=== PATIENT | female | born 1955 | race Caucasian/White ===

== ENCOUNTER 2019-07-15 06:40 | Emergency (ER) | payer MEDICARE, MEDICAID, SELFPAY ==
--- NOTE | ~2019-07-15 | CT_ITS ---
EXAMINATION: CT brain wo con DATE: 07/15/2019 07:05 INDICATION: Left sided weakness. TECHNIQUE: Computed tomography (CT) of the head was performed without intravenous contrast. The mA wa s adjusted according to patient size. Iterative reconstruction technique was employed. Exam dose: 60 5.33 mGy-cm total exam DLP. COMPARISON: None FINDINGS: No intracranial mass lesion or hemorrhage or evidence of cerebrovascular accident is eviden t. There is no midline shifts or mass effect. Normal ventricular size. No subdural or epidural hemato ma. No fracture or bone destruction of the cranial vault. Included paranasal sinuses and mastoid air cell s are unremarkable. IMPRESSION: No acute intracranial finding Dr. Centeno telephoned the report to emergency room physician on 07/15/2019 at 0710 hours Reviewed, dictated and finalized at [facility]. Reviewed, dictated and finalized at location A. NICAL REP IMPRESSION: No acute intracranial finding Dr. Centeno telephoned the report to emergency room physician on 2018 at 0710 hours
--- NOTE | ~2019-07-15 | XR_ITS ---
XR chest 1V DATE: 07/15/2019 07:09 INDICATION: Shortness of breath. Left-sided weakness. History of COPD. TECHNIQUE: Upright AP chest on 07/15/2019 at 0707 hours COMPARISON: 11/16/2018 portable AP chest 12/26/2018 CT chest FINDINGS: Bilateral hyperinflation, consistent with history of COPD. No pulmonary infiltrate or conso lidation, pleural effusion or pulmonary vascular congestion or pneumothorax is evident. Heart size ap pears normal. There is aortic arch calcification. IMPRESSION: Bilateral hyperinflation consistent with COPD Reviewed, dictated and finalized at location A. RACT AGENT
[2019-07-15 06:40] VITALS: BP 148/88; PULSE 80; RESP 20; TEMP 36.6; O2SAT 100
--- NOTE | 2019-07-15 06:40 | ECG_ITS ---
Measurements Intervals [place] Rate: 99 P: 87 MN: 161 QRS: 58 QRSD: 94 T: 57 QT: 351 QTc: 450 Interpretive Statements SINUS RHYTHM CANNOT RULE OUT SEPTAL INFARCT, AGE INDETERMINATE BASELINE ARTIFACT- I, II, AVR, AVL, V5 ABNORMAL ECG Electronically Signed On 07-15-2019 6:47:58 [employer] by Rohan Zavala D.O.
--- NOTE | 2019-07-15 06:40 | ED.NEUROSD ---
HPI - Neuro Symptoms/Deficit General Chief Complaint: Suspected CVA Stated Complaint: L SIDED WEAKNESS Source: patient and EMS Mode of arrival: EMS Limitations: no limitations History of Present Illness HPI Narrative: Patient is a 64-year-old female with a history of COPD who presents for evaluation of left-sided weakness. Patient reportedly has had approximately 90 minutes of weakness after symptoms began around 5:45AM this morning after she had woken up; pt states she awakened around 5:30 am this morning. Patient also states that she had some left-sided shoulder pain and difficulty moving her LUE. She denied any chest pain or shortness of breath. No ripping or tearing sensation to the pain. Pain is dull and aching in nature. 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 She also felt that it was difficult to move her left upper extremity. Pt was able to ambulate this morning. No numbness in her face or lower leg. Patient has no history of stroke. Patient states that she did apply some ice to her left arm and felt much better. EMS transported this patient, glucose was 110. Vital signs are stable. Of note, patient's son recently from a cardiac arrest due to drug overdose within the week. Patient is very tearful. Related Data Allergies Allergy/AdvReac Type Severity Reaction Status Date / Time No Known Allergies Allergy Verified 11/07/18 16:57 Review of Systems Review of Systems: Narrative: CONSTITUTIONAL: Denies fever, chills, or sweats. EYES: Denies visual changes, redness, or discharge. CARDIOVASCULAR: Denies chest pain, palpitations, or edema. RESPIRATORY: Reports chronic cough, chronic shortness of breath, on 3 L of oxygen at home GASTROINTESTINAL: Denies abdominal pain, nausea, vomiting, or diarrhea. GENITOURINARY: Denies dysuria or hematuria. SKIN: Denies rash or itching. MUSCULOSKELETAL: Denies back pain, joint pain, or myalgia. NEUROLOGIC: Denies headache, reports left-sided arm weakness PSYCHIATRIC: Reports some depression, denies homicidal or suicidal ideation, reports feeling very sad regarding the of her son [facility] Past Medical History Medical History (Updated 07/15/19 @ 08:53 by Almaz Forte MD) COPD (chronic obstructive pulmonary disease) On supplemental oxygen by nasal cannula Surgical History Surgical History (Updated 07/15/19 @ 06:55 by Almaz Forte MD) H/O: hysterectomy Family History Family History (Updated 03/29/18 @ 09:28 by DOCTOR UNKNOWN) Mother Diabetes mellitus Hypertension Sibling Hypertension Asthma Family history of sleep apnea Social History Social History Smoking status: Former smoker Smoking end date: 07/31/16 Exam Narrative: Exam Narrative: GENERAL: Well-appearing, well-nourished, and in no acute distress. HEAD: Normocephalic, atraumatic. EYES: PERRLA and EOMI. ENT: Nares clear, no rhinorrhea or epistaxis. Mucous membranes moist. NECK: Supple. CHEST: NC in place. Faint expiratory wheezing bilaterally No respiratory distress. HEART: Regular rate and rhythm. No murmur heard. Normal peripheral pulses. ABDOMEN: Soft, nontender, nondistended, normal active bowel sounds. EXTREMITIES: Normal range of motion. No edema. SKIN: Warm, dry, no rash. NEURO:Alert and oriented x3. Patient cannot complete [id number] on the left, she can complete this easily on the right. There is ataxia on the left and some rigidity. EOMs intact without nystagmus. No facial droop/asymmetry noted bilaterally. Grimace intact. Intact sensation in face. Hearing intact bilaterally. Shoulder shrug decreased on left. Strength 4/5 LUE, and 5/5 RUE. Mild decrease in strength LLE. Patient cannot complete [id number] on the left ambulatory exam deferred. Course Course Emergency Course: Patient presented for evaluation of left upper extremity weakness. Time of onset of symptoms is approximatel
[2019-07-15 07:16] LABS: Glucose Point of Care 83 (65-105)
--- NOTE | 2019-07-15 07:57 | PC.NURSE ---
Called [facility] to transfer pt to a higher level of care. [facility] declined the trip and said they are not taking any other transfers till further notice.
--- NOTE | 2019-07-15 07:58 | PC.NURSE ---
Called [facility] to transfer pt to a higher level of care. ETA 15-20min. Trip# [id number].
[2019-07-15 08:34] LABS: Basophils Percent Auto 0.5 % (0.2-1.2); Eosinophils Absolute Auto 0.1 K/mm3 (0-0.3); Eosinophils Percent Auto 1.1 % (0-4.4); Hematocrit 40.6 % (37.0-47.0); Hemoglobin 12.5 g/dL (12.0-15.0); Immature Granulocyte Absolute 0.01 K/mm3 (0.00-0.031); Immature Granulocyte Percent A 0.2 % (0-0.5); Lymphocytes Absolute Auto 1.69 K/mm3 (0.9-3.2); Lymphocytes Percent Auto 26.2 % (18.3-44.2); Mean Corpuscular HGB Conc 30.8 g/dl (32-36); Mean Corpuscular Hemoglobin 29.3 pg (26-34); Mean Corpuscular Volume 95.3 fl (80-100); Mean Platelet Volume 9.7 fl (7.4-10.4); Monocytes Absolute Auto 0.5 K/mm3 (0.1-0.6); Monocytes Percent Auto 7.6 % (2.6-8.5); Neutrophils Absolute Auto 4.2 K/mm3 (1.3-6.7); Neutrophils Percent Auto 64.4 % (45.5-73.1); Platelet Count Result 178 k/mm3 (150-375); Red Blood Count 4.26 M/mm3 (4.2-5.4); Red Cell Distribution Width 12.9 % (11.5-14.5); White Blood Count 6.5 K/mm3 (4.5-10.0)
[2019-07-15 08:43] LABS: Blood Urea Nitrogen 15 mg/dL (7-17); Calcium 9.2 mg/dL (8.4-10.2); Carbon Dioxide 34 mmol/L (22-30); Chloride 102 mmol/L (98-107); Estimated CRCL calculation 109 ml/min; Estimated Glomerular Filt Rate > 60; Glucose 86 mg/dL (65-105); Potassium 4.2 mmol/L (3.4-5.0); Sodium 142 mmol/L (137-145)
[2019-07-15 08:44] LABS: INR 1.1; Prothrombin Time 13.7 Seconds (11.1-14.7)
[2019-07-15 08:45] VITALS: BP 136/68; PULSE 75; RESP 16; O2SAT 96
[2019-07-15 08:45] LABS: Partial Thromboplastin Time 54.4 SECONDS (22.3-36.8)
[2019-07-15 08:58] LABS: Troponin I < 0.012 ng/mL (0.000-0.034)
== END 2019-07-15 08:46 | disposition short-term general hospital (02) ==
PROVIDERS: Emergency Provider Emergency Medicine
DX: I63.9 Cerebral infarction, unspecified (principal); G83.24 Monoplegia of upper limb affecting left nondominant side; G83.12 Monoplegia of lower limb affecting left dominant side; J44.9 Chronic obstructive pulmonary disease, unspecified; Z87.891 Personal history of nicotine dependence; R29.703 NIHSS score 3
CPT/HCPCS: 36415; 37195; 70450; 71045; 80048; 82947; 82948; 82962; 84484; 85025; 85610; 85730; 93005; 99285; J2997

== ENCOUNTER 2020-01-25 11:24 | Outpatient (CLI) | payer MEDICARE, MEDICAID, SELFPAY ==
--- NOTE | ~2020-01-25 | CT_ITS ---
EXAMINATION: CT chest wo con DATE: 01/25/2020 12:12 INDICATION: Solitary pulmonary nodule TECHNIQUE: Computed tomography (CT) of the chest was performed without intravenous contrast. The dose -length product (DLP) was 91.85 mGy-cm. Automated exposure control and iterative reconstruction techn ique were employed. COMPARISON: 12/26/2018 FINDINGS: The previously described widespread pulmonary nodules have nearly completely resolved. A fe w persistent residua of prior infection remain. No suspicious pulmonary nodule is identified. There i s moderate emphysema. There is mild bronchiectasis of the lower lobes, consistent with prior infectio n. No pleural effusion or pneumothorax is identified. No pathologically enlarged thoracic lymph nodes are identified. The heart size is normal. Calcified coronary artery atherosclerosis is noted. There is mild thoracic spondylosis. IMPRESSION: 1. Residua of prior infection in the lungs without evidence of acute abnormality. 2. Moderate emphysema. Reviewed, dictated and finalized at location A. IMPRESSION: 1. Residua of prior infection in the lungs without evidence of acute abnormalit y. 2. Moderate emphysema.
== END 2020-01-25 11:25 | disposition home or self-care (01) ==
PROVIDERS: Visit Provider Internal Medicine Critical Care Medicine
DX: R91.1 Solitary pulmonary nodule (principal); J43.9 Emphysema, unspecified
CPT/HCPCS: 71250

== ENCOUNTER 2020-02-12 21:32 | Emergency (ER) | payer MEDICARE, MEDICAID, SELFPAY ==
--- NOTE | ~2020-02-12 | CT_ITS ---
EXAMINATION: CT brain wo con DATE: 02/12/2020 22:48 INDICATION: Left hemiparesis. TECHNIQUE: Computed tomography (CT) of the head was performed without intravenous contrast. The mA wa s adjusted according to patient size. Iterative reconstruction technique was employed. The dose-lengt h product was 605.33 mGy-cm. COMPARISON: Head CT 07/15/2019 FINDINGS: There is no intracranial hemorrhage, acute infarction, or abnormal intracranial mass lesion . The ventricles are normal in size. The paranasal sinuses are clear. The mastoid air cells are jefferson l. IMPRESSION: 1. Normal brain. Reviewed, dictated and finalized at location A. IMPRESSION: 1. Normal brain.
--- NOTE | ~2020-02-12 | XR_ITS ---
EXAMINATION: XR chest 1V portable DATE: 02/12/2020 22:05 INDICATION: Stroke. TECHNIQUE: A single frontal view of the chest was obtained. COMPARISON: Chest single view 07/15/2019, chest CT 01/25/2020 FINDINGS: Lung volumes are increased with lucencies, consistent with emphysema. There is mild scarrin g at the lung apices. There is mild atelectasis in left lower lung zone. There are widespread mild pe ripheral reticular opacities. No pleural effusion or pneumothorax. The heart size is normal. IMPRESSION: 1. Diffuse lung disease, likely a combination of emphysema and mild chronic interstitial lung disease . Reviewed, dictated and finalized at location A. IMPRESSION: 1. Diffuse lung disease, likely a combination of emphysema and mild chronic int erstitial lung disease.
[2020-02-12 21:34] VITALS: BP 157/76; PULSE 80; RESP 19; TEMP 37; O2SAT 97
[2020-02-12 22:06] LABS: Basophils Absolute Auto 0.1 K/mm3 (0.0-0.1); Basophils Percent Auto 0.6 % (0.2-1.2); Eosinophils Absolute Auto 0.1 K/mm3 (0-0.3); Eosinophils Percent Auto 1.3 % (0-4.4); Hematocrit 39.9 % (37.0-47.0); Hemoglobin 12.4 g/dL (12.0-15.0); Immature Granulocyte Absolute 0.01 K/mm3 (0.00-0.031); Immature Granulocyte Percent A 0.1 % (0-0.5); Lymphocytes Percent Auto 34.2 % (18.3-44.2); Mean Corpuscular HGB Conc 31.1 g/dl (32-36); Mean Corpuscular Hemoglobin 29.9 pg (26-34); Mean Corpuscular Volume 96.1 fl (80-100); Mean Platelet Volume 9.2 fl (7.4-10.4); Monocytes Absolute Auto 0.6 K/mm3 (0.1-0.6); Monocytes Percent Auto 6.7 % (2.6-8.5); Neutrophils Absolute Auto 4.8 K/mm3 (1.3-6.7); Neutrophils Percent Auto 57.1 % (45.5-73.1); Platelet Count Result 220 k/mm3 (150-375); Red Blood Count 4.15 M/mm3 (4.2-5.4); White Blood Count 8.5 K/mm3 (4.5-10.0)
[2020-02-12 22:16] LABS: INR 1.1; Prothrombin Time 14.3 Seconds (11.1-14.7)
[2020-02-12 22:17] LABS: Partial Thromboplastin Time 54.5 SECONDS (22.3-36.8)
[2020-02-12 22:18] LABS: Alanine Aminotransferase 21 U/L (4-35); Albumin Level 4.1 g/dL (3.5-5.1); Alkaline Phosphatase 90 U/L (38-126); Aspartate Amino Transferase 29 U/L (14-36); Bilirubin,Total < 0.1 mg/dL (0.2-1.3); Blood Urea Nitrogen 22 mg/dL (7-17); Calcium 9.2 mg/dL (8.4-10.2); Carbon Dioxide 32 mmol/L (22-30); Chloride 101 mmol/L (98-107); Estimated Glomerular Filt Rate > 60; Glucose 102 mg/dL (65-105); Potassium 4.3 mmol/L (3.4-5.0); Sodium 139 mmol/L (137-145)
[2020-02-12 22:29] LABS: Troponin I < 0.012 ng/mL (0.000-0.034)
[2020-02-12 22:41] VITALS: BP 150/72; PULSE 72; RESP 20; O2SAT 97
--- NOTE | 2020-02-12 23:06 | PC.NURSE ---
PT CARE ASSUMED FROM [facility] AT THIS TIME.
[2020-02-12 23:47] VITALS: BP 134/70; PULSE 68; RESP 16; O2SAT 98
[2020-02-13 00:08] LABS: Add Urine Microscopic? YES; Appearance Urine Cloudy (Clear); Bacteria Urine Trace /hpf; Bilirubin Urine Negative (Negative); Blood Urine Negative (Negative); Color Urine Yellow (Yellow); Glucose Urine UA Negative (Negative); Ketones Urine Negative (Negative); Leukocyte Esterase Ur Negative LEU/UL (Negative); Mucus Urine Rare /lpf; Nitrate Urine Negative (Negative); Protein Urine Negative (Negative); RBC Urine 0-2 /hpf (0-2); Specific Grav Ur 1.016 (1.001-1.035); Squamous Epithelial Cell Urine Rare /hpf (Few); Urobilinogen Urine Negative mg/dL (<2.0); WBC Urine 0-3 /hpf
[2020-02-13 00:25] VITALS: BP 114/66; PULSE 67; RESP 15; O2SAT 98
--- NOTE | 2020-02-13 01:44 | ED.GENADULT ---
HPI - General Adult General Chief complaint: Neuro Symptoms/Deficit Stated complaint: rigid Time Seen by Provider: 02/12/20 21:35 History of Present Illness HPI narrative: Patient is a 64-year-old female who presents ER with left-sided tightness. Reports it started about an hour and a half prior to arrival. No numbness or tingling. No weakness. Leg and arm are tremulous and tight. Reports she had a similar episode to this months ago that was diagnosed as a TIA at [facility]. She reports she has been under a lot of stress recently as her son about 6 months ago prior to the onset of the symptoms. Related Data Home Medications Medication Instructions Recorded Confirmed albuterol sulfate 90 mcg/actuation 1 puff INHALATION Q4H PRN 08/29/19 01/08/20 aerosol inhaler arformoterol 15 mcg/2 mL solution 2 ml INHALATION BID 08/29/19 01/08/20 for nebulization aspirin 81 mg tablet,delayed 81 mg PO DAILY 09/02/19 01/08/20 release Allergies Allergy/AdvReac Type Severity Reaction Status Date / Time No Known Allergies Allergy Verified 02/12/20 21:54 Review of Systems Review of Systems: All systems reviewed & are unremarkable except as noted in HPI and below Constitutional: Constitutional: Denies chills, Denies fever(s) and Denies weakness ENT: Denies nasal congestion and Denies sore throat Respiratory: Respiratory: Denies cough, Denies dyspnea and Denies wheezing Gastrointestinal: Gastrointestinal: Denies abdominal pain, Denies nausea and Denies vomiting Musculoskeletal: Musculoskeletal: Denies back pain and Reports muscle cramps PMFSH Past Medical History Medical History (Updated 02/13/20 @ 01:55 by Jacob Conde MD) COPD (chronic obstructive pulmonary disease) H/O TIA (transient ischemic attack) and stroke June 2019 On supplemental oxygen by nasal cannula Surgical History Surgical History (Updated 07/15/19 @ 06:55 by Almaz Forte MD) H/O: hysterectomy Family History Family History (Updated 03/29/18 @ 09:28 by DOCTOR UNKNOWN) Mother Diabetes mellitus Hypertension Sibling Hypertension Asthma Family history of sleep apnea Social History Social History (Updated 09/02/19 @ 11:17 by Zunilda Black [facility]) Smoking status: Former smoker Smoking end date: 07/31/16 Exam Narrative: Exam Narrative: GENERAL: Anxious-appearing, well-nourished, and in milddistress. HEAD: Normocephalic, atraumatic. EYES: PERRL and EOMI. ENT: Mucous membranes moist. CHEST: Clear to auscultation. No respiratory distress. HEART: Regular rate and rhythm. Normal peripheral pulses. ABDOMEN: Soft, nontender, nondistended. EXTREMITIES: Normal range of motion. Left lower extremity is spastic and tight when doing range of motion. She can lift off the bed. No tenderness to the extremities. SKIN: Warm, dry, no rash. NEURO: Cranial nerves II through XII intact. No upper extremity drift, patient has mild drift in the left lower extremity but it may be more that she has having trouble holding it up due to tightening/spasm of the muscles. No sensory deficit. Patient is able to stand and can stand on her right leg all by itself as well as her left leg on its own. Alert and oriented x3. Course Course Emergency Course: Patient received some Ativan reports she feels much better. She has no drift in the lower extremities. Vital Signs Vital signs: Vital Signs Temperature 98.6 F 02/12/20 21:34 Pulse Rate 80 02/12/20 21:34 Respiratory Rate 19 02/12/20 21:34 Blood Pressure 157/76 H 02/12/20 21:34 Pulse Oximetry 97 02/12/20 21:34 Temperature 98.6 F 02/12/20 21:34 Pulse Rate 67 02/13/20 00:25 Respiratory Rate 15 02/13/20 00:25 Blood Pressure 114/66 02/13/20 00:25 Pulse Oximetry 98 02/13/20 00:25 Medical Decision Making Vital Signs Vital Signs: Vital Signs Temperature 98.6 F 02/12/20 21:34 Pulse Rate 80 02/12/20 21:34 Respiratory Rate
[2020-02-13 02:00] VITALS: BP 124/69; PULSE 65; RESP 18; O2SAT 100
== END 2020-02-13 02:00 | disposition home or self-care (01) ==
PROVIDERS: Emergency Provider Emergency Medicine
DX: R25.2 Cramp and spasm (principal); F41.9 Anxiety disorder, unspecified; Z86.73 Personal history of transient ischemic attack (TIA), and cerebral infarction without residual deficits; J44.9 Chronic obstructive pulmonary disease, unspecified; Z99.81 Dependence on supplemental oxygen; Z79.82 Long term (current) use of aspirin
CPT/HCPCS: 36415; 70450; 71045; 80053; 81001; 84484; 85025; 85610; 85730; 96374; 99284; J2060

== ENCOUNTER 2020-02-17 11:00 | Outpatient (RCR) | payer MEDICARE, MEDICAID, SELFPAY ==
[2020-01-20 10:30] VITALS: BP_SYST 130
--- NOTE | 2020-01-20 11:47 | PTOPEVAL ---
Thank you for referring James Barrett to [facility]. Please review, sign, date and return this plan of care IMANI. Pt referred to physical therapy to address left UE impairments related to her shoulder adhesive capsulitis. She demonstrates impairments with shoulder range, strength and UE function. Recommend additional PT 2x/wk x 8-10 wk to address UE limitations. I agree with and certify that the following plan of care is medically necessary. Referring Physician Date Attending Provider: Stephen Dalton MD *PT Outpatient Evaluation Start: 01/20/20 10:32 Freq: Status: Active Protocol: Document 01/20/20 10:30 CAP (Rec: 01/20/20 11:00 CAP [email or web address]) Therapy Assessment Status Assessment Status Assessment Status Evaluation Outpatient Past Medical History Neurological History Hx Cerebrovascular Accident (CVA) Yes: 07/18 Hx Transient Ischemic Attacks (TIA) Yes Cardiovascular History Hx Cardiac Disorders No Significant History Respiratory History Hx Chronic Obstructive Pulmonary Disease Yes: 3L O2 (COPD) Musculoskeletal History Hx Other Musculoskeletal Disorders Yes: left shoulder adhesive capsulitis Endocrine History Hx Diabetes Yes Evaluation Information Problem Diagnosis left shoulder adhesive capsulitis Onset 1 year Additional Evaluation Detail 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 Subjective Information She has been having pain in Query Text:As Reported By Patient/ the upper arm for ~ 1 year. Family She was limiting the use of the left arm when the pain started. She suffered a CVA . Since June the limitations of the left shoulder/arm progressed She received an injection on with improve pain and ability to use the arm for daily activities. She reports limitations with all reaching activities of left UE carrying objects with arm, cleaning activities. She uses her right UE for most daily task. Prior Level of Function Activity Level (Last 3 Months) Hand Dominance Right Activity of Daily Living Ability Independent Indoor/Home Mobility Independent Community Mobility Independ
--- NOTE | 2020-02-13 11:22 | PCPTNOTE ---
Patient called & cancelled scheduled appointment this date due to illness.
--- NOTE | 2020-02-17 11:53 | PTOPEVAL ---
Thank you for referring James Barrett to [facility]. Please review, sign, date and return this plan of care IMANI. Pt has received 8 therapy visits to address left shoulder impairments. She has reached her therapy goals at this time with improved UE strength, range and improved pain. DC skilled therapy at this time. I agree with and certify that the following plan of care is medically necessary. 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 She has been having pain in the upper arm for ~ 1 year. She was limiting the use of the left arm when the pain started. She suffered a CVA . Since June the limitations of the left shoulder/arm progressed. Subjective Information She reports no shoulder pain Query Text:As Reported By Patient/ today. She carrying her O2 Family tank with her left UE. She is able to perform all her daily activities of cleaning, ADL's, and carrying task. Reports improved ability to perform reaching in all directions. Pain Assessment Timing of Pain Assessment Timing of Pain Assessment Re-assessment Pain Scale Pain Scale Used Numeric (1 - 10) Self Report Pain Assessment Left Shoulder(s) Reported Pain Level 0 Lowest Pain Intensity 0 Greatest Pain Intensity 0 Pain Score Pain Score 0: Self Report Upper Extremity Range of Motion Scapular/ Shoulder Range of Motion Left Scapular: Retraction Hypomobile Scapular: Protraction Hypomobile Scapular Downward Rotation Hypomobile Scapular Upward Rotation Hypomobile Shoulder Flexion - Active 158 Shoulder Extension - Active 40 Shoulder Abduction - Active 150 Shoulder Medial Rotation - Active 65 Shoulder Medial Rotation - Acti
== END 2020-02-18 13:09 | disposition home or self-care (01) ==
LOC: ANHPT 11:00
PROVIDERS: Visit Provider Orthopaedic Surgery
DX: M75.02 Adhesive capsulitis of left shoulder (principal)
CPT/HCPCS: 97110; 97140; 97162

== ENCOUNTER 2020-04-24 11:46 | Outpatient (CLI) | payer MEDICARE, MEDICAID, SELFPAY ==
[2020-04-24 14:09] LABS: Erythrocyte Sedimentation Rate 17 mm/hr (0-20)
== END 2020-04-24 11:47 | disposition home or self-care (01) ==
LOC: ANHLAB 11:54
DX: R51 Headache (principal)
CPT/HCPCS: 36415; 85652; 86038

== ENCOUNTER 2020-05-04 18:10 | Inpatient (IN) | payer MEDICARE, MEDICAID, SELFPAY ==
[2020-05-04] VITALS (7 sets, daily range): BP systolic 108–157; BP diastolic 61–74; PULSE 71–80; RESP 16–20; TEMP 36.8; O2SAT 97–100
--- NOTE | ~2020-05-04 | MR_ITS ---
EXAMINATION: MR brain/brain stem wo/w con EXAM DATE: 05/05/2020 11:28 INDICATION: Headache. Left-sided hemiparesis. TECHNIQUE: Magnetic resonance imaging (MRI) of the brain/brain stem obtained without contrast. Sagit chris T1, axial diffusion, gradient echo (T2*), T1, T2, FLAIR sequences obtained. Patient was then inj ected with 18 cc intravenous Multihance contrast. Axial and coronal postcontrast T1 weighted sequence s obtained. Correlation is made to CTA brain from yesterday. FINDINGS: There are no areas of restricted diffusion to suggest acute infarction. There is no acute hemorrhage seen on the T2*, a hemosiderin sensitive sequence. No intraparenchymal brain mass. The ve ntricles are normal in size. There are no extra-axial collections. Flow voids are seen in the cereb ral arteries on the T2-weighted sequences consistent with their expected patency. The orbits are unr emarkable. Soft tissue is unremarkable. There are no areas of abnormal enhancement on the postcont rast images. IMPRESSION: 1. Unremarkable brain MRI examination. Reviewed, dictated and finalized at location B.
--- NOTE | ~2020-05-04 | CT_ITS ---
EXAMINATION: CTA brain carotid DATE: 05/04/2020 20:59 INDICATION: Left-sided weakness TECHNIQUE: Computed tomographic angiography (CTA) of the head was performed without and with 100 mL O mnipaque-350 intravenous contrast. CTA of the neck was performed with intravenous contrast. The dose- length product was 2914.77 mGy-cm. Maximum intensity projection and volume rendered 3D-reconstruction s were created by the technologist on a separate workstation. Automated exposure control and iterativ e reconstruction technique were employed. COMPARISON: 02/12/2020 FINDINGS: HEAD CTA: There is no acute intraparenchymal hemorrhage. No evidence of mass lesion. No evidence of a cute infarction. There is mild periventricular and subcortical hypodensity probably related to small vessel ischemic disease. There is mild prominence of the sulci and ventricles related to cerebral atr ophy. Intracranial calcified cerebral atherosclerosis is noted. There are no extra-axial collections. There is no mass effect or midline shift. The orbits and soft tissues are unremarkable. The visualiz ed sinuses and mastoid air cells are well aerated. There is no significant stenosis of the basilar artery or posterior cerebral arteries. There is no si gnificant stenosis of the intracranial internal carotid arteries or the anterior or middle cerebral a rteries. The anterior communicating artery and posterior communicating arteries are normal. There is no aneurysm. NECK CTA: The thyroid gland is unremarkable. The submandibular and parotid glands are symmetric. Ther e is no lymphadenopathy. There are no masses identified. The airway is unremarkable. There is mild ce rvical spondylosis. The superior mediastinum is unremarkable. There is mild emphysema. There is 0% stenosis of the proximal right internal carotid artery relative to normal distal artery l umen diameter (NASCET criteria). There is 0% stenosis of the proximal left internal carotid artery re lative to normal distal artery lumen diameter. IMPRESSION: 1. No acute intracranial abnormality. Normal head CTA. 2. 0% stenosis of the proximal right internal carotid artery relative to normal distal artery lumen d iameter (NASCET criteria). 3. 0% stenosis of the proximal left internal carotid artery relative to normal distal artery lumen di ameter. Reviewed, dictated and finalized at location A. IMPRESSION: 1. No acute intracranial abnormality. Normal head CTA. 2. 0% stenosis of the proximal right internal carotid artery relative to normal distal artery lumen diameter (NASCET criteria). 3. 0% stenosis of the proximal left internal carotid artery relative to normal distal artery lumen diameter.
--- NOTE | ~2020-05-04 | MR_ITS ---
EXAMINATION: MR cervical spine wo con EXAM DATE: 05/07/2020 08:31 INDICATION: Cervical radiculopathy. Headache. TECHNIQUE: Multi-sequential, multiplanar MR images of the cervical spine were obtained without contra st. Axial T2, axial T2 MERGE sequence. Sagittal T1, T2, T2 fat saturation images also obtained. Th ere is no prior study for comparison. FINDINGS: Mild to moderate cervical disc disease C4-6, mild disc disease at the other levels. Verteb ral body heights are maintained. The vertebral bodies are aligned in the AP dimension. The spinal cor d signal intensity and intrinsic morphology is normal. Cervicomedullary junction is normal in appeara nce. There are no suspicious marrow signal abnormalities. Paraspinal soft tissue is unremarkable. Level by level evaluation: C2-C3: Disc does not extend beyond the endplate margin. Uncovertebral joint arthropathy: Mild bilateral. Facet joint arthropathy: Severe left, moderate right. Neural foraminal stenosis: Mild to moderate left. Central canal stenosis: No stenosis. C3-C4: Disc does not extend beyond the endplate margin. Uncovertebral joint arthropathy: Mild bilateral. Facet joint arthropathy: Severe right, moderate to severe left. Neural foraminal stenosis: Mild to moderate bilateral. Central canal stenosis: No stenosis. C4-C5: Disc does not extend beyond the endplate margin. Uncovertebral joint arthropathy: Mild to moderate bilateral. Facet joint arthropathy: Moderate left, mild to moderate right. Neural foraminal stenosis: No stenosis. Central canal stenosis: No stenosis. C5-C6: Disc does not extend beyond the endplate margin. Uncovertebral joint arthropathy: Mild to moderate bilateral. Facet joint arthropathy: Moderate bilateral. Neural foraminal stenosis: No stenosis. Central canal stenosis: No stenosis. C6-C7: There is a mild diffuse disc bulge. Uncovertebral joint arthropathy: Mild to moderate bilateral. Facet joint arthropathy: Moderate left, mild to moderate right. Neural foraminal stenosis: Mild bilateral. Central canal stenosis: No stenosis. C7-T1: Disc does not extend beyond the endplate margin. Uncovertebral joint arthropathy: Mild. Facet joint arthropathy: Mild. Neural foraminal stenosis: No stenosis. Central canal stenosis: No stenosis. IMPRESSION: 1. Advanced cervical arthropathy, upper levels more affected. Reviewed, dictated and finalized at location B.
--- NOTE | 2020-05-04 18:40 | ECG_ITS ---
Measurements Intervals [place] Rate: 75 P: 80 [place]: 145 QRS: 47 QRSD: 96 T: 60 QT: 367 QTc: 411 Interpretive Statements SINUS RHYTHM CANNOT RULE OUT SEPTAL INFARCT, AGE INDETERMINATE BASELINE ARTIFACT- I, II, AVR, AVL ABNORMAL ECG Electronically Signed On 05-04-2020 19:03:33 CDT by Rohan Zavala D.O.
--- NOTE | 2020-05-04 20:09 | ED.GENADULT ---
HPI - General Adult General Chief complaint: Unspecified Stated complaint: pain left arm Time Seen by Provider: 05/04/20 19:57 Source: patient History of Present Illness HPI narrative: Patient is a 65 y/o female complaining of left arm pain and left sided weakness. She states that she was watching TV and felt like she cannot move her left side. She noticed her symptoms around 5:30 PM. She states that she called her and she was brought here by EMS. She states that her left sided weakness has improved, but not back to her baseline. She had some difficulty with talking, but her speech has returned to normal. She admits that she is stressed out today when she thought about her son's last year. Related Data Home Medications Medication Instructions Recorded Confirmed albuterol sulfate 90 mcg/actuation 1 puff INHALATION Q4H PRN 08/29/19 05/05/20 aerosol inhaler arformoterol 15 mcg/2 mL solution 2 ml INHALATION BID 08/29/19 05/05/20 for nebulization aspirin 81 mg tablet,delayed 81 mg PO DAILY 09/02/19 05/05/20 release meloxicam 15 mg tablet 15 mg PO HS 03/02/20 05/05/20 albuterol sulfate 2.5 mg INHALATION DAILY 05/05/20 05/05/20 Allergies Allergy/AdvReac Type Severity Reaction Status Date / Time No Known Allergies Allergy Verified 05/04/20 23:11 Review of Systems Constitutional: Constitutional: Denies chills, Denies fever(s), Denies headache(s) and Denies weakness Eyes: Eyes: Denies blurry vision ENT: Denies headache(s) and Denies neck pain Cardiovascular: Cardiovascular: Denies chest pain and Denies dyspnea Respiratory: Respiratory: Denies cough and Denies dyspnea Gastrointestinal: Gastrointestinal: Denies abdominal pain, Denies diarrhea, Denies nausea and Denies vomiting Genitourinary: Genitourinary: Denies hematuria and Denies dysuria Musculoskeletal: Musculoskeletal: Reports as per HPI, Denies back pain, Denies neck pain and Reports other (left arm pain) Neurologic: Reports as per HPI, Denies headache(s), Reports focal weakness and Reports weakness PMFSH Past Medical History Medical History Chronic respiratory failure with hypercapnia COPD (chronic obstructive pulmonary disease) H/O TIA (transient ischemic attack) and stroke June 2019 On supplemental oxygen by nasal cannula Surgical History Surgical History H/O: hysterectomy Family History Family History Mother Diabetes mellitus Hypertension Sibling Hypertension Asthma Family history of sleep apnea Social History Social History Smoking packs per day: 1 Smoking cigarettes per day: 20.0 Years smoked: 20 Smoking pack-years: 20.00 Smoking status: Former smoker Smoking end date: 07/31/16 Alcohol intake: never Gender identity (if verbalized by the patient): Female Spiritual care concerns: No Exam Const: General: no acute distress and well developed Orientation/consciousness: oriented to person, oriented to place, oriented to time and patient oriented x3 HENMT: Head: normocephalic Ears: external ears normal General nose exam: Normal external nose present Eyes: General: appearance normal, both eyes and all related structures Conjunctivae: conjunctivae normal Neck: Neck: normal visual inspection and full ROM Chest: Chest palpation & inspection: normal inspection of the chest and no tenderness Resp: Effort & Inspection: normal respiratory effort Auscultation: clear to auscultation bilaterally Cardio: Rate: regular rate Rhythm: regular rhythm GI: GI Palp: No abdominal tenderness and Yes Soft to palpation Skin: General skin exam: normal color and turgor normal Neuro: General: oriented to person, oriented to place, oriented to time and patient oriented x3 Cognition (Neuro): normal
[2020-05-04 20:29] LABS: Basophils Absolute Auto 0.1 K/mm3 (0.0-0.1); Basophils Percent Auto 0.5 % (0.2-1.2); Eosinophils Absolute Auto 0.2 K/mm3 (0-0.3); Eosinophils Percent Auto 1.6 % (0-4.4); Immature Granulocyte Absolute 0.03 K/mm3 (0.00-0.031); Immature Granulocyte Percent A 0.3 % (0-0.5); Lymphocytes Absolute Auto 2.38 K/mm3 (0.9-3.2); Lymphocytes Percent Auto 24.5 % (18.3-44.2); Monocytes Absolute Auto 0.5 K/mm3 (0.1-0.6); Monocytes Percent Auto 5.5 % (2.6-8.5); Neutrophils Absolute Auto 6.6 K/mm3 (1.3-6.7); Neutrophils Percent Auto 67.6 % (45.5-73.1); Platelet Count Result 228 k/mm3 (150-375); Red Blood Count 4.33 M/mm3 (4.2-5.4); Red Cell Distribution Width 12.9 % (11.5-14.5); White Blood Count 9.7 K/mm3 (4.5-10.0)
[2020-05-04 20:39] LABS: INR 1.1; Prothrombin Time 13.9 Seconds (11.1-14.7)
[2020-05-04 20:39] LABS: Estimated CRCL calculation 91 ml/min; Estimated Glomerular Filt Rate > 60
[2020-05-04 20:40] LABS: Partial Thromboplastin Time 53.8 SECONDS (22.3-36.8)
[2020-05-04 20:44] LABS: Anion Gap 1.99999 mmol/L (8-16); Blood Urea Nitrogen 21 mg/dL (7-17); Calcium 9.7 mg/dL (8.4-10.2); Carbon Dioxide > 40 mmol/L (22-30); Chloride 99 mmol/L (98-107); Estimated CRCL calculation 91 ml/min; Estimated Glomerular Filt Rate > 60; Glucose 96 mg/dL (65-105); Potassium 4.8 mmol/L (3.4-5.0); Sodium 141 mmol/L (137-145)
--- NOTE | 2020-05-04 20:57 | PC.NURSE ---
pt presents to ER with c/o left leg weakness. pt states around 17:00 tonight she noticed sx with associated numbness/tingling. pt also states, I was talking weird and my left arm went numb and stiff. Pt reports hx of TIA and states she was given TPA in June and transferred to [facility]. Pt states she was thinking about her son when sx first started. pt states her son last year and she was feeling a lot of stress and anxious. pt states sx have subsided besides L leg weakness. pt aaox4, no other neuro deficit noted. pt answering questions appropriately and no facial droop noted.
--- NOTE | 2020-05-04 21:20 | PC.NURSE ---
pt walking around room at this time, moving L extremity. pt states she would like to talk to her at this time about the TPA administration. All risks and benefits discussed with pt. pt states that she would like to hold off right now and does not want to be transferred to [facility] because her family will not be able to visit. MD Cummings at bedside-aware of poc. pt states she wishes to be admitted her.
--- NOTE | 2020-05-04 21:51 | PC.NURSE ---
pt ambulatory to restroom at this time in NAD
--- NOTE | 2020-05-04 23:31 | PC.NURSE ---
pt's called and updated on poc at this time per pt's request
[2020-05-04] MEDS: IPRATROPIUM BR 0.02% INH SOLN 0.5 MG/2.5 ML VIAL 2 MG INHALATION (23:58)
[2020-05-05] VITALS (20 sets, daily range): BP systolic 124–147; BP diastolic 55–77; PULSE 66–113; RESP 18–22; TEMP 35.9–36.6; O2SAT 95–99; BMI 32.7
--- NOTE | 2020-05-05 00:05 | ADMGEN ---
This patient, James Barrett, was admitted to Medical Room 346-01. Patient/family oriented to hospital policies and general routines including ID bracelet, bed and alarms, visiting hours, pain management, procedures, bathroom and other care routines, personal items, smoking policy, room service/diet, and visiting hours. Valuables list has been completed. Information on how to activate the Rapid Response Team has been discussed. Patient/Family are encouraged to report perceived risks to care and to ask questions if they do not understand what they are told or what they should do.
--- NOTE | 2020-05-05 02:40 | PC.NURSE ---
Phone call to hospitalist at this time to request medication for the patient. Patient has c/o headache and she feels like my head is going to pop off. No orders for pain medication in the MAR at this time. Will continue to reach hospitalist and ask about orders to receive pain medication for patient.
--- NOTE | 2020-05-05 03:01 | PC.NURSE ---
Spoke with Dr. Pineda about patient experiencing a headache like I've never had before. Orders given to give tylenol 650 Q4. Did assessment on patient and she was able to smile, hold arms up together, speak clearly, and do a math problem for me. I will continue to monitor the patient and assess as needed.
[2020-05-05] MEDS: ACETAMINOPHEN 325 MG TABLET 650 MG PO ×4 (03:17→17:00)
--- NOTE | 2020-05-05 06:00 | ECHO_ITS ---
Patient Info Name: James Barrett Age: 65 years : 1955 Gender: Female Ht: 67 in Wt: 189 lbs BSA: 2.04 m2 HR: 65 bpm BP: 144 / 70 mmHg Heart Rhythm: Sinus Rhythm Technical Quality: Good Exam Date: 05/05/2020 11:55 AM Exam Location: [facility] Pul[facility] Patient Status: Inpatient Admit Date: 05/04/2020 Staff Ordering Physician: Liz Cummings MD [employer] Operator: Fam Bernstein RDCS Attending Provider: Minal Pineda DO Referring Physician: Emiliano ZEPEDA; Exam Type: CA echo doppler color flow Study Info Indications 435.9 - TIA Complete two-dimensional, color flow and Doppler transthoracic echocardiogram is performed. History/Risk Factors TIA, COPD, chronic respiratory failure. Summary 1. Complete two-dimensional, color flow and Doppler transthoracic echocardiogram is performed. 2. Left ventricular chamber size, wall thickness, systolic and diastolic function are normal with no regional wall motion abnormalities with an estimated ejection fraction of 55-60%. 3. Right ventricular chamber dimension is mildly enlarged, with normal systolic function. 4. Borderline right atrial enlargement. 5. Mild pulmonary hypertension, estimated pulmonary arterial systolic pressure is 39 mmHg. 6. No significant valve disease. 7. Normal sinus rhythm. Left Ventricle Left ventricular chamber dimension is normal. Left ventricular systolic function is normal, estimated at 55-60%. There is no increased left ventricular wall thickness. Left ventricular septal wall motion is normal. The left ventricular diastolic function is normal. Left ventricular chamber size, wall thickness, systolic and diastolic function are normal with no regional wall motion abnormalities with an estimated ejection fraction of 55-60%. Right Ventricle Right ventricular chamber dimension is mildly enlarged, with normal systolic function. Right ventricular systolic function is normal. Left Atria Left atrial chamber dimension is normal. Right Atria Right atrial chamber dimension is mildly enlarged. Aortic Valve The aortic valve is trileaflet. There is no aortic valve sclerosis. There is no aortic valve stenosis. There is no aortic valve regurgitation. Pulmonic Valve The pulmonic valve is normal. There is no pulmonic valve stenosis. There is no pulmonic regurgitation. Mitral Valve The mitral valve has normal leaflets. There is mild mitral valve stenosis. There is no mitral valve regurgitation. Tricuspid Valve The tricuspid valve leaflets are normal. There is no significant tricuspid valve stenosis. There is trace tricuspid valve regurgitation. Mild pulmonary hypertension, estimated pulmonary arterial systolic pressure is 39 mmHg. Pericardium/Pleural The pericardium appears normal. There is no pericardial effusion. Inferior Vena Cava Normal inferior vena cava with >50% collapse upon inspiration consistent with Empty right atrial pressure, 5 mmHg. Aorta The aortic root size at the sinus of Valsalva is normal. The prox ascending aorta size is normal. Left Ventricular Outflow Tract Name Value Normal LVOT 2D LVOT Diameter 2.0 cm LVOT Doppler
[2020-05-05] MEDS: ASPIRIN 81 MG CHEWABLE TABLET PO (07:38)
[2020-05-05] MEDS: ALBUTEROL SULFATE NEB 2.5 MG/3 ML INH INHALATION (08:59)
[2020-05-05] MEDS: IPRATROPIUM BR 0.02% INH SOLN 0.5 MG/2.5 ML VIAL INHALATION ×3 (09:00→21:21)
[2020-05-05] MEDS: ALBUTEROL SULFATE NEB 2.5 MG/0.5 ML INH INHALATION ×2 (15:05→21:21)
[2020-05-05] MEDS: ROFLUMILAST 500 MCG TABLET PO (15:10)
--- NOTE | 2020-05-05 15:27 | WPDNEURCNPN ---
Assessment and Plan Assessment and plan (1) Left-sided weakness: Code(s): R53.1 - Weakness Status: Acute (2) Adhesive capsulitis of left shoulder: Code(s): M75.02 - Adhesive capsulitis of left shoulder Status: Acute (3) Bronchiectasis: Code(s): J47.9 - Bronchiectasis, uncomplicated Status: Acute (4) Immunodeficiency: Code(s): D84.9 - Immunodeficiency, unspecified Status: Acute (5) COPD (chronic obstructive pulmonary disease): Code(s): J44.9 - Chronic obstructive pulmonary disease, unspecified Status: Acute (6) Chronic respiratory failure with hypoxia and hypercapnia: Code(s): J96.11 - Chronic respiratory failure with hypoxia; J96.12 - Chronic respiratory failure with hypercapnia Status: Acute (7) Esophageal thickening: Code(s): K22.8 - Other specified diseases of esophagus Status: Acute (8) Lung nodule: Code(s): R91.1 - Solitary pulmonary nodule Status: Acute (9) Shortness of breath: Code(s): R06.02 - Shortness of breath Status: Acute (10) Tobacco abuse: Code(s): Z72.0 - Tobacco use Status: Acute (11) Neck pain: Code(s): M54.2 - Cervicalgia Status: Acute Additional Plan continue the present medical management I will order the MRI of the cervical spine to make sure we are not missing anything in her spinal cord and or the nerve roots Consult date: 05/05/20 Time Seen: 14:30 HPI: James Barrett is a 65 year old female who is right-handed was admitted because of the pain and discomfort and some weakness of the left side she just came out of the shower and did quite well complaining of headache she said she has had headache for some time MRI and the CTA are negative patient denies any paresthesias anymore but feels stiff in the pain in the left arm and the left leg she is on aspirin has underlying COPD Overall she feels much better though comparing to when she was in the emergency Review of Systems Review of Systems: All systems reviewed & are unremarkable except as noted in HPI and below PMFSH Past Medical History Medical History Chronic respiratory failure with hypercapnia COPD (chronic obstructive pulmonary disease) H/O TIA (transient ischemic attack) and stroke June 2019 On supplemental oxygen by nasal cannula Surgical History Surgical History H/O: hysterectomy Family History Family History Mother Diabetes mellitus Hypertension Sibling Hypertension Asthma Family history of sleep apnea Social History Social History Smoking packs per day: 1 Smoking cigarettes per day: 20.0 Years smoked: 20 Smoking pack-years: 20.00 Smoking status: Former smoker Smoking end date: 07/31/16 Alcohol intake: never Gender identity (if verbalized by the patient): Female Spiritual care concerns: No Meds Home Medications and Allergies Home Medications Medication Instructions Recorded Confirmed Type albuterol sulfate 90 mcg/actuation 1 puff INHALATION Q4H PRN 08/29/19 05/05/20 History aerosol inhaler arformoterol 15 mcg/2 mL solution 2 ml INHALATION BID 08/29/19 05/05/20 History for nebulization aspirin 81 mg tablet,delayed 81 mg PO DAILY 09/02/19 05/05/20 History release roflumilast 500 mcg tablet 500 mcg PO DAILY #30 tablet 11/06/19 05/05/20 Rx meloxicam 15 mg tablet 15 mg PO HS 03/02/20 05/05/20 History ipratropium bromide 0.02 % See Rx Instructions .ROUTE 04/03/20 05/05/20 Rx solution for inhalation .COMPLEX #360 ml albuterol sulfate 2.5 mg INHALATION DAILY 05/05/20 05/05/20 History Allergies Allergy/AdvReac Type Severity Reaction Status Date / Time No Known Allergies Allergy Verified 05/04/20 23:11 Vital Signs Vital Signs -
--- NOTE | 2020-05-05 15:45 | PM.IMHP ---
H&P: HPI History of Present Illness Date/Time: 05/05/20 15:45 Chief complaint: left sided weakness Narrative: James Barrett is a 65 year old female admitted with left sided weakness and numbness and headache. Pt had recently lost her son. And has been grieving and has been under stress. History of smoking, copd and tia in the past. Usually well. Today her left arm and leg looks weak. Pt has a normal cta head and neck and mri brain. Pt to see neurology ? migrainous headache stress induced. No other complaints. Eating less due to bereavement, sleeping alot. Review of Systems Review of Systems: All systems reviewed & are unremarkable except as noted in HPI and below Constitutional: Constitutional: Reports poor appetite Eyes: Eyes: Reports no additional eye complaints Cardiovascular: Cardiovascular: Reports no additional cardiovascular complaints Respiratory: Respiratory: Reports chest congestion Gastrointestinal: Gastrointestinal: Reports no additional gastrointestinal complaints Musculoskeletal: Musculoskeletal: Reports muscle weakness and Reports numbness Comments: arm and leg Neurologic: Reports numbness, Reports paresthesias and Denies tremor(s) Comments: weakness in arm and leg Psychiatric: Psychiatric: Reports depression PMFSH Past Medical History Medical History Chronic respiratory failure with hypercapnia COPD (chronic obstructive pulmonary disease) H/O TIA (transient ischemic attack) and stroke June 2019 On supplemental oxygen by nasal cannula Surgical History Surgical History H/O: hysterectomy Family History Family History Mother Diabetes mellitus Hypertension Sibling Hypertension Asthma Family history of sleep apnea Social History Social History Smoking packs per day: 1 Smoking cigarettes per day: 20.0 Years smoked: 20 Smoking pack-years: 20.00 Smoking status: Former smoker Smoking end date: 07/31/16 Alcohol intake: never Gender identity (if verbalized by the patient): Female Spiritual care concerns: No Meds Home Medications and Allergies Home Medications Medication Instructions Recorded Confirmed Type albuterol sulfate 90 mcg/actuation 1 puff INHALATION Q4H PRN 08/29/19 05/05/20 History aerosol inhaler arformoterol 15 mcg/2 mL solution 2 ml INHALATION BID 08/29/19 05/05/20 History for nebulization aspirin 81 mg tablet,delayed 81 mg PO DAILY 09/02/19 05/05/20 History release roflumilast 500 mcg tablet 500 mcg PO DAILY #30 tablet 11/06/19 05/05/20 Rx meloxicam 15 mg tablet 15 mg PO HS 03/02/20 05/05/20 History ipratropium bromide 0.02 % See Rx Instructions .ROUTE 04/03/20 05/05/20 Rx solution for inhalation .COMPLEX #360 ml albuterol sulfate 2.5 mg INHALATION DAILY 05/05/20 05/05/20 History Allergies Allergy/AdvReac Type Severity Reaction Status Date / Time No Known Allergies Allergy Verified 05/04/20 23:11 Vital Signs Vital Signs - 24 hr 05/04/20 18:35 05/04/20 20:26 05/04/20 21:21 Temperature 36.8 C Pulse Rate 72 71 Respiratory Rate 16 18 18 Blood Pressure 122/61 157/74 H Pulse Oximetry 100 97 05/04/20 23:14 05/04/20 23:41 05/04/20 23:42 Temperature Pulse Rate 72 78 Respiratory Rate 18 18 Blood Pressure 108/64 Pulse Oximetry 99 97 05/04/20 23:44 05/05/20 00:00 05/05/20 00:02 Temperature Pulse Rate 80 113 H Respiratory Rate 20 19 Blood Pressure Pulse Oximetry 98 05/05/20 00:18 05/05/20 04:00 05/05/20 05:33 Temperature 36.6 C 36.2 C L Pulse Rate 85 71 71 Respiratory Rate 22 H 18 Blood Pressure 143/62 H 144/70 H Pulse Oximetry 99 97 05/05/20 08:00 05/05/20 08:27 05/05/20 09:00 Temperature Pulse Rate 78 76 Respiratory Rate 18 20 Blood P
[2020-05-05] MEDS: MELOXICAM 7.5 MG TABLET 15 MG PO (20:28)
[2020-05-06] VITALS (14 sets, daily range): BP systolic 108–128; BP diastolic 59–68; PULSE 66–82; RESP 14–20; TEMP 36.3–36.4; O2SAT 92–97
[2020-05-06] MEDS: ACETAMINOPHEN 325 MG TABLET 650 MG PO ×3 (00:16→08:24)
[2020-05-06] MEDS: ROFLUMILAST 500 MCG TABLET PO (08:22)
[2020-05-06] MEDS: ASPIRIN 81 MG CHEWABLE TABLET PO (08:23)
[2020-05-06] MEDS: ENOXAPARIN 40 MG/0.4 ML SYRINGE SUB-Q (08:25)
[2020-05-06] MEDS: IPRATROPIUM BR 0.02% INH SOLN 0.5 MG/2.5 ML VIAL INHALATION ×3 (09:21→19:03)
[2020-05-06] MEDS: ALBUTEROL SULFATE NEB 2.5 MG/0.5 ML INH INHALATION ×3 (09:21→19:02)
[2020-05-06] MEDS: ALPRAZolam (*CRX) 0.5 MG TABLET PO ×2 (11:10→21:34)
[2020-05-06] MEDS: KETOROLAC (*BKC) 60 MG/2 ML VIAL IM (11:10)
--- NOTE | 2020-05-06 11:25 | PM.IMPN ---
Progress Note: A&P Assessment and Plan (1) Adhesive capsulitis of left shoulder: Code(s): M75.02 - Adhesive capsulitis of left shoulder Status: Acute Assessment and Plan: Pain control. PT (2) Left-sided weakness: Code(s): R53.1 - Weakness Status: Acute Assessment and Plan: Likley secondary to migranous headache and stress or TIA or old stroke TPA offered on admission pt refused because of risks MRI BRAIN is negative. CTA negative. No infarcts seen but weakness still present ASA started Seen by neurology Continue PT/OT Pain control, toradol IM given to patient. (3) COPD (chronic obstructive pulmonary disease): Code(s): J44.9 - Chronic obstructive pulmonary disease, unspecified Status: Acute Assessment and Plan: Pt to have scheduled BT. Pt is on dailaresp (4) Tobacco abuse: Code(s): Z72.0 - Tobacco use Status: Acute Assessment and Plan: Adviced to quit smoking smoking cessation adviced in hospital. Subjective Date/time seen: 05/06/20 11:25 Interval history: James Barrett is a 65 year old female admitted with left sided weakness and numbness and headache. Pt had recently lost her son. And has been grieving and has been under stress. History of smoking, copd and tia in the past. Usually well. Today her left arm and leg looks weak. Pt has a normal cta head and neck and mri brain. Complains of severe headache today, arm has more movement , leg is still weak. Review of Systems Review of Systems: All systems reviewed & are unremarkable except as noted in HPI and below Constitutional: Constitutional: Reports poor appetite Eyes: Eyes: Reports no additional eye complaints Cardiovascular: Cardiovascular: Reports no additional cardiovascular complaints Respiratory: Respiratory: Reports chest congestion Gastrointestinal: Gastrointestinal: Reports no additional gastrointestinal complaints Musculoskeletal: Musculoskeletal: Reports muscle weakness and Reports numbness Psychiatric: Psychiatric: Reports depression Exam Const: General: other (in distress with headache ) HENMT: Head: normocephalic Eyes: General: appearance normal, both eyes and all related structures Pupils: Equal, round and reactive pupils present Neck: Neck: supple Chest: Chest palpation & inspection: normal inspection of the chest Resp: Effort & Inspection: normal respiratory effort Auscultation: clear to auscultation bilaterally Cardio: Jugular venous distension: no JVD Rhythm: regular rhythm Heart sounds: S1 normal heart sound present and S2 normal heart sound present GI: Inspection: normal to inspection Auscultation: normal bowel sounds : General: Yes no CVA tenderness Back/Spine/Pelvis: Back: no CVA tenderness Skin: General skin exam: normal color and dry skin Neuro: Cranial nerves: Yes CN's II-XII intact bilaterally and Yes Equal, round and reactive pupils present Cognition (Neuro): normal cognition Speech: normal speech Motor exam (neuro): Other motor observations present (4/5 left arm and left leg shoulder pain in left arm ) Extrem: General: normal to inspection Psych: Appearance: grossly normal Mental Status: mental status grossly normal Objective Data Vital Signs Vital Signs: Vital Signs - 24 hr 05/05/20 12:23 05/05/20 14:00 05/05/20 15:05 Temperature 35.9 C L Pulse Rate 76 92 89 Respiratory Rate 18 20 Blood Pressure 147/77 H Pulse Oximetry 95 05/05/20 15:15 05/05/20 16:00 05/05/20 16:23 Temperature Pulse Rate 85 88 74 Respiratory Rate 20 Blood Pressure Pulse Oximetry 05/05/20 20:00 05/05/20 20:38 05/05/20 21:22 Temperature 36.5 C Pulse Rate 77 66 68 Respiratory Rate 18 20 Blood Pressure 124/55 L Pulse Oximetry 97 05/05/20 21:53 05/05/20 22:05 05/06/20 00:00 Temperature Pulse Rate 72 69 66 Respiratory Rate 20 20 Blood Pressure Pulse Oximetry 96 05/06/20 04:00
--- NOTE | 2020-05-06 14:39 | WPDNEUROPN ---
Progress Note: A&P Assessment and Plan (1) Neck pain: Code(s): M54.2 - Cervicalgia Status: Acute (2) Left-sided weakness: Code(s): R53.1 - Weakness Status: Acute (3) Adhesive capsulitis of left shoulder: Code(s): M75.02 - Adhesive capsulitis of left shoulder Status: Acute (4) Bronchiectasis: Code(s): J47.9 - Bronchiectasis, uncomplicated Status: Acute (5) Immunodeficiency: Code(s): D84.9 - Immunodeficiency, unspecified Status: Acute (6) COPD (chronic obstructive pulmonary disease): Code(s): J44.9 - Chronic obstructive pulmonary disease, unspecified Status: Acute (7) Chronic respiratory failure with hypoxia and hypercapnia: Code(s): J96.11 - Chronic respiratory failure with hypoxia; J96.12 - Chronic respiratory failure with hypercapnia Status: Acute (8) Esophageal thickening: Code(s): K22.8 - Other specified diseases of esophagus Status: Acute (9) Lung nodule: Code(s): R91.1 - Solitary pulmonary nodule Status: Acute (10) Shortness of breath: Code(s): R06.02 - Shortness of breath Status: Acute (11) Tobacco abuse: Code(s): Z72.0 - Tobacco use Status: Acute Additional Plan MRI cervical spine to complete the workup continue rest of the management as such Review of Systems Review of Systems: All systems reviewed & are unremarkable except as noted in HPI and below Exam Const: General: comfortable and no acute distress HENMT: General nose exam: Normal nares present Mouth: Yes moist mucous membranes Eyes: General: appearance normal, both eyes and all related structures Neck: Neck: supple and no JVD Resp: Effort & Inspection: normal respiratory effort Auscultation: clear to auscultation bilaterally Cardio: Rate: regular rate Rhythm: regular rhythm GI: Auscultation: normal bowel sounds Skin: General skin exam: normal color and no rashes or lesions noted Neuro: Other: patient is awake alert well oriented time place and person with supple neck I do not find any hard neurological deficit except fluctuating left arm drift otherwise a nonfocal exam Extrem: General: normal to inspection Psych: Affect: Sad affect present ( probably grieving the family member's recently) and Anxious affect present Objective Data Vital Signs Vital Signs: Vital Signs - 24 hr 05/05/20 15:05 05/05/20 15:15 05/05/20 16:00 Temperature Pulse Rate 89 85 88 Respiratory Rate 20 20 Blood Pressure Pulse Oximetry 05/05/20 16:23 05/05/20 20:00 05/05/20 20:38 Temperature 36.5 C Pulse Rate 74 77 66 Respiratory Rate 18 Blood Pressure 124/55 L Pulse Oximetry 97 05/05/20 21:22 05/05/20 21:53 05/05/20 22:05 Temperature Pulse Rate 68 72 69 Respiratory Rate 20 20 20 Blood Pressure Pulse Oximetry 96 05/06/20 00:00 05/06/20 04:00 05/06/20 04:42 Temperature 36.4 C L Pulse Rate 66 67 67 Respiratory Rate 18 Blood Pressure 124/60 Pulse Oximetry 96 05/06/20 08:00 05/06/20 08:37 05/06/20 09:15 Temperature Pulse Rate 82 82 73 Respiratory Rate 18 20 Blood Pressure Pulse Oximetry 96 96 05/06/20 09:25 05/06/20 12:00 05/06/20 14:00 Temperature 36.4 C Pulse Rate 75 75 68 Respiratory Rate 20 18 Blood Pressure 128/68 Pulse Oximetry 97 Intake/Output Intake/Output: Intake & Output 05/03/20 05/04/20 05/05/20 05/06/20 23:59 23:59 23:59 23:59 Intake Total 2100 920 Output Total 2750 300 Balance -650 620 Meds/Results Medications: Active Medications Generic Name Dose Route Start Last Admin Trade Name Abdelrahmanq PRN Reason Stop Dose Admin Acetaminophen 650 mg 05/05/20 03:03 05/06/20 08:24 Tylenol Tablet PO 650 mg Q4H PRN Administration Headache Albuterol 1 puff 05/05/20 08:08 Proventil Hfa INHALATION Q4HRT PRN Shortness Of Breath Albuterol 2.5 mg 05/05/20 15:00 05/06/20 1
[2020-05-07] VITALS (11 sets, daily range): BP systolic 105–144; BP diastolic 46–83; PULSE 64–79; RESP 16–18; TEMP 36.1–36.6; O2SAT 96–100
[2020-05-07] MEDS: ACETAMINOPHEN 325 MG TABLET 650 MG PO ×3 (00:17→08:45)
[2020-05-07 07:47] LABS: Glucose Point of Care 100 (65-105)
[2020-05-07] MEDS: ENOXAPARIN 40 MG/0.4 ML SYRINGE SUB-Q (08:42)
[2020-05-07] MEDS: ROFLUMILAST 500 MCG TABLET PO (08:42)
[2020-05-07] MEDS: ASPIRIN 81 MG CHEWABLE TABLET PO (08:42)
[2020-05-07] MEDS: ALBUTEROL SULFATE NEB 2.5 MG/0.5 ML INH INHALATION ×3 (08:46→21:40)
[2020-05-07] MEDS: IPRATROPIUM BR 0.02% INH SOLN 0.5 MG/2.5 ML VIAL INHALATION ×3 (08:46→21:40)
[2020-05-07] MEDS: KETOROLAC 30 MG/ML VIAL (*BKC) 60 MG IM ×2 (11:03→23:17)
--- NOTE | 2020-05-07 11:11 | WPDNEUROPN ---
Progress Note: A&P Assessment and Plan (1) Neck pain: Code(s): M54.2 - Cervicalgia Status: Acute (2) Left-sided weakness: Code(s): R53.1 - Weakness Status: Acute (3) Adhesive capsulitis of left shoulder: Code(s): M75.02 - Adhesive capsulitis of left shoulder Status: Acute Additional Plan will need a symptomatic treatment for the headache in addition to the passive range of motion of the left shoulder for the adhesive capsulitis of the left shoulder cervical spine have been documented as nonsurgical Review of Systems Review of Systems: All systems reviewed & are unremarkable except as noted in HPI and below Exam Narrative: Exam Narrative: examination reveals her to be awake alert complaining of the headache for which she is receiving the p.r.n. medication ear nose throat examination normal neck supple with no restriction of range of motion no cervical bruits heart regular with no murmur lungs clear to auscultation abdomen is soft and no organomegaly normal bowel sounds nontender neurological examination revealed her to be awake alert complaining of headache cranial examination is normal motor examination revealed her to have left-sided weakness Objective Data Vital Signs Vital Signs: Vital Signs - 24 hr 05/06/20 12:00 05/06/20 14:00 05/06/20 14:20 Temperature 36.4 C Pulse Rate 75 68 73 Respiratory Rate 18 20 Blood Pressure 128/68 Pulse Oximetry 97 05/06/20 14:30 05/06/20 19:03 05/06/20 19:11 Temperature Pulse Rate 75 70 71 Respiratory Rate 20 14 14 Blood Pressure Pulse Oximetry 92 05/06/20 21:30 05/07/20 05:52 05/07/20 08:47 Temperature 36.3 C L 36.1 C L Pulse Rate 67 74 79 Respiratory Rate 16 16 16 Blood Pressure 108/59 L 144/83 H Pulse Oximetry 97 100 96 05/07/20 08:57 Temperature Pulse Rate 68 Respiratory Rate 16 Blood Pressure Pulse Oximetry Intake/Output Intake/Output: Intake & Output 05/04/20 05/05/20 05/06/20 05/07/20 23:59 23:59 23:59 23:59 Intake Total 2100 2350 780 Output Total 2750 1450 600 Balance -650 900 180 Meds/Results Medications: Active Medications Generic Name Dose Route Start Last Admin Trade Name Freq PRN Reason Stop Dose Admin Acetaminophen 650 mg 05/05/20 03:03 05/07/20 08:45 Acetaminophen 325 Mg Tablet PO 650 mg Q4H PRN Administration Headache Albuterol 1 puff 05/05/20 08:08 Proventil Hfa INHALATION Q4HRT PRN Shortness Of Breath Albuterol 2.5 mg 05/05/20 15:00 05/07/20 08:46 Albuterol Sulf Neb 2.5mg/0.5ml INHALATION 2.5 mg TIDRT FLOR Administration Alprazolam 0.5 mg 05/06/20 08:37 05/06/20 21:34 Xanax PO 0.5 mg TID PRN Administration Anxiety Aspirin 81 mg 05/05/20 08:00 05/07/20 08:42 Aspirin Chewable PO 81 mg DAILY@0800 [facility] Administration Enoxaparin Sodium 40 mg 05/06/20 09:00 05/07/20 08:42 Lovenox SUB-Q 40 mg DAILY FLOR Administration Ipratropium [place] 0.5 mg 05/05/20 15:00 05/07/20 08:46 Atrovent Neb INHALATION 0.5 mg TIDRT FLOR Administration Ketorolac Tromethamine 60 mg 05/07/20 10:06 05/07/20 11:03 Ketorolac 30 Mg/Ml Vial (*Bkc) IM 60 mg Q12H PRN Administration Pain Rated 6 or Greater Roflumilast 500 mcg 05/05/20 09:00 05/07/20 08:42 Daliresp PO 500 mcg QAM FLOR Administration Radiology Results: ITS Impressions Head/Neck CTA 05/04/20 21:12 IMPRESSION: 1. No acute intracranial abnormality. Normal head CTA. 2. 0% stenosis of the proximal right internal carotid artery relative to normal distal artery lumen diameter (NASCET criteria). 3. 0% stenosis of the proximal left internal carotid artery relative to normal distal artery lumen diameter. Brain MRI 05/05/20 11:46 IMPRESSION: 1. Unremarkable brain MRI examination. Cervical Spine MRI 05/07/20 08:36 IMPRESSION: 1. Advanced cervical arthropathy, upper levels more affected.
--- NOTE | 2020-05-07 13:27 | PM.IMPN ---
Progress Note: A&P Assessment and Plan (1) Adhesive capsulitis of left shoulder: Code(s): M75.02 - Adhesive capsulitis of left shoulder Status: Acute Assessment and Plan: Pain control. PT await shoulder xray. (2) Left-sided weakness: Code(s): R53.1 - Weakness Status: Acute Assessment and Plan: Likley secondary to migranous headache and stress or TIA or old stroke TPA offered on admission pt refused because of risks MRI BRAIN is negative. CTA negative. No infarcts seen but weakness still present ASA started Seen by neurology Continue PT/OT Pain control for Short, toradol IM given to patient. start amitriptyline. (3) COPD (chronic obstructive pulmonary disease): Code(s): J44.9 - Chronic obstructive pulmonary disease, unspecified Status: Acute Assessment and Plan: Pt to have scheduled BT. Pt is on dailaresp (4) Tobacco abuse: Code(s): Z72.0 - Tobacco use Status: Acute Assessment and Plan: Adviced to quit smoking smoking cessation adviced in hospital. Subjective Date/time seen: 05/07/20 13:27 Interval history: James Barrett is a 65 year old female admitted with left sided weakness and numbness and headache. Pt had recently lost her son. And has been grieving and has been under stress. History of smoking, copd and tia in the past. Usually well. Today her left arm and leg looks weak. Pt has a normal cta head and neck and mri brain. Complains of ongoing headache today, arm has more movement, leg is still weak. Pt had shoulder xray and cervical spine MRI. Pt seen by neurology. Review of Systems Review of Systems: All systems reviewed & are unremarkable except as noted in HPI and below Cardiovascular: Cardiovascular: Denies chest pain Respiratory: Respiratory: Reports dyspnea Gastrointestinal: Gastrointestinal: Denies no additional gastrointestinal complaints Musculoskeletal: Comments: leg weakness worse than arm Neurologic: Reports headache(s) Psychiatric: Psychiatric: Reports anxiety Exam Const: General: other (in distress with headache ) HENMT: Head: normocephalic Eyes: General: appearance normal, both eyes and all related structures Pupils: Equal, round and reactive pupils present Neck: Neck: supple Chest: Chest palpation & inspection: normal inspection of the chest Resp: Effort & Inspection: normal respiratory effort Auscultation: clear to auscultation bilaterally Cardio: Jugular venous distension: no JVD Rhythm: regular rhythm Heart sounds: S1 normal heart sound present and S2 normal heart sound present GI: Inspection: normal to inspection Auscultation: normal bowel sounds Back/Spine/Pelvis: Back: no CVA tenderness Skin: General skin exam: normal color and dry skin Neuro: Cranial nerves: Yes CN's II-XII intact bilaterally and Yes Equal, round and reactive pupils present Cognition (Neuro): normal cognition Speech: normal speech Motor exam (neuro): Other motor observations present (4/5 left arm and left leg shoulder pain in left arm ) Extrem: General: normal to inspection Psych: Appearance: grossly normal Mental Status: mental status grossly normal Objective Data Vital Signs Vital Signs: Vital Signs - 24 hr 05/06/20 14:00 05/06/20 14:20 05/06/20 14:30 Temperature 36.4 C Pulse Rate 68 73 75 Respiratory Rate 18 20 20 Blood Pressure 128/68 Pulse Oximetry 97 05/06/20 19:03 05/06/20 19:11 05/06/20 21:30 Temperature 36.3 C L Pulse Rate 70 71 67 Respiratory Rate 14 14 16 Blood Pressure 108/59 L Pulse Oximetry 92 97 05/07/20 05:52 05/07/20 08:45 05/07/20 08:47 Temperature 36.1 C L Pulse Rate 74 79 Respiratory Rate 16 16 16 Blood Pressure 144/83 H Pulse Oximetry 100 96 96 05/07/20 08:57 Temperature Pulse Rate 68 Respiratory Rate 16 Blood Pressure Pulse Oximetry Intake/Output Intake/Output: Intake & Output 05/04/20 05/05/20 05/06/20 05/07/20 23:59 23:59
[2020-05-07] MEDS: AMITRIPTYLINE HCL 25 MG TABLET PO (22:15)
[2020-05-07] MEDS: ALPRAZolam (*CRX) 0.5 MG TABLET PO (22:15)
[2020-05-08 05:36] VITALS: BP 133/65; PULSE 71; RESP 16; TEMP 36.2; O2SAT 97
[2020-05-08] MEDS: ACETAMINOPHEN 325 MG TABLET 650 MG PO (07:55)
[2020-05-08] MEDS: ALPRAZolam (*CRX) 0.5 MG TABLET PO (07:55)
[2020-05-08] MEDS: ASPIRIN 81 MG CHEWABLE TABLET PO (07:55)
[2020-05-08] MEDS: ROFLUMILAST 500 MCG TABLET PO (08:00)
[2020-05-08] MEDS: ENOXAPARIN 40 MG/0.4 ML SYRINGE SUB-Q (08:00)
[2020-05-08] MEDS: IPRATROPIUM BR 0.02% INH SOLN 0.5 MG/2.5 ML VIAL INHALATION ×2 (08:46→13:48)
[2020-05-08] MEDS: ALBUTEROL SULFATE NEB 2.5 MG/0.5 ML INH INHALATION ×2 (08:46→13:48)
[2020-05-08 08:47] VITALS: PULSE 75; RESP 16
[2020-05-08 08:48] VITALS: O2SAT 93
[2020-05-08 08:53] VITALS: PULSE 75; RESP 16
--- NOTE | 2020-05-08 11:26 | PM.DS ---
DS: Admitting Diagnosis Admitting Diagnosis Admitting Diagnosis: left sided weakness DS: Discharge Diagnosis Discharge Diagnosis (1) Adhesive capsulitis of left shoulder: Code(s): M75.02 - Adhesive capsulitis of left shoulder Status: Acute Assessment and Plan: Pain control. Pt had im toradol while in hospital. Pt will continue with her own exercises at home. I offered to set up physical theraphy for her as OPD, she did not want it. Pt enouraged to keep moving her shoulder. ITS Impressions Head/Neck CTA 05/04/20 21:12 IMPRESSION: 1. No acute intracranial abnormality. Normal head CTA. 2. 0% stenosis of the proximal right internal carotid artery relative to normal distal artery lumen diameter (NASCET criteria). 3. 0% stenosis of the proximal left internal carotid artery relative to normal distal artery lumen diameter. Brain MRI 05/05/20 11:46 IMPRESSION: 1. Unremarkable brain MRI examination. Cervical Spine MRI 05/07/20 08:36 IMPRESSION: 1. Advanced cervical arthropathy, upper levels more affected. (2) Left-sided weakness: Code(s): R53.1 - Weakness Status: Acute Assessment and Plan: Weakness likley secondary to migranous headache and stress or cervicalgia than actual stroke TPA offered on admission pt refused because of risks MRI BRAIN is negative. CTA negative. No infarcts seen but weakness still present ASA started Seen by neurology Continue PT/OT Pain control for BUSH, toradol IM given to patient. start amitriptyline. Headaches improved, pt discharged home. (3) COPD (chronic obstructive pulmonary disease): Code(s): J44.9 - Chronic obstructive pulmonary disease, unspecified Status: Acute Assessment and Plan: Pt to have scheduled BT. Pt is on dailaresp (4) Tobacco abuse: Code(s): Z72.0 - Tobacco use Status: Acute Assessment and Plan: Adviced to quit smoking smoking cessation adviced in hospital. DS: Summary Time Spent with Patient Time attestation: Total time spent providing and/or coordinating discharge services:40 minutes on day of discharge Exam Const: General: other (no headache today) HENMT: Head: normocephalic Eyes: General: appearance normal, both eyes and all related structures Pupils: Equal, round and reactive pupils present Neck: Neck: supple Chest: Chest palpation & inspection: normal inspection of the chest Resp: Effort & Inspection: normal respiratory effort Auscultation: clear to auscultation bilaterally Cardio: Jugular venous distension: no JVD Rhythm: regular rhythm Heart sounds: S1 normal heart sound present and S2 normal heart sound present GI: Inspection: normal to inspection Auscultation: normal bowel sounds : General: Yes no CVA tenderness Back/Spine/Pelvis: Back: no CVA tenderness Skin: General skin exam: normal color and dry skin Neuro: Cranial nerves: Yes CN's II-XII intact bilaterally and Yes Equal, round and reactive pupils present Cognition (Neuro): normal cognition Speech: normal speech Motor exam (neuro): Other motor observations present (4/5 left arm and left leg shoulder pain in left arm ) Extrem: General: normal to inspection Psych: Appearance: grossly normal Mental Status: mental status grossly normal Discharge Plan Discharge Attending physician on discharge: Kristy Parra Consulting providers: ; Jian Mckay Discharging Clinician: Kristy Parra Anticipated Discharge Date/Time: 05/08/20 11:23 Patient Disposition: Home, Self-Care Activity: as tolerated Diet: regular Patient Instructions: Antibiotic Form, How to Stop Smoking (DC), Pain Management (DC), Bronchiectasis (DC), Neck Pain (DC) Stand Alone Forms: General Discharge Information Follow-up/Referrals: Jian Mckay MD [Physician] - UNKNOWN,DOCTOR [Primary Care Provider] - Discharge Medications: New alprazolam 0.5 mg Tablet 0.5 mg PO
[2020-05-08] MEDS: KETOROLAC 30 MG/ML VIAL (*BKC) 60 MG IM (13:06)
[2020-05-08 13:50] VITALS: PULSE 75; RESP 16
[2020-05-08 13:54] VITALS: PULSE 75; RESP 16
== END 2020-05-08 15:04 | disposition home or self-care (01) | DRG 558 ==
LOC: ANHED 20:11 → ANH3MED 23:26
PROVIDERS: Admitting Provider Internal Medicine; Emergency Provider Emergency Medicine; Visit Provider Family Medicine
DX: M75.02 Adhesive capsulitis of left shoulder (principal); J96.12 Chronic respiratory failure with hypercapnia; D84.9 Immunodeficiency, unspecified; J96.11 Chronic respiratory failure with hypoxia; Z23 Encounter for immunization; G43.909 Migraine, unspecified, not intractable, without status migrainosus; F43.9 Reaction to severe stress, unspecified; R20.0 Anesthesia of skin; M54.2 Cervicalgia; J44.9 Chronic obstructive pulmonary disease, unspecified; F17.210 Nicotine dependence, cigarettes, uncomplicated; R29.704 NIHSS score 4; R29.701 NIHSS score 1; K22.8 Other specified diseases of esophagus; R91.1 Solitary pulmonary nodule; Z86.73 Personal history of transient ischemic attack (TIA), and cerebral infarction without residual deficits; Z90.710 Acquired absence of both cervix and uterus
CPT/HCPCS: 36415; 70496; 70498; 70553; 72141; 80048; 85025; 85610; 85730; 90471; 90653; 93005; 93306; 94640; 96372; 96374; 97110; 97116; 97161; 97165; 97535; 99285; A9270; A9577; G0008; G0378; J1650; J1885; Q9967

== ENCOUNTER 2020-07-18 11:05 | Inpatient (IN) | payer MEDICARE, MEDICAID, SELFPAY ==
[2020-07-18] VITALS (13 sets, daily range): BP systolic 130–147; BP diastolic 61–78; PULSE 79–105; RESP 15–24; TEMP 36.6–37.2; O2SAT 76–100
--- NOTE | ~2020-07-18 | XR_ITS ---
EXAMINATION: XR chest 1V portable DATE: 07/18/2020 11:40 INDICATION: Shortness of breath. TECHNIQUE: A single frontal view of the chest was obtained. COMPARISON: Chest single view 02/12/2020, chest CT 01/25/2020 FINDINGS: The lungs are hyperexpanded with lucencies and interstitial opacities, consistent with emph ysema. There is mild scarring in lingula. No pleural effusion or pneumothorax. The heart size is norm al. IMPRESSION: 1. Emphysema. Reviewed, dictated and finalized at location A. OARD MOTOR TESTER IMPRESSION: 1. Emphysema.
--- NOTE | ~2020-07-18 | XR_ITS ---
EXAMINATION: XR chest 2V EXAM DATE: 07/26/2020 08:33 INDICATION: COPD, cough. TECHNIQUE: Frontal and lateral projections of the chest obtained and reviewed. Comparison is made to prior examination from 07/18/2020. FINDINGS: Linear left midlung zone atelectasis. Biapical scarring. The lungs are otherwise clear. T here are no pleural effusions. The cardiomediastinal silhouette is within normal limits. There is n o pneumothorax suspected. The bones and soft tissues are unremarkable. Moderate hyperinflation. The re is no significant interval change. IMPRESSION: Chronic thoracic findings as above. Reviewed, dictated and finalized at location A. R ERECTOR HELPER
--- NOTE | 2020-07-18 11:17 | ECG_ITS ---
Measurements Intervals [place] Rate: 90 P: 74 [place]: 141 QRS: 50 QRSD: 94 T: 55 QT: 342 QTc: 420 Interpretive Statements SINUS RHYTHM CANNOT RULE OUT SEPTAL INFARCT, AGE INDETERMINATE BASELINE ARTIFACT- I, III, AVL ABNORMAL ECG Electronically Signed On 07-18-2020 16:57:07 FACILITIES ENGINEERING MANAGER by Rohan Zavala D.O.
[2020-07-18 11:48] LABS: Alveolar/Arterial O2 Gradient 57.3 mmHg; Base Excess ABG 4.9 mEq/l (+/-2.0); Carboxyhemoglobin 2.5 % THb (0-2.0); Fractional Inspired Oxygen 36 %; HCO3 ABG 31.8 mEq/l (22.0-26.0); Methemoglobin ABG 0.3 %THb (0-1.5); Oxygen Content ABG 17.5 %vol (16.0-22.0); Oxygen Saturation ABG 98.5 % (95.0-100.0); Oxyhemoglobin 95.4 % THb (90.0-100.0); PCO2 ABG 57.8 mmHg (35.0-45.0); PO2 ABG 132.3 mmHg (80.0-100.0); PO2 FiO2 Ratio Arterial Blood 3.68 %; Reduced Hemoglobin 1.8 %THb (0-5.0); Total Hemoglobin 12.9 g/dL (12.0-18.0); pH ABG 7.359 (7.350-7.450)
[2020-07-18 11:49] LABS: Device NASAL CANNULA; Site Drawn RIGHT BRACHIAL
[2020-07-18] MEDS: ALBUTEROL SULFATE NEB 2.5 MG/0.5 ML INH 10 MG INHALATION (11:50)
[2020-07-18] MEDS: IPRATROPIUM BR 0.02% INH SOLN 0.5 MG/2.5 ML VIAL 1 MG INHALATION (11:50)
[2020-07-18 11:55] LABS: Basophils Percent Auto 0.4 % (0.2-1.2); Eosinophils Absolute Auto 0.1 K/mm3 (0-0.3); Eosinophils Percent Auto 1.1 % (0-4.4); Hematocrit 40.4 % (37.0-47.0); Hemoglobin 12.4 g/dL (12.0-15.0); Immature Granulocyte Absolute 0.02 K/mm3 (0.00-0.031); Immature Granulocyte Percent A 0.3 % (0-0.5); Lymphocytes Absolute Auto 2.32 K/mm3 (0.9-3.2); Lymphocytes Percent Auto 32.7 % (18.3-44.2); Mean Corpuscular HGB Conc 30.7 g/dl (32-36); Mean Corpuscular Hemoglobin 29.7 pg (26-34); Mean Corpuscular Volume 96.9 fl (80-100); Mean Platelet Volume 9.1 fl (7.4-10.4); Monocytes Absolute Auto 0.6 K/mm3 (0.1-0.6); Neutrophils Absolute Auto 4.1 K/mm3 (1.3-6.7); Neutrophils Percent Auto 57.5 % (45.5-73.1); Platelet Count Result 199 k/mm3 (150-375); Red Blood Count 4.17 M/mm3 (4.2-5.4); Red Cell Distribution Width 12.7 % (11.5-14.5); White Blood Count 7.1 K/mm3 (4.5-10.0)
[2020-07-18 12:04] LABS: Prothrombin Time 13.8 Seconds (11.1-14.7)
[2020-07-18 12:06] LABS: Partial Thromboplastin Time 62.7 SECONDS (22.3-36.8)
[2020-07-18 12:07] LABS: D Dimer 0.36 ug/mL (<0.48)
[2020-07-18 12:16] LABS: Alanine Aminotransferase 20 U/L (4-35); Alkaline Phosphatase 94 U/L (38-126); Anion Gap 3 mmol/L (8-16); Aspartate Amino Transferase 32 U/L (14-36); Bilirubin,Total 0.4 mg/dL (0.2-1.3); Blood Urea Nitrogen 11 mg/dL (7-17); CRP 1.3 mg/dL (<1.0); Calcium 9.9 mg/dL (8.4-10.2); Carbon Dioxide 39 mmol/L (22-30); Chloride 97 mmol/L (98-107); Estimated CRCL calculation 111 ml/min; Estimated Glomerular Filt Rate > 60; Glucose 97 mg/dL (65-105); Potassium 4.1 mmol/L (3.4-5.0); Sodium 139 mmol/L (137-145)
--- NOTE | 2020-07-18 12:35 | ED.GENADULT ---
HPI - General Adult General Chief complaint: Shortness of Breath/Dyspnea <Tacos Nesbitt PA-C - Last Filed: 07/18/20 13:43> Stated complaint: SOB <Tacos Nesbitt PA-C - Last Filed: 07/18/20 13:43> Time Seen by Provider: 07/18/20 11:12 <SUNNY Khan Last Filed: 07/18/20 13:43> Source: patient <SUNNY Khan Last Filed: 07/18/20 13:43> Mode of arrival: ambulatory <Tacos Nesbitt PA-C - Last Filed: 07/18/20 13:43> Limitations: no limitations <SUNNY Khan Last Filed: 07/18/20 13:43> History of Present Illness HPI narrative: Patient is a 65-year-old female who presents in respiratory distress from home presents per private vehicle patient is a progressively worsening shortness of breath over the last 5 days patient denies sick contacts patient notes history of tobacco abuse is followed by pulmonology Dr. Houston. Patient notes worsening symptoms with light activity has been using her home respiratory medications with minimal improvement. Patient notes cough productive of green phlegm at this time. Patient denies fever vomiting diarrhea. Patient notes pain of her chest with coughing. <Tacos Nesbitt PA-C - Last Filed: 07/18/20 13:43> Related Data Home medications: Home Medications Medication Instructions Recorded Confirmed albuterol sulfate 90 mcg/actuation 1 puff INHALATION Q4H PRN 08/29/19 07/18/20 aerosol inhaler arformoterol 15 mcg/2 mL solution 2 ml INHALATION BID 08/29/19 07/18/20 for nebulization aspirin 81 mg tablet,delayed 81 mg PO DAILY 09/02/19 07/18/20 release meloxicam 15 mg tablet 15 mg PO HS 03/02/20 07/18/20 albuterol sulfate 2.5 mg INHALATION DAILY 05/05/20 07/18/20 atorvastatin 10 mg PO DAILY 07/18/20 07/18/20 roflumilast [Daliresp] 500 mcg PO DAILY 07/18/20 07/18/20 <SUNNY Khan Last Filed: 07/18/20 13:43> Allergies/adverse reactions: Allergies Allergy/AdvReac Type Severity Reaction Status Date / Time No Known Allergies Allergy Verified 07/18/20 11:23 <Tacos Nesbitt PA-C - Last Filed: 07/18/20 13:43> Review of Systems Review of Systems: All systems reviewed & are unremarkable except as noted in HPI and below <Tacos Nesbitt PA-C - Last Filed: 07/18/20 13:43> [facility] Past Medical History Medical History: Medical History (Updated 07/18/20 @ 12:41 by Tacos Nesbitt PA-C) Chronic respiratory failure with hypercapnia COPD (chronic obstructive pulmonary disease) H/O TIA (transient ischemic attack) and stroke June 2019 On supplemental oxygen by nasal cannula <Tacos Nesbitt PA-C - Last Filed: 07/18/20 13:43> Surgical History Surgical History: Surgical History H/O: hysterectomy <Tacos Nesbitt PA-C - Last Filed: 07/18/20 13:43> Family History Family History: Family History Mother Diabetes mellitus Hypertension Sibling Hypertension Asthma Family history of sleep apnea <Tacos Nesbitt PA-C - Last Filed: 07/18/20 13:43> Social History Social History: Social History Smoking packs per day: 1 Smoking cigarettes per day: 20.0 Years smoked: 20 Smoking pack-years: 20.00 Smoking status: Former smoker Smoking end date: 07/31/16 Alcohol intake: never Substance use: never Substance use type: does not use Gender identity (if verbalized by the patient): Female Spiritual care concerns: No <Tacos Nesbitt PA-C - Last Filed: 07/18/20 13:43> Exam Narrative: Exam Narrative: GENERAL: Ill-appearing, obese, uncomfortable HEAD: Normocephalic, atraumatic. EYES: PERRLA and EOMI. ENT: Nares clear, no rhinorrhea or epistaxis. Mucous membranes moist. CHEST: Diminished on auscultation. Respiratory distress. Coarse breath sounds throughout
--- NOTE | 2020-07-18 13:10 | PC.NURSE ---
Patient removed her nebulizer treatment stating that she was done with it. She is back on oxygen by nasal cannula at 4 liters.
[2020-07-18] MEDS: methylPREDNISolone SOD SUCC 125 MG VIAL IV PUSH (13:15)
--- NOTE | 2020-07-18 15:03 | PC.NURSE ---
Food tray ordered.
--- NOTE | 2020-07-18 16:31 | ADMGEN ---
This patient, James Barrett, was admitted to [facility] Surg Room 328-01. Patient/family oriented to hospital policies and general routines including ID bracelet, bed and alarms, visiting hours, pain management, procedures, bathroom and other care routines, personal items, smoking policy, room service/diet, and visiting hours. Information on how to activate the Rapid Response Team has been discussed. Patient/Family are encouraged to report perceived risks to care and to ask questions if they do not understand what they are told or what they should do.
[2020-07-18] MEDS: ALBUTEROL SULFATE (*SP) AEROSOL 1 PUFF 4 PUFF INHALATION ×2 (17:53→20:10)
[2020-07-18] MEDS: LACTATED RINGERS 1,000 ML 125 ML IV CONT (17:54)
[2020-07-18] MEDS: FAMOTIDINE 20 MG/2 ML VIAL IV PUSH (20:38)
--- NOTE | 2020-07-18 21:45 | PM.IMHP ---
H&P: HPI History of Present Illness Date/Time: 07/18/20 21:45 Chief Complaint: Shortness of breath Narrative: James Barrett is a 65 year old female who has a history of COPD with chronic hypoxia and hypercapnia. The patient is chronically on oxygen at 3 L per nasal cannula at home. She does see Dr. Houston is her ordained minister. The patient tells me that she has not been exposed to any covid 19. She has no fever no chills. She does have loose cough. The patient states that she still is smoking about 9 cigarettes a month. She had quit smoking prior to her son dying last year. Over the last 5 days she has been more short of breath. The patient uses her nebulizers at home and has been using her inhalers without relief. April this year which looks she has a EF of 55-60% systolic and diastolic function are normal. On her ABGs however her CO2 was 57.8 which could be her baseline. Since she is compensated. The patient was swabbed for COVID-19. Nebulizer treatment in the emergency room and started on Solu-Medrol. The patient is being admitted to observation on the date of service 07/18/2020 Review of Systems Review of Systems: All systems reviewed & are unremarkable except as noted in HPI and below Constitutional: Constitutional: Reports as per HPI and Reports no additional constitutional complaints Eyes: Eyes: Reports as per HPI and Reports no additional eye complaints ENT: Reports system reviewed and no additional complaints, except as documented and Reports Normal hearing present Cardiovascular: Cardiovascular: Reports no additional cardiovascular complaints Respiratory: Respiratory: Reports no additional respiratory complaints and Reports no additional respiratory complaints Gastrointestinal: Gastrointestinal: Reports as per HPI and Reports no additional gastrointestinal complaints Musculoskeletal: Musculoskeletal: Reports no additional musculoskeletal complaints Integumentary/Breasts: Skin/Breast: Reports system reviewed and no additional complaints, except as docu and Reports as per HPI Neurologic: Reports system reviewed and no additional complaints, except as documented, Reports as per HPI and Reports Normal hearing present Psychiatric: Psychiatric: Reports no additional psychiatric complaints and Reports as per HPI Endocrine: Endocrine: Reports no additional endocrine complaints Hematologic/Lymphatic: Hematologic/Lymphatic: Reports no additional hematologic/lymphatic complaints Allergic/Immunologic: Allergic/Immunologic: Reports no additional allergic/immunologic complaints [facility] Past Medical History Medical History (Updated 07/18/20 @ 21:58 by Mayi Shell NP) Anxiety Chronic respiratory failure with hypercapnia COPD (chronic obstructive pulmonary disease) H/O TIA (transient ischemic attack) and stroke June 2019 On supplemental oxygen by nasal cannula Surgical History Surgical History (Updated 07/18/20 @ 21:52 by Mayi Shell NP) H/O: hysterectomy History of section, classical Family History Family History (Updated 07/18/20 @ 21:54 by Mayi Shell NP) Mother Diabetes mellitus Hypertension Sibling Hypertension Asthma Family history of sleep apnea Son Drug overdose Father Alcoholism Motor vehicle accident Ran over and then Social History Social History (Updated 07/18/20 @ 21:54 by Mayi Shell NP) Social History: The patient has an ex- which she is fairly close to. They had 3 sons together and her 1 son passed with due to a heroin overdose 1 year ago. Patient is disabled. She stated that she quit smoking about a year ago with an when her son she started smoking again she smokes about 9 cigarettes a month. She desires to be a full code she does not have a durable power state's attorney though. No alcohol marijuana or illicit drug Smoking packs per day: 1 Smoking cigarettes per day: 20.0 Years smoked: 20 Smoking pack
[2020-07-18] MEDS: AMITRIPTYLINE HCL 25 MG TABLET PO (23:56)
[2020-07-18] MEDS: MELOXICAM 7.5 MG TABLET 15 MG PO (23:56)
[2020-07-18] MEDS: methylPREDNISolone SOD SUCC 125 MG VIAL 60 MG IV PUSH (23:58)
[2020-07-19] VITALS (12 sets, daily range): BP systolic 105–153; BP diastolic 55–66; PULSE 71–95; RESP 18–22; TEMP 36.6–36.9; O2SAT 93–100
[2020-07-19 01:23] LABS: SARS-CoV-2 RNA PCR Negative
[2020-07-19] MEDS: LACTATED RINGERS 1,000 ML 125 ML IV CONT (05:23)
[2020-07-19] MEDS: guaiFENesin/DEXTROMETHORPHAN 10 ML UDC PO ×2 (06:57→21:06)
[2020-07-19] MEDS: methylPREDNISolone SOD SUCC 125 MG VIAL 60 MG IV PUSH ×3 (06:57→21:02)
[2020-07-19 07:29] LABS: Basophils Percent Auto 0.1 % (0.2-1.2); Hematocrit 38.6 % (37.0-47.0); Hemoglobin 11.8 g/dL (12.0-15.0); Immature Granulocyte Absolute 0.04 K/mm3 (0.00-0.031); Immature Granulocyte Percent A 0.6 % (0-0.5); Lymphocytes Absolute Auto 0.88 K/mm3 (0.9-3.2); Lymphocytes Percent Auto 12.4 % (18.3-44.2); Mean Corpuscular HGB Conc 30.6 g/dl (32-36); Mean Corpuscular Hemoglobin 29.2 pg (26-34); Mean Corpuscular Volume 95.5 fl (80-100); Mean Platelet Volume 9.2 fl (7.4-10.4); Monocytes Absolute Auto 0.1 K/mm3 (0.1-0.6); Monocytes Percent Auto 1.3 % (2.6-8.5); Neutrophils Absolute Auto 6.1 K/mm3 (1.3-6.7); Neutrophils Percent Auto 85.6 % (45.5-73.1); Platelet Count Result 213 k/mm3 (150-375); Red Blood Count 4.04 M/mm3 (4.2-5.4); Red Cell Distribution Width 12.4 % (11.5-14.5); White Blood Count 7.1 K/mm3 (4.5-10.0)
[2020-07-19 07:50] LABS: Anion Gap 1 mmol/L (8-16); Blood Urea Nitrogen 13 mg/dL (7-17); Calcium 9.3 mg/dL (8.4-10.2); Carbon Dioxide 36 mmol/L (22-30); Chloride 101 mmol/L (98-107); Estimated CRCL calculation 111 ml/min; Estimated Glomerular Filt Rate > 60; Glucose 144 mg/dL (65-105); Potassium 4.7 mmol/L (3.4-5.0); Sodium 138 mmol/L (137-145)
--- NOTE | 2020-07-19 07:57 | PC.NURSE ---
0700 Pt made aware that Covid swab was negative. Isolation discontinued. Pt is having family pack a bag with her Brav[place] and trilogy brought up.
[2020-07-19] MEDS: ATORVASTATIN 10 MG TABLET PO (08:56)
[2020-07-19] MEDS: ASPIRIN 81 MG ENTERIC TABLET PO (08:56)
[2020-07-19] MEDS: ENOXAPARIN 40 MG/0.4 ML SYRINGE SUB-Q (08:56)
[2020-07-19] MEDS: ROFLUMILAST 500 MCG TABLET PO (08:57)
[2020-07-19] MEDS: AZITHROMYCIN 250 MG TABLET 500 MG PO (08:57)
[2020-07-19] MEDS: FAMOTIDINE 20 MG/2 ML VIAL IV PUSH ×2 (08:57→21:02)
--- NOTE | 2020-07-19 09:51 | PM.IMPN ---
Progress Note: A&P Assessment and Plan (1) COPD (chronic obstructive pulmonary disease): Code(s): J44.9 - Chronic obstructive pulmonary disease, unspecified Status: Acute Assessment and Plan: Exacerbation of COPD. Patient has chronic respiratory failure with hypercapnia; typically on 3 L O2 NC at home. She is on 4 L currently although satting 99%; gave instructions to keep patient at 90-93% saturations given chronic hypercapnia. She feels slightly better today, although lung exam still quite remarkable with wheezing/rhonchi diffusely. Dr. Houston consulted from the ED, although given her improvement overnight, will d/c the consultation unless her condition worsens. Will do scheduled nebs Continue home meds/inhalers robitussin PRN PEP CPT therapy Wean O2 to maintain sats between 90-93% Patient given one dose of azithromycin today, although she tells me today has had recent antibiotic use so will broaden this to Levaquin starting tomorrow. Will continue through 07/24 for 5 days total of Levaquin Will start weaning IV solumedrol 60 mg to q8hr today; consider weaning frequency tomorrow if continued improvement Monitor closely (2) Tobacco abuse: Code(s): Z72.0 - Tobacco use Status: Acute Assessment and Plan: Patient smokes about 9 cigarettes a month and has been encouraged to continue with smoking cessation. (3) Anxiety: Code(s): F41.9 - Anxiety disorder, unspecified Status: Chronic Assessment and Plan: Continue with amitriptyline. (4) Suspected 2019-nCoV infection: Code(s): Z20.828 - Contact with and (suspected) exposure to other viral communicable diseases Status: Acute Assessment and Plan: Testing negative. CXR unremarkable. COVID infection unlikely given history. Patient taken off isolation. Subjective Date/time seen: 07/19/20 09:51 Interval history: Patient is a 65 yo F with history of COPD, chronic respiratory failure with hypercapnia (on chronic 3L O2 NC at home), and anxiety who is seen in follow up for COPD exacerabtion and COVID PUI (negative, off isolation). Patient states she feels somewhat better today. Less SOB curently, but still dyspnea with exertion. She has a cough with yellow, nonbloody sputum production. No other complaints. She does comment that she recently took amoxicillin prescribed by her PCP the past 3-4 days to see if this would help her symptoms; it provided little relief. Denies f/c/s, headaches, dizziness, lightheadedness, cp/palpitations, n/v/d/c, abd pain, changes in BMs, dysuria, hematuria, calf pain/swelling. Review of Systems Review of Systems: All systems reviewed & are unremarkable except as noted in HPI and below Exam Narrative: Exam Narrative: General: Patient resting supine in bed in no acute distress. On 4 L O2 via NC HEENT: Normocephalic, EOMI, oral mucosa moist. Cardiovascular: Rate and rhythm are regular. No notable murmur, rub, or gallop. Respiratory: Audible wheezing and coughing appreciated during casual conversation. Diffuse exp wheeze and rhonchi appreciated. Slight tachypnea. Speaks in short sentences. Abdomen: Soft, non-tender, non-distended, bowel sounds present. Extremities: Peripheral pulses intact. No edema. NTTP b/l calves Neuro: No focal neurological deficits. Speech is clear. Objective Data Vital Signs Vital Signs: Last Vital Signs Temp 98.3 F 07/19/20 07:38 Pulse 83 07/19/20 07:38 Resp 20 07/19/20 07:38 BP 119/66 07/19/20 07:38 Pulse Ox 99 07/19/20 07:38 Intake/Output Intake/Output: Intake & Output 07/16/20 07/17/20 07/18/20 07/19/20 23:59 23:59 23:59 23:59 Intake Total 1100 1500 Output Total 1000 Balance 1100 500 Meds/Results Medications: Active Medications Generic Name Dose Route Start Last Ad
--- NOTE | 2020-07-19 11:09 | PCRCNOTE ---
Window of time for administration has passed. See next scheduled administration.
[2020-07-19] MEDS: ALBUTEROL SULFATE NEB 2.5 MG/0.5 ML INH INHALATION ×2 (15:04→20:34)
[2020-07-19] MEDS: IPRATROPIUM BR 0.02% INH SOLN 0.5 MG/2.5 ML VIAL INHALATION ×2 (15:04→20:34)
[2020-07-19] MEDS: MELOXICAM 7.5 MG TABLET 15 MG PO (21:01)
[2020-07-19] MEDS: AMITRIPTYLINE HCL 25 MG TABLET PO (21:02)
[2020-07-19] MEDS: ACETAMINOPHEN 325 MG TABLET 650 MG PO (21:02)
[2020-07-19] MEDS: WATER FOR IRRIGATION, STERILE 1,000 ML BOTTLE 1000 ML (23:00)
[2020-07-20] VITALS (14 sets, daily range): BP systolic 111–133; BP diastolic 59–72; PULSE 65–96; RESP 18–22; TEMP 35.6–36.8; O2SAT 94–100
--- NOTE | 2020-07-20 01:00 | PC.NURSE ---
2300 RT set up pt's home trilogy unit with O2 bleed in.
[2020-07-20] MEDS: IPRATROPIUM BR 0.02% INH SOLN 0.5 MG/2.5 ML VIAL INHALATION ×4 (02:50→21:41)
[2020-07-20] MEDS: ALBUTEROL SULFATE NEB 2.5 MG/0.5 ML INH INHALATION ×4 (02:51→21:41)
--- NOTE | 2020-07-20 03:18 | PC.NURSE ---
Pt's supply of BROVANA placed in the [employer] room fridge. Pt label applied to the box.
[2020-07-20 06:55] LABS: Hematocrit 39.1 % (37.0-47.0); Hemoglobin 11.7 g/dL (12.0-15.0); Mean Corpuscular HGB Conc 29.9 g/dl (32-36); Mean Corpuscular Hemoglobin 29.9 pg (26-34); Mean Platelet Volume 9.1 fl (7.4-10.4); Platelet Count Result 191 k/mm3 (150-375); Red Blood Count 3.91 M/mm3 (4.2-5.4); Red Cell Distribution Width 12.7 % (11.5-14.5); White Blood Count 10.5 K/mm3 (4.5-10.0)
[2020-07-20 07:13] LABS: Anion Gap 4 mmol/L (8-16); Blood Urea Nitrogen 16 mg/dL (7-17); Calcium 8.8 mg/dL (8.4-10.2); Carbon Dioxide 35 mmol/L (22-30); Chloride 100 mmol/L (98-107); Estimated CRCL calculation 135 ml/min; Estimated Glomerular Filt Rate > 60; Glucose 134 mg/dL (65-105); Magnesium 2.2 mg/dL (1.6-2.3); Sodium 139 mmol/L (137-145)
[2020-07-20] MEDS: ROFLUMILAST 500 MCG TABLET PO (07:59)
[2020-07-20] MEDS: ASPIRIN 81 MG ENTERIC TABLET PO (07:59)
[2020-07-20] MEDS: guaiFENesin/DEXTROMETHORPHAN 10 ML UDC PO ×2 (07:59→17:43)
[2020-07-20] MEDS: FAMOTIDINE 20 MG/2 ML VIAL IV PUSH ×2 (08:00→21:00)
[2020-07-20] MEDS: ENOXAPARIN 40 MG/0.4 ML SYRINGE SUB-Q (08:00)
[2020-07-20] MEDS: ATORVASTATIN 10 MG TABLET PO (08:01)
[2020-07-20] MEDS: methylPREDNISolone SOD SUCC 125 MG VIAL 60 MG IV PUSH ×2 (08:02→17:38)
--- NOTE | 2020-07-20 12:05 | PM.IMPN ---
Progress Note: A&P Assessment and Plan (1) COPD (chronic obstructive pulmonary disease): Code(s): J44.9 - Chronic obstructive pulmonary disease, unspecified Status: Acute Assessment and Plan: Exacerbation of COPD. Patient has chronic respiratory failure with hypercapnia; typically on 3 L O2 NC at home. She is on 3 L currently although satting 96%; gave instructions to keep patient at 90-93% saturations given chronic hypercapnia. She feels slightly better today, although lung exam still remarkable with wheezing/rhonchi diffusely. Will do scheduled nebs Continue home meds/inhalers Robitussin PRN PEP CPT therapy Wean O2 to maintain sats between 90-93% Patient given one dose of azithromycin 07/19, although she tells me today has had recent antibiotic use so will broaden this to Levaquin; start 07/20, will continue through 07/24 for 5 days total of Levaquin Will start weaning IV solumedrol 60 mg to q12hr today; consider weaning frequency tomorrow if continued improvement Monitor closely (2) Tobacco abuse: Code(s): Z72.0 - Tobacco use Status: Acute Assessment and Plan: Patient smokes about 9 cigarettes a month and has been encouraged to continue with smoking cessation. (3) Anxiety: Code(s): F41.9 - Anxiety disorder, unspecified Status: Chronic Assessment and Plan: Continue with amitriptyline. (4) Suspected 2019-nCoV infection: Code(s): Z20.828 - Contact with and (suspected) exposure to other viral communicable diseases Status: Resolved Assessment and Plan: Testing negative. CXR unremarkable. COVID infection unlikely given history. Patient taken off isolation. Subjective Date/time seen: 07/20/20 12:05 Interval history: Patient is a 65 yo F with history of COPD, chronic respiratory failure with hypercapnia (on chronic 3L O2 NC at home), and anxiety who is seen in follow up for COPD exacerabtion and COVID PUI (negative, off isolation). Patient states she feels better again today. Less SOB currently, but still dyspnea with exertion, but states it has been better today. She has a cough with yellow, blood streaking sputum production. No other complaints. Denies f/c/s, headaches, dizziness, lightheadedness, cp/palpitations, n/v/d/c, abd pain, changes in BMs, dysuria, hematuria, calf pain/swelling. Review of Systems Review of Systems: All systems reviewed & are unremarkable except as noted in HPI and below Exam Narrative: Exam Narrative: General: Patient resting supine in bed in no acute distress. On 3 L O2 via NC HEENT: Normocephalic, EOMI, oral mucosa moist. Cardiovascular: Tachycardic, rhythm regular. No notable murmur, rub, or gallop. Respiratory: Audible wheezing and coughing appreciated during casual conversation again today. Diffuse exp wheeze and rhonchi appreciated with slight improvement. Speaks in longer sentences today Abdomen: Soft, non-tender, non-distended, bowel sounds present. Extremities: Peripheral pulses intact. No edema. NTTP b/l calves Neuro: No focal neurological deficits. Speech is clear. Objective Data Vital Signs Vital Signs: Last Vital Signs Temp 96.0 F L 07/20/20 08:00 Pulse 96 07/20/20 09:47 Resp 20 07/20/20 09:47 BP 132/72 07/20/20 08:00 Pulse Ox 96 07/20/20 09:47 Intake/Output Intake/Output: Intake & Output 07/17/20 07/18/20 07/19/20 07/20/20 23:59 23:59 23:59 23:59 Intake Total 1100 3220 1250 Output Total 1000 1100 Balance 1100 2220 150 Meds/Results Medications: Active Medications Generic Name Dose Route Start Last Admin Trade Name Freq PRN Reason Stop Dose Admin Acetaminophen 650 mg 07/19/20 09:42 07/19/20 21:02 Acetaminophen 325 Mg Tablet PO 650 mg Q6H PRN Administration Mild Pain (1-3) or Fever Albuterol
[2020-07-20] MEDS: AMITRIPTYLINE HCL 25 MG TABLET PO (21:00)
[2020-07-20] MEDS: MELOXICAM 7.5 MG TABLET 15 MG PO (21:01)
[2020-07-20] MEDS: ACETAMINOPHEN 325 MG TABLET 650 MG PO (21:15)
[2020-07-21] VITALS (15 sets, daily range): BP systolic 109–136; BP diastolic 52–74; PULSE 70–91; RESP 16–22; TEMP 36.3–37.1; O2SAT 94–100
[2020-07-21] MEDS: IPRATROPIUM BR 0.02% INH SOLN 0.5 MG/2.5 ML VIAL INHALATION ×4 (02:59→20:12)
[2020-07-21] MEDS: ALBUTEROL SULFATE NEB 2.5 MG/0.5 ML INH INHALATION ×4 (02:59→20:13)
[2020-07-21 06:51] LABS: Hemoglobin 12.4 g/dL (12.0-15.0); Mean Corpuscular HGB Conc 30.2 g/dl (32-36); Mean Corpuscular Hemoglobin 29.2 pg (26-34); Mean Corpuscular Volume 96.5 fl (80-100); Mean Platelet Volume 9.1 fl (7.4-10.4); Platelet Count Result 255 k/mm3 (150-375); Red Blood Count 4.25 M/mm3 (4.2-5.4); Red Cell Distribution Width 12.9 % (11.5-14.5); White Blood Count 13.5 K/mm3 (4.5-10.0)
[2020-07-21 07:04] LABS: Anion Gap 5 mmol/L (8-16); Blood Urea Nitrogen 18 mg/dL (7-17); Calcium 9.3 mg/dL (8.4-10.2); Carbon Dioxide 36 mmol/L (22-30); Chloride 99 mmol/L (98-107); Estimated CRCL calculation 94 ml/min; Estimated Glomerular Filt Rate > 60; Glucose 96 mg/dL (65-105); Magnesium 2.4 mg/dL (1.6-2.3); Sodium 140 mmol/L (137-145)
[2020-07-21] MEDS: ROFLUMILAST 500 MCG TABLET PO (08:38)
[2020-07-21] MEDS: ASPIRIN 81 MG ENTERIC TABLET PO (08:38)
[2020-07-21] MEDS: ATORVASTATIN 10 MG TABLET PO (08:38)
[2020-07-21] MEDS: ENOXAPARIN 40 MG/0.4 ML SYRINGE SUB-Q (08:39)
[2020-07-21] MEDS: methylPREDNISolone SOD SUCC 125 MG VIAL 60 MG IV PUSH ×2 (08:39→22:02)
[2020-07-21] MEDS: FAMOTIDINE 20 MG/2 ML VIAL IV PUSH ×2 (08:39→22:01)
--- NOTE | 2020-07-21 14:16 | PM.IMPN ---
Progress Note: A&P Assessment and Plan (1) COPD (chronic obstructive pulmonary disease): Code(s): J44.9 - Chronic obstructive pulmonary disease, unspecified Status: Acute Assessment and Plan: Exacerbation of COPD. Patient has chronic respiratory failure with hypercapnia; typically on 3 L O2 NC at home. She is on 3 L currently although satting 96%. Will do scheduled nebs Continue home meds/inhalers Robitussin PRN PEP CPT therapy Wean O2 to maintain sats between 90-93% on levquin continue through 07/24 for 5 days total of Levaquin IV solumedrol 60 mg to q12hr today continue high does steroids (2) Tobacco abuse: Code(s): Z72.0 - Tobacco use Status: Acute Assessment and Plan: Patient smokes about 9 cigarettes a month adviced to quit or cut back (3) Anxiety: Code(s): F41.9 - Anxiety disorder, unspecified Status: Chronic Assessment and Plan: Continue with amitriptyline. (4) Suspected 2019-nCoV infection: Code(s): Z20.828 - Contact with and (suspected) exposure to other viral communicable diseases Status: Resolved Assessment and Plan: COVID ruled out Subjective Date/time seen: 07/21/20 14:16 Interval history: Patient is a 65 yo F with history of COPD, chronic respiratory failure with hypercapnia (on chronic 3L O2 NC at home), and anxiety who is seen in follow up for COPD exacerbation and COVID PUI (negative, off isolation). Pt still feels wheezy today. Hopeful Dc in 1-2 days time. Review of Systems Review of Systems: All systems reviewed & are unremarkable except as noted in HPI and below Exam Narrative: Exam Narrative: General: Patient resting supine audible wheeze HEENT: Normocephalic Cardiovascular: Tachycardic, rhythm regular. Respiratory: Diffuse exp wheeze and rhonchi. Audible wheeze Abdomen: Soft, non-tender, non-distended, bowel sounds present. Extremities: Peripheral pulses intact. No edema. Neuro: No focal neurological deficits. Speech is clear. Objective Data Vital Signs Vital Signs: Vital Signs - 24 hr 07/20/20 15:33 07/20/20 15:44 07/20/20 16:00 Temperature 35.7 C L Pulse Rate 76 76 77 Respiratory Rate 20 20 18 Blood Pressure 126/59 L Pulse Oximetry 98 07/20/20 20:00 07/20/20 21:46 07/20/20 21:59 Temperature 36.8 C Pulse Rate 84 69 70 Respiratory Rate 20 20 20 Blood Pressure 133/67 Pulse Oximetry 95 07/20/20 22:00 07/20/20 22:01 07/21/20 00:00 Temperature 36.4 C Pulse Rate 69 69 72 Respiratory Rate 20 Blood Pressure 113/65 Pulse Oximetry 96 96 94 07/21/20 02:59 07/21/20 03:01 07/21/20 03:12 Temperature Pulse Rate 84 84 84 Respiratory Rate 20 20 Blood Pressure Pulse Oximetry 95 07/21/20 04:00 07/21/20 08:00 07/21/20 08:14 Temperature 36.3 C L 37.1 C Pulse Rate 70 72 80 Respiratory Rate 20 16 20 Blood Pressure 134/74 136/70 Pulse Oximetry 98 100 07/21/20 08:29 07/21/20 12:00 Temperature 37.1 C Pulse Rate 91 84 Respiratory Rate 18 16 Blood Pressure 115/61 Pulse Oximetry 97 Intake/Output Intake/Output: Intake & Output 07/18/20 07/19/20 07/20/20 07/21/20 23:59 23:59 23:59 23:59 Intake Total 1100 3220 3210 1330 Output Total 1000 2400 Balance 1100 2220 810 1330 Meds/Results Medications: Active Medications Generic Name Dose Route Start Last Admin Trade Name Freq PRN Reason Stop Dose Admin Acetaminophen 650 mg 07/19/20 09:42 07/20/20 21:15 Acetaminophen 325 Mg Tablet PO 650 mg Q6H PRN Administration Mild Pain (1-3) or Fever Albuterol 4 puff 07/19/20 07:51 Albuterol Sulfate (*Sp) Aerosol 1 Puff INHALATION QIDRT PRN shortness of breath Albuterol 2.5 mg 07/19/20 08:00 07/21/20 08:11 Albuterol Sulfate Neb 2.5 Mg/0.5 Ml Inh INHALATION
[2020-07-21] MEDS: MELOXICAM 7.5 MG TABLET 15 MG PO (22:01)
[2020-07-21] MEDS: AMITRIPTYLINE HCL 25 MG TABLET PO (22:02)
[2020-07-21] MEDS: guaiFENesin/DEXTROMETHORPHAN 10 ML UDC PO (22:04)
[2020-07-22] VITALS (9 sets, daily range): BP systolic 113–143; BP diastolic 55–89; PULSE 58–93; RESP 18–20; TEMP 36.6–36.9; O2SAT 95–99
[2020-07-22] MEDS: ALBUTEROL SULFATE NEB 2.5 MG/0.5 ML INH INHALATION ×3 (02:00→21:14)
[2020-07-22] MEDS: IPRATROPIUM BR 0.02% INH SOLN 0.5 MG/2.5 ML VIAL INHALATION ×3 (02:00→21:14)
[2020-07-22 06:40] LABS: Hematocrit 38.7 % (37.0-47.0); Hemoglobin 11.9 g/dL (12.0-15.0); Mean Corpuscular HGB Conc 30.7 g/dl (32-36); Mean Corpuscular Hemoglobin 29.4 pg (26-34); Mean Corpuscular Volume 95.6 fl (80-100); Mean Platelet Volume 8.7 fl (7.4-10.4); Platelet Count Result 232 k/mm3 (150-375); Red Blood Count 4.05 M/mm3 (4.2-5.4); White Blood Count 10.3 K/mm3 (4.5-10.0)
[2020-07-22] MEDS: ROFLUMILAST 500 MCG TABLET PO (09:06)
[2020-07-22] MEDS: ATORVASTATIN 10 MG TABLET PO (09:06)
[2020-07-22] MEDS: FAMOTIDINE 20 MG/2 ML VIAL IV PUSH ×2 (09:06→20:59)
[2020-07-22] MEDS: methylPREDNISolone SOD SUCC 125 MG VIAL 60 MG IV PUSH ×2 (09:06→21:00)
[2020-07-22] MEDS: ENOXAPARIN 40 MG/0.4 ML SYRINGE SUB-Q (09:06)
[2020-07-22] MEDS: ASPIRIN 81 MG ENTERIC TABLET PO (09:06)
--- NOTE | 2020-07-22 13:36 | PM.IMPN ---
Progress Note: A&P Assessment and Plan (1) COPD (chronic obstructive pulmonary disease): Code(s): J44.9 - Chronic obstructive pulmonary disease, unspecified Status: Acute Assessment and Plan: Exacerbation of COPD. Patient has chronic respiratory failure with hypercapnia; typically on 3 L O2 NC at home. She is on 3 L currently although satting 96%. Continue scheduled nebs Continue home meds/inhalers Robitussin PRN Pt is still wheezy continue present care. Continue levaquin through 07/24 for 5 days total of Levaquin IV solumedrol 60 mg to q12hr today continue high does steroids (2) Tobacco abuse: Code(s): Z72.0 - Tobacco use Status: Acute Assessment and Plan: Patient smokes about 9 cigarettes a month adviced to quit or cut back (3) Anxiety: Code(s): F41.9 - Anxiety disorder, unspecified Status: Chronic Assessment and Plan: Continue with amitriptyline. (4) Suspected 2019-nCoV infection: Code(s): Z20.828 - Contact with and (suspected) exposure to other viral communicable diseases Status: Resolved Assessment and Plan: COVID ruled out Subjective Date/time seen: 07/22/20 13:36 Interval history: Patient is a 65 yo F with history of COPD, chronic respiratory failure with hypercapnia (on chronic 3L O2 NC at home), and anxiety who is seen in follow up for COPD exacerbation and COVID PUI (negative, off isolation). Pt still feels wheezy today. Hopeful Dc in 1-2 days time. Continue present treatment. Pt is a smoker. Review of Systems Review of Systems: All systems reviewed & are unremarkable except as noted in HPI and below Exam Narrative: Exam Narrative: General: Patient resting audible wheeze and cough HEENT: Normocephalic Cardiovascular: Tachycardic, rhythm regular. Respiratory: Diffuse exp wheeze and rhonchi. Audible wheeze Abdomen: Soft, non-tender, non-distended, bowel sounds present. Extremities: Peripheral pulses intact. No edema. Neuro: No focal neurological deficits. Speech is clear. Objective Data Vital Signs Vital Signs: Vital Signs - 24 hr 07/21/20 14:48 07/21/20 14:55 07/21/20 16:00 Temperature 36.4 C Pulse Rate 84 85 80 Respiratory Rate 20 18 16 Blood Pressure 113/52 L Pulse Oximetry 97 07/21/20 19:30 07/21/20 20:00 07/21/20 20:16 Temperature 36.6 C Pulse Rate 70 78 Respiratory Rate 22 H 20 Blood Pressure 109/64 Pulse Oximetry 95 100 96 07/22/20 00:00 07/22/20 02:02 07/22/20 02:03 Temperature 36.7 C Pulse Rate 58 L 68 68 Respiratory Rate 20 18 Blood Pressure 143/89 H Pulse Oximetry 97 95 07/22/20 04:00 07/22/20 12:46 Temperature 36.6 C Pulse Rate 64 74 Respiratory Rate 20 Blood Pressure 134/70 Pulse Oximetry 95 Intake/Output Intake/Output: Intake & Output 07/19/20 07/20/20 07/21/20 07/22/20 23:59 23:59 23:59 23:59 Intake Total 3220 3210 3280 880 Output Total 1000 2400 1200 500 Balance 2220 810 2080 380 Meds/Results Medications: Active Medications Generic Name Dose Route Start Last Admin Trade Name Freq PRN Reason Stop Dose Admin Acetaminophen 650 mg 07/19/20 09:42 07/20/20 21:15 Acetaminophen 325 Mg Tablet PO 650 mg Q6H PRN Administration Mild Pain (1-3) or Fever Albuterol 4 puff 07/19/20 07:51 Albuterol Sulfate (*Sp) Aerosol 1 Puff INHALATION QIDRT PRN shortness of breath Albuterol 2.5 mg 07/19/20 08:00 07/22/20 12:43 Albuterol Sulfate Neb 2.5 Mg/0.5 Ml Inh INHALATION 2.5 mg Q6HRT FLOR Administration Amitriptyline HCl 25 mg 07/18/20 21:50 07/21/20 22:02 Amitriptyline Hcl 25 Mg Tablet PO 25 mg HS FLOR Administration Aspirin 81 mg 07/19/20 09:00 07/22/20 09:06 Aspirin 81 Mg Enteric Tablet PO 81 mg DAILY FLOR Administration Atorvasta
[2020-07-22] MEDS: MELOXICAM 7.5 MG TABLET 15 MG PO (21:00)
[2020-07-22] MEDS: AMITRIPTYLINE HCL 25 MG TABLET PO (21:07)
[2020-07-23] VITALS (11 sets, daily range): BP systolic 113–115; BP diastolic 50–60; PULSE 60–95; RESP 17–22; TEMP 36.7–37.1; O2SAT 95–98
[2020-07-23] MEDS: ALBUTEROL SULFATE NEB 2.5 MG/0.5 ML INH INHALATION ×4 (03:02→20:14)
[2020-07-23] MEDS: IPRATROPIUM BR 0.02% INH SOLN 0.5 MG/2.5 ML VIAL INHALATION ×4 (03:02→20:15)
[2020-07-23] MEDS: ATORVASTATIN 10 MG TABLET PO (09:00)
[2020-07-23] MEDS: ROFLUMILAST 500 MCG TABLET PO (09:00)
[2020-07-23] MEDS: ENOXAPARIN 40 MG/0.4 ML SYRINGE SUB-Q (09:00)
[2020-07-23] MEDS: FAMOTIDINE 20 MG/2 ML VIAL IV PUSH ×2 (09:00→20:32)
[2020-07-23] MEDS: ASPIRIN 81 MG ENTERIC TABLET PO (09:00)
[2020-07-23] MEDS: methylPREDNISolone SOD SUCC 125 MG VIAL 60 MG IV PUSH ×2 (09:00→20:32)
--- NOTE | 2020-07-23 12:56 | PM.IMPN ---
Progress Note: A&P Assessment and Plan (1) COPD (chronic obstructive pulmonary disease): Code(s): J44.9 - Chronic obstructive pulmonary disease, unspecified Status: Acute Assessment and Plan: Acute on chronic COPD -Continue scheduled nebs of albuterol and ipratropium -She is on PDE4 Daliresp and Brovana which is a LABA but I don't see inhaled steroid -Back in February she was noted to be on budesonide by pulmonology [employer], will restart that -Pt is still wheezy, continue IV solumedrol 60mg F46--nnt wean tomorrow -She finished her 5 day course of levaquin through tomorrow (2) Tobacco abuse: Code(s): Z72.0 - Tobacco use Status: Acute Assessment and Plan: -Patient smokes about 9 cigarettes a month -She needs to quit and understands this (3) Anxiety: Code(s): F41.9 - Anxiety disorder, unspecified Status: Chronic Assessment and Plan: -Continue with amitriptyline. (4) Suspected 2019-nCoV infection: Code(s): Z20.828 - Contact with and (suspected) exposure to other viral communicable diseases Status: Resolved Assessment and Plan: COVID ruled out Time Spent With Patient Time with patient: 25 - 35 minutes Subjective Date/time seen: 07/23/20 12:56 Interval history: Pt is a 65 y/o female here for COPD exacerbation. pt was seen today and states she is doing much better than she was piror to admission but is still not back to baseline. She has SEGAL when walking to the bathroom and getting cleaned up which is unusual for her. With that being said, she has made a lot of improvement since being here. She is still coughing and now coughing up yellow sputum. She denies CP, fevers, chills, abd pain, diarrhea, constipation, or leg swelling. She is currently on her home o2 settings. Review of Systems Review of Systems: All systems reviewed & are unremarkable except as noted in HPI and below Exam Narrative: Exam Narrative: General: Well developed well nourished patient in NAD HEENT: normocephalic Neck: supple Neuro: Alert and oriented x4 CV:RRR Resp:Pt has significant wheezing and rhonchi, bilaterally. She is on 3L of o2 which is her home setting. No conversational dyspnea or retractions Abd: Soft, non distended. No pain to palpation. Positive bowel sounds Extremities: No swelling, erythema, or pain to palpation. Objective Data Vital Signs Vital Signs: Vital Signs - 24 hr 07/22/20 14:00 07/22/20 20:00 07/22/20 21:14 Temperature 98.1 F Pulse Rate 93 69 Respiratory Rate 20 18 Blood Pressure 113/55 L Pulse Oximetry 97 99 96 07/22/20 21:52 07/23/20 03:03 07/23/20 06:00 Temperature 98.5 F 98.1 F Pulse Rate 70 66 60 Respiratory Rate 20 17 22 H Blood Pressure 118/62 113/60 Pulse Oximetry 99 97 97 07/23/20 08:00 07/23/20 09:12 07/23/20 09:20 Temperature Pulse Rate 95 95 95 Respiratory Rate 17 17 17 Blood Pressure Pulse Oximetry 96 96 Intake/Output Intake/Output: Intake & Output 07/20/20 07/21/20 07/22/20 07/23/20 23:59 23:59 23:59 23:59 Intake Total 3210 3280 2770 1160 Output Total 2400 1200 2000 600 Balance 810 2080 770 560 Meds/Results Medications: Active Medications Generic Name Dose Route Start Last Admin Trade Name Abdelrahmanq PRN Reason Stop Dose Admin Acetaminophen 650 mg 07/19/20 09:42 07/20/20 21:15 Acetaminophen 325 Mg Tablet PO 650 mg Q6H PRN Administration Mild Pain (1-3) or Fever Albuterol 4 puff 07/19/20 07:51 Albuterol Sulfate (*Sp) Aerosol 1 Puff INHALATION QIDRT PRN shortness of breath Albuterol 2.5 mg 07/19/20 08:00 07/23/20 09:09 Albuterol Sulfate Neb 2.5 Mg/0.5 Ml Inh INHALATION 2.5 mg Q6HRT FLOR Administration Amitriptyline HCl 25 mg 07/18/20 21:50 07/22/20 21:07 Amitriptyline Hcl 25 Mg Tablet PO 25 mg HS FLOR Administration Aspirin 81 mg 07/19/20 09:00 07/22/20 09:06 Aspirin 81 Mg Enteric Tablet PO 81 mg
[2020-07-23] MEDS: AMITRIPTYLINE HCL 25 MG TABLET PO (20:33)
[2020-07-23] MEDS: MELOXICAM 7.5 MG TABLET 15 MG PO (20:34)
[2020-07-24] VITALS (11 sets, daily range): BP systolic 115–127; BP diastolic 55–66; PULSE 58–85; RESP 16–20; TEMP 36.5–36.7; O2SAT 97–100
[2020-07-24] MEDS: IPRATROPIUM BR 0.02% INH SOLN 0.5 MG/2.5 ML VIAL INHALATION ×3 (02:32→19:23)
[2020-07-24] MEDS: ALBUTEROL SULFATE NEB 2.5 MG/0.5 ML INH INHALATION ×3 (02:32→19:22)
[2020-07-24] MEDS: methylPREDNISolone SOD SUCC 125 MG VIAL 60 MG IV PUSH ×2 (08:42→20:46)
[2020-07-24] MEDS: ENOXAPARIN 40 MG/0.4 ML SYRINGE SUB-Q (08:42)
[2020-07-24] MEDS: ASPIRIN 81 MG ENTERIC TABLET PO (08:43)
[2020-07-24] MEDS: ROFLUMILAST 500 MCG TABLET PO (08:43)
[2020-07-24] MEDS: ATORVASTATIN 10 MG TABLET PO (08:43)
[2020-07-24] MEDS: FAMOTIDINE 20 MG/2 ML VIAL IV PUSH ×2 (08:43→20:47)
--- NOTE | 2020-07-24 10:27 | PM.IMPN ---
Progress Note: A&P Assessment and Plan (1) COPD (chronic obstructive pulmonary disease): Code(s): J44.9 - Chronic obstructive pulmonary disease, unspecified Status: Acute Assessment and Plan: Acute on chronic COPD -Continue scheduled nebs of albuterol and ipratropium -She is on PDE4 Daliresp and Brovana which is a LABA and ICS started 07/23/20 -Back in February she was noted to be on budesonide by pulmonology [employer], that was restarted 07/23/20 -Pt is still wheezy, continue IV solumedrol 60mg Q12 -She has a hx of having prolonged COPD exacerbations. Hopfully we can start weaning steroids soon but she is very wheezy and we will continue with IV steroids for now -She finished her 5 days of levofloxacin today (2) Tobacco abuse: Code(s): Z72.0 - Tobacco use Status: Acute Assessment and Plan: -Patient smokes about 9 cigarettes a month -She needs to quit and understands this (3) Anxiety: Code(s): F41.9 - Anxiety disorder, unspecified Status: Chronic Assessment and Plan: -Continue with amitriptyline. (4) Suspected 2019-nCoV infection: Code(s): Z20.828 - Contact with and (suspected) exposure to other viral communicable diseases Status: Resolved Assessment and Plan: COVID ruled out Subjective Date/time seen: 07/24/20 10:27 Interval history: Pt is a 65 y/o female here for COPD exacerbation. pt was seen today and states she is doing much better than she was piror to admission but is still not back to baseline and doesn't feel any improvement since yesterday. She has SEGAL when walking to the bathroom and getting cleaned up which is unusual for her. With that being said, she has made a lot of improvement since being here. She is still coughing and now coughing up yellow sputum. She is currently doing a breathing treatment which makes her cough. She denies CP, fevers, chills, abd pain, diarrhea, constipation, or leg swelling. She had some significant right knee pain earlir this morning which was severe and felt like her bone was cracking in the middle of the knee . She has not had any reoccurrence of this and it is completely resolved. No calf pain. She is currently on her home o2 settings. Exam Narrative: Exam Narrative: General: Well developed well nourished patient in NAD HEENT: normocephalic Neck: supple Neuro: Alert and oriented x4 CV:RRR Resp:Pt has significant wheezing and rhonchi, bilaterally. She is on 3L of o2 which is her home setting. No conversational dyspnea or retractions. Currently on a breathing tx during exam Abd: Soft, non distended. No pain to palpation. Positive bowel sounds Extremities: No swelling, erythema, or pain to palpation. Objective Data Vital Signs Vital Signs: Vital Signs - 24 hr 07/23/20 14:00 07/23/20 14:05 07/23/20 14:10 Temperature 98.4 F Pulse Rate 79 95 95 Respiratory Rate 20 17 17 Blood Pressure 113/50 L Pulse Oximetry 98 07/23/20 20:11 07/23/20 20:12 07/23/20 22:00 Temperature 98.8 F Pulse Rate 88 88 74 Respiratory Rate 20 20 20 Blood Pressure 115/51 L Pulse Oximetry 95 97 07/24/20 02:32 07/24/20 06:00 07/24/20 08:51 Temperature 97.8 F Pulse Rate 80 62 Respiratory Rate 20 20 Blood Pressure 119/60 Pulse Oximetry 97 100 Intake/Output Intake/Output: Intake & Output 07/21/20 07/22/20 07/23/20 07/24/20 23:59 23:59 23:59 23:59 Intake Total 3280 2770 2660 250 Output Total 1200 2000 1650 600 Balance 2080 770 1010 -350 Meds/Results Medications: Active Medications Generic Name Dose Route Start Last Admin Trade Name Freq PRN Reason Stop Dose Admin Acetaminophen 650 mg 07/19/20 09:42 07/20/20 21:15 Acetaminophen 325 Mg Tablet PO 650 mg Q6H PRN Administration Mild Pain (1-3) or Fever Albuterol 4 puff 07/19/20 07:51 Albuterol Sulfate (*Sp) Aerosol 1 Puff INHALATION QIDRT PRN shortness of breath Albuterol 2.5 mg 1
[2020-07-24] MEDS: MELOXICAM 7.5 MG TABLET 15 MG PO (20:46)
[2020-07-24] MEDS: AMITRIPTYLINE HCL 25 MG TABLET PO (20:46)
[2020-07-25] VITALS (11 sets, daily range): BP systolic 113–136; BP diastolic 60–64; PULSE 52–77; RESP 16–20; TEMP 36.3–36.9; O2SAT 96–98
[2020-07-25] MEDS: ALBUTEROL SULFATE NEB 2.5 MG/0.5 ML INH INHALATION ×3 (02:29→20:13)
[2020-07-25] MEDS: IPRATROPIUM BR 0.02% INH SOLN 0.5 MG/2.5 ML VIAL INHALATION ×3 (02:29→20:13)
[2020-07-25 06:17] LABS: Hematocrit 38.8 % (37.0-47.0); Hemoglobin 12.1 g/dL (12.0-15.0); Mean Corpuscular HGB Conc 31.2 g/dl (32-36); Mean Corpuscular Hemoglobin 30.2 pg (26-34); Mean Corpuscular Volume 96.8 fl (80-100); Mean Platelet Volume 8.9 fl (7.4-10.4); Platelet Count Result 218 k/mm3 (150-375); Red Blood Count 4.01 M/mm3 (4.2-5.4); Red Cell Distribution Width 13.1 % (11.5-14.5); White Blood Count 13.8 K/mm3 (4.5-10.0)
[2020-07-25 06:56] LABS: Alanine Aminotransferase 32 U/L (4-35); Albumin Level 3.4 g/dL (3.5-5.1); Alkaline Phosphatase 64 U/L (38-126); Anion Gap 3 mmol/L (8-16); Aspartate Amino Transferase 30 U/L (14-36); Bilirubin,Total 0.3 mg/dL (0.2-1.3); Blood Urea Nitrogen 22 mg/dL (7-17); Calcium 8.8 mg/dL (8.4-10.2); Carbon Dioxide 35 mmol/L (22-30); Chloride 98 mmol/L (98-107); Estimated CRCL calculation 94 ml/min; Estimated Glomerular Filt Rate > 60; Glucose 126 mg/dL (65-105); Potassium 4.6 mmol/L (3.4-5.0); Sodium 136 mmol/L (137-145)
[2020-07-25] MEDS: ENOXAPARIN 40 MG/0.4 ML SYRINGE SUB-Q (08:15)
[2020-07-25] MEDS: ASPIRIN 81 MG ENTERIC TABLET PO (08:16)
[2020-07-25] MEDS: methylPREDNISolone SOD SUCC 125 MG VIAL 60 MG IV PUSH ×2 (08:16→20:38)
[2020-07-25] MEDS: ROFLUMILAST 500 MCG TABLET PO (08:16)
[2020-07-25] MEDS: ATORVASTATIN 10 MG TABLET PO (08:17)
[2020-07-25] MEDS: FAMOTIDINE 20 MG/2 ML VIAL IV PUSH ×2 (08:17→20:38)
[2020-07-25] MEDS: guaiFENesin/DEXTROMETHORPHAN 10 ML UDC PO (08:19)
--- NOTE | 2020-07-25 09:44 | PM.IMPN ---
Progress Note: A&P Assessment and Plan (1) COPD (chronic obstructive pulmonary disease): Code(s): J44.9 - Chronic obstructive pulmonary disease, unspecified Status: Acute Assessment and Plan: Acute on chronic COPD -full consult pulmonology due to her prolonged COPD exacerbation for any additional recommendations -Continue scheduled nebs of albuterol and ipratropium -She is on PDE4 Daliresp and Brovana which is a LABA and ICS started 07/23/20 -Back in February she was noted to be on budesonide by pulmonology [employer] but patient states she cannot afford it -Pt is still wheezy, continue IV solumedrol 60mg Q12 -She has a hx of having prolonged COPD exacerbations. Hopefully we can start weaning steroids soon but she is very wheezy and we will continue with IV steroids for now -She finished her 5 days of levofloxacin 07/24/20 -will repeat chest x-ray although suspect this will be unchanged. -leukocytosis likely due to steroids (2) Tobacco abuse: Code(s): Z72.0 - Tobacco use Status: Acute Assessment and Plan: -Patient smokes about 9 cigarettes a month -She needs to quit and understands this (3) Anxiety: Code(s): F41.9 - Anxiety disorder, unspecified Status: Chronic Assessment and Plan: -Continue with amitriptyline. (4) Suspected 2019-nCoV infection: Code(s): Z20.828 - Contact with and (suspected) exposure to other viral communicable diseases Status: Resolved Assessment and Plan: COVID ruled out Subjective Date/time seen: 07/25/20 09:44 Interval history: Pt is a 65 y/o female here for COPD exacerbation. Patient was seen today and states she is feeling about the same as yesterday. She still has shortness of breath when doing any activity but doing okay at rest. She certainly feels better than she did prior to coming in the hospital but feels like she has plateaued. I asked her why she was not on her ICS and she said 1 of them is very expensive and she guesses that is the 1 she is not on. She is still coughing up yellow sputum. She denies chest pain, nausea, vomiting, fevers, chills, abdominal pain, or leg swelling. Exam Narrative: Exam Narrative: General: Well developed well nourished patient in [facility] HEENT: normocephalic Neck: supple Neuro: Alert and oriented x4 CV:RRR Resp:Pt has significant wheezing and rhonchi, bilaterally. She is on 3L of o2 which is her home setting. No conversational dyspnea or retractions. Abd: Soft, non distended. No pain to palpation. Positive bowel sounds Extremities: No swelling, erythema, or pain to palpation. Objective Data Vital Signs Vital Signs: Vital Signs - 24 hr 07/24/20 09:45 07/24/20 14:00 07/24/20 19:25 Temperature 97.7 F Pulse Rate 85 58 L 74 Respiratory Rate 20 16 18 Blood Pressure 127/66 Pulse Oximetry 97 07/24/20 19:37 07/24/20 20:50 07/24/20 22:00 Temperature 98.0 F Pulse Rate 77 75 Respiratory Rate 18 20 Blood Pressure 115/55 L Pulse Oximetry 99 99 07/24/20 22:45 07/25/20 02:25 07/25/20 02:29 Temperature Pulse Rate 75 72 72 Respiratory Rate 18 Blood Pressure Pulse Oximetry 98 97 07/25/20 05:35 07/25/20 08:00 Temperature 97.4 F L Pulse Rate 52 L 52 L Respiratory Rate 20 20 Blood Pressure 113/64 Pulse Oximetry 97 97 Intake/Output Intake/Output: Intake & Output 07/22/20 07/23/20 07/24/20 07/25/20 23:59 23:59 23:59 23:59 Intake Total 2770 2660 2190 650 Output Total 1999 1650 1100 450 Balance 770 1010 1090 200 Meds/Results Medications: Active Medications Generic Name Dose Route Start Last Admin Trade Name Freq PRN Reason Stop Dose Admin Acetaminophen 650 mg 07/19/20 09:42 07/20/20 21:15 Acetaminophen 325 Mg Tablet PO 650 mg Q6H PRN Administration Mild Pain (1-3) or Fever Albuterol 4 puff 07/19/20 07:51 Albuterol Sulfate (*Sp) Aerosol 1 Puff INHALATION QIDRT PRN shortness of vaughn
--- NOTE | 2020-07-25 12:57 | PM.CNPUL ---
Assessment and Plan Additional Plan COPD with prominent asthmatic component and current exacerbation. Chronic hypercarbia. Chronic and recent smoker. I agree with her management to date and agree with steroids, nebs, Trilogy use, and updated CXR. History of Present Illness History of Present Illness Consult date: 07/25/20 Chief complaint: copd exacerbation,hypoxemia,pui Narrative: 65-year-old lady. Smoker 1-06/01 PPD for most of her adult life. Quit smoking but restarted when son a year ago. Quit again 1 month ago. Has had 5 days of Levaquin and has had Solu-Medrol, now 60 mg IV q.12h. Last ABG 132.3/57.8/7.359 (suggests chronic hypercarbia). She tells me when she worsens she typically gets antibiotics with prednisone burst and last was October, such that she has done okay since then. She has been on Trilogy 1+ year & is on it here in the hospital [facility] Past Medical History Medical History Anxiety Chronic respiratory failure with hypercapnia COPD (chronic obstructive pulmonary disease) H/O TIA (transient ischemic attack) and stroke June 2019 On supplemental oxygen by nasal cannula Surgical History Surgical History (Updated 07/18/20 @ 21:52 by Mayi Shell NP) H/O: hysterectomy History of section, classical Family History Family History (Updated 07/18/20 @ 21:54 by Mayi Shell NP) Mother Diabetes mellitus Hypertension Sibling Hypertension Asthma Family history of sleep apnea Son Drug overdose Father Alcoholism Motor vehicle accident Ran over and then Social History Social History (Updated 07/18/20 @ 21:54 by Mayi Shell NP) Social History: The patient has an ex- which she is fairly close to. They had 3 sons together and her 1 son passed with due to a heroin overdose 1 year ago. Patient is disabled. She stated that she quit smoking about a year ago with an when her son she started smoking again she smokes about 9 cigarettes a month. She desires to be a full code she does not have a durable power assistant city attorney though. No alcohol marijuana or illicit drug Smoking packs per day: 1 Smoking cigarettes per day: 20.0 Years smoked: 20 Smoking pack-years: 20.00 Smoking status: Current some day smoker Tobacco type: cigarettes Second hand tobacco smoke exposure: Yes Smoking end date: 07/31/16 Additional smoking assessment comments: has drastically cut down. smokes maybe 7 cigarettes per month Alcohol intake: never Substance use: never Substance use type: does not use Gender identity (if verbalized by the patient): Female Spiritual care concerns: No Meds Home Medications and Allergies Home Medications Medication Instructions Recorded Confirmed Type albuterol sulfate 90 mcg/actuation 1 puff INHALATION Q4H PRN 08/29/19 07/18/20 History aerosol inhaler arformoterol 15 mcg/2 mL solution 2 ml INHALATION BID 08/29/19 07/18/20 History for nebulization aspirin 81 mg tablet,delayed 81 mg PO DAILY 09/02/19 07/18/20 History release meloxicam 15 mg tablet 15 mg PO HS 03/02/20 07/18/20 History albuterol sulfate 2.5 mg INHALATION DAILY 05/05/20 07/18/20 History amitriptyline 25 mg PO HS #30 tablet 05/08/20 07/18/20 Rx ipratropium bromide 0.02 % See Rx Instructions .ROUTE 06/05/20 07/18/20 Rx solution for inhalation .COMPLEX #360 ml atorvastatin 10 mg PO DAILY 07/18/20 07/18/20 History roflumilast [Daliresp] 500 mcg PO DAILY 07/18/20 07/18/20 History Allergies Allergy/AdvReac Type Severity Reaction Status Date / Time No Known Allergies Allergy Verified 07/18/20 11:23 Vital Signs Vital Signs - 24 hr 07/24/20 14:00 07/24/20 19:25 07/24/20 19:37 Temperature 36.5 C Pulse Rate 58 L 74 77 Respiratory Rate 16 18 18 Blood Pressure 127/66 Pulse Oximetry 97 07/24/20 20:50 07/24/20 22:00 07/24/20 22:45 Temperature 36.7 C Pulse R
--- NOTE | 2020-07-25 13:11 | PM.CNPUL ---
History of Present Illness History of Present Illness Consult date: 07/25/20 Chief complaint: copd exacerbation,hypoxemia,pui PMFSH Past Medical History Medical History Anxiety Chronic respiratory failure with hypercapnia COPD (chronic obstructive pulmonary disease) H/O TIA (transient ischemic attack) and stroke June 2019 On supplemental oxygen by nasal cannula Surgical History Surgical History (Updated 07/18/20 @ 21:52 by Mayi Shell NP) H/O: hysterectomy History of section, classical Family History Family History (Updated 07/18/20 @ 21:54 by Mayi Shell NP) Mother Diabetes mellitus Hypertension Sibling Hypertension Asthma Family history of sleep apnea Son Drug overdose Father Alcoholism Motor vehicle accident Ran over and then Social History Social History (Updated 07/18/20 @ 21:54 by Mayi Shell NP) Social History: The patient has an ex- which she is fairly close to. They had 3 sons together and her 1 son passed with due to a heroin overdose 1 year ago. Patient is disabled. She stated that she quit smoking about a year ago with an when her son she started smoking again she smokes about 9 cigarettes a month. She desires to be a full code she does not have a durable power title attorney though. No alcohol marijuana or illicit drug Smoking packs per day: 1 Smoking cigarettes per day: 20.0 Years smoked: 20 Smoking pack-years: 20.00 Smoking status: Current some day smoker Tobacco type: cigarettes Second hand tobacco smoke exposure: Yes Smoking end date: 07/31/16 Additional smoking assessment comments: has drastically cut down. smokes maybe 7 cigarettes per month Alcohol intake: never Substance use: never Substance use type: does not use Gender identity (if verbalized by the patient): Female Spiritual care concerns: No Meds Home Medications and Allergies Home Medications Medication Instructions Recorded Confirmed Type albuterol sulfate 90 mcg/actuation 1 puff INHALATION Q4H PRN 08/29/19 07/18/20 History aerosol inhaler arformoterol 15 mcg/2 mL solution 2 ml INHALATION BID 08/29/19 07/18/20 History for nebulization aspirin 81 mg tablet,delayed 81 mg PO DAILY 09/02/19 07/18/20 History release meloxicam 15 mg tablet 15 mg PO HS 03/02/20 07/18/20 History albuterol sulfate 2.5 mg INHALATION DAILY 05/05/20 07/18/20 History amitriptyline 25 mg PO HS #30 tablet 05/08/20 07/18/20 Rx ipratropium bromide 0.02 % See Rx Instructions .ROUTE 06/05/20 07/18/20 Rx solution for inhalation .COMPLEX #360 ml atorvastatin 10 mg PO DAILY 07/18/20 07/18/20 History roflumilast [Daliresp] 500 mcg PO DAILY 07/18/20 07/18/20 History Allergies Allergy/AdvReac Type Severity Reaction Status Date / Time No Known Allergies Allergy Verified 07/18/20 11:23 Vital Signs Vital Signs - 24 hr 07/24/20 14:00 07/24/20 19:25 07/24/20 19:37 Temperature 36.5 C Pulse Rate 58 L 74 77 Respiratory Rate 16 18 18 Blood Pressure 127/66 Pulse Oximetry 97 07/24/20 20:50 07/24/20 22:00 07/24/20 22:45 Temperature 36.7 C Pulse Rate 75 75 Respiratory Rate 20 Blood Pressure 115/55 L Pulse Oximetry 99 99 98 07/25/20 02:25 07/25/20 02:29 07/25/20 05:35 Temperature 36.3 C L Pulse Rate 72 72 52 L Respiratory Rate 18 20 Blood Pressure 113/64 Pulse Oximetry 97 97 07/25/20 08:00 07/25/20 10:37 Temperature Pulse Rate 52 L 77 Respiratory Rate 20 20 Blood Pressure Pulse Oximetry 97 96 Results Laboratory Findings CBC and BMP: 07/25/20 06:07 07/25/20 06:07 ABG, PT/INR, D-dimer: ABG ABG pH 7.359 (7.350-7.450) 07/18/20 11:46 ABG pCO2 57.8 mmHg (35.0-45.0) H 07/18/20 11:46 ABG pO2 132.3 mmHg (80.0-100.0) H 07/18/20 11:46 ABG O2 Saturation 98.5 % (95.0-100.0) 07/18/20 11:46
--- NOTE | 2020-07-25 16:52 | PCRCNOTE ---
Window of time for administration has passed. See next scheduled administration.
--- NOTE | 2020-07-25 16:56 | PCRCNOTE ---
Window of time for administration has passed. See next scheduled administration.
[2020-07-25] MEDS: DORNASE ALFA INH SOLN 1 MG/ML 2.5 ML AMP 2.5 MG INHALATION (20:12)
[2020-07-25] MEDS: BUDESONIDE RESPULE NEB 0.5 MG/2 ML AMP INHALATION (20:13)
[2020-07-25] MEDS: AMITRIPTYLINE HCL 25 MG TABLET PO (20:37)
[2020-07-25] MEDS: MELOXICAM 7.5 MG TABLET 15 MG PO (20:38)
[2020-07-26] VITALS (13 sets, daily range): BP systolic 118–128; BP diastolic 57–64; PULSE 60–74; RESP 18–20; TEMP 36.2–36.9; O2SAT 95–99
[2020-07-26] MEDS: ALBUTEROL SULFATE NEB 2.5 MG/0.5 ML INH INHALATION ×4 (02:01→20:46)
[2020-07-26] MEDS: IPRATROPIUM BR 0.02% INH SOLN 0.5 MG/2.5 ML VIAL INHALATION ×4 (02:01→20:46)
[2020-07-26 07:26] LABS: Hematocrit 37.9 % (37.0-47.0); Hemoglobin 11.8 g/dL (12.0-15.0); Mean Corpuscular HGB Conc 31.1 g/dl (32-36); Mean Corpuscular Hemoglobin 29.2 pg (26-34); Mean Corpuscular Volume 93.8 fl (80-100); Platelet Count Result 230 k/mm3 (150-375); Red Blood Count 4.04 M/mm3 (4.2-5.4); Red Cell Distribution Width 13.2 % (11.5-14.5); White Blood Count 15.4 K/mm3 (4.5-10.0)
[2020-07-26 07:33] LABS: Anion Gap 3 mmol/L (8-16); Blood Urea Nitrogen 27 mg/dL (7-17); CRP < 0.5 mg/dL (<1.0); Calcium 8.6 mg/dL (8.4-10.2); Carbon Dioxide 36 mmol/L (22-30); Chloride 97 mmol/L (98-107); Estimated CRCL calculation 111 ml/min; Estimated Glomerular Filt Rate > 60; Glucose 100 mg/dL (65-105); Potassium 4.7 mmol/L (3.4-5.0); Sodium 136 mmol/L (137-145)
[2020-07-26] MEDS: BUDESONIDE RESPULE NEB 0.5 MG/2 ML AMP INHALATION ×2 (08:39→20:46)
[2020-07-26] MEDS: DORNASE ALFA INH SOLN 1 MG/ML 2.5 ML AMP 2.5 MG INHALATION ×2 (08:39→20:46)
[2020-07-26] MEDS: FAMOTIDINE 20 MG/2 ML VIAL IV PUSH ×2 (09:17→20:58)
[2020-07-26] MEDS: ROFLUMILAST 500 MCG TABLET PO (09:17)
[2020-07-26] MEDS: ENOXAPARIN 40 MG/0.4 ML SYRINGE SUB-Q (09:17)
[2020-07-26] MEDS: ASPIRIN 81 MG ENTERIC TABLET PO (09:17)
[2020-07-26] MEDS: ATORVASTATIN 10 MG TABLET PO (09:17)
[2020-07-26] MEDS: methylPREDNISolone SOD SUCC 125 MG VIAL 60 MG IV PUSH (09:18)
--- NOTE | 2020-07-26 11:32 | PM.PNPUL ---
Progress Note: A&P Additional Plan I think she is improved. I am tapering Solu-Medrol to 40 mg IV q.12h in the hopes of dismissal soon. Subjective Date/time seen: 07/26/20 11:32 Wore BiPAP all night. Reviewed her multiple different nebs with nursing staff. Exam Narrative: Exam Narrative: Chest exam finds quiet bilateral wheezes. Heart sounds regular. No neck adenopathy and no carotid bruits. Objective Data Vital Signs Vital Signs: Vital Signs - 24 hr 07/25/20 14:00 07/25/20 20:00 07/25/20 20:15 Temperature 36.9 C Pulse Rate 77 60 Respiratory Rate 16 20 Blood Pressure 136/60 Pulse Oximetry 98 96 96 07/25/20 20:40 07/25/20 22:00 07/26/20 02:05 Temperature 36.6 C Pulse Rate 69 71 64 Respiratory Rate 20 20 18 Blood Pressure 128/60 Pulse Oximetry 97 07/26/20 06:00 07/26/20 08:00 07/26/20 08:41 Temperature 36.2 C L Pulse Rate 60 63 69 Respiratory Rate 20 18 20 Blood Pressure 118/64 Pulse Oximetry 99 97 97 07/26/20 09:04 Temperature Pulse Rate 63 Respiratory Rate 18 Blood Pressure Pulse Oximetry Intake/Output Intake/Output: Intake & Output 07/23/20 07/24/20 07/25/20 07/26/20 23:59 23:59 23:59 23:59 Intake Total 2660 2190 2590 1000 Output Total 1650 1100 1550 1000 Balance 1010 1090 1040 0 Meds/Results Medications: Active Medications Generic Name Dose Route Start Last Admin Trade Name Freq PRN Reason Stop Dose Admin Acetaminophen 650 mg 07/19/20 09:42 07/20/20 21:15 Acetaminophen 325 Mg Tablet PO 650 mg Q6H PRN Administration Mild Pain (1-3) or Fever Albuterol 4 puff 07/19/20 07:51 Albuterol Sulfate (*Sp) Aerosol 1 Puff INHALATION QIDRT PRN shortness of breath Albuterol 2.5 mg 07/19/20 08:00 07/26/20 08:40 Albuterol Sulfate Neb 2.5 Mg/0.5 Ml Inh INHALATION 2.5 mg Q6HRT FLOR Administration Amitriptyline HCl 25 mg 07/18/20 21:50 07/25/20 20:37 Amitriptyline Hcl 25 Mg Tablet PO 25 mg HS FLOR Administration Aspirin 81 mg 07/19/20 09:00 07/26/20 09:17 Aspirin 81 Mg Enteric Tablet PO 81 mg DAILY FLOR Administration Atorvastatin Calcium 10 mg 07/19/20 09:00 07/26/20 09:17 Atorvastatin 10 Mg Tablet PO 10 mg DAILY FLOR Administration Budesonide 0.5 mg 07/25/20 20:00 07/26/20 08:39 Budesonide Respule Neb 0.5 Mg/2 Ml Amp INHALATION 0.5 mg Q12HRT FLOR Administration Dornase Yonathan 2.5 mg 07/25/20 20:00 07/26/20 08:39 Dornase Yonathan Inh Soln 1 Mg/Ml 2.5 Ml Amp INHALATION 2.5 mg Q12HRT FLOR Administration Enoxaparin Sodium 40 mg 07/19/20 09:00 07/26/20 09:17 Enoxaparin 40 Mg/0.4 Ml Syringe SUB-Q 40 mg DAILY FLOR Administration Famotidine 20 mg 07/18/20 21:00 07/26/20 09:17 Famotidine 20 Mg/2 Ml Vial IV PUSH 20 mg Q12HR FLOR Administration Guaifenesin/Dextromethorphan 10 ml 07/19/20 06:33 07/25/20 08:19 Guaifenesin/Dextromethorphan 10 Ml Udc PO 10 ml Q4H PRN Administration Cough Ipratropium [place] 0.5 mg 07/19/20 08:00 07/26/20 02:01 Ipratropium Br 0.02% Inh Soln 0.5 Mg/2.5 Ml Vial INHALATION 0.5 mg Q6HRT FLOR Administration Meloxicam 15 mg 07/18/20 21:50 07/25/20 20:38 Meloxicam 7.5 Mg Tablet PO 15 mg HS FLOR Administration Methylprednisolone Sodium Succinate 40 mg 07/26/20 21:00 Methylprednisolone Sod Succ 40 Mg Vial IV PUSH Q12H [facility] Roflumilast 500 mcg 07/19/20 09:00 07/26/20 09:17 Roflumilast 500 Mcg Tablet PO 500 mcg DAILY FLOR Administration Radiology Results: ITS Impressions Chest X-Ray 07/26/20 09:12 IMPRESSION: Chronic thoracic findings as above. Labs Labs: Laboratory Results - last 24 hr 07/26/20 07/26/20 07:06 07:06 WBC 15.4 H RBC 4.04 L Hgb 11.8 L Hct 37.9 MCV 93.8 MCH 29.2 MCHC 31.1 L RDW 13.2 Plt Count 230 MPV 9.0 Sodium 136 L Potassium 4.7 Chloride 97 L Carbon Dioxide 36 H Anion Gap 3 L BUN 27 H Creatinine
--- NOTE | 2020-07-26 14:35 | PM.IMPN ---
Progress Note: A&P Assessment and Plan (1) COPD (chronic obstructive pulmonary disease): Code(s): J44.9 - Chronic obstructive pulmonary disease, unspecified Status: Acute Assessment and Plan: Acute on chronic COPD -Pt continues to improve, will wean steroids today -Continue scheduled nebs of albuterol and ipratropium -She is on PDE4 Daliresp and Brovana which is a LABA and ICS started 07/23/20 -Back in February she was noted to be on budesonide by pulmonology [employer] but patient states she cannot afford it -Now on IV solumedrol 40mg Q12 -She has a hx of having prolonged COPD exacerbations. -She finished her 5 days of levofloxacin 07/24/20 -repeat chest x-ray unchanged. -leukocytosis likely due to steroids (2) Tobacco abuse: Code(s): Z72.0 - Tobacco use Status: Acute Assessment and Plan: -Patient smokes about 9 cigarettes a month -She needs to quit and understands this (3) Anxiety: Code(s): F41.9 - Anxiety disorder, unspecified Status: Chronic Assessment and Plan: -Continue with amitriptyline. (4) Suspected 2019-nCoV infection: Code(s): Z20.828 - Contact with and (suspected) exposure to other viral communicable diseases Status: Resolved Assessment and Plan: COVID ruled out Subjective Date/time seen: 07/26/20 14:35 Interval history: Pt is a 65 y/o female here for COPD exacerbation. Patient was seen today and is doing better. She is able to walk to the bathroom and do things around her room. She certainly feels better than she did prior to coming in the hospital. She is coughing less. She denies chest pain, nausea, vomiting, fevers, chills, abdominal pain, or leg swelling. Exam Narrative: Exam Narrative: General: Well developed well nourished patient in [facility] HEENT: normocephalic Neck: supple Neuro: Alert and oriented x4 CV:RRR Resp:Pt has wheezing and rhonchi in both lungs. She is on 3L of o2 which is her home setting. No conversational dyspnea or retractions. Abd: Soft, non distended. No pain to palpation. Positive bowel sounds Extremities: No swelling, erythema, or pain to palpation. Objective Data Vital Signs Vital Signs: Vital Signs - 24 hr 07/25/20 20:00 07/25/20 20:15 07/25/20 20:40 Temperature Pulse Rate 60 69 Respiratory Rate 20 20 Blood Pressure Pulse Oximetry 96 96 07/25/20 22:00 07/26/20 02:05 07/26/20 06:00 Temperature 97.9 F 97.2 F L Pulse Rate 71 64 60 Respiratory Rate 20 18 20 Blood Pressure 128/60 118/64 Pulse Oximetry 97 99 07/26/20 08:00 07/26/20 08:41 07/26/20 09:04 Temperature Pulse Rate 63 69 63 Respiratory Rate 18 20 18 Blood Pressure Pulse Oximetry 97 97 Intake/Output Intake/Output: Intake & Output 07/23/20 07/24/20 07/25/20 07/26/20 23:59 23:59 23:59 23:59 Intake Total 2660 2190 2590 1000 Output Total 1650 1100 1550 1000 Balance 1010 1090 1040 0 Meds/Results Medications: Active Medications Generic Name Dose Route Start Last Admin Trade Name Freq PRN Reason Stop Dose Admin Acetaminophen 650 mg 07/19/20 09:42 07/20/20 21:15 Acetaminophen 325 Mg Tablet PO 650 mg Q6H PRN Administration Mild Pain (1-3) or Fever Albuterol 4 puff 07/19/20 07:51 Albuterol Sulfate (*Sp) Aerosol 1 Puff INHALATION QIDRT PRN shortness of breath Albuterol 2.5 mg 07/19/20 08:00 07/26/20 08:40 Albuterol Sulfate Neb 2.5 Mg/0.5 Ml Inh INHALATION 2.5 mg Q6HRT FLOR Administration Amitriptyline HCl 25 mg 07/18/20 21:50 07/25/20 20:37 Amitriptyline Hcl 25 Mg Tablet PO 25 mg HS FLOR Administration Aspirin 81 mg 07/19/20 09:00 07/26/20 09:17 Aspirin 81 Mg Enteric Tablet PO 81 mg DAILY FLOR Administration Atorvastatin Calcium 10 mg 07/19/20 09:00 07/26/20 09:17 Atorvastatin 10 Mg Tablet PO 10 mg DAILY FLOR Administration Budesonide 0.5 mg 07/25/20 20:00 07/26/20 08:39 Budesonide Resp
[2020-07-26] MEDS: AMITRIPTYLINE HCL 25 MG TABLET PO (20:58)
[2020-07-26] MEDS: methylPREDNISolone SOD SUCC 40 MG VIAL IV PUSH (20:58)
[2020-07-26] MEDS: MELOXICAM 7.5 MG TABLET 15 MG PO (20:58)
[2020-07-26] MEDS: guaiFENesin/DEXTROMETHORPHAN 10 ML UDC PO (20:59)
[2020-07-27] VITALS (14 sets, daily range): BP systolic 114–134; BP diastolic 54–61; PULSE 54–77; RESP 16–20; TEMP 36.5–36.7; O2SAT 95–100
[2020-07-27] MEDS: ALBUTEROL SULFATE NEB 2.5 MG/0.5 ML INH INHALATION ×4 (04:19→20:46)
[2020-07-27] MEDS: IPRATROPIUM BR 0.02% INH SOLN 0.5 MG/2.5 ML VIAL INHALATION ×3 (04:19→14:01)
[2020-07-27 07:06] LABS: Hematocrit 39.9 % (37.0-47.0); Hemoglobin 12.4 g/dL (12.0-15.0); Mean Corpuscular HGB Conc 31.1 g/dl (32-36); Mean Corpuscular Hemoglobin 29.4 pg (26-34); Mean Corpuscular Volume 94.5 fl (80-100); Mean Platelet Volume 9.1 fl (7.4-10.4); Platelet Count Result 227 k/mm3 (150-375); Red Blood Count 4.22 M/mm3 (4.2-5.4); Red Cell Distribution Width 13.2 % (11.5-14.5); White Blood Count 14.6 K/mm3 (4.5-10.0)
[2020-07-27] MEDS: BUDESONIDE RESPULE NEB 0.5 MG/2 ML AMP INHALATION ×2 (08:10→20:46)
[2020-07-27] MEDS: DORNASE ALFA INH SOLN 1 MG/ML 2.5 ML AMP 2.5 MG INHALATION ×2 (08:11→20:46)
[2020-07-27] MEDS: ROFLUMILAST 500 MCG TABLET PO (08:40)
[2020-07-27] MEDS: ACETAMINOPHEN 325 MG TABLET 650 MG PO (08:40)
[2020-07-27] MEDS: ENOXAPARIN 40 MG/0.4 ML SYRINGE SUB-Q (08:40)
[2020-07-27] MEDS: methylPREDNISolone SOD SUCC 40 MG VIAL IV PUSH ×2 (08:41→21:43)
[2020-07-27] MEDS: ASPIRIN 81 MG ENTERIC TABLET PO (08:41)
[2020-07-27] MEDS: ATORVASTATIN 10 MG TABLET PO (08:41)
[2020-07-27] MEDS: FAMOTIDINE 20 MG/2 ML VIAL IV PUSH ×2 (09:53→21:43)
--- NOTE | 2020-07-27 09:57 | PM.PNPUL ---
Progress Note: A&P Additional Plan She would like to convert parental steroids to oral in anticipation of going home soon. She has enough audible bronchospasm though that I would favor continuing IV steroids at least today. Hopefully home soon. Time Spent With Patient Time with patient: 25 - 35 minutes Subjective Date/time seen: 07/27/20 09:57 Complains of headache this a.m. which is not unusual for her. Continues Trilogy use Q night. She feels much better overall. Exam Narrative: Exam Narrative: Breathing comfortably but has audible quiet wheezes diffusely and bilaterally. Heart sounds were regular. Objective Data Vital Signs Vital Signs: Vital Signs - 24 hr 07/26/20 14:00 07/26/20 15:49 07/26/20 15:57 Temperature 36.9 C Pulse Rate 74 68 68 Respiratory Rate 18 18 18 Blood Pressure 128/59 L Pulse Oximetry 97 07/26/20 20:00 07/26/20 20:48 07/26/20 20:49 Temperature Pulse Rate 61 Respiratory Rate 18 Blood Pressure Pulse Oximetry 97 95 07/26/20 22:00 07/26/20 23:05 07/27/20 04:19 Temperature 36.8 C Pulse Rate 62 67 57 L Respiratory Rate 20 18 Blood Pressure 126/57 L Pulse Oximetry 97 97 07/27/20 04:29 07/27/20 06:00 07/27/20 08:14 Temperature 36.5 C Pulse Rate 58 L 54 L 60 Respiratory Rate 18 20 18 Blood Pressure 114/54 L Pulse Oximetry 96 100 07/27/20 08:15 07/27/20 08:33 Temperature Pulse Rate 60 Respiratory Rate 18 Blood Pressure Pulse Oximetry 99 Intake/Output Intake/Output: Intake & Output 07/24/20 07/25/20 07/26/20 07/27/20 23:59 23:59 23:59 23:59 Intake Total 2190 2590 3630 250 Output Total 1100 1550 3150 1100 Balance 1090 1040 480 -850 Meds/Results Medications: Active Medications Generic Name Dose Route Start Last Admin Trade Name Freq PRN Reason Stop Dose Admin Acetaminophen 650 mg 07/19/20 09:42 07/27/20 08:40 Acetaminophen 325 Mg Tablet PO 650 mg Q6H PRN Administration Mild Pain (1-3) or Fever Albuterol 4 puff 07/19/20 07:51 Albuterol Sulfate (*Sp) Aerosol 1 Puff INHALATION QIDRT PRN shortness of breath Albuterol 2.5 mg 07/19/20 08:00 07/27/20 08:10 Albuterol Sulfate Neb 2.5 Mg/0.5 Ml Inh INHALATION 2.5 mg Q6HRT FLOR Administration Amitriptyline HCl 25 mg 07/18/20 21:50 07/26/20 20:58 Amitriptyline Hcl 25 Mg Tablet PO 25 mg HS FLOR Administration Aspirin 81 mg 07/19/20 09:00 07/27/20 08:41 Aspirin 81 Mg Enteric Tablet PO 81 mg DAILY FLOR Administration Atorvastatin Calcium 10 mg 07/19/20 09:00 07/27/20 08:41 Atorvastatin 10 Mg Tablet PO 10 mg DAILY FLOR Administration Budesonide 0.5 mg 07/25/20 20:00 07/27/20 08:10 Budesonide Respule Neb 0.5 Mg/2 Ml Amp INHALATION 0.5 mg Q12HRT FLOR Administration Dornase Yonathan 2.5 mg 07/25/20 20:00 07/27/20 08:11 Dornase Yonathan Inh Soln 1 Mg/Ml 2.5 Ml Amp INHALATION 2.5 mg Q12HRT FLOR Administration Enoxaparin Sodium 40 mg 07/19/20 09:00 07/27/20 08:40 Enoxaparin 40 Mg/0.4 Ml Syringe SUB-Q 40 mg DAILY FLOR Administration Famotidine 20 mg 07/18/20 21:00 07/27/20 09:53 Famotidine 20 Mg/2 Ml Vial IV PUSH 20 mg Q12HR FLOR Administration Guaifenesin/Dextromethorphan 10 ml 07/19/20 06:33 07/26/20 20:59 Guaifenesin/Dextromethorphan 10 Ml Udc PO 10 ml Q4H PRN Administration Cough Ipratropium [place] 0.5 mg 07/19/20 08:00 07/27/20 08:10 Ipratropium Br 0.02% Inh Soln 0.5 Mg/2.5 Ml Vial INHALATION 0.5 mg Q6HRT FLOR Administration Meloxicam 15 mg 07/18/20 21:50 07/26/20 20:58 Meloxicam 7.5 Mg Tablet PO 15 mg HS FLOR Administration Methylprednisolone Sodium Succinate 40 mg 07/26/20 21:00 07/27/20 08:41 Methylprednisolone Sod Succ 40 Mg Vial IV PUSH 40 mg Q12H FLOR Administration Polyethylene Glycol 17 gm 07/26/20 14:41 Polyethylene Glycol 3350 17 Gm Powd.Pack PO QAM PRN Constipation Roflumilast 500 mcg 07/19/20
--- NOTE | 2020-07-27 12:12 | PM.IMPN ---
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 -She finished her 5 days of levofloxacin 07/24/20 -repeat chest x-ray unchanged. -leukocytosis likely due to steroids (2) Tobacco abuse: Code(s): Z72.0 - Tobacco use Status: Acute Assessment and Plan: -Patient smokes about 9 cigarettes a month -She needs to quit and understands this (3) Anxiety: Code(s): F41.9 - Anxiety disorder, unspecified Status: Chronic Assessment and Plan: -Continue with amitriptyline. (4) Suspected 2019-nCoV infection: Code(s): Z20.828 - Contact with and (suspected) exposure to other viral communicable diseases Status: Resolved Assessment and Plan: COVID ruled out Subjective Date/time seen: 07/27/20 12:12 Interval history: Pt is a 65 y/o female here for COPD exacerbation. Patient was seen today and is doing better. Although she feels improved, she is worried about going home. She states that she has been taken off IV steroids and placed on oral steroids and failed this and had to go back on IV steroids so she is worried about the transition. She certainly feels better than she did prior to coming in the hospital. She is coughing less. She denies chest pain, nausea, vomiting, fevers, chills, abdominal pain, or leg swelling. She had a mild headache today which improved with tylenol. Exam Narrative: Exam Narrative: General: Well developed well nourished patient in NAD HEENT: normocephalic Neck: supple Neuro: Alert and oriented x4 CV:RRR Resp:Pt has significant wheezing and rhonchi in both lungs. She is on 3L of o2 which is her home setting. No conversational dyspnea or retractions. Abd: Soft, non distended. No pain to palpation. Positive bowel sounds Extremities: No swelling, erythema, or pain to palpation. Objective Data Vital Signs Vital Signs: Vital Signs - 24 hr 07/26/20 14:00 07/26/20 15:49 07/26/20 15:57 Temperature 98.4 F Pulse Rate 74 68 68 Respiratory Rate 18 18 18 Blood Pressure 128/59 L Pulse Oximetry 97 07/26/20 20:00 07/26/20 20:48 07/26/20 20:49 Temperature Pulse Rate 61 Respiratory Rate 18 Blood Pressure Pulse Oximetry 97 95 07/26/20 22:00 07/26/20 23:05 07/27/20 04:19 Temperature 98.3 F Pulse Rate 62 67 57 L Respiratory Rate 20 18 Blood Pressure 126/57 L Pulse Oximetry 97 97 07/27/20 04:29 07/27/20 06:00 07/27/20 08:14 Temperature 97.7 F Pulse Rate 58 L 54 L 60 Respiratory Rate 18 20 18 Blood Pressure 114/54 L Pulse Oximetry 96 100 07/27/20 08:15 07/27/20 08:33 Temperature Pulse Rate 60 Respiratory Rate 18 Blood Pressure Pulse Oximetry 99 Intake/Output Intake/Output: Intake & Output 07/24/20 07/25/20 07/26/20 07/27/20 23:59 23:59 23:59 23:59 Intake Total 2190 2590 3630 610 Output Total 1100 1550 3150 1100 Balance 1090 1040 480 -490 Meds/Results Medications: Active Medications Generic Name Dose Route Start Last Admin Trade Name Freq PRN Reason Stop Dose Admin Acetaminophen 650 mg 07/19/20 09:42 07/27/20 08:40 Acetaminophen 325 Mg Tablet PO 650 mg Q6H PRN Administration Mild Pain
[2020-07-27] MEDS: MELOXICAM 7.5 MG TABLET 15 MG PO (21:43)
[2020-07-27] MEDS: AMITRIPTYLINE HCL 25 MG TABLET PO (21:43)
[2020-07-28] VITALS (7 sets, daily range): BP systolic 144; BP diastolic 62; PULSE 62–77; RESP 18–20; TEMP 36.6; O2SAT 96–97
[2020-07-28] MEDS: IPRATROPIUM BR 0.02% INH SOLN 0.5 MG/2.5 ML VIAL INHALATION ×3 (02:27→08:33)
[2020-07-28] MEDS: ALBUTEROL SULFATE NEB 2.5 MG/0.5 ML INH INHALATION ×2 (02:27→08:33)
[2020-07-28 06:19] LABS: Basophils Percent Auto 0.1 % (0.2-1.2); Hematocrit 37.9 % (37.0-47.0); Hemoglobin 11.8 g/dL (12.0-15.0); Immature Granulocyte Absolute 0.15 K/mm3 (0.00-0.031); Lymphocytes Absolute Auto 1.55 K/mm3 (0.9-3.2); Lymphocytes Percent Auto 10.6 % (18.3-44.2); Mean Corpuscular HGB Conc 31.1 g/dl (32-36); Mean Corpuscular Hemoglobin 29.1 pg (26-34); Mean Corpuscular Volume 93.6 fl (80-100); Mean Platelet Volume 9.1 fl (7.4-10.4); Monocytes Absolute Auto 0.5 K/mm3 (0.1-0.6); Monocytes Percent Auto 3.1 % (2.6-8.5); Neutrophils Absolute Auto 12.5 K/mm3 (1.3-6.7); Neutrophils Percent Auto 85.2 % (45.5-73.1); Platelet Count Result 221 k/mm3 (150-375); Red Blood Count 4.05 M/mm3 (4.2-5.4); Red Cell Distribution Width 13.2 % (11.5-14.5); White Blood Count 14.7 K/mm3 (4.5-10.0)
[2020-07-28 06:34] LABS: Anion Gap 4 mmol/L (8-16); Blood Urea Nitrogen 24 mg/dL (7-17); Calcium 8.7 mg/dL (8.4-10.2); Carbon Dioxide 34 mmol/L (22-30); Chloride 97 mmol/L (98-107); Estimated CRCL calculation 94 ml/min; Estimated Glomerular Filt Rate > 60; Glucose 126 mg/dL (65-105); Potassium 4.6 mmol/L (3.4-5.0); Sodium 135 mmol/L (137-145)
[2020-07-28] MEDS: ROFLUMILAST 500 MCG TABLET PO (08:11)
[2020-07-28] MEDS: ENOXAPARIN 40 MG/0.4 ML SYRINGE SUB-Q (08:11)
[2020-07-28] MEDS: ATORVASTATIN 10 MG TABLET PO (08:11)
[2020-07-28] MEDS: methylPREDNISolone SOD SUCC 40 MG VIAL IV PUSH (08:11)
[2020-07-28] MEDS: ASPIRIN 81 MG ENTERIC TABLET PO (08:12)
[2020-07-28] MEDS: FAMOTIDINE 20 MG/2 ML VIAL IV PUSH (08:12)
[2020-07-28] MEDS: BUDESONIDE RESPULE NEB 0.5 MG/2 ML AMP INHALATION (08:33)
[2020-07-28] MEDS: DORNASE ALFA INH SOLN 1 MG/ML 2.5 ML AMP 2.5 MG INHALATION (08:33)
--- NOTE | 2020-07-28 09:45 | PM.PNPUL ---
Progress Note: A&P Additional Plan Steroids to p.o. in hopes of dismissal later today or tomorrow. Time Spent With Patient Time with patient: 25 - 35 minutes Subjective Date/time seen: Continues Trilogy use tonight. Feels ?awful lot better?. Wants home. Exam Narrative: Exam Narrative: Few quiet scattered bilateral expiratory wheezes. Heart regular. Objective Data Vital Signs Vital Signs: Vital Signs - 24 hr 07/27/20 14:00 07/27/20 14:02 07/27/20 14:08 Temperature 36.7 C Pulse Rate 77 60 60 Respiratory Rate 16 18 18 Blood Pressure 134/61 Pulse Oximetry 98 07/27/20 20:00 07/27/20 20:48 07/27/20 21:10 Temperature Pulse Rate 60 62 Respiratory Rate 18 18 Blood Pressure Pulse Oximetry 97 07/27/20 21:11 07/27/20 23:22 07/28/20 02:28 Temperature Pulse Rate 66 66 Respiratory Rate 18 Blood Pressure Pulse Oximetry 95 97 07/28/20 02:30 07/28/20 02:36 07/28/20 05:31 Temperature 36.6 C Pulse Rate 73 62 77 Respiratory Rate 18 20 Blood Pressure 144/62 H Pulse Oximetry 96 96 07/28/20 08:23 07/28/20 08:34 Temperature Pulse Rate 68 Respiratory Rate 18 Blood Pressure Pulse Oximetry 97 96 Intake/Output Intake/Output: Intake & Output 07/25/20 07/26/20 07/27/20 07/28/20 23:59 23:59 23:59 23:59 Intake Total 2590 3630 2070 830 Output Total 1550 3150 1100 Balance 1040 480 970 830 Meds/Results Medications: Active Medications Generic Name Dose Route Start Last Admin Trade Name Freq PRN Reason Stop Dose Admin Acetaminophen 650 mg 07/19/20 09:42 07/27/20 08:40 Acetaminophen 325 Mg Tablet PO 650 mg Q6H PRN Administration Mild Pain (1-3) or Fever Albuterol 4 puff 07/19/20 07:51 Albuterol Sulfate (*Sp) Aerosol 1 Puff INHALATION QIDRT PRN shortness of breath Albuterol 2.5 mg 07/19/20 08:00 07/28/20 08:33 Albuterol Sulfate Neb 2.5 Mg/0.5 Ml Inh INHALATION 2.5 mg Q6HRT FLOR Administration Amitriptyline HCl 25 mg 07/18/20 21:50 07/27/20 21:43 Amitriptyline Hcl 25 Mg Tablet PO 25 mg HS FLOR Administration Aspirin 81 mg 07/19/20 09:00 07/28/20 08:12 Aspirin 81 Mg Enteric Tablet PO 81 mg DAILY FLOR Administration Atorvastatin Calcium 10 mg 07/19/20 09:00 07/28/20 08:11 Atorvastatin 10 Mg Tablet PO 10 mg DAILY FLOR Administration Budesonide 0.5 mg 07/25/20 20:00 07/28/20 08:33 Budesonide Respule Neb 0.5 Mg/2 Ml Amp INHALATION 0.5 mg Q12HRT FLOR Administration Dornase Yonathan 2.5 mg 07/25/20 20:00 07/28/20 08:33 Dornase Yonathan Inh Soln 1 Mg/Ml 2.5 Ml Amp INHALATION 2.5 mg Q12HRT FLOR Administration Enoxaparin Sodium 40 mg 07/19/20 09:00 07/28/20 08:11 Enoxaparin 40 Mg/0.4 Ml Syringe SUB-Q 40 mg DAILY FLOR Administration Famotidine 20 mg 07/18/20 21:00 07/28/20 08:12 Famotidine 20 Mg/2 Ml Vial IV PUSH 20 mg Q12HR FLOR Administration Guaifenesin/Dextromethorphan 10 ml 07/19/20 06:33 07/26/20 20:59 Guaifenesin/Dextromethorphan 10 Ml Udc PO 10 ml Q4H PRN Administration Cough Ipratropium Cofield 0.5 mg 07/19/20 08:00 07/28/20 08:33 Ipratropium Br 0.02% Inh Soln 0.5 Mg/2.5 Ml Vial INHALATION 0.5 mg Q6HRT FLOR Administration Meloxicam 15 mg 07/18/20 21:50 07/27/20 21:43 Meloxicam 7.5 Mg Tablet PO 15 mg HS FLOR Administration Methylprednisolone Sodium Succinate 40 mg 07/26/20 21:00 07/28/20 08:11 Methylprednisolone Sod Succ 40 Mg Vial IV PUSH 40 mg Q12H FLOR Administration Polyethylene Glycol 17 gm 07/26/20 14:41 Polyethylene Glycol 3350 17 Gm Powd.Pack PO QAM PRN Constipation Roflumilast 500 mcg 07/19/20 09:00 07/28/20 08:11 Roflumilast 500 Mcg Tablet PO 500 mcg DAILY FLOR Administration Radiology Results: ITS Impressions Chest X-Ray 07/26/20 09:12 IMPRESSION: Chronic thoracic findings as above. Labs Labs: Laboratory Results - last 24 hr 07/28/20 07/28/20
--- NOTE | 2020-07-28 10:21 | PM.DS ---
DS: Admitting Diagnosis Admitting Diagnosis Admitting Diagnosis: COPD exacerbation. COVID PUI DS: Discharge Diagnosis Discharge Diagnosis (1) COPD (chronic obstructive pulmonary disease): Code(s): J44.9 - Chronic obstructive pulmonary disease, unspecified Status: Acute Assessment and Plan: Acute on chronic COPD. Patient feeling better today, espicially since first arrival although hospital stay prolonged given slow clinical improvement. Wants to go home. Dr. Molina (Pulmonology) consulted and appreciate input. Patient switched to PO prednisone today per Pulmonology. Okay for discharge from Pulmonology standpoint. 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 Will have patient discuss with Coffee Roaster if she should have medications adjusted again She has a hx of having prolonged COPD exacerbations. She finished her 5 days of levofloxacin 07/24/20 repeat chest x-ray unchanged. leukocytosis likely due to steroids (2) Tobacco abuse: Code(s): Z72.0 - Tobacco use Status: Acute Assessment and Plan: -Patient smokes about 9 cigarettes a month -She needs to quit and understands this (3) Anxiety: Code(s): F41.9 - Anxiety disorder, unspecified Status: Chronic Assessment and Plan: -Continue with amitriptyline. (4) Suspected 2019-nCoV infection: Code(s): Z20.828 - Contact with and (suspected) exposure to other viral communicable diseases Status: Resolved Assessment and Plan: COVID ruled out DS: Summary Hospital Course Reason for hospitalization: COPD exacerbation; COVID PUI Hospital Course: Date of arrival: 07/18/20 Date of discharge: 07/28/20 Patient is a 65 yo F with history of COPD, chronic respiratory failure with hypercapnia (on chronic 3L O2 NC at home), and anxiety who presented to the ER on 07/18 with complaints of progressively worsening shortness of breath for the previous 5 days. She was swabbed for COVID in the ED. Lung exam showed tachypnea and wheezing and improved with a continuous neb treatment. Patient admitted under setting of COPD exacerbation and COVID rule out. Please see H&P for further details. Patient was admitted to the hospitalist service for further management/treatment. Patient's covid test was negative once admitted to the floor. She was placed on Levaquin for 5 days antibiotics. She was started on IV SoluMedrol which was slowly tapered throughout her stay. She was started on scheduled neb treatments during stay as well. Patient did show some slow improvement and ultimately, Dr. Molina (Pulmonology) was consulted for further input. She was placed on dornase joseline and budesonide nebs as well given her slow improvement. Patient has had a history of slow improvement in the past and plan was to slowly taper IV steroids given her significant, but improving serial lung exams. Patient was okay for discharge from Pulmonology standpoint on 07/28. She was transitioned to PO prednisone on day of discharge. Plan was for her to follow up with her Coffee Roaster and PCP after discharge. She was briefly placed on 4 L NC early on in hospital course, but was quickly weaned to her home O2 requirements where she remained throughout the rest of her stay. Otherwise VS were stable and patient afebrile throughout her hospital course. Patient agreeable and comfortable with plan for discharge. Patient hemodynamically stable and in improved condition for discharge on 07/28 Status at Discharge Overall status at discharge: patient is
[2020-07-28] MEDS: predniSONE 20 MG TABLET 40 MG PO (10:49)
== END 2020-07-28 11:35 | disposition home or self-care (01) | DRG 191 ==
LOC: ANHED 12:41 → ANH3MEDSUR 15:59
PROVIDERS: Emergency Medicine Emergency Medical Services; Family Medicine; Physician Assistant; Admitting Provider Internal Medicine; Emergency Provider General Practice; Visit Provider Physician Assistant
DX: J44.1 Chronic obstructive pulmonary disease with (acute) exacerbation (principal); J96.12 Chronic respiratory failure with hypercapnia; J96.11 Chronic respiratory failure with hypoxia; Z20.828 Contact with and (suspected) exposure to other viral communicable diseases; F41.9 Anxiety disorder, unspecified; E66.9 Obesity, unspecified; D72.828 Other elevated white blood cell count; T38.0X5A Adverse effect of glucocorticoids and synthetic analogues, initial encounter; F17.210 Nicotine dependence, cigarettes, uncomplicated; Z99.81 Dependence on supplemental oxygen; Z86.73 Personal history of transient ischemic attack (TIA), and cerebral infarction without residual deficits; Z90.710 Acquired absence of both cervix and uterus; Z68.32 Body mass index [BMI] 32.0-32.9, adult
CPT/HCPCS: 36415; 36600; 71045; 71046; 80048; 80053; 80076; 82375; 82805; 83050; 83605; 83735; 85025; 85027; 85380; 85610; 85730; 86140; 87040; 87635; 93005; 94640; 94667; 94668; 96361; 96365; 96372; 96375; 96376; 97161; 97165; 99285; A9270; C9803; G0378; J0131; J1650; J2920; J2930; J7120; J7512; U0003

== ENCOUNTER 2021-03-23 13:21 | Outpatient (CLI) | payer MEDICARE, MEDICAID, SELFPAY ==
--- NOTE | ~2021-03-23 | CT_ITS ---
EXAMINATION:CT lung screening DATE: 03/23/2021 14:07 INDICATION: Personal history of tobacco dependence. Smoker who quit 4 years ago with 30 pack year his tory. TECHNIQUE: Computed tomography (CT) of the chest was performed without intravenous contrast. Automate d exposure control and iterative reconstruction technique were employed. The dose-length product (DLP ) was 113.90 mGy-cm. COMPARISON: Chest CT 01/25/2020 FINDINGS: There is moderate emphysema. There is mild scarring at the lung apices. There is bronchiect asis in the inferior lungs. There are scattered centrilobular nodules and groundglass nodules in the lungs with a lower lung predominance, some of which are improved, and some of which are new or worsen ed, likely chronic infection. The largest solid nodule measures 5 mm. No pleural effusion. The heart size is normal. There are coronary artery calcifications. No pericardial effusion. The gallbladder is distended, which may be secondary to fasting. There is mild thoracic spondylosis. IMPRESSION: 1. Lung-RADS category 3: Probably benign. Further evaluation is recommended with noncontrast low-dose chest CT in 6 months. Reviewed, dictated and finalized at location A. IMPRESSION: 1. Lung-RADS category 3: Probably benign. Further evaluation is recommended wit h noncontrast low-dose chest CT in 6 months.
== END 2021-03-23 13:22 | disposition home or self-care (01) ==
PROVIDERS: Visit Provider Nurse Practitioner Family
DX: Z12.2 Encounter for screening for malignant neoplasm of respiratory organs (principal); Z87.891 Personal history of nicotine dependence; R91.8 Other nonspecific abnormal finding of lung field
CPT/HCPCS: 71271

== ENCOUNTER 2021-06-28 10:13 | Inpatient (IN) | payer MEDICARE, OTHER, MEDICAID, SELFPAY ==
[2021-06-28] VITALS (38 sets, daily range): BP systolic 119–155; BP diastolic 58–91; PULSE 73–107; RESP 9–32; TEMP 36.1–37.1; O2SAT 89–100; BMI 33.8
--- NOTE | ~2021-06-28 | XR_ITS ---
EXAMINATION: XR chest 2V 06/28/2021 11:19 INDICATION: Shortness of breath, wheezing and cough PROCEDURE: 2 view chest COMPARISON: 07/26/2020 FINDINGS: The lungs are clear. The lungs are hyperinflated which is consistent with, but not diagnost ic of chronic obstructive pulmonary disease. The cardiomediastinal silhouette is within normal limits . There are no pleural effusions. There is no pneumothorax suspected. IMPRESSION: 1: NO ACUTE CARDIOPULMONARY DISEASE. Reviewed, dictated and finalized at location B. [employer]OR OF CLINICAL TRIALS
--- NOTE | ~2021-06-28 | XR_ITS ---
EXAMINATION: XR chest 1V portable DATE: 07/03/2021 11:14 INDICATION: Shortness of breath. TECHNIQUE: A single frontal view of the chest was obtained. COMPARISON: Chest 2 views 06/28/2021 FINDINGS: There is mild atelectasis in the lower lung zones. No pleural effusion or pneumothorax. The heart size is normal. IMPRESSION: 1. Mild atelectasis in the lower lung zones. Reviewed, dictated and finalized at location A. E TANK OPERATOR
--- NOTE | 2021-06-28 10:26 | ECG_ITS ---
Measurements Intervals [place] Rate: 108 P: 94 DC: 130 QRS: 77 QRSD: 98 T: 54 QT: 317 QTc: 426 Interpretive Statements SINUS TACHYCARDIA CANNOT RULE OUT SEPTAL INFARCT, AGE INDETERMINATE BASELINE ARTIFACT- I, III, AVR, AVL, AVF ABNORMAL ECG Electronically Signed On 06-28-2021 13:50:52 GAS DISPENSER by Rohan Zavala D.O.
[2021-06-28 11:01] LABS: Basophils Absolute Auto 0.1 K/mm3 (0.0-0.1); Basophils Percent Auto 0.4 % (0.2-1.2); Eosinophils Absolute Auto 0.2 K/mm3 (0-0.3); Eosinophils Percent Auto 1.4 % (0-4.4); Hematocrit 40.4 % (37.0-47.0); Hemoglobin 12.9 g/dL (12.0-15.0); Immature Granulocyte Absolute 0.03 K/mm3 (0.00-0.031); Immature Granulocyte Percent A 0.2 % (0-0.5); Lymphocytes Absolute Auto 1.99 K/mm3 (0.9-3.2); Lymphocytes Percent Auto 15.9 % (18.3-44.2); Mean Corpuscular HGB Conc 31.9 g/dl (32-36); Mean Corpuscular Hemoglobin 30.1 pg (26-34); Mean Corpuscular Volume 94.4 fl (80-100); Mean Platelet Volume 9.5 fl (7.4-10.4); Monocytes Absolute Auto 0.8 K/mm3 (0.1-0.6); Monocytes Percent Auto 6.3 % (2.6-8.5); Neutrophils Absolute Auto 9.5 K/mm3 (1.3-6.7); Neutrophils Percent Auto 75.8 % (45.5-73.1); Platelet Count Result 207 k/mm3 (150-375); Red Blood Count 4.28 M/mm3 (4.2-5.4); White Blood Count 12.5 K/mm3 (4.5-10.0)
[2021-06-28 11:15] LABS: Alanine Aminotransferase 20 U/L (4-35); Albumin Level 4.6 g/dL (3.5-5.1); Alkaline Phosphatase 106 U/L (38-126); Anion Gap 5 mmol/L (8-16); Aspartate Amino Transferase 30 U/L (14-36); Bilirubin,Total 0.4 mg/dL (0.2-1.3); Blood Urea Nitrogen 14 mg/dL (7-17); Carbon Dioxide 33 mmol/L (22-30); Chloride 98 mmol/L (98-107); Estimated CRCL calculation 91 ml/min; Estimated Glomerular Filt Rate > 60; Glucose 109 mg/dL (65-110); Potassium 3.9 mmol/L (3.4-5.0); Sodium 136 mmol/L (137-145)
[2021-06-28] MEDS: ALBUTEROL SULFATE NEB 2.5 MG/0.5 ML INH 15 MG INHALATION (12:54)
[2021-06-28] MEDS: IPRATROPIUM BR 0.02% INH SOLN 0.5 MG/2.5 ML VIAL 1.5 MG INHALATION (12:54)
--- NOTE | 2021-06-28 12:54 | ED.SOB ---
HPI - SOB/Dyspnea General Chief Complaint: Shortness of Breath/Dyspnea Stated Complaint: Cough/doesnt feel good. Time Seen by Provider: 06/28/21 12:03 History of Present Illness HPI Narrative: Patient is a 66-year-old female with history of COPD that presents ER with cough. Reports she usually wears 2 to 3 L of oxygen at home. Currently wearing 2 L satting 100% while sitting in bed. She reports over the last 3 days she started feeling fatigued and having cough. No documented fevers. No chest pain or chest pressure. No loss of taste or smell. She has not been vaccinated against COVID-19. No known sick exposure. Reports she has been using albuterol 4 times a day as well as her arformoterol twice a day. Related Data Home Medications Medication Instructions Recorded Confirmed albuterol sulfate 90 mcg/actuation 1 puff INHALATION Q4H PRN 08/29/19 06/28/21 aerosol inhaler arformoterol 15 mcg/2 mL solution 2 ml INHALATION BID 08/29/19 06/28/21 for nebulization aspirin 81 mg tablet,delayed 81 mg PO DAILY 09/02/19 06/28/21 release meloxicam 15 mg tablet 15 mg PO HS 03/02/20 06/28/21 atorvastatin 10 mg PO DAILY 07/18/20 06/28/21 Allergies Allergy/AdvReac Type Severity Reaction Status Date / Time No Known Allergies Allergy Verified 02/23/21 10:45 Review of Systems Review of Systems: All systems reviewed & are unremarkable except as noted in HPI and below Constitutional: Constitutional: Denies chills, Reports fatigue and Denies fever(s) ENT: Denies nasal congestion and Denies sore throat Cardiovascular: Cardiovascular: Denies chest pain, Denies rapid heart rate and Denies radiating jaw, neck or arm pain Respiratory: Respiratory: Reports cough, Reports dyspnea and Reports wheezing Gastrointestinal: Gastrointestinal: Denies abdominal pain, Denies nausea and Denies vomiting [facility] Past Medical History Medical History (Updated 06/28/21 @ 23:32 by Jacob Conde MD) Anxiety Chronic obstructive pulmonary disease Chronic respiratory failure with hypoxia and hypercapnia Degenerative disc disease On home oxygen therapy Osteoarthritis Surgical History Surgical History History of section (1984) History of hysterectomy (1988) Family History Family History Mother Diabetes mellitus Hypertension Sibling Hypertension Asthma Family history of sleep apnea Son Drug overdose Father Alcoholism Motor vehicle accident Ran over and then Social History Social History (Updated 06/28/21 @ 21:25 by Jessica Reed PA-C) Social History: The patient lives with her ex- and they maintain a friendly relationship. They had 3 sons together, 1 who unfortunately from a drug overdose. She smoked about a pack of cigarettes a day for at least 30 years before quitting. She denies alcohol and illicit substance abuse. She designates her son Alex Barrett as her surrogate decision maker and she wishes to be a full code. Exam Narrative: GENERAL: Well-appearing, well-nourished, and in no acute distress. HEAD: Normocephalic, atraumatic. EYES: PERRL and EOMI. CHEST: Coarse and strain expiratory wheezing throughout. No respiratory distress. Speaking in full sentences. HEART: Regular rate and rhythm. Normal peripheral pulses. ABDOMEN: Soft, nontender, nondistended. EXTREMITIES: Normal range of motion. No edema. SKIN: Warm, dry, no rash. NEURO: Alert and oriented x3. PSYCH: Normal mood and affect. Course Course Emergency Course: Admit to hospital service for observation and scheduled nebulizer treatments. Vital Signs Vital signs: Vital Signs Temperature 97.8 F 06/28/21 10:39 Pulse Rate 103 H 06/28/21 10:39 Respiratory Rate 23 H 06/28/21 10:39 Blood Pressure 155/80 H 06/28/21 10:39 Pulse Oximetry 89 L 06/28/21 10:39 Temperature
[2021-06-28] MEDS: methylPREDNISolone SOD SUCC 125 MG VIAL IV PUSH (13:02)
--- NOTE | 2021-06-28 13:30 | PC.NURSE ---
pt states breathing treatment is helping. making pt cough. o2 sats remain in the 90's
--- NOTE | 2021-06-28 15:30 | PM.IMHP ---
H&P: HPI History of Present Illness Date/Time: 06/28/21 15:30 Chief Complaint: Cough and shortness of breath. Narrative: This is a 66-year-old female with chronic respiratory failure on oxygen and COPD presented to the emergency department earlier today from home for evaluation of cough and shortness of breath. At baseline she is able to do house work and go out to the store shopping. Over the past 3 days however she has developed increasing dyspnea on lesser and lesser exertion associated with a cough productive of yellowish colored sputum and pretty significant wheezing. She has been using her inhalers and nebulizers at home though they have not provided her with longstanding benefit. She decided to come into the emergency department for evaluation as she has been intubated before and wants to get on top of things she is very anxious that she would have to be on a ventilator again if things got worse. After receiving a dose of IV steroids and nebulizer in the emergency department she is feeling a bit better. She denies fever, chills, sweats, cold and flu symptoms, anosmia, dysgeusia, chest pain, pleuritic pain, and sick contacts. She has not received a COVID vaccination. Review of Systems Review of Systems: Twelve systems were reviewed. No headache, sinus congestion, rhinorrhea, otalgia, or odynophagia. She denies orthopnea, PND, and lower extremity edema. No nausea, vomiting, or diarrhea. Except as documented, all other systems were reviewed and are negative. [facility] Past Medical History Medical History (Updated 06/28/21 @ 21:34 by eJssica Reed PA-C) Anxiety Chronic obstructive pulmonary disease Chronic respiratory failure with hypoxia and hypercapnia Degenerative disc disease On home oxygen therapy Osteoarthritis Surgical History Surgical History History of section (1984) History of hysterectomy (1988) Family History Family History Mother Diabetes mellitus Hypertension Sibling Hypertension Asthma Family history of sleep apnea Son Drug overdose Father Alcoholism Motor vehicle accident Ran over and then Social History Social History (Updated 06/28/21 @ 21:25 by Jessica Reed PA-C) Social History: The patient lives with her ex- and they maintain a friendly relationship. They had 3 sons together, 1 who unfortunately from a drug overdose. She smoked about a pack of cigarettes a day for at least 30 years before quitting. She denies alcohol and illicit substance abuse. She designates her son Alex Barrett as her surrogate decision maker and she wishes to be a full code. Meds Home Medications and Allergies Home Medications Medication Instructions Recorded Confirmed Type albuterol sulfate 90 mcg/actuation 1 puff INHALATION Q4H PRN 08/29/19 06/28/21 History aerosol inhaler arformoterol 15 mcg/2 mL solution 2 ml INHALATION BID 08/29/19 06/28/21 History for nebulization aspirin 81 mg tablet,delayed 81 mg PO DAILY 09/02/19 06/28/21 History release meloxicam 15 mg tablet 15 mg PO HS 03/02/20 06/28/21 History amitriptyline 25 mg PO HS #30 tablet 05/08/20 06/28/21 Rx atorvastatin 10 mg PO DAILY 07/18/20 06/28/21 History ipratropium bromide 0.02 % See Rx Instructions .ROUTE 11/23/20 06/28/21 Rx solution for inhalation .COMPLEX #360 ml roflumilast 500 mcg tablet 500 mcg PO DAILY #30 tablet 02/23/21 06/28/21 Rx albuterol sulfate See Rx Instructions .ROUTE 05/24/21 06/28/21 Rx .COMPLEX #150 milliliter Allergies Allergy/AdvReac Type Severity Reaction Status Date / Time No Known Allergies Allergy Verified 02/23/21 10:45 Vital Signs Vital Signs - 24 hr 06/28/21 10:39 Temperature 97.8 F Pulse Rate 103 H Respiratory Rate 23 H Blood Pressure 155/80 H Pulse Oximetry 89 L Exam Narrative: General: Well-develop
--- NOTE | 2021-06-28 17:27 | ADMGEN ---
This patient, James Barrett, was admitted to Medical Room 252-01. Patient/family oriented to hospital policies and general routines including ID bracelet, bed and alarms, visiting hours, pain management, procedures, bathroom and other care routines, personal items, smoking policy, room service/diet, and visiting hours. Information on how to activate the Rapid Response Team has been discussed. Patient/Family are encouraged to report perceived risks to care and to ask questions if they do not understand what they are told or what they should do. Patient in bed resting comfortably with some complaints of SOB with activity. Will continue to monitor patient.
[2021-06-28] MEDS: methylPREDNISolone SOD SUCC 125 MG VIAL 60 MG IV PUSH ×2 (17:42→23:59)
[2021-06-28] MEDS: ACETAMINOPHEN 325 MG TABLET 650 MG PO (20:36)
[2021-06-28] MEDS: IPRATROPIUM BR 0.02% INH SOLN 0.5 MG/2.5 ML VIAL INHALATION (21:00)
[2021-06-28] MEDS: ALBUTEROL SULFATE NEB 2.5 MG/0.5 ML INH 5 MG INHALATION (21:00)
[2021-06-28] MEDS: AMITRIPTYLINE HCL 25 MG TABLET PO (22:47)
[2021-06-28] MEDS: MELOXICAM 7.5 MG TABLET 15 MG PO (22:48)
[2021-06-29] VITALS (15 sets, daily range): BP systolic 100–134; BP diastolic 52–70; PULSE 78–94; RESP 20–24; TEMP 35.9–36.4; O2SAT 94–98
[2021-06-29 05:38] LABS: Hematocrit 37.3 % (37.0-47.0); Mean Corpuscular HGB Conc 32.2 g/dl (32-36); Mean Corpuscular Hemoglobin 30.2 pg (26-34); Mean Corpuscular Volume 93.7 fl (80-100); Mean Platelet Volume 9.3 fl (7.4-10.4); Platelet Count Result 208 k/mm3 (150-375); Red Blood Count 3.98 M/mm3 (4.2-5.4); Red Cell Distribution Width 12.9 % (11.5-14.5); White Blood Count 10.2 K/mm3 (4.5-10.0)
[2021-06-29 05:41] LABS: Anion Gap 6 mmol/L (8-16); Blood Urea Nitrogen 15 mg/dL (7-17); Calcium 9.7 mg/dL (8.4-10.2); Carbon Dioxide 32 mmol/L (22-30); Chloride 98 mmol/L (98-107); Estimated CRCL calculation 113 ml/min; Estimated Glomerular Filt Rate > 60; Glucose 150 mg/dL (65-110); Potassium 4.3 mmol/L (3.4-5.0); Sodium 136 mmol/L (137-145)
[2021-06-29] MEDS: methylPREDNISolone SOD SUCC 125 MG VIAL 60 MG IV PUSH ×4 (06:05→23:53)
[2021-06-29] MEDS: ALBUTEROL SULFATE NEB 2.5 MG/0.5 ML INH 5 MG INHALATION ×3 (06:20→20:11)
[2021-06-29] MEDS: IPRATROPIUM BR 0.02% INH SOLN 0.5 MG/2.5 ML VIAL INHALATION ×3 (06:20→20:11)
[2021-06-29] MEDS: ATORVASTATIN 10 MG TABLET PO (08:04)
[2021-06-29] MEDS: ROFLUMILAST 500 MCG TABLET PO (08:04)
[2021-06-29] MEDS: ASPIRIN 81 MG ENTERIC TABLET PO (08:04)
[2021-06-29] MEDS: ENOXAPARIN 40 MG/0.4 ML SYRINGE SUB-Q (08:04)
[2021-06-29] MEDS: ACETAMINOPHEN 325 MG TABLET 650 MG PO (08:06)
--- NOTE | 2021-06-29 10:06 | PM.IMPN ---
Progress Note: A&P Assessment and Plan (1) COPD exacerbation: Code(s): J44.1 - Chronic obstructive pulmonary disease with (acute) exacerbation Status: Acute Assessment and Plan: Patient appears to be in a COPD exacerbation which happens about once a year for her -chest x-ray does not show any signs of pneumonia -will continue Solu-Medrol at the current dose 60 mg every 6 hours, azithromycin, and breathing treatments -her is going to bring up her [place] -continue Daliresp (2) Chronic respiratory failure with hypoxia and hypercapnia: Code(s): J96.11 - Chronic respiratory failure with hypoxia; J96.12 - Chronic respiratory failure with hypercapnia Status: Acute Assessment and Plan: Stable on home oxygen requirement of 3 L (3) Hyperglycemia: Code(s): R73.9 - Hyperglycemia, unspecified Status: Acute Assessment and Plan: Likely due to steroids -check A1c in the morning Time Spent With Patient Time with patient: 25 - 35 minutes Subjective Date/time seen: 06/29/21 10:06 Interval history: Pt is a 66-year-old female here for COPD exacerbation. Patient was seen today and states she is doing about the same. She has no shortness of breath at rest but has significant dyspnea on exertion that is not usual for her. She is on her home 3 L of oxygen. She has no chest pain, nausea, vomiting, fevers, chills or abdominal pain. She has not received her COVID vaccine and we had a long discussion about that. She has had the pneumonia and flu vaccine. Review of Systems Review of Systems: All systems reviewed & are unremarkable except as noted in HPI and below Exam Narrative: General: Well developed well nourished patient in NAD HEENT: normocephalic Neck: supple Neuro: Alert and oriented x4 CV:RRR Resp: Significant wheezing and rhonchi bilaterally. No conversational dyspnea or retractions. 3 L of oxygen applied via nasal cannula Abd: Soft, non distended. No pain to palpation. Positive bowel sounds Extremities: No swelling, erythema, or pain to palpation. Objective Data Vital Signs Vital Signs: Vital Signs - 24 hr 06/28/21 10:39 06/28/21 11:16 06/28/21 11:30 Temperature 97.8 F Pulse Rate 103 H 87 Respiratory Rate 23 H 18 17 Blood Pressure 155/80 H Pulse Oximetry 89 L 97 99 11/29/21 11:45 06/28/21 12:00 06/28/21 12:20 Temperature Pulse Rate 84 86 79 Respiratory Rate 16 16 12 Blood Pressure Pulse Oximetry 99 100 99 06/28/21 12:30 06/28/21 12:45 06/28/21 12:47 Temperature Pulse Rate 79 81 78 Respiratory Rate 14 15 15 Blood Pressure 131/70 Pulse Oximetry 100 99 99 06/28/21 13:00 06/28/21 13:01 06/28/21 13:15 Temperature Pulse Rate 77 73 78 Respiratory Rate 10 L 16 9 L Blood Pressure 119/91 H Pulse Oximetry 100 100 100 06/28/21 13:16 06/28/21 13:31 06/28/21 13:33 Temperature Pulse Rate 101 H 105 H Respiratory Rate 19 26 H 19 Blood Pressure 130/62 152/70 H Pulse Oximetry 100 100 06/28/21 13:45 06/28/21 13:46 06/28/21 14:00 Temperature Pulse Rate 107 H 103 H 98 Respiratory Rate 20 21 H 15 Blood Pressure 141/58 H Pulse Oximetry 95 100 06/28/21 14:15 06/28/21 14:16 06/28/21 14:17 Temperature Pulse Rate 96 96 97 Respiratory Rate 32 H 13 20 Blood Pressure 142/60 H Pulse Oximetry 99 99 98 06/28/21 14:28 06/28/21 14:30 06/28/21 14:31 Temperature Pulse Rate 87 86 89 Respiratory Rate 18 17 14 Blood Pressure 129/63 129/70 Pulse Oximetry 100 99 100 06/28/21 14:45 06/28/21 14:46 06/28/21 15:00 Temperature Pulse Rate 92 90 86 Respiratory Rate 11 L 13 16 Blood Pressure 144/67 H Pulse Oximetry 97 99 96 06/28/21 15:01 06/28/21 15:54 06/28/21 16:00 Temperature Pulse Rate 81 Respiratory Rate 18 Blood Pressure 141/59 H Pulse Oximetry 97 100 91 06/28/21 16:01 06/28/21 16:54 06/28/21 17:08 Temperature 98.8 F Pulse Rate 87 88
--- NOTE | 2021-06-29 13:37 | PHAR ---
Home Brovana inhalation solution seen in pharmacy and returned to [facility]
[2021-06-29] MEDS: MELOXICAM 7.5 MG TABLET 15 MG PO (20:25)
[2021-06-29] MEDS: AMITRIPTYLINE HCL 25 MG TABLET PO (20:25)
[2021-06-30] VITALS (22 sets, daily range): BP systolic 115–138; BP diastolic 53–68; PULSE 72–100; RESP 18–20; TEMP 36.1–36.9; O2SAT 94–98
[2021-06-30] MEDS: ALBUTEROL SULFATE NEB 2.5 MG/0.5 ML INH 5 MG INHALATION ×4 (02:13→23:23)
[2021-06-30] MEDS: IPRATROPIUM BR 0.02% INH SOLN 0.5 MG/2.5 ML VIAL INHALATION ×4 (02:13→23:23)
[2021-06-30 05:57] LABS: Hematocrit 35.9 % (37.0-47.0); Hemoglobin 11.4 g/dL (12.0-15.0); Mean Corpuscular HGB Conc 31.8 g/dl (32-36); Mean Corpuscular Hemoglobin 30.1 pg (26-34); Mean Corpuscular Volume 94.7 fl (80-100); Mean Platelet Volume 9.4 fl (7.4-10.4); Platelet Count Result 230 k/mm3 (150-375); Red Blood Count 3.79 M/mm3 (4.2-5.4); Red Cell Distribution Width 13.2 % (11.5-14.5); White Blood Count 15.3 K/mm3 (4.5-10.0)
[2021-06-30 05:58] LABS: Anion Gap 4 mmol/L (8-16); Blood Urea Nitrogen 24 mg/dL (7-17); Calcium 9.2 mg/dL (8.4-10.2); Carbon Dioxide 33 mmol/L (22-30); Chloride 99 mmol/L (98-107); Estimated CRCL calculation 96 ml/min; Estimated Glomerular Filt Rate > 60; Glucose 220 mg/dL (65-110); Potassium 4.5 mmol/L (3.4-5.0); Sodium 136 mmol/L (137-145)
[2021-06-30 06:15] LABS: Hemoglobin A1C 5.3 % (<5.7)
[2021-06-30] MEDS: methylPREDNISolone SOD SUCC 125 MG VIAL 60 MG IV PUSH ×3 (06:21→22:23)
[2021-06-30 07:45] LABS: Glucose Point of Care 189 mg/dl (65-105)
--- NOTE | 2021-06-30 09:30 | PM.IMPN ---
Progress Note: A&P Assessment and Plan (1) COPD exacerbation: Code(s): J44.1 - Chronic obstructive pulmonary disease with (acute) exacerbation Status: Acute Assessment and Plan: Patient appears to be in a COPD exacerbation which she says happens about once a year for her -chest x-ray does not show any signs of pneumonia -will continue Solu-Medrol but just does to 60 mg every 8 hours, azithromycin, and breathing treatments as well as her Brovana - continue trilogy and Daliresp - consider pulmonology consult if the patient does not improve in the next few days although typically it takes her a while to improve in the past. (2) Chronic respiratory failure with hypoxia and hypercapnia: Code(s): J96.11 - Chronic respiratory failure with hypoxia; J96.12 - Chronic respiratory failure with hypercapnia Status: Acute Assessment and Plan: Stable on home oxygen requirement of 3 L (3) Hyperglycemia: Code(s): R73.9 - Hyperglycemia, unspecified Status: Acute Assessment and Plan: due to steroids - will do sliding scale insulin while on high-dose steroids - A1c 5.3 (4) Leukocytosis: Code(s): D72.829 - Elevated white blood cell count, unspecified Status: Acute Assessment and Plan: Noted on admission and worsened due to steroids -Pt has no signs of PNA on CXR and has no dysuria -no bacterial infection suspected at this time Subjective Date/time seen: 06/30/21 09:30 Interval history: Pt is a 66-year-old female here for COPD exacerbation. Patient was seen today and states she continues to have dyspnea on exertion with walking to the bathroom and even moving around in bed. This is not normal for her. She does mention that the oxygen tubing does not reach the bathroom and that she has been taking it off from time to time. I have explained her that she needs to keep it on. She has no chest pain, no nausea, vomiting, fevers, chills, abdominal pain or leg swelling. She does not like the diet. Exam Narrative: General: Well developed well nourished patient in NAD HEENT: normocephalic Neck: supple Neuro: Alert and oriented x4 CV:RRR Resp: Significant wheezing and rhonchi bilaterally. No conversational dyspnea or retractions. 3 L of oxygen applied via nasal cannula Abd: Soft, non distended. No pain to palpation. Positive bowel sounds Extremities: No swelling, erythema, or pain to palpation. Objective Data Vital Signs Vital Signs: Vital Signs - 24 hr 06/29/21 10:07 06/29/21 12:08 06/29/21 14:10 Temperature 97.0 F L 97.5 F L Pulse Rate 90 93 Respiratory Rate 20 20 Blood Pressure 100/53 L 126/68 Pulse Oximetry 97 94 97 06/29/21 15:15 06/29/21 15:28 06/29/21 16:00 Temperature 97.2 F L Pulse Rate 87 83 94 Respiratory Rate 24 H 20 20 Blood Pressure 128/70 Pulse Oximetry 95 06/29/21 20:00 06/29/21 20:13 06/29/21 20:21 Temperature 97.5 F L Pulse Rate 81 84 81 Respiratory Rate 20 20 20 Blood Pressure 119/64 Pulse Oximetry 96 96 06/30/21 00:00 06/30/21 02:15 06/30/21 02:17 Temperature 97.5 F L Pulse Rate 90 77 77 Respiratory Rate 20 20 Blood Pressure 137/68 Pulse Oximetry 96 94 06/30/21 02:20 06/30/21 04:00 06/30/21 08:00 Temperature 96.9 F L 98.4 F Pulse Rate 77 73 99 Respiratory Rate 18 20 18 Blood Pressure 116/59 L 138/67 Pulse Oximetry 96 96 06/30/21 08:32 06/30/21 08:35 06/30/21 08:40 Temperature Pulse Rate 85 82 Respiratory Rate 18 18 Blood Pressure Pulse Oximetry 95 Intake/Output Intake/Output: Intake & Output 06/27/21 06/28/21 06/29/21 06/30/21 23:59 23:59 23:59 23:59 Intake Total 850 2190 500 Output Total 3600 900 Balance 850 -2290 -400 Meds/Results Medications: Active Medications Generic Name Dose Route Start Last Admin Trade Name Freq PRN Reason Stop Dose Admin Acetaminophen 650 mg 06/28/21 20:13 06/29/21 08:06 Acetami
[2021-06-30] MEDS: ASPIRIN 81 MG ENTERIC TABLET PO (09:46)
[2021-06-30] MEDS: ROFLUMILAST 500 MCG TABLET PO (09:46)
[2021-06-30] MEDS: ATORVASTATIN 10 MG TABLET PO (09:47)
[2021-06-30] MEDS: ENOXAPARIN 40 MG/0.4 ML SYRINGE SUB-Q (09:48)
[2021-06-30 11:45] LABS: Glucose Point of Care 115 mg/dl (65-105)
[2021-06-30 16:53] LABS: Glucose Point of Care 113 mg/dl (65-105)
[2021-06-30] MEDS: AMITRIPTYLINE HCL 25 MG TABLET PO (20:41)
[2021-06-30] MEDS: MELOXICAM 7.5 MG TABLET 15 MG PO (20:41)
[2021-06-30 21:03] LABS: Glucose Point of Care 146 mg/dl (65-105)
[2021-07-01] VITALS (13 sets, daily range): BP systolic 104–130; BP diastolic 52–71; PULSE 63–86; RESP 16–20; TEMP 35.8–36.9; O2SAT 94–97
--- NOTE | 2021-07-01 02:51 | PCRCNOTE ---
Pt's 06/30/21 20:00 neb treatment given late (23:25) due to emergencies elsewhere in hospital. Pt said she would be fine waiting for her 08:00 treatment. Pt was advised to let her nurse know is she changes her mind.
[2021-07-01] MEDS: methylPREDNISolone SOD SUCC 125 MG VIAL 60 MG IV PUSH ×3 (06:18→21:08)
[2021-07-01 06:19] LABS: Hematocrit 37.4 % (37.0-47.0); Hemoglobin 11.7 g/dL (12.0-15.0); Mean Corpuscular HGB Conc 31.3 g/dl (32-36); Mean Corpuscular Hemoglobin 29.8 pg (26-34); Mean Corpuscular Volume 95.2 fl (80-100); Mean Platelet Volume 9.4 fl (7.4-10.4); Platelet Count Result 243 k/mm3 (150-375); Red Blood Count 3.93 M/mm3 (4.2-5.4); Red Cell Distribution Width 13.4 % (11.5-14.5); White Blood Count 13.5 K/mm3 (4.5-10.0)
[2021-07-01 06:49] LABS: Anion Gap 5 mmol/L (8-16); Blood Urea Nitrogen 21 mg/dL (7-17); CRP < 0.5 mg/dL (<1.0); Calcium 9.2 mg/dL (8.4-10.2); Carbon Dioxide 34 mmol/L (22-30); Chloride 98 mmol/L (98-107); Estimated CRCL calculation 96 ml/min; Estimated Glomerular Filt Rate > 60; Glucose 141 mg/dL (65-110); Potassium 4.5 mmol/L (3.4-5.0); Sodium 137 mmol/L (137-145)
[2021-07-01] MEDS: ASPIRIN 81 MG ENTERIC TABLET PO (08:33)
[2021-07-01] MEDS: ROFLUMILAST 500 MCG TABLET PO (08:33)
[2021-07-01] MEDS: ATORVASTATIN 10 MG TABLET PO (08:33)
[2021-07-01] MEDS: ENOXAPARIN 40 MG/0.4 ML SYRINGE SUB-Q (08:33)
[2021-07-01 08:49] LABS: Glucose Point of Care 163 mg/dl (65-105)
[2021-07-01] MEDS: ALBUTEROL SULFATE NEB 2.5 MG/0.5 ML INH 5 MG INHALATION ×2 (09:41→14:40)
[2021-07-01] MEDS: IPRATROPIUM BR 0.02% INH SOLN 0.5 MG/2.5 ML VIAL INHALATION ×2 (09:42→14:40)
--- NOTE | 2021-07-01 09:58 | PM.IMPN ---
Progress Note: A&P Assessment and Plan (1) COPD exacerbation: Code(s): J44.1 - Chronic obstructive pulmonary disease with (acute) exacerbation Status: Acute Assessment and Plan: Patient appears to be in a COPD exacerbation which she says happens about once a year for her. She endorses increased wheezing and sputum production. - chest x-ray does not show any signs of pneumonia - will continue IV Solu-Medrol at 60 mg every 8 hours, azithromycin, and breathing treatments as well as her Brovana - continue trilogy and Daliresp - sputum culture is pending - feeling improved today though wheezing is still diffuse, thus continuing IV Solu-Medrol as above. Consider pulmonology consult if lack of improvement in the next 1-2 days (2) Chronic respiratory failure with hypoxia and hypercapnia: Code(s): J96.11 - Chronic respiratory failure with hypoxia; J96.12 - Chronic respiratory failure with hypercapnia Status: Acute Assessment and Plan: Stable on home oxygen requirement of 3 L. - Continue maintenance inhalers and trilogy as above. (3) Hyperglycemia: Code(s): R73.9 - Hyperglycemia, unspecified Status: Acute Assessment and Plan: Due to steroids - continue low-dose sliding scale insulin while on high-dose steroids - A1c 5.3 - blood sugars 140-160 today (4) Leukocytosis: Code(s): D72.829 - Elevated white blood cell count, unspecified Status: Acute Assessment and Plan: Noted on admission and worsened due to steroids - Pt has no signs of PNA on CXR and has no dysuria - no signs or symptoms to suggest underlying bacterial infectious etiology - [place] [id number] Subjective Date/time seen: 07/01/21 09:58 Interval history: Date of service: 07/01/2021 James Barrett is a 66-year-old female with a history of chronic respiratory failure on home oxygen therapy (3 L at baseline) secondary to COPD, degenerative disc disease, anxiety who is seen in follow-up for COPD exacerbation. She is having some improvement today compared to presentation. She still endorses conversational dyspnea and dyspnea on exertion. She was able to sleep through the night last night and has not had any episodes of PND. Denies orthopnea. Notes that her wheezing is slightly improved. Continues to endorse cough productive of yellow-white sputum. Denies fever or chills. No nausea, vomiting, diarrhea, dizziness, lightheadedness, weakness. Denies chest pain or palpitations. Review of Systems Review of Systems: All systems reviewed & are unremarkable except as noted in HPI and below Exam Narrative: Ms. Barrett is a well-nourished, chronically ill appearing 66-year-old female who is lying semi recumbent in bed. She appears comfortable and is in NARD. Neuro: awake, alert and oriented x4, speech clear, no focal neuro deficits noted HEENMT: normocephalic, atraumatic, EOMI, sclerae anicteric Neck: supple, no lymphadenopathy Respiratory: Diffuse wheezes of anterior and posterior lung álvarez. Breathing is nonlabored, no accessory muscle use, able to speak in complete sentences. Cardio: regular rate, regular rhythm with S1-S2 Abdomen: nondistended, normoactive bowel sounds, soft, nontender to palpation Extremities: no edema, erythema, or tenderness to palpation, DP pulses 2+ bilaterally Skin: no rashes or lesions, warm and dry Psych: appropriate mood and affect, judgment and insight intact Objective Data Vital Signs Vital Signs: Vital Signs - 24 hr 06/30/21 10:00 06/30/21 10:43 06/30/21 10:50 Temperature 98.0 F Pulse Rate 93 78 79 Respiratory Rate 18 18 18 Blood Pressure 115/53 L Pulse Oximetry 96 06/30/21 13:30 06/30/21 13:39 06/30/21 14:00 Temperature 97.5 F L Pulse Rate 88 85 92 Respiratory Rate 18 18 18 Blood Pressure 125/65 Pulse Oximetry 97 06/30/21 16:57 06/30/21 17:50 06/30/21 20:00 Temperature 97.6 F Pulse R
[2021-07-01 11:08] LABS: Glucose Point of Care 128 mg/dl (65-105)
[2021-07-01 16:25] LABS: Glucose Point of Care 119 mg/dl (65-105)
[2021-07-01] MEDS: AMITRIPTYLINE HCL 25 MG TABLET PO (21:09)
[2021-07-01] MEDS: MELOXICAM 7.5 MG TABLET 15 MG PO (21:09)
[2021-07-01 21:20] LABS: Glucose Point of Care 190 mg/dl (65-105)
[2021-07-02] VITALS (13 sets, daily range): BP systolic 111–130; BP diastolic 51–67; PULSE 62–97; RESP 16–20; TEMP 36–36.9; O2SAT 93–100
--- NOTE | 2021-07-02 00:13 | PCRCNOTE ---
Window of time for administration has passed. See next scheduled administration.
[2021-07-02] MEDS: methylPREDNISolone SOD SUCC 125 MG VIAL 60 MG IV PUSH (05:11)
[2021-07-02 06:03] LABS: Hematocrit 38.1 % (37.0-47.0); Hemoglobin 11.9 g/dL (12.0-15.0); Mean Corpuscular HGB Conc 31.2 g/dl (32-36); Mean Corpuscular Hemoglobin 29.8 pg (26-34); Mean Corpuscular Volume 95.5 fl (80-100); Mean Platelet Volume 9.1 fl (7.4-10.4); Platelet Count Result 249 k/mm3 (150-375); Red Blood Count 3.99 M/mm3 (4.2-5.4); Red Cell Distribution Width 13.4 % (11.5-14.5); White Blood Count 14.2 K/mm3 (4.5-10.0)
[2021-07-02 06:16] LABS: Anion Gap 5 mmol/L (8-16); Blood Urea Nitrogen 21 mg/dL (7-17); Calcium 8.9 mg/dL (8.4-10.2); Carbon Dioxide 33 mmol/L (22-30); Chloride 97 mmol/L (98-107); Estimated CRCL calculation 96 ml/min; Estimated Glomerular Filt Rate > 60; Glucose 125 mg/dL (65-110); Potassium 4.5 mmol/L (3.4-5.0); Sodium 135 mmol/L (137-145)
[2021-07-02 07:39] LABS: Glucose Point of Care 162 mg/dl (65-105)
[2021-07-02] MEDS: ATORVASTATIN 10 MG TABLET PO (08:12)
[2021-07-02] MEDS: ASPIRIN 81 MG ENTERIC TABLET PO (08:12)
[2021-07-02] MEDS: ROFLUMILAST 500 MCG TABLET PO (08:12)
[2021-07-02] MEDS: ENOXAPARIN 40 MG/0.4 ML SYRINGE SUB-Q (08:12)
--- NOTE | 2021-07-02 09:18 | PM.IMPN ---
Progress Note: A&P Assessment and Plan (1) COPD exacerbation: Code(s): J44.1 - Chronic obstructive pulmonary disease with (acute) exacerbation Status: Acute Assessment and Plan: Patient appears to be in a COPD exacerbation which she says happens about once a year for her. She endorses increased wheezing and sputum production. - chest x-ray does not show any signs of pneumonia - will continue IV Solu-Medrol at 60 mg every 8 hours, azithromycin, and breathing treatments as well as her Brovana - continue trilogy and Daliresp - sputum culture is pending - feeling improved today though wheezing is still diffuse, thus continuing IV Solu-Medrol as above. -no significant improvement since yesterday, -Consulted power mule operator -ordered SARS covid test, as it was not ruled out at admission. (2) Chronic respiratory failure with hypoxia and hypercapnia: Code(s): J96.11 - Chronic respiratory failure with hypoxia; J96.12 - Chronic respiratory failure with hypercapnia Status: Acute Assessment and Plan: Stable on home oxygen requirement of 3 L. - Continue maintenance inhalers and trilogy as above. (3) Hyperglycemia: Code(s): R73.9 - Hyperglycemia, unspecified Status: Acute Assessment and Plan: Due to steroids - continue low-dose sliding scale insulin while on high-dose steroids - A1c 5.3 - blood [id number] today (4) Leukocytosis: Code(s): D72.829 - Elevated white blood cell count, unspecified Status: Acute Assessment and Plan: Noted on admission and worsened due to steroids - Pt has no signs of PNA on CXR and has no dysuria - no signs or symptoms to suggest underlying bacterial infectious etiology - slight increase today, WBC up to 14.2, no fevers /chills noted. -monitor Subjective Date/time seen: 07/02/21 09:18 Interval history: Date of service: 07/01/2021 James Barrett is a 66-year-old female with a history of chronic respiratory failure on home oxygen therapy (3 L at baseline) secondary to COPD, degenerative disc disease, anxiety who is seen in follow-up for COPD exacerbation. She still endorses conversational dyspnea and dyspnea on exertion. Significantly when she uses the restroom as she reported to me today - that still concerns her. She has been using her home device over night. Denies orthopnea. Her wheezing is slightly improved, not as audible, but still very tight respirations with deep wheezing throughout. Consulted power mule operator and ordered SARS covid test, as it was not ruled out at admission. Continues to endorse cough productive of yellow-white sputum. Denies fever or chills. No nausea, vomiting, diarrhea, dizziness, lightheadedness, weakness. Denies chest pain or palpitations. Review of Systems Review of Systems: All systems reviewed & are unremarkable except as noted in HPI and below Constitutional: Constitutional: Denies excessive sweating, Denies headache(s), Denies increased appetite, Denies snoring and Denies weight gain Eyes: Eyes: Denies exophthalmos, Denies diplopia, Denies floaters and Denies loss of peripheral vision ENT: Denies facial pain, Denies headache(s), Denies odynophagia and Denies tinnitus Respiratory: Respiratory: Reports as per HPI, Reports chest congestion, Reports cough, Reports excessive phlegm production, Reports dyspnea, Reports dyspnea on exertion, Denies snoring and Reports wheezing Gastrointestinal: Gastrointestinal: Reports as per HPI, Reports no additional gastrointestinal complaints and Denies odynophagia Genitourinary: Genitourinary: Reports as per HPI Musculoskeletal: Musculoskeletal: Reports as per HPI Integumentary/Breasts: Skin/Breast: Reports as per HPI Neurologic: Reports as per HPI and Denies headache(s) Psychiatric: Psychiatric: Reports as per HPI Endocrine: Endocrine: Denies excessive sweating Exam Narrative: Ms. Barrett is a well-nourished, chronically ill appearing 66-year-old
[2021-07-02] MEDS: ALBUTEROL SULFATE NEB 2.5 MG/0.5 ML INH 5 MG INHALATION ×3 (09:54→22:31)
[2021-07-02] MEDS: IPRATROPIUM BR 0.02% INH SOLN 0.5 MG/2.5 ML VIAL INHALATION ×3 (09:55→22:31)
[2021-07-02 11:18] LABS: Glucose Point of Care 147 mg/dl (65-105)
[2021-07-02 12:13] LABS: EDCOVIDSCREEN Negative (Negative)
--- NOTE | 2021-07-02 12:30 | PM.CNPUL ---
Assessment and Plan Assessment and plan (1) COPD exacerbation: Code(s): J44.1 - Chronic obstructive pulmonary disease with (acute) exacerbation Status: Acute Assessment and Plan: 66-year-old female with end-stage COPD, chronic hypoxemic hypercapnic respiratory failure on home ventilatory support via trilogy ventilator presented with a shortness of breath and cough related to COPD exacerbation. Chest imaging studies showed no new infiltrates. The patient has been on appropriate treatment with IV steroids antibiotics and short-acting bronchodilators. I have decreased the IV steroids to 60 mg Solu-Medrol IV daily. continue with Daliresp p.o., nebulized short-acting bronchodilators, DVT prophylaxis. Patient is currently in isolation while waiting for COVID 19 PCR. She has no history of exposure to COVID. She has not received any COVID vaccines. (2) Hypoxemia: Code(s): R09.02 - Hypoxemia Status: Acute (3) Bronchiectasis: Qualifiers: Bronchiectasis type: uncomplicated Qualified Code(s): J47.9 - Bronchiectasis, uncomplicated Code(s): J47.9 - Bronchiectasis, uncomplicated Status: Acute (4) Chronic respiratory failure with hypoxia and hypercapnia: Code(s): J96.11 - Chronic respiratory failure with hypoxia; J96.12 - Chronic respiratory failure with hypercapnia Status: Acute (5) Lung nodule: Code(s): R91.1 - Solitary pulmonary nodule Status: Acute Assessment and Plan: Last low-dose CT done in February of 2021 showed small nodules less than 5 mm for which a repeat chest CT in 6 months was suggested. The patient will need to return to pulmonary clinic for follow-up approximately 2-3 weeks post DC home. History of Present Illness History of Present Illness Consult date: 07/02/21 Chief complaint: copd exacerbation Narrative: this 66-year-old female presented with 3 day history of progressively increasing shortness of breath and cough. The patient has history of severe COPD, with hypoxemic hypercapnic respiratory failure on home oxygen, on noninvasive ventilatory support at home via trilogy ventilator, history of frequent COPD exacerbations with history of previous hospitalization and treatment in the intensive care unit. Patient was in her usual state of health until approximately 3 days prior to this admission when she started having cough productive of yellow phlegm, wheezing and increasing shortness of breath. She had no fever chills hemoptysis chest pain or lower extremity edema. Since admission to the hospital the patient has been treated for COPD exacerbation, with antibiotics IV steroids and short-acting bronchodilators. Upon questioning the patient stated that she feels better today although she continues to have shortness of breath with any activity and wheezing. On admission, chest x-ray showed COPD changes but no new infiltrates. On previous chest CT done in February of 2021 she had advanced emphysema, bronchiectasis especially in the lower lobes, and small nodules for which a repeat chest CT in 6 months was suggested. Last pulmonary function testing approximately 4 years ago showed FEV1 of 0.5 L or 20% predicted with significant response to bronchodilators. She also had evidence of lung hyperinflation and air trapping. The patient uses the home ventilator every night with the last download report showing good compliance. Patient has not had the COVID vaccines. Review of Systems Review of Systems: All systems reviewed & are unremarkable except as noted in HPI and below (H and P and below.) [facility] Past Medical History Medical History (Updated 07/02/21 @ 12:40 by Santiago Kuo MD) Anxiety Chronic obstructive pulmonary disease Chronic respiratory failure with hypoxia and hypercapnia Degenerative disc disease On home oxygen therapy Osteoarthritis Surgical History Surgical History
[2021-07-02 16:21] LABS: Glucose Point of Care 171 mg/dl (65-105)
[2021-07-02] MEDS: MELOXICAM 7.5 MG TABLET 15 MG PO (21:19)
[2021-07-02] MEDS: AMITRIPTYLINE HCL 25 MG TABLET PO (21:19)
[2021-07-02 22:01] LABS: Glucose Point of Care 130 mg/dl (65-105)
[2021-07-03] VITALS (16 sets, daily range): BP systolic 93–138; BP diastolic 50–58; PULSE 68–88; RESP 16–20; TEMP 36–36.6; O2SAT 95–98
[2021-07-03] MEDS: IPRATROPIUM BR 0.02% INH SOLN 0.5 MG/2.5 ML VIAL INHALATION ×4 (02:49→20:23)
[2021-07-03] MEDS: ALBUTEROL SULFATE NEB 2.5 MG/0.5 ML INH 5 MG INHALATION ×4 (02:49→20:22)
[2021-07-03 07:04] LABS: Hematocrit 37.8 % (37.0-47.0); Hemoglobin 11.5 g/dL (12.0-15.0); Mean Corpuscular HGB Conc 30.4 g/dl (32-36); Mean Corpuscular Hemoglobin 29.6 pg (26-34); Mean Corpuscular Volume 97.2 fl (80-100); Mean Platelet Volume 9.2 fl (7.4-10.4); Platelet Count Result 223 k/mm3 (150-375); Red Blood Count 3.89 M/mm3 (4.2-5.4); Red Cell Distribution Width 13.7 % (11.5-14.5); White Blood Count 14.1 K/mm3 (4.5-10.0)
[2021-07-03 07:10] LABS: Anion Gap 2 mmol/L (8-16); Blood Urea Nitrogen 25 mg/dL (7-17); Calcium 8.5 mg/dL (8.4-10.2); Carbon Dioxide 36 mmol/L (22-30); Chloride 97 mmol/L (98-107); Estimated CRCL calculation 83 ml/min; Estimated Glomerular Filt Rate > 60; Glucose 80 mg/dL (65-110); Phosphorus 3.9 mg/dL (2.5-4.5); Sodium 135 mmol/L (137-145)
[2021-07-03] MEDS: ASPIRIN 81 MG ENTERIC TABLET PO (08:15)
[2021-07-03] MEDS: ENOXAPARIN 40 MG/0.4 ML SYRINGE SUB-Q (08:15)
[2021-07-03] MEDS: ROFLUMILAST 500 MCG TABLET PO (08:15)
[2021-07-03] MEDS: ATORVASTATIN 10 MG TABLET PO (08:15)
[2021-07-03] MEDS: methylPREDNISolone SOD SUCC 125 MG VIAL 60 MG IV PUSH (08:15)
[2021-07-03 08:19] LABS: Glucose Point of Care 130 mg/dl (65-105)
--- NOTE | 2021-07-03 09:11 | PM.IMPN ---
Progress Note: A&P Assessment and Plan (1) COPD exacerbation: Code(s): J44.1 - Chronic obstructive pulmonary disease with (acute) exacerbation Status: Acute Assessment and Plan: - chest x-ray does not show any signs of pneumonia but patient has worsening leukocytosis today pain negative B chest x-ray added IV Rocephin - will continue IV Solu-Medrol at 60 mg every 8 hours, azithromycin, and breathing treatments as well as her Brovana - continue trilogy and Daliresp - sputum culture is pending, -Consulted life support technician -sources negative (2) Chronic respiratory failure with hypoxia and hypercapnia: Code(s): J96.11 - Chronic respiratory failure with hypoxia; J96.12 - Chronic respiratory failure with hypercapnia Status: Acute Assessment and Plan: Acute on top of chronic hypoxemic respiratory failure secondary to above continue oxygen - Continue maintenance inhalers and trilogy as above. (3) Hyperglycemia: Code(s): R73.9 - Hyperglycemia, unspecified Status: Acute Assessment and Plan: Due to steroids - continue low-dose sliding scale insulin while on high-dose steroids - A1c 5.3 (4) Leukocytosis: Code(s): D72.829 - Elevated white blood cell count, unspecified Status: Acute Assessment and Plan: Noted on admission and worsened due to steroids -start IV Rocephin continue azithromycin pending repeat chest x-ray Subjective Date/time seen: 07/03/21 09:11 Interval history: Date of service: 07/01/2021 James Barrett is a 66-year-old female with a history of chronic respiratory failure on home oxygen therapy (3 L at baseline) secondary to COPD, degenerative disc disease, anxiety who is seen in follow-up for COPD exacerbation. Patient still complained of shortness of breath at rest worsening with activity I ordered a chest x-ray Reviewed culture negative Patient has worsening leukocytosis Added IV Rocephin for today Pending pulmonology evaluation Patient also complained of cough denies fever or chills I am seeing patient for COPD exacerbation. Exam Narrative: Alert Chest bilateral crackles and wheeze Abdomen nontender nondistended CVS S1 + S2 Lower extremity minimal edema Objective Data Vital Signs Vital Signs: Vital Signs - 24 hr 07/02/21 09:59 07/02/21 10:00 07/02/21 10:09 Temperature 97.6 F Pulse Rate 95 97 87 Respiratory Rate 18 18 16 Blood Pressure 111/61 Pulse Oximetry 93 96 07/02/21 14:10 07/02/21 14:40 07/02/21 14:50 Temperature 98.4 F Pulse Rate 81 88 88 Respiratory Rate 18 18 18 Blood Pressure 114/56 L Pulse Oximetry 97 07/02/21 18:00 07/02/21 19:57 07/02/21 21:26 Temperature 98.0 F 96.8 F L Pulse Rate 80 80 Respiratory Rate 18 20 Blood Pressure 118/58 L 112/51 L Pulse Oximetry 96 100 100 07/02/21 22:32 07/02/21 22:39 07/03/21 00:02 Temperature 96.8 F L Pulse Rate 84 86 88 Respiratory Rate 18 18 20 Blood Pressure 100/50 L Pulse Oximetry 95 97 07/03/21 02:49 07/03/21 02:50 07/03/21 02:54 Temperature Pulse Rate 81 81 79 Respiratory Rate 18 19 18 Blood Pressure Pulse Oximetry 96 07/03/21 03:17 Temperature 96.8 F L Pulse Rate 68 Respiratory Rate 20 Blood Pressure 100/51 L Pulse Oximetry 98 Intake/Output Intake/Output: Intake & Output 06/30/21 07/01/21 07/02/21 07/03/21 23:59 23:59 23:59 23:59 Intake Total 2700 2020 2180 1400 Output Total 1800 3650 1950 700 Balance 900 -1630 230 700 Meds/Results Medications: Active Medications Generic Name Dose Route Start Last Admin Trade Name Freq PRN Reason Stop Dose Admin Acetaminophen 650 mg 06/28/21 20:13 06/29/21 08:06 Acetaminophen 325 Mg Tablet PO 650 mg Q4H PRN Administration Headache Hydrocodone Bitart/Acetaminophen 1 tab 06/28/21 14:20 Hydrocodone/Acetaminophen (*Crx) 5-325 Mg Tablet PO Q4H PRN Pain Rated 4-6 Albuterol 5 mg 06/28/21 20:00 07/03/21 02:49 Alb
[2021-07-03 10:09] LABS: NT Pro B Type Natriuretic Pept 112 pg/mL (5-100)
[2021-07-03] MEDS: cefTRIAXone 2 GM in SODIUM CHLORIDE 0.9% IV 100 ML 200 ML IVPB (11:30)
[2021-07-03 11:37] LABS: Glucose Point of Care 99 mg/dl (65-105)
[2021-07-03 16:45] LABS: Glucose Point of Care 173 mg/dl (65-105)
--- NOTE | 2021-07-03 19:57 | PM.PNPUL ---
Progress Note: A&P Assessment and Plan (1) COPD exacerbation: Code(s): J44.1 - Chronic obstructive pulmonary disease with (acute) exacerbation Status: Acute Assessment and Plan: 66-year-old female with end-stage COPD, chronic hypoxemic hypercapnic respiratory failure on home ventilatory support via trilogy ventilator presented with a shortness of breath and cough related to COPD exacerbation. Chest imaging studies showed no new infiltrates. The patient has been on appropriate treatment with IV steroids antibiotics and short-acting bronchodilators. She had decrease in IV steroids to 60 mg Solu-Medrol IV daily. continue with Daliresp p.o., nebulized short-acting bronchodilators, DVT prophylaxis. HEr COVID 19 PCR is negative. She has no history of exposure to COVID. She has not received any COVID vaccines. She has harsh moist rhonchi, cannot expectorate much , however what she can expectorate is thick and yellow. 07/03/2021 Will add Cornet vibratory valve to help clear secretions. She is feeling better this evening compared to earlier today. (2) Hypoxemia: Code(s): R09.02 - Hypoxemia Status: Acute Assessment and Plan: She is on 3 L/min (3) Bronchiectasis: Qualifiers: Bronchiectasis type: uncomplicated Qualified Code(s): J47.9 - Bronchiectasis, uncomplicated Code(s): J47.9 - Bronchiectasis, uncomplicated Status: Acute (4) Chronic respiratory failure with hypoxia and hypercapnia: Code(s): J96.11 - Chronic respiratory failure with hypoxia; J96.12 - Chronic respiratory failure with hypercapnia Status: Acute Assessment and Plan: (5) Lung nodule: Code(s): R91.1 - Solitary pulmonary nodule Status: Acute Assessment and Plan: Last low-dose CT done in February of 2021 showed small nodules less than 5 mm for which a repeat chest CT in 6 months was suggested. The patient will need to return to pulmonary clinic for follow-up approximately 2-3 weeks post DC home. Subjective Date/time seen: 07/03/21 19:57 James Barrett is a 66-year-old female seen in f/u for 3 days with increasing shortness of breath and cough; has severe COPD, with hypoxemic hypercapnic respiratory failure on home oxygen, on noninvasive ventilatory support at home via trilogy ventilator, history of frequent COPD exacerbations with history of previous hospitalization and treatment in the intensive care unit. [facility] was COVID negative 07/02/2021. She came to ER Jun 28, has been here since. Official admission date was Jun 30. She is having thick yellow secretions, somewhat hard to expectorate. Patient was in her usual state of health until approximately 3 days prior to this admission when she started having cough productive of yellow phlegm, wheezing and increasing shortness of breath. She had no fever chills hemoptysis chest pain or lower extremity edema. Since admission to the hospital the patient has been treated for COPD exacerbation, with antibiotics IV steroids and short-acting bronchodilators. Upon questioning the patient stated that she feels better today although she continues to have shortness of breath with any activity and wheezing. On admission, chest x-ray showed COPD changes but no new infiltrates. On previous chest CT done in February of 2021 she had advanced emphysema, bronchiectasis especially in the lower lobes, and small nodules for which a repeat chest CT in 6 months was suggested. Last pulmonary function testing approximately 4 years ago showed FEV1 of 0.5 L or 20% predicted with significant response to bronchodilators. She also had evidence of lung hyperinflation and air trapping. The patient uses the home ventil
[2021-07-03] MEDS: MELOXICAM 7.5 MG TABLET 15 MG PO (21:00)
[2021-07-03] MEDS: AMITRIPTYLINE HCL 25 MG TABLET PO (21:01)
[2021-07-03 22:11] LABS: Glucose Point of Care 138 mg/dl (65-105)
[2021-07-04] VITALS (17 sets, daily range): BP systolic 103–120; BP diastolic 51–64; PULSE 68–100; RESP 20; TEMP 35.9–36.7; O2SAT 94–98
[2021-07-04] MEDS: ALBUTEROL SULFATE NEB 2.5 MG/0.5 ML INH 5 MG INHALATION ×4 (01:58→20:11)
[2021-07-04] MEDS: IPRATROPIUM BR 0.02% INH SOLN 0.5 MG/2.5 ML VIAL INHALATION ×4 (01:58→20:11)
[2021-07-04 05:46] LABS: Hematocrit 36.4 % (37.0-47.0); Hemoglobin 11.3 g/dL (12.0-15.0); Mean Corpuscular Volume 96.6 fl (80-100); Mean Platelet Volume 8.9 fl (7.4-10.4); Platelet Count Result 216 k/mm3 (150-375); Red Blood Count 3.77 M/mm3 (4.2-5.4); Red Cell Distribution Width 13.8 % (11.5-14.5); White Blood Count 14.1 K/mm3 (4.5-10.0)
[2021-07-04 05:57] LABS: Anion Gap 4 mmol/L (8-16); Blood Urea Nitrogen 21 mg/dL (7-17); Calcium 8.5 mg/dL (8.4-10.2); Carbon Dioxide 36 mmol/L (22-30); Chloride 98 mmol/L (98-107); Estimated CRCL calculation 96 ml/min; Estimated Glomerular Filt Rate > 60; Glucose 85 mg/dL (65-110); Potassium 4.2 mmol/L (3.4-5.0); Sodium 138 mmol/L (137-145)
[2021-07-04 08:03] LABS: Glucose Point of Care 118 mg/dl (65-105)
[2021-07-04] MEDS: ATORVASTATIN 10 MG TABLET PO (08:17)
[2021-07-04] MEDS: ROFLUMILAST 500 MCG TABLET PO (08:17)
[2021-07-04] MEDS: ASPIRIN 81 MG ENTERIC TABLET PO (08:17)
[2021-07-04] MEDS: ENOXAPARIN 40 MG/0.4 ML SYRINGE SUB-Q (08:18)
[2021-07-04] MEDS: methylPREDNISolone SOD SUCC 125 MG VIAL 60 MG IV PUSH (08:18)
[2021-07-04] MEDS: cefTRIAXone 2 GM in SODIUM CHLORIDE 0.9% IV 100 ML 200 ML IVPB (08:18)
--- NOTE | 2021-07-04 08:39 | PM.IMPN ---
Progress Note: A&P Assessment and Plan (1) COPD exacerbation: Code(s): J44.1 - Chronic obstructive pulmonary disease with (acute) exacerbation Status: Acute Assessment and Plan: - chest x-ray does not show any signs of pneumonia but patient has worsening leukocytosis today pain negative B chest x-ray added IV Rocephin and repeated mckeon cultured. - will continue IV Solu-Medrol at 60 mg every 8 hours, azithromycin, rocephin, and breathing treatments as well as her Brovana - continue trilogy and Daliresp - blood and sputum culture x1 no growth, repeated mckeon cultures today. -Consulted mapping technician - appreciate and following their recommendations. (2) Chronic respiratory failure with hypoxia and hypercapnia: Code(s): J96.11 - Chronic respiratory failure with hypoxia; J96.12 - Chronic respiratory failure with hypercapnia Status: Acute Assessment and Plan: Acute on top of chronic hypoxemic respiratory failure secondary to above continue oxygen - Continue maintenance inhalers and trilogy as above. (3) Hyperglycemia: Code(s): R73.9 - Hyperglycemia, unspecified Status: Acute Assessment and Plan: Due to steroids - continue low-dose sliding scale insulin while on high-dose steroids - A1c 5.3 glucose 118 today. (4) Leukocytosis: Code(s): D72.829 - Elevated white blood cell count, unspecified Status: Acute Assessment and Plan: Noted on admission and worsened due to steroids -start IV Rocephin continue azithromycin , CXR no worse, actually slightly improved when reviewed. Subjective Date/time seen: 07/04/21 08:39 Interval history: Date of service: 07/04/2021 James Barrett is a 66-year-old female with a history of chronic respiratory failure on home oxygen therapy (3 L at baseline) secondary to COPD, degenerative disc disease, anxiety who is seen in follow-up for COPD exacerbation. Yesterday's CXR look much better than expected after listening to the patient's lung sounds today. CXR looks stable, but her lungs sounds are Coarse with crackles, loud expiratory wheezing throughout. Patient still complained of shortness of breath at rest, but much worse with activity. Having to really pace herself with simple self care activities. I have concerns for her not fully able to care for herself at this time. Previous blood and sputum cutlures showed no growth. Rocephin was added to Azithromycin yesterday due worsening leukocytosis, WBC 14.1 (but she is on IV steroids). Ordered blood and urine and sputum cultures repeated today. Appreciate pulmonology evaluation and recommendations at this time. Appears this is acute or viral; but may be just a progression of this patient's COPD. Review of Systems Review of Systems: All systems reviewed & are unremarkable except as noted in HPI and below Constitutional: Constitutional: Denies excessive sweating, Denies headache(s), Denies increased appetite, Denies snoring and Denies weight gain Eyes: Eyes: Denies exophthalmos, Denies diplopia, Denies floaters and Denies loss of peripheral vision ENT: Denies facial pain, Denies headache(s), Denies odynophagia and Denies tinnitus Cardiovascular: Cardiovascular: Reports dyspnea and Reports dyspnea on exertion Respiratory: Respiratory: Reports as per HPI, Reports chest congestion, Reports cough, Reports excessive phlegm production, Reports dyspnea, Reports dyspnea on exertion, Denies snoring and Reports wheezing Gastrointestinal: Gastrointestinal: Reports as per HPI, Reports no additional gastrointestinal complaints and Denies odynophagia Genitourinary: Genitourinary: Reports as per HPI Musculoskeletal: Musculoskeletal: Reports as per HPI Integumentary/Breasts: Skin/Breast: Reports as per HPI Neurologic: Reports as per HPI and Denies headache(s) Psychiatric: Psychiatric: Reports as per HPI Endocrine: Endocrine: Denies excessive sweating Allergic/Immunologic: Allergic/Immunol
[2021-07-04 11:38] LABS: Glucose Point of Care 100 mg/dl (65-105)
--- NOTE | 2021-07-04 16:52 | PM.PNPUL ---
Progress Note: A&P Assessment and Plan (1) COPD exacerbation: Code(s): J44.1 - Chronic obstructive pulmonary disease with (acute) exacerbation Status: Acute Assessment and Plan: 66-year-old female with end-stage COPD, chronic hypoxemic hypercapnic respiratory failure on home ventilatory support via trilogy ventilator presented with a shortness of breath and cough related to COPD exacerbation. Chest imaging studies showed no new infiltrates. The patient has been on appropriate treatment with IV steroids antibiotics and short-acting bronchodilators. She had decrease in IV steroids to 60 mg Solu-Medrol IV daily. continue with Daliresp p.o., nebulized short-acting bronchodilators, DVT prophylaxis. HEr COVID 19 PCR is negative. She has no history of exposure to COVID. She has not received any COVID vaccines. She has harsh moist rhonchi, cannot expectorate much , however what she can expectorate is thick and yellow. 07/03/2021 continue Cornet vibratory valve to help clear secretions. She is feeling better this afternoon. Continue antibiotics. (2) Hypoxemia: Code(s): R09.02 - Hypoxemia Status: Acute Assessment and Plan: She is on 3 L/min (3) Bronchiectasis: Qualifiers: Bronchiectasis type: uncomplicated Qualified Code(s): J47.9 - Bronchiectasis, uncomplicated Code(s): J47.9 - Bronchiectasis, uncomplicated Status: Acute (4) Chronic respiratory failure with hypoxia and hypercapnia: Code(s): J96.11 - Chronic respiratory failure with hypoxia; J96.12 - Chronic respiratory failure with hypercapnia Status: Acute Assessment and Plan: (5) Lung nodule: Code(s): R91.1 - Solitary pulmonary nodule Status: Acute Assessment and Plan: Last low-dose CT done in February of 2021 showed small nodules less than 5 mm for which a repeat chest CT in 6 months was suggested. The patient will need to return to pulmonary clinic for follow-up approximately 2-3 weeks post DC home. Subjective Date/time seen: 07/04/21 16:52 James Barrett is a 66-year-old female seen in f/u for 3 days with increasing shortness of breath and cough; has severe COPD, with hypoxemic hypercapnic respiratory failure on home oxygen, on noninvasive ventilatory support at home via trilogy ventilator, history of frequent COPD exacerbations with history of previous hospitalization and treatment in the intensive care unit. SHe feels better, COrnet valve is helping clear secretions. She was COVID negative 07/02/2021. She came to ER Jun 28, has been here since. Official admission date was Jun 30. She is having thick yellow secretions, somewhat hard to expectorate. Patient was in her usual state of health until approximately 3 days prior to this admission when she started having cough productive of yellow phlegm, wheezing and increasing shortness of breath. She had no fever chills hemoptysis chest pain or lower extremity edema. Since admission to the hospital the patient has been treated for COPD exacerbation, with antibiotics IV steroids and short-acting bronchodilators. Upon questioning the patient stated that she feels better today although she continues to have shortness of breath with any activity and wheezing. On admission, chest x-ray showed COPD changes but no new infiltrates. On previous chest CT done in February of 2021 she had advanced emphysema, bronchiectasis especially in the lower lobes, and small nodules for which a repeat chest CT in 6 months was suggested. Last pulmonary function testing approximately 4 years ago showed FEV1 of 0.5 L or 20% predicted with significant response to bronchodilators. She also had evidence of lung hyperi
[2021-07-04 17:29] LABS: Glucose Point of Care 185 mg/dl (65-105)
[2021-07-04] MEDS: AMITRIPTYLINE HCL 25 MG TABLET PO (20:36)
[2021-07-04] MEDS: MELOXICAM 7.5 MG TABLET 15 MG PO (20:36)
[2021-07-04 21:36] LABS: Glucose Point of Care 174 mg/dl (65-105)
[2021-07-05] VITALS (16 sets, daily range): BP systolic 105–131; BP diastolic 54–69; PULSE 64–86; RESP 18–20; TEMP 35.8–36.8; O2SAT 94–99
--- NOTE | 2021-07-05 04:26 | PCRCNOTE ---
Window of time for administration has passed. See next scheduled administration.
[2021-07-05 07:51] LABS: Glucose Point of Care 87 mg/dl (65-105)
[2021-07-05 07:58] LABS: Hematocrit 38.5 % (37.0-47.0); Mean Corpuscular HGB Conc 31.2 g/dl (32-36); Mean Corpuscular Hemoglobin 30.2 pg (26-34); Mean Platelet Volume 8.9 fl (7.4-10.4); Platelet Count Result 209 k/mm3 (150-375); Red Blood Count 3.97 M/mm3 (4.2-5.4); Red Cell Distribution Width 13.9 % (11.5-14.5); White Blood Count 13.7 K/mm3 (4.5-10.0)
[2021-07-05] MEDS: ENOXAPARIN 40 MG/0.4 ML SYRINGE SUB-Q (08:09)
[2021-07-05] MEDS: cefTRIAXone 2 GM in SODIUM CHLORIDE 0.9% IV 100 ML 200 ML IVPB (08:10)
[2021-07-05] MEDS: methylPREDNISolone SOD SUCC 125 MG VIAL 60 MG IV PUSH (08:10)
[2021-07-05] MEDS: ATORVASTATIN 10 MG TABLET PO (08:10)
[2021-07-05] MEDS: ASPIRIN 81 MG ENTERIC TABLET PO (08:10)
[2021-07-05] MEDS: ROFLUMILAST 500 MCG TABLET PO (08:10)
[2021-07-05 08:11] LABS: Anion Gap -1 mmol/L (8-16); Blood Urea Nitrogen 22 mg/dL (7-17); Calcium 8.7 mg/dL (8.4-10.2); Carbon Dioxide 38 mmol/L (22-30); Chloride 96 mmol/L (98-107); Estimated CRCL calculation 96 ml/min; Estimated Glomerular Filt Rate > 60; Glucose 87 mg/dL (65-110); Sodium 133 mmol/L (137-145)
[2021-07-05 08:17] LABS: NT Pro B Type Natriuretic Pept 71 pg/mL (5-100)
[2021-07-05] MEDS: ALBUTEROL SULFATE NEB 2.5 MG/0.5 ML INH INHALATION ×3 (09:39→21:32)
[2021-07-05] MEDS: IPRATROPIUM BR 0.02% INH SOLN 0.5 MG/2.5 ML VIAL INHALATION ×3 (09:39→21:33)
[2021-07-05 11:22] LABS: Glucose Point of Care 91 mg/dl (65-105)
--- NOTE | 2021-07-05 13:38 | PM.PNPUL ---
Progress Note: A&P Assessment and Plan (1) COPD exacerbation: Code(s): J44.1 - Chronic obstructive pulmonary disease with (acute) exacerbation Status: Acute Assessment and Plan: 66-year-old female with end-stage COPD, chronic hypoxemic hypercapnic respiratory failure on home ventilatory support via trilogy ventilator presented with a shortness of breath and cough related to COPD exacerbation. Chest imaging studies showed no new infiltrates. The patient has been on appropriate treatment with IV steroids antibiotics and short-acting bronchodilators. She had decrease in IV steroids to 60 mg Solu-Medrol IV daily. continue with Daliresp p.o., nebulized short-acting bronchodilators, DVT prophylaxis. HEr COVID 19 PCR is negative. She has no history of exposure to COVID. She has not received any COVID vaccines. She has harsh moist rhonchi, cannot expectorate much , however what she can expectorate is thick and yellow. 07/03/2021 continue Cornet vibratory valve to help clear secretions. She is feeling better this afternoon. Continue antibiotics. 07/05 Patient is improving but still with diffused expiratory wheezes. I will change her Solu-Medrol from 60 mg IV q.day to 20 mg IV q.6 hours. Will increase her albuterol and ipratropium nebulizers from q.6 to q.4 hours standing. (2) Hypoxemia: Code(s): R09.02 - Hypoxemia Status: Acute Assessment and Plan: She is on 3 L/min 07/05 Patient is on 3 L nasal cannula at home and she currently is on 3 L nasal cannula saturations 94-97%. (3) Chronic respiratory failure with hypoxia and hypercapnia: Code(s): J96.11 - Chronic respiratory failure with hypoxia; J96.12 - Chronic respiratory failure with hypercapnia Status: Acute Assessment and Plan: 07/05 Patient is continue her home trilogy with 3 L bleed in. Patient tolerating this treatment well. I will attempt to obtain a download. (4) Lung nodule: Code(s): R91.1 - Solitary pulmonary nodule Status: Acute Assessment and Plan: Last low-dose CT done in February of 2021 showed small nodules less than 5 mm for which a repeat chest CT in 6 months was suggested. The patient will need to return to pulmonary clinic for follow-up approximately 2-3 weeks post DC home. Subjective Date/time seen: 07/05/21 13:38 Interval history: James Barrett is a 66-year-old female seen in f/u for 3 days with increasing shortness of breath and cough; has severe COPD, with hypoxemic hypercapnic respiratory failure on home oxygen, on noninvasive ventilatory support at home via trilogy ventilator, history of frequent COPD exacerbations with history of previous hospitalization and treatment in the intensive care unit. SHe feels better, COrnet valve is helping clear secretions. She was COVID negative 07/02/2021. She came to ER Jun 28, has been here since. Official admission date was Jun 30. She is having thick yellow secretions, somewhat hard to expectorate. Patient was in her usual state of health until approximately 3 days prior to this admission when she started having cough productive of yellow phlegm, wheezing and increasing shortness of breath. She had no fever chills hemoptysis chest pain or lower extremity edema. Since admission to the hospital the patient has been treated for COPD exacerbation, with antibiotics IV steroids and short-acting bronchodilators. Upon questioning the patient stated that she feels better today although she continues to have shortness of breath with any activity and wheezing. On admission, chest x-ray showed COPD changes but no new infiltrates. On previous chest CT done in February of 2021 she had advanced emphysema, bronchiectasis e
--- NOTE | 2021-07-05 15:19 | PM.IMPN ---
Progress Note: A&P Assessment and Plan (1) COPD exacerbation: Code(s): J44.1 - Chronic obstructive pulmonary disease with (acute) exacerbation Status: Acute Assessment and Plan: Presented with increased wheezing and sputum production, consistent with COPD exacerbation - chest x-ray did not show any signs of pneumonia -continue IV Solu-Medrol, reduce to 20 mg IV q.6 per pulmonology recommendations -appreciate pulmonology consult -continue azithromycin and ceftriaxone -continue bronchodilators, albuterol and ipratropium q.4 hours scheduled - continue trilogy and Daliresp - sputum culture is pending, negative to date (2) Chronic respiratory failure with hypoxia and hypercapnia: Code(s): J96.11 - Chronic respiratory failure with hypoxia; J96.12 - Chronic respiratory failure with hypercapnia Status: Acute Assessment and Plan: Stable on home oxygen requirement of 3 L. - Continue maintenance inhalers and trilogy as above. (3) Hyperglycemia: Code(s): R73.9 - Hyperglycemia, unspecified Status: Acute Assessment and Plan: Due to steroids - continue low-dose sliding scale insulin while on high-dose steroids - A1c 5.3 - blood sugars 80-90 today (4) Leukocytosis: Code(s): D72.829 - Elevated white blood cell count, unspecified Status: Acute Assessment and Plan: Noted on admission and worsened due to steroids - no signs or symptoms to suggest underlying bacterial infectious etiology - slight improvement today, WBC down to 13,700 Subjective Date/time seen: 07/05/21 15:19 Interval history: Date of service: 07/05/2021 James Barrett is a 66-year-old female with a history of chronic respiratory failure on home oxygen therapy (3 L at baseline) secondary to COPD, degenerative disc disease, anxiety who is seen in follow-up for COPD exacerbation. She feels better today. She states ?I am getting there?. Still with persistent wheezing and she endorses cough productive of yellow/white sputum. Also endorses conversational dyspnea as well as dyspnea on exertion. Denies abdominal pain, nausea, vomiting, fever, chills, dizziness, lightheadedness, dysuria, hematuria. No chest pain or palpitations. She is getting around well. No difficulties with ambulation. No weakness. Appetite is pretty good. Review of Systems Review of Systems: All systems reviewed & are unremarkable except as noted in HPI and below Exam Narrative: Ms. Barrett is a well-nourished, chronically ill appearing 66-year-old female who is lying semi recumbent in bed. She appears comfortable and is in NARD. Neuro: awake, alert and oriented x4, speech clear, no focal neuro deficits noted HEENMT: normocephalic, atraumatic, EOMI, sclerae anicteric Neck: supple, no lymphadenopathy Respiratory: Diffuse wheezing, audible without stethoscope. Breathing is nonlabored, no accessory muscle use, able to speak in complete sentences Cardio: regular rate, regular rhythm with S1-S2 Abdomen: nondistended, normoactive bowel sounds, soft, nontender to palpation Extremities: no edema, erythema, or tenderness to palpation, DP pulses 2+ bilaterally Skin: no rashes or lesions, warm and dry Psych: appropriate mood and affect, judgment and insight intact Objective Data Vital Signs Vital Signs: Vital Signs - 24 hr 07/04/21 15:27 07/04/21 18:05 07/04/21 19:37 Temperature 97.9 F 98.1 F 97.1 F L Pulse Rate 86 79 71 Respiratory Rate 20 20 20 Blood Pressure 112/64 103/55 L 118/51 L Pulse Oximetry 98 97 96 07/04/21 20:13 07/04/21 20:14 07/04/21 20:27 Temperature Pulse Rate 98 100 Respiratory Rate 20 20 Blood Pressure Pulse Oximetry 94 07/04/21 21:00 07/04/21 22:53 07/05/21 00:54 Temperature Pulse Rate 80 80 Respiratory Rate 20 Blood Pressure Pulse Oximetry 95 95 94 07/05/21 01:06 07/05/21 03:12 07/05/21 08:10 Temperature 96.5 F L 96.8 F L Pulse Rate 64 68
[2021-07-05 16:43] LABS: Glucose Point of Care 156 mg/dl (65-105)
[2021-07-05] MEDS: methylPREDNISolone SOD SUCC 40 MG VIAL 20 MG IV PUSH ×2 (17:02→23:46)
[2021-07-05] MEDS: AMITRIPTYLINE HCL 25 MG TABLET PO (20:24)
[2021-07-05] MEDS: MELOXICAM 7.5 MG TABLET 15 MG PO (20:24)
[2021-07-05 21:09] LABS: Glucose Point of Care 166 mg/dl (65-105)
[2021-07-06] VITALS (29 sets, daily range): BP systolic 112–123; BP diastolic 57–71; PULSE 64–89; RESP 16–20; TEMP 36–36.4; O2SAT 87–100
[2021-07-06] MEDS: IPRATROPIUM BR 0.02% INH SOLN 0.5 MG/2.5 ML VIAL INHALATION ×6 (00:43→20:26)
[2021-07-06] MEDS: ALBUTEROL SULFATE NEB 2.5 MG/0.5 ML INH INHALATION ×6 (00:43→20:26)
[2021-07-06] MEDS: methylPREDNISolone SOD SUCC 40 MG VIAL 20 MG IV PUSH (05:57)
[2021-07-06 06:49] LABS: Hemoglobin 11.9 g/dL (12.0-15.0); Mean Corpuscular HGB Conc 31.3 g/dl (32-36); Mean Corpuscular Hemoglobin 30.4 pg (26-34); Mean Corpuscular Volume 96.9 fl (80-100); Mean Platelet Volume 9.1 fl (7.4-10.4); Platelet Count Result 227 k/mm3 (150-375); Red Blood Count 3.92 M/mm3 (4.2-5.4); Red Cell Distribution Width 13.8 % (11.5-14.5)
[2021-07-06 07:11] LABS: Blood Urea Nitrogen 18 mg/dL (7-17); Carbon Dioxide 33 mmol/L (22-30); Chloride 96 mmol/L (98-107); Estimated CRCL calculation 113 ml/min; Estimated Glomerular Filt Rate > 60; Glucose 148 mg/dL (65-110); Potassium 4.6 mmol/L (3.4-5.0)
[2021-07-06 07:26] LABS: Anion Gap 4 mmol/L (8-16); Sodium 133 mmol/L (137-145)
[2021-07-06 07:47] LABS: Glucose Point of Care 99 mg/dl (65-105)
[2021-07-06] MEDS: ROFLUMILAST 500 MCG TABLET PO (08:51)
[2021-07-06] MEDS: ENOXAPARIN 40 MG/0.4 ML SYRINGE SUB-Q (08:51)
[2021-07-06] MEDS: ASPIRIN 81 MG ENTERIC TABLET PO (08:51)
[2021-07-06] MEDS: ATORVASTATIN 10 MG TABLET PO (08:51)
--- NOTE | 2021-07-06 08:56 | PM.IMPN ---
Progress Note: A&P Assessment and Plan (1) COPD exacerbation: Code(s): J44.1 - Chronic obstructive pulmonary disease with (acute) exacerbation Status: Acute Assessment and Plan: Presented with increased wheezing and sputum production, consistent with COPD exacerbation - chest x-ray did not show any signs of pneumonia - Lorenzo received IV Solu-Medrol, weaned down to 20 mg IV q6h per pulmonology recommendations. Today she is beginning to feel better, therefore will transition to p.o. prednisone 40 mg daily. She no longer has IV access. - Completed azithromycin. Received 3 doses of IV ceftriaxone. Will transition to p.o. Levaquin for 4 days to complete a total of 7 days antibiotic therapy. - Appreciate pulmonology consult - Continue bronchodilators, albuterol and ipratropium q.4 hours scheduled - Continue trilogy and Daliresp - Sputum culture is pending, showing mixed bacterial nimisha (2) Chronic respiratory failure with hypoxia and hypercapnia: Code(s): J96.11 - Chronic respiratory failure with hypoxia; J96.12 - Chronic respiratory failure with hypercapnia Status: Acute Assessment and Plan: Stable on home oxygen requirement of 3 L. - Continue maintenance inhalers and trilogy as above. (3) Hyperglycemia: Code(s): R73.9 - Hyperglycemia, unspecified Status: Acute Assessment and Plan: Due to steroids - continue low-dose sliding scale insulin while on high-dose steroids - A1c 5.3 - Anticipate resolution following completion of steroids (4) Leukocytosis: Code(s): D72.829 - Elevated white blood cell count, unspecified Status: Acute Assessment and Plan: Secondary to steroids - no signs or symptoms to suggest underlying bacterial infectious etiology Subjective Date/time seen: 07/06/21 08:56 Interval history: Date of service: 07/06/2021 James Barrett is a 66-year-old female with a history of chronic respiratory failure on home oxygen therapy (3 L at baseline) secondary to COPD, degenerative disc disease, anxiety who is seen in follow-up for COPD exacerbation. Slowly but surely she is feeling better. She is able to take a deeper breath and can no longer supple audibly wheezing. She took a shower today and notes that she was a little bit short of breath after going through this entire process, but overall has had improvement in her dyspnea on exertion. Denies conversational dyspnea today. Denies cough or chest congestion. No nausea or vomiting, fever, chills dizziness, lightheadedness, weakness. Appetite is good. Review of Systems Review of Systems: All systems reviewed & are unremarkable except as noted in HPI and below Exam Narrative: Ms. Barrett is a well-nourished, chronically ill appearing 66-year-old female who is lying semi recumbent in bed. She appears comfortable and is in NARD. Neuro: awake, alert and oriented x4, speech clear, no focal neuro deficits noted HEENMT: normocephalic, atraumatic, EOMI, sclerae anicteric Neck: supple, no lymphadenopathy Respiratory: Diffuse expiratory wheezes improved from prior exam. Breathing is nonlabored, no accessory muscle use, able to speak in complete sentences Cardio: regular rate, regular rhythm with S1-S2 Abdomen: nondistended, normoactive bowel sounds, soft, nontender to palpation Extremities: no edema, erythema, or tenderness to palpation, DP pulses 2+ bilaterally Skin: no rashes or lesions, warm and dry Psych: appropriate mood and affect, judgment and insight intact Objective Data Vital Signs Vital Signs: Vital Signs - 24 hr 07/05/21 09:42 07/05/21 09:53 07/05/21 10:00 Temperature 98.1 F Pulse Rate 86 78 84 Respiratory Rate 20 20 18 Blood Pressure 105/61 Pulse Oximetry 94 97 07/05/21 14:15 07/05/21 16:02 07/05/21 16:08 Temperature 98.3 F Pulse Rate 78 67 72 Respiratory Rate 18 20 20 Blood Pressure 118/60 Pulse Oximetry 98 07/05/21 18:05 07/05/21 1
--- NOTE | 2021-07-06 10:41 | PM.PNPUL ---
Progress Note: A&P Assessment and Plan (1) COPD exacerbation: Code(s): J44.1 - Chronic obstructive pulmonary disease with (acute) exacerbation Status: Acute Assessment and Plan: 66-year-old female with end-stage COPD, chronic hypoxemic hypercapnic respiratory failure on home ventilatory support via trilogy ventilator presented with a shortness of breath and cough related to COPD exacerbation. Chest imaging studies showed no new infiltrates. The patient has been on appropriate treatment with IV steroids antibiotics and short-acting bronchodilators. She had decrease in IV steroids to 60 mg Solu-Medrol IV daily. continue with Daliresp p.o., nebulized short-acting bronchodilators, DVT prophylaxis. HEr COVID 19 PCR is negative. She has no history of exposure to COVID. She has not received any COVID vaccines. She has harsh moist rhonchi, cannot expectorate much , however what she can expectorate is thick and yellow. 07/03/2021 continue Cornet vibratory valve to help clear secretions. She is feeling better this afternoon. Continue antibiotics. 07/05 Patient is improving but still with diffused expiratory wheezes. I will change her Solu-Medrol from 60 mg IV q.day to 20 mg IV q.6 hours. Will increase her albuterol and ipratropium nebulizers from q.6 to q.4 hours standing. 07/06 Patient states she had good improvement over the last 24 hours. She has minimal phlegm production and her cough is decreased. She is walking in the room and states that she has 60% back to her normal. Solu-Medrol was discontinued today and she was given prednisone 40. Azithromycin was discontinued and her IV ceftriaxone was changed to p.o. Levaquin. She wore her home noninvasive last night with 3 L bleed in without any issues. I will order an overnight oximetry on her home trilogy and 3 L bleed in to assess her oxygenation. I will order an ABG in the morning prior to removal of trilogy to assess her ventilation. if she continues to improve anticipate discharge on 07/07 on these pulmonary medicines. Prednisone 40 mg p.o. times 4 days Levaquin 750 mg p.o. q.day through 07/09/2021 Brovana 15 mcg nebulized b.i.d. ipratropium 0.5 mg nebs q.i.d. rescue albuterol inhaler at 2 puffs q.4 hours p.r.n. shortness of breath or wheezing. Rescue albuterol nebulizer 2.5 mg q.4 hours p.r.n. shortness of breath or wheezing Daliresp 500 mcg p.o. q.day home oxygen for formal home O2 study (I have ordered this for today) Home trilogy noninvasive ventilator with bleed in determine by her overnight oximetry (2) Hypoxemia: Code(s): R09.02 - Hypoxemia Status: Acute Assessment and Plan: She is on 3 L/min 07/05 Patient is on 3 L nasal cannula at home and she currently is on 3 L nasal cannula saturations 94-97%. 07/06. Patient on 3 L nasal cannula saturations 96%. (3) Chronic respiratory failure with hypoxia and hypercapnia: Code(s): J96.11 - Chronic respiratory failure with hypoxia; J96.12 - Chronic respiratory failure with hypercapnia Status: Acute Assessment and Plan: 07/05 Patient is continue her home trilogy with 3 L bleed in. Patient tolerating this treatment well. I will attempt to obtain a download. 07/06 I will order an overnight oximetry on her home trilogy and 3 L bleed in to assess her oxygenation. I will order an ABG in the morning prior to removal of trilogy to assess her ventilation. (4) Lung nodule: Code(s): R91.1 - Solitary pulmonary nodule Status: Acute Assessment and Plan: Last low-dose CT done in February of 2021 showed small nodules less than 5 mm for which a repeat chest CT in 6 months was suggested. The patient will need to return to pulmonary clinic for follow-up approximately 2-3 weeks post DC home. Subjective Date/time seen: 07/06/21 10:41 Interval history: James Barrett is a 66-year-old female seen in
[2021-07-06 11:28] LABS: Glucose Point of Care 70 mg/dl (65-105)
[2021-07-06] MEDS: predniSONE 20 MG TABLET 40 MG PO (11:32)
[2021-07-06] MEDS: levoFLOXacin 750 MG TABLET PO (11:32)
[2021-07-06 11:33] LABS: Glucose Point of Care 69 mg/dl (65-105)
--- NOTE | 2021-07-06 15:38 | PC.NURSE ---
On 07/06/21, the student, [Titi Galindo ], provided care and completed [facility] documentation on this patient. I have reviewed the student's documentation and agree with the findings.
--- NOTE | 2021-07-06 15:38 | PCRCNOTE ---
Home o2 eval done, 3 L at rest and with activity, pt also bleeds in 3 l on trilogy home bipap unit. Current home O2/bipap settings have not changed with this hospital visist. No addtl O2 needs. IV Resp care is her DME. RN notified.
[2021-07-06 16:38] LABS: Glucose Point of Care 123 mg/dl (65-105)
[2021-07-06] MEDS: MELOXICAM 7.5 MG TABLET 15 MG PO (21:10)
[2021-07-06] MEDS: AMITRIPTYLINE HCL 25 MG TABLET PO (21:10)
[2021-07-06 21:31] LABS: Glucose Point of Care 143 mg/dl (65-105)
[2021-07-07] VITALS (9 sets, daily range): BP systolic 102–109; BP diastolic 48–60; PULSE 65–84; RESP 18–24; TEMP 36.3–36.7; O2SAT 97–100
--- NOTE | 2021-07-07 01:32 | PCRCNOTE ---
apnea study; 0000 neb tx was omitted
[2021-07-07] MEDS: ALBUTEROL SULFATE NEB 2.5 MG/0.5 ML INH INHALATION ×2 (05:24→09:45)
[2021-07-07] MEDS: IPRATROPIUM BR 0.02% INH SOLN 0.5 MG/2.5 ML VIAL INHALATION ×2 (05:24→09:45)
[2021-07-07 06:05] LABS: pH ABG 7.389 (7.350-7.450)
[2021-07-07 06:07] LABS: Base Excess ABG 8.2 mEq/l (+/-2.0); HCO3 ABG 35.6 mEq/l (22.0-26.0); Oxygen Saturation ABG 97.5 % (95.0-100.0); PCO2 ABG 60.3 mmHg (35.0-45.0); PO2 ABG 103.5 mmHg (80.0-100.0)
[2021-07-07 06:08] LABS: Alveolar/Arterial O2 Gradient 54.1 mmHg; Oxygen Content ABG 21.3 %vol (16.0-22.0); Oxyhemoglobin 96.6 % THb (90.0-100.0); Total Hemoglobin 15.6 g/dL (12.0-18.0)
[2021-07-07 06:09] LABS: Device OTHER DEVICE; Fractional Inspired Oxygen 32 %; Modified Allen's Test Pass; PO2 FiO2 Ratio Arterial Blood 3.23 %; Site Drawn LEFT RADIAL
[2021-07-07 06:20] LABS: Hematocrit 38.4 % (37.0-47.0); Hemoglobin 11.8 g/dL (12.0-15.0); Mean Corpuscular HGB Conc 30.7 g/dl (32-36); Mean Corpuscular Volume 97.7 fl (80-100); Mean Platelet Volume 8.9 fl (7.4-10.4); Platelet Count Result 223 k/mm3 (150-375); Red Blood Count 3.93 M/mm3 (4.2-5.4); Red Cell Distribution Width 14.1 % (11.5-14.5); White Blood Count 14.7 K/mm3 (4.5-10.0)
[2021-07-07 06:52] LABS: Anion Gap 7 mmol/L (8-16); Blood Urea Nitrogen 28 mg/dL (7-17); Calcium 8.7 mg/dL (8.4-10.2); Carbon Dioxide 32 mmol/L (22-30); Chloride 98 mmol/L (98-107); Estimated CRCL calculation 83 ml/min; Estimated Glomerular Filt Rate > 60; Glucose 88 mg/dL (65-110); Potassium 4.3 mmol/L (3.4-5.0); Sodium 137 mmol/L (137-145)
[2021-07-07 07:46] LABS: Glucose Point of Care 61 mg/dl (65-105)
--- NOTE | 2021-07-07 08:22 | PCNWS ---
Weekly nutritional screen. Patient is tolerating current diet with adequate intake. No weight loss reported. No nutritional needs at this time.
[2021-07-07 09:00] LABS: Glucose Point of Care 117 mg/dl (65-105)
[2021-07-07] MEDS: levoFLOXacin 750 MG TABLET PO (09:04)
[2021-07-07] MEDS: predniSONE 20 MG TABLET 40 MG PO (09:04)
[2021-07-07] MEDS: ROFLUMILAST 500 MCG TABLET PO (09:04)
[2021-07-07] MEDS: ATORVASTATIN 10 MG TABLET PO (09:04)
[2021-07-07] MEDS: ENOXAPARIN 40 MG/0.4 ML SYRINGE SUB-Q (09:04)
[2021-07-07] MEDS: ASPIRIN 81 MG ENTERIC TABLET PO (09:04)
--- NOTE | 2021-07-07 09:42 | PM.PNPUL ---
Progress Note: A&P Assessment and Plan (1) COPD exacerbation: Code(s): J44.1 - Chronic obstructive pulmonary disease with (acute) exacerbation Status: Acute Assessment and Plan: 66-year-old female with end-stage COPD, chronic hypoxemic hypercapnic respiratory failure on home ventilatory support via trilogy ventilator presented with a shortness of breath and cough related to COPD exacerbation. Chest imaging studies showed no new infiltrates. The patient has been on appropriate treatment with IV steroids antibiotics and short-acting bronchodilators. She had decrease in IV steroids to 60 mg Solu-Medrol IV daily. continue with Daliresp p.o., nebulized short-acting bronchodilators, DVT prophylaxis. HEr COVID 19 PCR is negative. She has no history of exposure to COVID. She has not received any COVID vaccines. She has harsh moist rhonchi, cannot expectorate much , however what she can expectorate is thick and yellow. 07/03/2021 continue Cornet vibratory valve to help clear secretions. She is feeling better this afternoon. Continue antibiotics. 07/05 Patient is improving but still with diffused expiratory wheezes. I will change her Solu-Medrol from 60 mg IV q.day to 20 mg IV q.6 hours. Will increase her albuterol and ipratropium nebulizers from q.6 to q.4 hours standing. 07/06 Patient states she had good improvement over the last 24 hours. She has minimal phlegm production and her cough is decreased. She is walking in the room and states that she has 60% back to her normal. Solu-Medrol was discontinued today and she was given prednisone 40. Azithromycin was discontinued and her IV ceftriaxone was changed to p.o. Levaquin. She wore her home noninvasive last night with 3 L bleed in without any issues. I will order an overnight oximetry on her home trilogy and 3 L bleed in to assess her oxygenation. I will order an ABG in the morning prior to removal of trilogy to assess her ventilation. 07/07 Pateint states That she has improved and ready for discharge home today. She wore her home trilogy noninvasive ventilator last night with 3 L bleed in and had an overnight oximetry. Patient's baseline saturation 97%. Lowest saturation 94%. Time with saturation less than or equal to 88% was 0 minutes. Patient had an ABG at the end of the morning on her home noninvasive with 3 L with a pH of 7.39/60/104. Yesterday patient had a home O2 assessment and she requires 3 L nasal cannula with rest and 3 L with activity. Patient is suitable for discharge from a pulmonary perspective on these pulmonary medicines. Prednisone 40 mg p.o. times 3 days Levaquin 750 mg p.o. q.day through 07/09/2021 Brovana 15 mcg nebulized b.i.d. ipratropium 0.5 mg nebs q.i.d. rescue albuterol inhaler at 2 puffs q.4 hours p.r.n. shortness of breath or wheezing. Rescue albuterol nebulizer 2.5 mg q.4 hours p.r.n. shortness of breath or wheezing Daliresp 500 mcg p.o. q.day 3 L with rest and with activity Home trilogy noninvasive ventilator with 3 L bleed in. Follow-up in pulmonary clinic in approximately 3 weeks. (2) Hypoxemia: Code(s): R09.02 - Hypoxemia Status: Acute Assessment and Plan: She is on 3 L/min 07/05 Patient is on 3 L nasal cannula at home and she currently is on 3 L nasal cannula saturations 94-97%. 07/06. Patient on 3 L nasal cannula saturations 96%. 07/07 Patient arrives 3 L with rest and with activity per home O2 assessment on 07/06. (3) Chronic respiratory failure with hypoxia and hypercapnia: Code(s): J96.11 - Chronic respiratory failure with hypoxia; J96.12 - Chronic respiratory failure with hypercapnia Status: Acute Assessment and Plan: 07/05 Patient is continue her home trilogy with 3 L bleed in. Patient tolerating this treatment well. I will attempt to obtain a download. 07/06 I will order an overnight oximetry on her ho
--- NOTE | 2021-07-07 10:29 | PM.DS ---
DS: Admitting Diagnosis Discharge Date 07/07/2021 Admitting Diagnosis COPD exacerbation DS: Discharge Diagnosis Discharge Diagnosis (1) COPD exacerbation: Code(s): J44.1 - Chronic obstructive pulmonary disease with (acute) exacerbation Status: Acute Assessment and Plan: Presented with increased wheezing and sputum production, consistent with COPD exacerbation - chest x-ray did not show any signs of pneumonia - she was seen in consultation by pulmonology - She received IV Solu-Medrol which was able to be weaned per pulmonology recommendations to PO prednisone which she will continue to complete 5 days of PO steroid treatment. - Completed a course of azithromycin. Received 3 doses of IV ceftriaxone then transitioned to p.o. Levaquin for 4 more days to complete a total of 7 days antibiotic therapy. Edited to note that following the patient's discharge, her sputum culture came back with light growth of Pseudomonas aeruginosa, susceptible to Levaquin. I called the patient and informed her of this and prescribed her a longer duration of Levaquin to complete 7 total days, called in to her pharmacy on 07/10/21. - Continue bronchodilators, ipratropium nebs q.i.d., albuterol neb q.4 hours as needed, albuterol inhaler q.4 hours as needed, daily rest 500 mcg daily, and home trilogy -continue 3 L O2 with rest and with activity, this is the patient's baseline (2) Chronic respiratory failure with hypoxia and hypercapnia: Code(s): J96.11 - Chronic respiratory failure with hypoxia; J96.12 - Chronic respiratory failure with hypercapnia Status: Acute Assessment and Plan: Stable on home oxygen requirement of 3 L. - Continue maintenance inhalers and trilogy as above. (3) Hyperglycemia: Code(s): R73.9 - Hyperglycemia, unspecified Status: Acute Assessment and Plan: Due to steroids - continue low-dose sliding scale insulin while on high-dose steroids - A1c 5.3 - Anticipate resolution following completion of steroids (4) Leukocytosis: Code(s): D72.829 - Elevated white blood cell count, unspecified Status: Acute Assessment and Plan: Secondary to steroids - no signs or symptoms to suggest underlying bacterial infectious etiology DS: Summary Hospital Course Hospital Course: Date of admission: 06/28/2021 Date of discharge: 07/07/2021 James C Arnold is a 66-year-old female with a history of chronic respiratory failure on home oxygen therapy (3 L at baseline) secondary to COPD, degenerative disc disease, anxiety who presented to the emergency department on 06/28/2021 with complaints of cough and fatigue. On presentation to the emergency department, she was mildly tachycardic, BP slightly elevated at 155/80, 89% on 3 L, WBC 12.5, electrolytes stable, CXR showed no acute cardiopulmonary findings. She was admitted to the hospitalist service for further evaluation management of her COPD exacerbation. She was seen in consultation by pulmonology. Please see above for further details. She had symptomatic improvement with IV steroids and was able to be weaned to p.o. prednisone. She also received a course of antibiotics. She was feeling much better and her wheezing improved. Given her overall improvement, she was determined to no longer require inpatient care and felt to be stable for discharge. I discussed the case with snack bar cook, Dr. Mckeon, who was in agreement with plans for discharge. She will follow-up in the Pulmonary Clinic as an outpatient. I discussed with the patient worrisome signs and symptoms for which to return and she was educated on her medications. She was discharged in hemodynamically stable condition on 07/07/2021. Status at Discharge Functional status at discharge: independent ambulation Overall status at discharge: patient is progressing back to baseline Time Spent with Patient Time attestation: Total time spent providing and/or coordinating discharge s
[2021-07-07 11:22] LABS: Glucose Point of Care 76 mg/dl (65-105)
== END 2021-07-07 12:30 | disposition home or self-care (01) | DRG 191 ==
LOC: ANHED 12:03 → ANH2MED 16:18
PROVIDERS: Emergency Medicine; Internal Medicine; Internal Medicine Pulmonary Disease; Nurse Practitioner; Physician Assistant; Admitting Provider Family Medicine; Emergency Provider Emergency Medicine; Visit Provider Internal Medicine
DX: J44.1 Chronic obstructive pulmonary disease with (acute) exacerbation (principal); J96.11 Chronic respiratory failure with hypoxia; J96.12 Chronic respiratory failure with hypercapnia; Z99.81 Dependence on supplemental oxygen; Z20.822 Contact with and (suspected) exposure to COVID-19; R91.1 Solitary pulmonary nodule; M19.90 Unspecified osteoarthritis, unspecified site; F41.9 Anxiety disorder, unspecified; R73.9 Hyperglycemia, unspecified; D72.829 Elevated white blood cell count, unspecified; T38.0X5A Adverse effect of glucocorticoids and synthetic analogues, initial encounter; Z79.82 Long term (current) use of aspirin; Z87.891 Personal history of nicotine dependence
CPT/HCPCS: 36415; 36600; 71045; 71046; 80048; 80053; 82805; 82948; 83036; 83735; 83880; 84100; 85025; 85027; 86140; 87040; 87070; 87077; 87086; 87186; 87205; 87426; 93005; 94618; 94640; 94667; 94762; 96365; 96366; 96372; 96374; 96375; 96376; 99285; A9270; C9803; G0378; J0456; J0696; J1650; J2920; J2930; J7060; J7512

== ENCOUNTER 2021-09-15 13:04 | Outpatient (CLI) | payer MEDICARE, MEDICAID, SELFPAY ==
--- NOTE | ~2021-09-15 | CT_ITS ---
EXAMINATION: CT diagnostic chest wo con DATE: 09/15/2021 13:27 INDICATION: Shortness of breath, six-month follow-up for lung nodules on low-dose screen chest CT TECHNIQUE: Computed tomography (CT) of the chest was performed without intravenous contrast. The dose -length product (DLP) was 260.55 mGy-cm. Automated exposure control and iterative reconstruction tech nique were employed. COMPARISON: 03/23/2021, 01/25/2020 FINDINGS: There is moderate emphysema. Mid noted are scattered centrilobular and groundglass nodules with a lower lung zone predominance. None demonstrate suspicious interval change. There is mild bronc hiectasis of the lower lobes. No pleural effusion or pneumothorax is identified. No pathologically en larged thoracic lymph nodes are identified. The heart size is normal. Calcified coronary artery ather osclerosis is noted. There is mild thoracic spondylosis. IMPRESSION: 1. Scattered centrilobular and groundglass nodules with a lower lung zone predominance, most consiste nt with chronic infection. Annual low-dose lung cancer screening CT is recommended. Reviewed, dictated and finalized at location A. [facility]TER IMPRESSION: 1. Scattered centrilobular and groundglass nodules with a lower lung zone predo minance, most consistent with chronic infection. Annual low-dose lung cancer sc reening CT is recommended.
== END 2021-09-15 13:05 | disposition home or self-care (01) ==
LOC: ANHIMG 13:09
PROVIDERS: Visit Provider Nurse Practitioner Family
DX: R91.8 Other nonspecific abnormal finding of lung field (principal)
CPT/HCPCS: 71250

== ENCOUNTER 2021-09-29 12:26 | Outpatient (CLI) | payer MEDICARE, MEDICAID, SELFPAY ==
[2021-09-29 12:45] VITALS: PULSE 75; O2SAT 91
[2021-09-29 12:50] VITALS: PULSE 96; O2SAT 85
[2021-09-29 12:55] VITALS: PULSE 87; O2SAT 86
[2021-09-29 13:00] VITALS: PULSE 92; O2SAT 88
[2021-09-29 13:05] VITALS: O2SAT 90
[2021-09-29 13:15] VITALS: PULSE 82; O2SAT 90
--- NOTE | 2021-09-29 13:19 | HOMEO2EVAL ---
Evaluation was performed at [facility] Home Oxygen Evaluation RC: Home Oxygen (O2) Evaluation Start: 09/29/21 13:16 Freq: Status: Active Protocol: RPE Activity Type Activity Date Activity User E-Sign Co-Sign Detail Recorded Client Recorded Date Recorded By Document 09/29/21 12:45 [email or web address] [email or web address] 09/29/21 13:19 DJO Document 09/29/21 12:50 [email or web address] [email or web address] 09/29/21 13:19 DJO Document 09/29/21 12:55 [email or web address] [email or web address] 09/29/21 13:19 DJO Document 09/29/21 13:00 [email or web address] [email or web address] 09/29/21 13:19 DJO Document 09/29/21 13:05 [email or web address] [email or web address] 09/29/21 13:19 DJO Document 09/29/21 13:15 [email or web address] [email or web address] 09/29/21 13:19 DJO 09/29/21 09/29/21 09/29/21 12:45 12:50 12:55 Home O2 Evaluation Test Phase Resting Exercise Exercise Oxygen Delivery Room Air Room Air Nasal Cannula Oxygen Flow Rate (L/min) 1 Pulse Oximetry (90-100 %) 91 85 L 86 L Pulse Rate (60-100 beats/min) 75 96 87 Activity Tolerance Ambulation Distance (feet) Ambulation Distance (meters) Treatment Charges O2 Evaluation - Outpatient 09/29/21 09/29/21 09/29/21 13:00 13:05 13:15 Home O2 Evaluation Test Phase Exercise Exercise Resting Oxygen Delivery Nasal Cannula Nasal Cannula Room Air Oxygen Flow Rate (L/min) 2 3 Pulse Oximetry (90-100 %) 88 L 90 90 Pulse Rate (60-100 beats/min) 92 82 Activity Tolerance Good Ambulation Distance (feet) 750 Ambulation Distance (meters) 228.58 Treatment Charges
== END 2021-09-29 12:27 | disposition home or self-care (01) ==
LOC: ANHPFT 12:27
PROVIDERS: Visit Provider Nurse Practitioner Family
DX: J96.11 Chronic respiratory failure with hypoxia (principal); J96.12 Chronic respiratory failure with hypercapnia
CPT/HCPCS: 94618

== ENCOUNTER → 2021-10-29 02:44 | Outpatient (CLI) | payer MEDICARE, MEDICAID, SELFPAY ==
[2021-10-29 11:31] LABS: SARS-CoV-2 RNA PCR Negative
== END ==
PROVIDERS: Visit Provider Internal Medicine Gastroenterology
DX: Z01.812 Encounter for preprocedural laboratory examination (principal); Z20.822 Contact with and (suspected) exposure to COVID-19
CPT/HCPCS: C9803; U0003; U0005

== ENCOUNTER 2021-11-01 00:48 | Day surgery (SDC) | payer MEDICARE, MEDICAID, SELFPAY ==
[2021-10-20 15:07] VITALS: BMI 29.0
[2021-11-01 12:26] VITALS: BP 130/65; PULSE 81; RESP 22; TEMP 36.6; O2SAT 95; BMI 30.4
--- NOTE | 2021-11-01 12:32 | WPDGICN ---
Assessment and Plan Assessment and plan (1) Positive colorectal cancer screening using Cologuard test: Code(s): R19.5 - Other fecal abnormalities Status: Acute Assessment and Plan: Patient presents today for screening colonoscopy because of positive Cologuard test. Further recommendations will be given after endoscopy. (2) COPD (chronic obstructive pulmonary disease): Code(s): J44.9 - Chronic obstructive pulmonary disease, unspecified Status: Acute GI Consult Note Consult date/time: 11/01/21 12:32 HPI: James Barrett is a 66 year old female Presents for surveillance screening colonoscopy. Patient recently found to have positive Cologuard test. She reports that her current weight appetite and bowel movements are normal. She denies abdominal pain. She has had no bleeding. Family history is noncontributory. Patient reports having an unremarkable colonoscopy many years ago. Recent health problems include COPD for which she is on supplemental oxygen. Review of Systems Review of Systems: All systems reviewed & are unremarkable except as noted in HPI and below PMFSH Past Medical History Medical History Anxiety Chronic obstructive pulmonary disease Chronic respiratory failure with hypoxia and hypercapnia Degenerative disc disease On home oxygen therapy Osteoarthritis Surgical History Surgical History History of section (1984) History of hysterectomy (1988) Family History Family History Mother Diabetes mellitus Hypertension Sibling Hypertension Asthma Family history of sleep apnea Son Drug overdose Father Alcoholism Motor vehicle accident Ran over and then Social History Social History Social History: The patient lives with her ex- and they maintain a friendly relationship. They had 3 sons together, 1 who unfortunately from a drug overdose. She smoked about a pack of cigarettes a day for at least 30 years before quitting. She denies alcohol and illicit substance abuse. She designates her son Alex Barrett as her surrogate decision maker and she wishes to be a full code. Smoking packs per day: 1.2 Smoking cigarettes per day: 24.0 Smoking status: Former smoker Tobacco type: cigarettes Alcohol intake: never Substance use: never Substance use type: does not use Living arrangements: alone Spiritual care concerns: No Meds Home Medications and Allergies Home Medications Medication Instructions Recorded Confirmed Type albuterol sulfate 90 mcg/actuation 1 puff INHALATION Q4H PRN 08/29/19 10/20/21 History aerosol inhaler arformoterol 15 mcg/2 mL solution 2 ml INHALATION BID 08/29/19 10/20/21 History for nebulization aspirin 81 mg tablet,delayed 81 mg PO DAILY 09/02/19 10/20/21 History release meloxicam 15 mg tablet 15 mg PO HS 03/02/20 10/20/21 History amitriptyline 25 mg PO HS #30 tablet 05/08/20 10/20/21 Rx atorvastatin 10 mg PO DAILY 07/18/20 10/20/21 History ipratropium bromide 0.02 % See Rx Instructions .ROUTE 11/23/20 10/20/21 Rx solution for inhalation .COMPLEX #360 ml roflumilast 500 mcg tablet 500 mcg PO DAILY #30 tablet 02/23/21 10/20/21 Rx albuterol sulfate See Rx Instructions .ROUTE 05/24/21 10/20/21 Rx .COMPLEX #150 milliliter Allergies Allergy/AdvReac Type Severity Reaction Status Date / Time No Known Allergies Allergy Verified 11/01/21 12:25 Vital Signs Vital Signs - 24 hr 11/01/21 12:26 Temperature 97.9 F Pulse Rate 81 Respiratory Rate 22 H Blood Pressure 130/65 Pulse Oximetry 95 Exam Narrative: Physical exam reveals patient to be alert. Vital signs stable. HEENT exam is unremarkable. Patient is anicteric. Jonathan
--- NOTE | 2021-11-01 12:47 | WPDANESEPPF ---
Anes - Initial Pre Proc Eval Procedure: Operation Date: 11/01/21 13:30 Proposed Procedures p Colonoscopy - Devendra Garza MD Date/Time: 11/01/21 12:47 Surgeon: Devendra Garza MD Pre Op Diagnosis: positive cologuard Patient Data Age: 66 Gender: F Height: 1.7 m Weight: 88.3 kg Last Vital Signs Temp 97.9 F 11/01/21 12:26 Pulse 81 11/01/21 12:26 Resp 22 H 11/01/21 12:26 BP 130/65 11/01/21 12:26 Pulse Ox 95 11/01/21 12:26 Allergies Allergy/AdvReac Type Severity Reaction Status Date / Time No Known Allergies Allergy Verified 11/01/21 12:25 Home Medications Medication Instructions Recorded Confirmed Type albuterol sulfate 90 mcg/actuation 1 puff INHALATION Q4H PRN 08/29/19 10/20/21 History aerosol inhaler arformoterol 15 mcg/2 mL solution 2 ml INHALATION BID 08/29/19 10/20/21 History for nebulization aspirin 81 mg tablet,delayed 81 mg PO DAILY 09/02/19 10/20/21 History release meloxicam 15 mg tablet 15 mg PO HS 03/02/20 10/20/21 History amitriptyline 25 mg PO HS #30 tablet 05/08/20 10/20/21 Rx atorvastatin 10 mg PO DAILY 07/18/20 10/20/21 History ipratropium bromide 0.02 % See Rx Instructions .ROUTE 11/23/20 10/20/21 Rx solution for inhalation .COMPLEX #360 ml roflumilast 500 mcg tablet 500 mcg PO DAILY #30 tablet 02/23/21 10/20/21 Rx albuterol sulfate See Rx Instructions .ROUTE 05/24/21 10/20/21 Rx .COMPLEX #150 milliliter Patient hx anesthesia problems: none Family hx anesthesia problems: none Results Review: All pre-operative results and documents have been reviewed as part of the pre-operative evaluation. [facility] Past Medical History Medical History Anxiety Chronic obstructive pulmonary disease Chronic respiratory failure with hypoxia and hypercapnia Degenerative disc disease On home oxygen therapy Osteoarthritis Surgical History Surgical History History of section (1984) History of hysterectomy (1988) Family History Family History Mother Diabetes mellitus Hypertension Sibling Hypertension Asthma Family history of sleep apnea Son Drug overdose Father Alcoholism Motor vehicle accident Ran over and then Social History Social History Social History: The patient lives with her ex- and they maintain a friendly relationship. They had 3 sons together, 1 who unfortunately from a drug overdose. She smoked about a pack of cigarettes a day for at least 30 years before quitting. She denies alcohol and illicit substance abuse. She designates her son Alex Barrett as her surrogate decision maker and she wishes to be a full code. Smoking packs per day: 1.2 Smoking cigarettes per day: 24.0 Smoking status: Former smoker Tobacco type: cigarettes Alcohol intake: never Substance use: never Substance use type: does not use Living arrangements: alone Spiritual care concerns: No Anes - Eval Final PreProcedure Day of Procedure 11/01/21 12:47 Patient weight: obese Heart: regular rate and rhythm Lungs: clear to auscultation Airway: Mallampati scale class II Neurological: alert and oriented Last oral intake: >/= 8 hours ASA classification: III Emergent: no Anesthetic plan: proceed Anesthesia type and monitoring: general GIVS and standard monitoring Results Review: All pre-operative results and documents have been reviewed as part of the pre-operative evaluation. Informed Consent: The patient's anesthetic plan and its attendant risks and benefits were discussed with the patient/family/POA. Questions were solicited and answers provided to the satisfaction of the patient/family/POA.
[2021-11-01] MEDS: LACTATED RINGERS 1,000 ML 150 ML IV CONT (13:00)
[2021-11-01 13:28] VITALS: BP 108/79; PULSE 75; RESP 15; O2SAT 100
[2021-11-01 13:38] VITALS: BP 132/75; PULSE 70; RESP 18; O2SAT 100
[2021-11-01 13:48] VITALS: BP 135/77; PULSE 71; RESP 22; O2SAT 100
== END 2021-11-01 14:13 | disposition short-term general hospital (02) ==
PROVIDERS: Visit Provider Internal Medicine Gastroenterology
PROC: 0DJD8ZZ Inspection of Lower Intestinal Tract, Via Natural or Artificial Opening Endoscopic (ICD-10-PCS; CPT 45378; principal; 2021-11-01 13:30)
DX: R19.5 Other fecal abnormalities (principal); D12.2 Benign neoplasm of ascending colon; D12.5 Benign neoplasm of sigmoid colon; K63.5 Polyp of colon; K62.1 Rectal polyp; K57.30 Diverticulosis of large intestine without perforation or abscess without bleeding; K64.8 Other hemorrhoids; J44.9 Chronic obstructive pulmonary disease, unspecified; J96.12 Chronic respiratory failure with hypercapnia; J96.11 Chronic respiratory failure with hypoxia; F41.9 Anxiety disorder, unspecified; Z99.81 Dependence on supplemental oxygen; Z87.891 Personal history of nicotine dependence; Z79.51 Long term (current) use of inhaled steroids; Z79.82 Long term (current) use of aspirin; E66.9 Obesity, unspecified; Z68.30 Body mass index [BMI] 30.0-30.9, adult
CPT/HCPCS: 45385; 88305; C9803; J2704; J7120; U0003; U0005

== ENCOUNTER 2022-03-04 14:27 | Outpatient (CLI) | payer MEDICARE, MEDICAID, SELFPAY ==
--- NOTE | ~2022-03-04 | DEXA_ITS ---
Bone Density Report Name: MYRA NAPIER Age: 66 Sex: Female Ethnicity: White Date of : 1955 Indication: postmenopausal; screening for osteoporosis; asthma or emphysema; hysterectomy; Referring Provider: LIA KOEHLER Study: Bone densitometry was performed. Exam Date: March 04, 2022 Accession number: [id number] Bone Density: Region BMD T-score Z-score Classification AP Spine(L1-L4) 1.086 0.4 2.2 Normal Femoral Neck (Left) 0.874 0.2 1.8 Normal Total Hip (Left) 1.055 0.9 2.2 Normal Femoral Neck (Right) 0.893 0.4 2.0 Normal Total Hip (Right) 1.067 1.0 2.3 Normal Total Hip Mean 1.061 1.0 2.3 Normal World Health Organization criteria for BMD impression classify patients as: Normal (T-score at or above -1.0), Osteopenia (T-score between -1.0 and -2.5), or Osteoporosis (T-score at or below -2.5). 10-year Fracture Risk: FRAX not reported because: All T-scores for Spine Total, Hip Total, Femoral Neck at or above -1.0 Clinical Information Provided by Patient: Has the following medical conditions: Asthma or Emphysema, Hysterectomy Patient maximum height was 67 Menopause Age: 39 No regular weight bearing exercise Drinks caffeinated beverages Onset of menses at age 17 Number of children 3 Impression: The patient has normal bone mass. Discussion: BONE DENSITY IS ABOVE THE MINIMUM DESIRABLE LEVEL AT ALL SKELETAL SITES TESTED. This patient?s bone mineral density is above the minimum desirable level (T-score -1.0 or better) at all sites measured. The patient should follow a healthful lifestyle (good nutrition with adequate calcium and vitamin D, and appropriate weight-bearing exercise). Follow-Up: Consider repeating this study in 5 years or sooner if there is some new clinical indication. Reported by: MARQUITA on 03/04/2022 3:20:00 PM. Reviewed, dictated and finalized at location [facility]
--- NOTE | ~2022-03-04 | MM_ITS ---
EXAMINATION: MM screening sue BI w aisha HISTORY: Screening TECHNIQUE: Craniocaudal and mediolateral oblique 3-D tomosynthesis images were obtained and synthetic 2-D images were generated. CAD analysis was submitted and interpreted. COMPARISON: No prior mammogram is available for comparison at this institution. BREAST PARENCHYMAL COMPOSITION: There are scattered areas of fibroglandular density. FINDINGS: There are bilateral masses which are obscured by overlying dense fibroglandular tissue. The re are no suspicious calcifications or architectural distortion. IMPRESSION: 1. Bilateral breast masses. 2. Additional mammographic views and possible breast ultrasound are recommended. BI-RADS Category 0: Incomplete: Needs additional imaging evaluation. Reviewed, dictated and finalized at location A. IMPRESSION: 1. Bilateral breast masses. 2. Additional mammographic views and possible breast ultrasound are recommended . BI-RADS Category 0: Incomplete: Needs additional imaging evaluation.
== END 2022-03-04 14:28 | disposition home or self-care (01) ==
LOC: ANHIMG 14:29
PROVIDERS: Visit Provider Obstetrics & Gynecology
DX: Z12.31 Encounter for screening mammogram for malignant neoplasm of breast (principal); Z78.0 Asymptomatic menopausal state; R92.8 Other abnormal and inconclusive findings on diagnostic imaging of breast
CPT/HCPCS: 77063; 77067; 77080

== ENCOUNTER 2022-04-05 12:47 | Outpatient (CLI) | payer MEDICARE, MEDICAID, SELFPAY ==
--- NOTE | ~2022-04-05 | MMUS_ITS ---
EXAMINATION: MM diagnostic sue BI w aisha, US breast BI complete HISTORY: Bilateral breast masses reported on 03/04/2022 screening mammogram TECHNIQUE: Additional 3-D tomosynthesis images of both breasts were performed and synthetic 2-D image s were generated. CAD analysis was submitted and interpreted. High resolution complete bilateral vaugh[address] st ultrasound including all 4 quadrants and subareolar areas was performed. COMPARISON: 03/04/2022 bilateral screening mammogram BREAST PARENCHYMAL COMPOSITION: The breasts are heterogeneously dense, which may obscure small masses . FINDINGS: MAMMOGRAPHIC FINDINGS: Partially obscured masses are suggested bilaterally but are not well demonstrated due to the heteroge neously dense stroma. Bilateral complete breast ultrasound examination was performed. ULTRASOUND: Right breast: 3:00 1 cm from nipple: Parallel circumscribed hypoechoic 2.4 x 1.8 x 3.0 mm lesion without internal v ascularity or posterior shadowing, likely benign 8:00 2 cm from nipple: 3.3 x 2.1 x 3.5 mm sonolucency without internal vascularity or shadowing, cons istent with small cyst 9:00 1 cm from nipple: 7 x 5 x 6 mm cyst with through transmission and posterior enhancement Left breast: 9:00 1 cm from nipple: 4.9 x 3.3 x 3.9 mm sonolucency with through transmission, no internal vascular ity, likely a small cyst 9:00 1 cm from nipple: 4.4 x 3.2 x 5.0 mm additional nearby cyst Subareolar: 6.2 x 3.6 x 5.7 mm parallel circumscribed sonolucency with through transmission consisten t with simple cyst IMPRESSION: 1. Benign findings 2. Routine annual mammographic screening is recommended BI-RADS Category 2: Benign finding(s). Reviewed, dictated and finalized at location A. IMPRESSION: 1. Benign findings 2. Routine annual mammographic screening is recommended BI-RADS Category 2: Benign finding(s).
== END 2022-04-05 12:48 | disposition home or self-care (01) ==
PROVIDERS: Visit Provider Obstetrics & Gynecology
DX: R92.8 Other abnormal and inconclusive findings on diagnostic imaging of breast (principal)
CPT/HCPCS: 76641; 77062; 77066; G0279

== ENCOUNTER 2022-05-19 09:21 | Emergency (ER) | payer MEDICARE, MEDICAID, SELFPAY ==
--- NOTE | ~2022-05-19 | XR_ITS ---
EXAMINATION: XR chest 2V DATE: 05/19/2022 10:00 INDICATION: Cough and shortness of breath TECHNIQUE: AP and lateral views of the chest are obtained. COMPARISON: 07/03/2021 FINDINGS: The lungs are free of acute opacities. No pleural effusion or pneumothorax. The cardiomedia stinal silhouette is normal. There is mild thoracic spondylosis. There is scarring in the lung apices . IMPRESSION: 1. No acute cardiopulmonary abnormality. Reviewed, dictated and finalized at location B.
[2022-05-19 09:24] VITALS: BP 135/80; PULSE 87; RESP 24; TEMP 36.7; O2SAT 92
--- NOTE | 2022-05-19 09:26 | ECG_ITS ---
Measurements Intervals [place] Rate: 72 P: 72 NC: 121 QRS: 21 QRSD: 103 T: 50 QT: 378 QTc: 414 Interpretive Statements SINUS RHYTHM SEPTAL MYOCARDIAL INFARCTION , OF INDETERMINATE AGE [40+ ms Q WAVE IN V1/V2] ABNORMAL ECG COMPARED TO ECG 06/28/2021 10:36:19 SINUS RHYTHM NOW PRESENT Electronically Signed On 05-19-2022 14:56:31 CDT by Aj Guzman M.D.
[2022-05-19 09:35] VITALS: O2SAT 95
[2022-05-19 09:57] LABS: Basophils Percent Auto 0.5 % (0.2-1.2); Eosinophils Percent Auto 0.3 % (0-4.4); Hematocrit 43.1 % (37.0-47.0); Hemoglobin 13.5 g/dL (12.0-15.0); Immature Granulocyte Absolute 0.01 K/mm3 (0.00-0.031); Immature Granulocyte Percent A 0.2 % (0-0.5); Lymphocytes Absolute Auto 2.05 K/mm3 (0.9-3.2); Lymphocytes Percent Auto 34.4 % (18.3-44.2); Mean Corpuscular HGB Conc 31.3 g/dl (32-36); Mean Corpuscular Hemoglobin 30.5 pg (26-34); Mean Corpuscular Volume 97.5 fl (80-100); Mean Platelet Volume 9.4 fl (7.4-10.4); Monocytes Absolute Auto 0.6 K/mm3 (0.1-0.6); Monocytes Percent Auto 10.4 % (2.6-8.5); Neutrophils Absolute Auto 3.2 K/mm3 (1.3-6.7); Neutrophils Percent Auto 54.2 % (45.5-73.1); Platelet Count Result 174 k/mm3 (150-375); Red Blood Count 4.42 M/mm3 (4.2-5.4); Red Cell Distribution Width 13.3 % (11.5-14.5)
--- NOTE | 2022-05-19 10:01 | ED.SOB ---
HPI - SOB/Dyspnea General Chief Complaint: Shortness of Breath/Dyspnea Stated Complaint: shortness of breath Time Seen by Provider: 05/19/22 09:46 Source: patient Mode of arrival: ambulatory Limitations: no limitations History of Present Illness HPI Narrative: 67 years old white female history of COPD presents with productive cough of clear sputum increased shortness of breath and fever since Monday which is 4 days ago. Patient on chronic oxygen by nasal cannula 3 L up to 4 L with exertion. She denies any chest pain or back pain Related Data Home Medications Medication Instructions Recorded Confirmed albuterol sulfate 90 mcg/actuation 1 puff inhalation Q4H PRN 08/29/19 03/17/22 aerosol inhaler (Ventolin HFA) Shortness Of Breath aspirin 81 mg tablet,delayed 81 mg PO DAILY 09/02/19 03/17/22 release (Adult Aspirin Regimen) meloxicam 15 mg tablet (Mobic) 15 mg PO HS 03/02/20 03/17/22 atorvastatin 10 mg tablet 10 mg PO DAILY 07/18/20 03/17/22 Allergies Allergy/AdvReac Type Severity Reaction Status Date / Time No Known Allergies Allergy Verified 05/19/22 09:27 Review of Systems Review of Systems: All systems reviewed & are unremarkable except as noted in HPI and below PMFSH Past Medical History Medical History Anxiety Chronic obstructive pulmonary disease Chronic respiratory failure with hypoxia and hypercapnia Degenerative disc disease On home oxygen therapy Osteoarthritis Stroke Surgical History Surgical History History of bilateral tubal ligation History of section (1984) History of hysterectomy (1988) Family History Family History Mother Diabetes mellitus Hypertension Sibling Hypertension Asthma Diabetes mellitus Son Drug overdose Father Alcoholism Motor vehicle accident Ran over and then Social History Social History Social History: The patient lives with her ex- and they maintain a friendly relationship. They had 3 sons together, 1 who unfortunately from a drug overdose. She smoked about a pack of cigarettes a day for at least 30 years before quitting. She denies alcohol and illicit substance abuse. She designates her son Alex Barrett as her surrogate decision maker and she wishes to be a full code. Smoking packs per day: 1.2 Smoking cigarettes per day: 24.0 Smoking status: Current some day smoker Tobacco type: cigarettes Alcohol intake: never Substance use: never Substance use type: does not use Spiritual care concerns: No Agree to blood products: Yes Exam Narrative: General appearance: Well-developed, well-nourished Skin: Normal color Head: Normocephalic, nontraumatic Eyes: Clear conjunctiva ENT: Oropharynx normal, ears normal, nose normal Neck: Supple, nontender Chest and respiratory: Airway patent, no respiratory distress, no accessory muscle use, diminution of air entry bilaterally, few scattered rhonchi Heart: Regular rate/rhythm Abdomen: Soft, nontender, no organomegaly, quiet bowel sounds Vascular: Normal peripheral pulses, normal capillary refill. 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
[2022-05-19 10:03] LABS: Alanine Aminotransferase 24 U/L (6-35); Albumin Level 4.3 g/dL (3.5-5.1); Alkaline Phosphatase 91 U/L (38-126); Anion Gap 7 mmol/L (8-16); Aspartate Amino Transferase 33 U/L (14-36); Bilirubin,Total 0.4 mg/dL (0.2-1.3); Blood Urea Nitrogen 13 mg/dL (7-17); Carbon Dioxide 31 mmol/L (22-30); Chloride 98 mmol/L (98-107); Estimated CRCL calculation 86 ml/min; Estimated Glomerular Filt Rate > 60; Glucose 94 mg/dL (65-110); Potassium 4.4 mmol/L (3.4-5.0); Sodium 136 mmol/L (137-145)
[2022-05-19 10:22] LABS: Alveolar/Arterial O2 Gradient 70.5 mmHg; Base Excess ABG 2.2 mEq/l (+/-2.0); Fractional Inspired Oxygen 32 %; HCO3 ABG 28.2 mEq/l (22.0-26.0); Oxygen Content ABG 18.6 %vol (16.0-22.0); Oxygen Saturation ABG 97.4 % (95.0-100.0); Oxyhemoglobin 95.1 % THb (90.0-100.0); PCO2 ABG 49.4 mmHg (35.0-45.0); PO2 ABG 99.9 mmHg (80.0-100.0); PO2 FiO2 Ratio Arterial Blood 3.12 %; Total Hemoglobin 13.8 g/dL (12.0-18.0); pH ABG 7.375 (7.350-7.450)
[2022-05-19 10:23] LABS: Device NASAL CANNULA; Site Drawn LEFT BRACHIAL
[2022-05-19 11:07] LABS: Lactic Acid Reflex 0.7 mmol/L (0.7-2.0)
[2022-05-19 11:08] LABS: INR 1.2; Prothrombin Time 14.8 Seconds (11.1-14.7)
[2022-05-19 11:10] LABS: Partial Thromboplastin Time 77.4 SECONDS (22.3-36.8)
[2022-05-19 11:11] LABS: CRP < 0.5 mg/dL (<1.0)
[2022-05-19 11:15] LABS: D Dimer 0.44 ug/mL (<0.48)
[2022-05-19 11:17] LABS: NT Pro B Type Natriuretic Pept 34 pg/mL (5-100)
[2022-05-19 11:20] LABS: Troponin I < 0.012 ng/mL (0.000-0.034)
[2022-05-19 11:34] LABS: Influenza A QL RT-PCR Negative (Negative); Influenza B QL RT-PCR Negative (Negative); SARS-CoV-2 RNA PCR Positive
== END 2022-05-19 12:37 | disposition home or self-care (01) ==
PROVIDERS: Emergency Provider Emergency Medicine
DX: U07.1 COVID-19 (principal); J44.1 Chronic obstructive pulmonary disease with (acute) exacerbation; J96.12 Chronic respiratory failure with hypercapnia; J96.11 Chronic respiratory failure with hypoxia; M19.90 Unspecified osteoarthritis, unspecified site; Z86.73 Personal history of transient ischemic attack (TIA), and cerebral infarction without residual deficits; Z99.81 Dependence on supplemental oxygen; Z79.82 Long term (current) use of aspirin; Z90.710 Acquired absence of both cervix and uterus; Z87.891 Personal history of nicotine dependence; R94.31 Abnormal electrocardiogram [ECG] [EKG]
CPT/HCPCS: 36415; 36600; 71046; 80053; 82805; 83605; 83880; 84484; 85025; 85380; 85610; 85730; 86140; 87040; 87147; 87181; 87186; 87502; 93005; 99284; C9803; U0003; U0005

== ENCOUNTER 2022-08-08 11:00 | Inpatient (IN) | payer MEDICARE, MEDICAID, SELFPAY ==
[2022-08-08] VITALS (23 sets, daily range): BP systolic 113–144; BP diastolic 60–90; PULSE 79–107; RESP 16–26; TEMP 35.8–36.8; O2SAT 88–100; BMI 30.4
--- NOTE | ~2022-08-08 | XR_ITS ---
EXAMINATION: XR chest 1V portable INDICATION: Shortness of breath and cough TECHNIQUE: Portable AP chest at 1120 hours COMPARISON: 05/19/2022 FINDINGS: There is scarring in the lung apices. The lungs are free of acute opacities. No pleural eff usion or pneumothorax. The cardiomediastinal silhouette is normal. IMPRESSION: 1. No acute cardiopulmonary abnormality. Reviewed, dictated and finalized at location B. T LOADER
--- NOTE | 2022-08-08 11:11 | ECG_ITS ---
Measurements Intervals [place] Rate: 91 P: 89 AL: 141 QRS: 27 QRSD: 96 T: 59 QT: 335 QTc: 413 Interpretive Statements SINUS RHYTHM DELAYED PRECORDIAL R/S TRANSITION BASELINE ARTIFACT- I, III, AVR, AVL, AVF, V6 BORDERLINE ECG COMPARED TO ECG 05/19/2022 09:40:15 NO SIGNIFICANT CHANGES Electronically Signed On 08-10-2022 7:52:59 X [employer] by Rohan Zavala D.O.
[2022-08-08 11:49] LABS: Basophils Percent Auto 0.3 % (0.2-1.2); Eosinophils Absolute Auto 0.1 K/mm3 (0-0.3); Eosinophils Percent Auto 0.4 % (0-4.4); Hematocrit 43.1 % (37.0-47.0); Hemoglobin 13.5 g/dL (12.0-15.0); Immature Granulocyte Absolute 0.05 K/mm3 (0.00-0.031); Immature Granulocyte Percent A 0.4 % (0-0.5); Lymphocytes Absolute Auto 2.01 K/mm3 (0.9-3.2); Lymphocytes Percent Auto 14.7 % (18.3-44.2); Mean Corpuscular HGB Conc 31.3 g/dl (32-36); Mean Corpuscular Hemoglobin 30.2 pg (26-34); Mean Corpuscular Volume 96.4 fl (80-100); Mean Platelet Volume 9.7 fl (7.4-10.4); Monocytes Percent Auto 7.3 % (2.6-8.5); Neutrophils Absolute Auto 10.6 K/mm3 (1.3-6.7); Neutrophils Percent Auto 76.9 % (45.5-73.1); Platelet Count Result 206 k/mm3 (150-375); Red Blood Count 4.47 M/mm3 (4.2-5.4); Red Cell Distribution Width 13.1 % (11.5-14.5); White Blood Count 13.7 K/mm3 (4.5-10.0)
--- NOTE | 2022-08-08 11:55 | ED.URI ---
HPI - URI/Sore Throat General Chief Complaint: Upper Respiratory Infection Stated Complaint: cough, fever, weakness Time Seen by Provider: 08/08/22 11:20 Source: RN notes reviewed History of Present Illness HPI Narrative: Patient presents emergency department from home for respiratory infection. Patient states symptoms began 3 days ago. States has been having a cough this been nonproductive as well as shortness of breath and subjective fever. She states she is chronically on 3 L nasal cannula for COPD but has had to bump it up secondary to her shortness of breath states she did use inhaler at home with minimal relief. She denies any chest pain abdominal pain nausea vomiting diarrhea or any other symptoms. Related Data Home Medications Medication Instructions Recorded Confirmed albuterol sulfate 90 mcg/actuation 1 puff inhalation Q4H PRN 08/29/19 03/17/22 aerosol inhaler (Ventolin HFA) Shortness Of Breath aspirin 81 mg tablet,delayed 81 mg PO DAILY 09/02/19 03/17/22 release (Adult Aspirin Regimen) meloxicam 15 mg tablet (Mobic) 15 mg PO HS 03/02/20 03/17/22 atorvastatin 10 mg tablet 10 mg PO DAILY 07/18/20 03/17/22 Allergies Allergy/AdvReac Type Severity Reaction Status Date / Time No Known Allergies Allergy Verified 05/19/22 09:27 Review of Systems Review of Systems: Gen.: Denies fevers or chills ENT: Denies congestion Respiratory: See HPI CV: Denies chest pain or palpitations GI: Denies abdominal pain nausea, emesis or diarrhea Musculoskeletal: Denies back pain or muscle pain Neuro: Denies numbness, tingling, weakness or focal weakness Skin: Denies rash Except as documented, all other systems reviewed and negative [facility] Past Medical History Medical History Anxiety Chronic obstructive pulmonary disease Chronic respiratory failure with hypoxia and hypercapnia Degenerative disc disease On home oxygen therapy Osteoarthritis Stroke Surgical History Surgical History History of bilateral tubal ligation History of section (1984) History of hysterectomy (1988) Family History Family History Mother Diabetes mellitus Hypertension Sibling Hypertension Asthma Diabetes mellitus Son Drug overdose Father Alcoholism Motor vehicle accident Ran over and then Social History Social History Social History: The patient lives with her ex- and they maintain a friendly relationship. They had 3 sons together, 1 who unfortunately from a drug overdose. She smoked about a pack of cigarettes a day for at least 30 years before quitting. She denies alcohol and illicit substance abuse. She designates her son Alex Barrett as her surrogate decision maker and she wishes to be a full code. Smoking packs per day: 1.2 Smoking cigarettes per day: 24.0 Smoking status: Current some day smoker Tobacco type: cigarettes Alcohol intake: never Substance use: never Substance use type: does not use Spiritual care concerns: No Agree to blood products: Yes Exam Narrative: APPEARANCE: No acute distress, nontoxic, resting in bed EYES: EOMI HEENT: Normocephalic, atraumatic, OMM RESPIRATORY: No respiratory distress wheezing throughout the bilateral lung álvarez with decreased breath sounds in the bases CARDIOVASCULAR: Regular rate and rhythm without murmurs rubs or gallops. ABDOMINAL: Soft, nontender, nondistended, no rebound or guarding MUSCULOSKELETAl: Moves all extremities. No clubbing, cyanosis or edema. NEURO: Awake and alert. Following commands, speech normal, no focal deficits SKIN:: Warm, dry. No rashes lesions or abrasions PSYCHIATRIC: Normal affect/mood, Course Course Emergency Course: Following breathing treatment patient still has wheezing th
[2022-08-08] MEDS: ALBUTEROL SULFATE NEB 2.5 MG/3 ML INH 5 MG INHALATION ×4 (12:00→20:00)
[2022-08-08] MEDS: IPRATROPIUM BR 0.02% INH SOLN 0.5 MG/2.5 ML VIAL INHALATION ×4 (12:00→20:00)
[2022-08-08 12:02] LABS: INR 1.2; Prothrombin Time 15.2 Seconds (11.1-14.7)
[2022-08-08 12:03] LABS: Partial Thromboplastin Time 56.2 SECONDS (22.3-36.8)
[2022-08-08] MEDS: methylPREDNISolone SOD SUCC 125 MG VIAL IV PUSH (12:03)
[2022-08-08 12:12] LABS: Influenza A QL RT-PCR Negative (Negative); Influenza B QL RT-PCR Negative (Negative); SARS-CoV-2 RNA PCR Negative
[2022-08-08 12:18] LABS: Alanine Aminotransferase 21 U/L (6-35); Albumin Level 4.2 g/dL (3.5-5.1); Alkaline Phosphatase 94 U/L (38-126); Anion Gap 6 mmol/L (8-16); Aspartate Amino Transferase 23 U/L (14-36); Bilirubin,Total 0.5 mg/dL (0.2-1.3); Blood Urea Nitrogen 15 mg/dL (7-17); Calcium 8.8 mg/dL (8.4-10.2); Carbon Dioxide 34 mmol/L (22-30); Chloride 95 mmol/L (98-107); Estimated CRCL calculation 128 ml/min; Estimated Glomerular Filt Rate > 60; Glucose 108 mg/dL (65-110); Potassium 4.1 mmol/L (3.4-5.0); Sodium 135 mmol/L (137-145)
[2022-08-08 12:29] LABS: Troponin I < 0.012 ng/mL (0.000-0.034)
--- NOTE | 2022-08-08 13:07 | PM.IMHP ---
H&P: HPI History of Present Illness Date/Time: 08/08/22 13:07 Chief Complaint: Upper respiratory infection Narrative: The patient has a history of COPD and chronic hypoxia. The patient is chronically on oxygen at 3 L to 4 L per nasal cannula. The patient stated that her symptoms started about 3 days ago. She has had a nonproductive cough and has been feeling short of breath with subjective fevers. She denies any nausea vomiting or diarrhea. White count 13.7. Cardiac enzyme nonreactive x1. Influenza a B and COVID were negative. Chest x-ray was read as no acute cardiopulmonary disease. The patient was given Solu-Medrol and nebulizer treatment. The patient is being admitted to observation status on the date of service of 08/08/2022. Review of Systems Review of Systems: See HPI All systems reviewed & are unremarkable except as noted in HPI and below Constitutional: Constitutional: Reports as per HPI and Reports no additional constitutional complaints Eyes: Eyes: Reports as per HPI and Reports no additional eye complaints ENT: Reports system reviewed and no additional complaints, except as documented and Reports Normal hearing present Cardiovascular: Cardiovascular: Reports no additional cardiovascular complaints Respiratory: Respiratory: Reports no additional respiratory complaints and Reports no additional respiratory complaints Gastrointestinal: Gastrointestinal: Reports as per HPI and Reports no additional gastrointestinal complaints Musculoskeletal: Musculoskeletal: Reports no additional musculoskeletal complaints Integumentary/Breasts: Skin/Breast: Reports system reviewed and no additional complaints, except as docu and Reports as per HPI Neurologic: Reports system reviewed and no additional complaints, except as documented, Reports as per HPI and Reports Normal hearing present Psychiatric: Psychiatric: Reports no additional psychiatric complaints and Reports as per HPI Endocrine: Endocrine: Reports no additional endocrine complaints Hematologic/Lymphatic: Hematologic/Lymphatic: Reports no additional hematologic/lymphatic complaints Allergic/Immunologic: Allergic/Immunologic: Reports no additional allergic/immunologic complaints [facility] Past Medical History Medical History Anxiety Chronic obstructive pulmonary disease Chronic respiratory failure with hypoxia and hypercapnia Degenerative disc disease Hyperlipidemia type II On home oxygen therapy JAYLA on CPAP Osteoarthritis Stroke Surgical History Surgical History History of bilateral tubal ligation History of section (1984) History of hysterectomy (1988) Family History Family History Mother Diabetes mellitus Hypertension Sibling Hypertension Asthma Diabetes mellitus Son Drug overdose Father Alcoholism Motor vehicle accident Ran over and then Social History Social History Social History: The patient lives with her ex- and they maintain a friendly relationship. They had 3 sons together, 1 who unfortunately from a drug overdose. She smoked about a pack of cigarettes a day for at least 30 years before quitting. She denies alcohol and illicit substance abuse. She designates her son Alex Barrett as her surrogate decision maker.gas statio accenda full code. Smoking packs per day: 1.2 Smoking cigarettes per day: 24.0 Smoking status: Former smoker Tobacco type: cigarettes Alcohol intake: never Substance use: never Substance use type: does not use Spiritual care concerns: No Agree to blood products: Yes Comments [place] Med[facility] Home Medications and Allergies Home Medications Medication Instructions Recorded Confirmed Type albuterol sulfate 90 mcg/actuatio
--- NOTE | 2022-08-08 17:50 | PC.NURSE ---
This patient, James Barrett, was admitted to Medical Room 349-01. Patient/family oriented to hospital policies and general routines including ID bracelet, bed and alarms, visiting hours, pain management, procedures, bathroom and other care routines, personal items, smoking policy, room service/diet, and visiting hours. Information on how to activate the Rapid Response Team has been discussed. Patient/Family are encouraged to report perceived risks to care and to ask questions if they do not understand what they are told or what they should do.
[2022-08-08] MEDS: methylPREDNISolone SOD SUCC 125 MG VIAL 60 MG IV PUSH (20:02)
[2022-08-08] MEDS: ACETAMINOPHEN 325 MG TABLET 650 MG PO (23:41)
[2022-08-08] MEDS: MELOXICAM 7.5 MG TABLET 15 MG PO (23:41)
[2022-08-08] MEDS: AMITRIPTYLINE HCL 25 MG TABLET PO (23:42)
[2022-08-09] VITALS (11 sets, daily range): BP systolic 110–149; BP diastolic 56–85; PULSE 82–110; RESP 18–22; TEMP 36.2–36.4; O2SAT 92–95
[2022-08-09] MEDS: methylPREDNISolone SOD SUCC 125 MG VIAL 60 MG IV PUSH (05:07)
[2022-08-09] MEDS: ACETAMINOPHEN 325 MG TABLET 650 MG PO (05:07)
[2022-08-09 05:52] LABS: Basophils Percent Auto 0.1 % (0.2-1.2); Hematocrit 38.7 % (37.0-47.0); Hemoglobin 12.1 g/dL (12.0-15.0); Immature Granulocyte Absolute 0.06 K/mm3 (0.00-0.031); Immature Granulocyte Percent A 0.6 % (0-0.5); Lymphocytes Percent Auto 10.2 % (18.3-44.2); Mean Corpuscular HGB Conc 31.3 g/dl (32-36); Mean Corpuscular Hemoglobin 29.9 pg (26-34); Mean Corpuscular Volume 95.6 fl (80-100); Mean Platelet Volume 9.5 fl (7.4-10.4); Monocytes Absolute Auto 0.5 K/mm3 (0.1-0.6); Monocytes Percent Auto 4.5 % (2.6-8.5); Neutrophils Absolute Auto 9.2 K/mm3 (1.3-6.7); Neutrophils Percent Auto 84.6 % (45.5-73.1); Platelet Count Result 214 k/mm3 (150-375); Red Blood Count 4.05 M/mm3 (4.2-5.4); Red Cell Distribution Width 12.5 % (11.5-14.5); White Blood Count 10.8 K/mm3 (4.5-10.0)
[2022-08-09 05:57] LABS: Alanine Aminotransferase 19 U/L (6-35); Albumin Level 3.9 g/dL (3.5-5.1); Alkaline Phosphatase 92 U/L (38-126); Anion Gap 7 mmol/L (8-16); Aspartate Amino Transferase 18 U/L (14-36); Bilirubin,Total 0.3 mg/dL (0.2-1.3); Blood Urea Nitrogen 24 mg/dL (7-17); Carbon Dioxide 31 mmol/L (22-30); Chloride 98 mmol/L (98-107); Estimated CRCL calculation 89 ml/min; Estimated Glomerular Filt Rate > 60; Glucose 189 mg/dL (65-110); Potassium 3.9 mmol/L (3.4-5.0); Sodium 136 mmol/L (137-145)
[2022-08-09] MEDS: ASPIRIN 81 MG ENTERIC TABLET PO (09:35)
[2022-08-09] MEDS: ATORVASTATIN 10 MG TABLET PO (09:35)
[2022-08-09] MEDS: ENOXAPARIN 40 MG/0.4 ML SYRINGE SUB-Q (09:35)
[2022-08-09] MEDS: ROFLUMILAST 500 MCG TABLET PO (09:35)
--- NOTE | 2022-08-09 10:39 | PM.CNPUL ---
Assessment and Plan Assessment and plan (1) COPD exacerbation: Code(s): J44.1 - Chronic obstructive pulmonary disease with (acute) exacerbation Status: Acute Assessment and Plan: Gold grade 4 group D COPD with hypoxemic and hypercarbic respiratory failure on supplemental oxygen and noninvasive ventilation at night. Patient is followed in the pulmonary clinic and was last seen on 03/17/2022. PFTs 2017 with at FEV1 of 0.51 L, 20% predicted. DLCO 57% predicted. She is maintained on Brovana neb BID; ipratropium neb q 6h PRN (she uses about 3x per day), and Daliresp 500mcg daily, hypoxemic respiratory failure on 3L at rest, 4L exertion, 3L sleep bleed into her Trilogy (DME is [facility]). She has 72 PY tobacco use quit 2021. CAT score 23/40. she was to continue Brovana, ipratropium nebs, trilogy at night, low-dose CT scan in August 2022 and smoking cessation counseling was provided. Currently the patient has a COPD exacerbation. her chest x-ray is negative and her COVID in influenza swabs are negative. I will change her Solu-Medrol to 40 Q 6, continue albuterol 2.5 mg nebulized Q 4 hours and ipratropium 0.5 mg nebulized q.6 hours. I will continue Daliresp 500 mg q.day. Patient has acute change in her phlegm from clear to green and yellow with a negative chest x-ray and I will treat her with Levaquin 750 mg IV q.day. (2) Chronic respiratory failure with hypoxia and hypercapnia: Code(s): J96.11 - Chronic respiratory failure with hypoxia; J96.12 - Chronic respiratory failure with hypercapnia Status: Acute Assessment and Plan: Patient has been on home trilogy machine through [facility] with 3 L bleed in. The patient tells me she will have her family members bring in this machine and she can wear this machine with 3 L bleed in tonight. We will obtain a recent download from [facility]. If the patient cannot bring in her home machine we will mimic her settings from her download with a hospital AVAPS mode tonight. History of Present Illness History of Present Illness Consult date: 08/09/22 Chief complaint: AE COPD Narrative: 08/09/2022: This is a new pulmonary consult for acute exacerbation of COPD Patient is followed in the pulmonary clinic and was last seen on 03/17/2022. She is maintained on Brovana neb BID; ipratropium neb q 6h PRN (she uses about 3x per day), and Daliresp 500mcg daily, hypoxemic respiratory failure on 3L at rest, 4L exertion, 3L sleep bleed into her Trilogy (DME is [facility]). She has 72 PY tobacco use quit 2021. CAT score 23/40. she was to continue Brovana, ipratropium nebs, trilogy at night, low-dose CT scan in August 2022 and smoking cessation counseling was provided. The patient smokes cigarettes from age [age] at 1 and half packs per day for total of 72 pack years, she was exposed to secondhand smoke through her father but none since. She denies vaping, illicit drug use, sandblasting, welding, asbestos work, professional painting or steel wood mill supervisor. 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 Patient has baseline dyspnea on exertion is a half block and this has been the same over the last year. 05/19/2022: Seen in the emergency department for productive cough, increased shortness of breath and fever for 4 days. White blood cell count was 6.0, eosinophils 0.3% serum bicarb 31 creatinine 0.6, D-dimer 0.44, CRP less than 0.5, BNP 34 positive COVID RT PCR. ABG on 3 L was 7.37/49/100 chest x-ray was no acute cardiopulmonary abnormality she was discharged on prednisone 40 mg a day for 5 days and Tessalon Perles. 08/08/2022: Patient presented to the emergency room with cough, weakness, change in phlegm from clear to green-yellow, wheezing and worsening shortness of breath with subjective fevers x3 days. In the ED she had wheezes bilaterally, decreased breath sounds in the basement her saturations on 3 L nasal cannula
[2022-08-09] MEDS: methylPREDNISolone SOD SUCC 40 MG VIAL IV PUSH ×3 (12:47→23:51)
--- NOTE | 2022-08-09 17:21 | PM.IMPN ---
Progress Note: A&P Assessment and Plan (1) COPD exacerbation: Code(s): J44.1 - Chronic obstructive pulmonary disease with (acute) exacerbation Status: Acute Assessment and Plan: Continue with Solu-Medrol -continue with nebulizer treatments. -the patient follows with [facility] -has chronic hypoxia on wears oxygen at 2-3 L. -the patient stated that she has quit smoking. -continue with Brovana if formulary. Continue with Daliresp if formulary 08/09/2021 interval history: patient with long history of smoking stop smoking about a year ago and presented emergency department with complaint shortness of breath is found to have exacerbation of COPD patient is being treated with Solu-Medrol and bronchodilator, patient states is he willing little better compared to when she arrived not a short of breath, patient is clinically patient is on pulmonology department will consult for further recommendation, will have a PT OT evaluate the and further recommendation to follow. (2) Anxiety: Code(s): F41.9 - Anxiety disorder, unspecified Status: Chronic Assessment and Plan: -continue with amitriptyline (3) JAYLA on CPAP: Code(s): G47.33 - Obstructive sleep apnea (adult) (pediatric); Z99.89 - Dependence on other enabling machines and devices Status: Acute Assessment and Plan: -the patient uses a trilogy at home. (4) Hyperlipidemia type II: Code(s): E78.01 - Familial hypercholesterolemia Status: Acute Assessment and Plan: -continue with atorvastatin (5) Acute and chronic respiratory failure with hypoxia: Code(s): J96.21 - Acute and chronic respiratory failure with hypoxia Status: Acute Assessment and Plan: -continue with oxygen that she uses at home she uses 2-3 L constantly Subjective Date/time seen: 08/09/22 17:21 Chief Complaint: Upper respiratory infection HPI-Narrative: The patient has a history of COPD and chronic hypoxia.? The patient is chronically on oxygen at 3 L to 4 L per nasal cannula.? The patient stated that her symptoms started about 3 days ago.? She has had a nonproductive cough and has been feeling short of breath with subjective fevers.? She denies any nausea vomiting or diarrhea.? White count 13.7.? Cardiac enzyme nonreactive x1.? Influenza a B and COVID were negative.? Chest x-ray was read as no acute cardiopulmonary disease.? The patient was given Solu-Medrol and nebulizer treatment.? The patient is being admitted to observation status on the date of service of 08/08/2022. 08/09/2021 interval history: patient with long history of smoking stop smoking about a year ago and presented emergency department with complaint shortness of breath is found to have exacerbation of COPD patient is being treated with Solu-Medrol and bronchodilator, patient states is he willing little better compared to when she arrived not a short of breath, patient is clinically patient is on pulmonology department will consult for further recommendation, will have a PT OT evaluate the and further recommendation to follow. Review of Systems Review of Systems: All systems reviewed & are unremarkable except as noted in HPI and below Constitutional: Constitutional: Reports no additional constitutional complaints Eyes: Eyes: Reports no additional eye complaints ENT: Reports system reviewed and no additional complaints, except as documented Cardiovascular: Cardiovascular: Reports no additional cardiovascular complaints Respiratory: Respiratory: Reports no additional respiratory complaints Gastrointestinal: Gastrointestinal: Reports no additional gastrointestinal complaints Musculoskeletal: Musculoskeletal: Reports no additional musculoskeletal complaints Neurologic: Reports system reviewed and no additional complaints, except as documented Psychiatric: Psychiatric: Reports no additional psychiatric complaints Endocrine: Endocrine: Repo
[2022-08-09] MEDS: AMITRIPTYLINE HCL 25 MG TABLET PO (20:55)
[2022-08-09] MEDS: MELOXICAM 7.5 MG TABLET 15 MG PO (20:55)
--- NOTE | 2022-08-09 22:55 | PCRCNOTE ---
Window of time for administration has passed. See next scheduled administration.
[2022-08-10] VITALS (15 sets, daily range): BP systolic 121–128; BP diastolic 68–71; PULSE 79–99; RESP 17–24; TEMP 36.1–36.8; O2SAT 92–96
[2022-08-10] MEDS: IPRATROPIUM BR 0.02% INH SOLN 0.5 MG/2.5 ML VIAL INHALATION ×6 (00:10→22:05)
[2022-08-10] MEDS: ALBUTEROL SULFATE NEB 2.5 MG/3 ML INH INHALATION ×6 (00:10→22:05)
[2022-08-10 05:53] LABS: Hematocrit 39.9 % (37.0-47.0); Hemoglobin 12.1 g/dL (12.0-15.0); Mean Corpuscular HGB Conc 30.3 g/dl (32-36); Mean Corpuscular Hemoglobin 30.3 pg (26-34); Mean Corpuscular Volume 99.8 fl (80-100); Mean Platelet Volume 9.2 fl (7.4-10.4); Platelet Count Result 262 k/mm3 (150-375); Red Cell Distribution Width 12.8 % (11.5-14.5); White Blood Count 14.1 K/mm3 (4.5-10.0)
[2022-08-10] MEDS: methylPREDNISolone SOD SUCC 40 MG VIAL IV PUSH (05:54)
[2022-08-10 06:15] LABS: Anion Gap 4 mmol/L (8-16); Blood Urea Nitrogen 20 mg/dL (7-17); Calcium 8.8 mg/dL (8.4-10.2); Carbon Dioxide 35 mmol/L (22-30); Chloride 97 mmol/L (98-107); Estimated CRCL calculation 105 ml/min; Estimated Glomerular Filt Rate > 60; Glucose 172 mg/dL (65-110); Magnesium 2.2 mg/dL (1.6-2.3); Potassium 4.7 mmol/L (3.4-5.0); Sodium 136 mmol/L (137-145)
[2022-08-10] MEDS: ASPIRIN 81 MG ENTERIC TABLET PO (09:19)
[2022-08-10] MEDS: ATORVASTATIN 10 MG TABLET PO (09:19)
[2022-08-10] MEDS: ROFLUMILAST 500 MCG TABLET PO (09:19)
[2022-08-10] MEDS: ENOXAPARIN 40 MG/0.4 ML SYRINGE SUB-Q (09:19)
--- NOTE | 2022-08-10 09:42 | PM.PNPUL ---
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 Patient is followed in the pulmonary clinic and was last seen on 03/17/2022. PFTs 2017 with at FEV1 of 0.51 L, 20% predicted. DLCO 57% predicted. She is maintained on Brovana neb BID; ipratropium neb q 6h PRN (she uses about 3x per day), and Daliresp 500mcg daily, hypoxemic respiratory failure on 3L at rest, 4L exertion, 3L sleep bleed into her Trilogy (DME is [facility]). She has 72 PY tobacco use quit 2021. CAT score 23/40. she was to continue Brovana, ipratropium nebs, trilogy at night, low-dose CT scan in August 2022 and smoking cessation counseling was provided. Currently the patient has a COPD exacerbation. her chest x-ray is negative and her COVID in influenza swabs are negative. I will change her Solu-Medrol to 40 Q 6, continue albuterol 2.5 mg nebulized Q 4 hours and ipratropium 0.5 mg nebulized q.6 hours. I will continue Daliresp 500 mg q.day. Patient has acute change in her phlegm from clear to green and yellow with a negative chest x-ray and I will treat her with Levaquin 750 mg IV q.day. 08/10 Today she tells me she has 50% back to her baseline. Her sputum is now yellow. She has expiratory wheezes on exam. Her white blood cell count is 14.1, creatinine is 0.5. She is feeling better and I will decrease her Solu-Medrol to 20 mg IV q.6. I will continue albuterol and ipratropium nebulizers q.4 hours and continue levofloxacin, day 2, and continue Daliresp. (2) Chronic respiratory failure with hypoxia and hypercapnia: Code(s): J96.11 - Chronic respiratory failure with hypoxia; J96.12 - Chronic respiratory failure with hypercapnia Status: Acute Assessment and Plan: Patient has been on home trilogy machine through [facility] with 3 L bleed in. The patient tells me she will have her family members bring in this machine and she can wear this machine with 3 L bleed in tonight. We will obtain a recent download from [facility]. If the patient cannot bring in her home machine we will mimic her settings from her download with a hospital AVAPS mode tonight. 08/10 Patient slept with her home trilogy machine with 3 L bleed in and said she did well. I obtained a download from her [employer] and this demonstrates excellent compliance, adequate pressures and mild leak. I obtained a download from [facility] from 07/09/2022 through 08/07/2022. Patient is on a trilogy with a VATS 80 mode, respiratory rate set at auto, tidal volume 450, EPAP minimum 6, EPAP maximum 10, inspiratory pressure minimum 6, inspiratory pressure max 24 rise of 3. Usage at greater than or equal to 4 hours was 100%. Average usage on days used is 10.3 hours, tidal volume average is 476, average EPAP 7.1. Average IPAP 16.3, average respiratory rate 17, average minute ventilation 8.2, average leak is 39. I interpret this download as excellent compliance, adequate pressures and mild leak. Once the patient is closer to her baseline will perform overnight oximetry on her home machine with the settings +3 L bleed in and an ABG prior to removal to assess her oxygenation and ventilation while on her home machine. Subjective Date/time seen: 08/10/22 09:42 Interval history: 08/09/2022:? This is a new pulmonary consult for acute exacerbation of COPD Patient is followed in the pulmonary clinic and was last seen on 03/17/2022. She is maintained on Brovana neb BID; ipratropium neb q 6h PRN (she uses about 3x per day), and Daliresp 500mcg daily, hypoxemic respiratory failure on 3L at rest, 4L exertion, 3L sleep bleed into her Trilogy (DME is [facility]). She has 72 PY tobacco use quit
--- NOTE | 2022-08-10 11:45 | PM.IMPN ---
Progress Note: A&P Assessment and Plan (1) COPD exacerbation: Code(s): J44.1 - Chronic obstructive pulmonary disease with (acute) exacerbation Status: Acute Assessment and Plan: Continue antibiotics and prednisone. Feeling a little bit better. (2) Anxiety: Code(s): F41.9 - Anxiety disorder, unspecified Status: Chronic Assessment and Plan: Monitor (3) JAYLA on CPAP: Code(s): G47.33 - Obstructive sleep apnea (adult) (pediatric); Z99.89 - Dependence on other enabling machines and devices Status: Acute (4) Hyperlipidemia type II: Code(s): E78.01 - Familial hypercholesterolemia Status: Acute (5) Acute and chronic respiratory failure with hypoxia: Code(s): J96.21 - Acute and chronic respiratory failure with hypoxia Status: Acute Subjective Date/time seen: 08/10/22 11:45 Breathing is a little bit better Exam Const: General: cooperative, healthy appearing, comfortable, no acute distress, well developed, alert, awake, Physically active, ill appearing, average body habitus and well nourished Nutritional Appearance: average body habitus and well nourished Orientation/consciousness: oriented to person, oriented to place, oriented to time and patient oriented x3 Limitations: no limitations HENMT: Head: normal to inspection, No palpable skull fracture present, normocephalic and atraumatic Ears: hearing grossly normal bilaterally and external ears normal Face/Nose/Sinus: Normal external nose present and Normal nares present Eyes: General: appearance normal, both eyes and all related structures Alignment and Position: alignment normal Periorbital: periorbital findings normal Eyelids: eyelids normal Sclera: sclerae normal Pupils: Equal, round and reactive pupils present EOM: EOMs intact bilaterally Neck: Neck: normal visual inspection, full ROM, no lymphadenopathy, trachea midline and supple Chest: Chest palpation & inspection: normal inspection of the chest Resp: Effort & Inspection: normal respiratory effort and able to speak in complete sentences Auscultation: no crackles, no rales, no rhonchi, wheezes scattered wheezes and lung sounds not diminished Cardio: Jugular venous distension: no JVD Palpation: normal PMI Rate: regular rate Rhythm: regular rhythm Heart sounds: S1 normal heart sound present and S2 normal heart sound present Peripheral pulses: Peripheral pulses 2+ throughout GI: Inspection: normal to inspection Auscultation: normal bowel sounds Rectal Exam: deferred Back/Spine/Pelvis: Cervical Spine: cervical ROM normal Skin: General skin exam: normal color Lesions: no lesions Rashes: no rashes Trauma: no lacerations or abrasions Wounds: no wounds Hair: normal Nails: normal Neuro: General: oriented to person, oriented to place, oriented to time and patient oriented x3 Cranial nerves: Yes Equal, round and reactive pupils present and Yes Normal hearing present Cognition (Neuro): normal cognition Speech: normal speech Gait exam (Neuro): Normal gait present Motor exam (neuro): 5/5 motor strength present throughout Sensory Exam: normal sensation Extrem: General: normal to inspection Right upper extremity: normal to inspection and shoulder/upper arm Left upper extremity: normal to inspection and shoulder/upper arm Right lower extremity: normal to inspection Left lower extremity: normal to inspection Psych: Appearance: grossly normal Mental Status: mental status grossly normal Speech and movement: Normal speech and movement present Affect: normal affect Attitude: cooperative Thought process: Normal thought process present Insight: Good insight present (Psych) Judgement: Good judgement present (Psych) Objective Data Vital Signs Vital Signs: Vital Signs - 24 hr 08/09/22 12:18 08/09/22 12:20 08/09/22 12:55 Temperature Pulse Rate 82 85 101 H Respiratory Rate 18 18 20 Blood Pressure Pulse Oximetry Oxygen Delivery
[2022-08-10] MEDS: methylPREDNISolone SOD SUCC 40 MG VIAL 20 MG IV PUSH ×3 (12:43→23:50)
--- NOTE | 2022-08-10 13:23 | PCRCNOTE ---
Resp. Therapy NOte: Pt returns from trip to the bathroom on a 3l/m can. at 81% spo2. Pt states she sometimes wears 4l/m with activity. Home o2 eval at discharge suggested to ensure pt's needs are being met.
[2022-08-10] MEDS: AMITRIPTYLINE HCL 25 MG TABLET PO (20:32)
[2022-08-10] MEDS: MELOXICAM 7.5 MG TABLET 15 MG PO (20:32)
[2022-08-11] VITALS (17 sets, daily range): BP systolic 126–138; BP diastolic 59–65; PULSE 63–102; RESP 16–20; TEMP 36.4–36.6; O2SAT 91–96
[2022-08-11] MEDS: IPRATROPIUM BR 0.02% INH SOLN 0.5 MG/2.5 ML VIAL INHALATION ×5 (00:34→19:59)
[2022-08-11] MEDS: ALBUTEROL SULFATE NEB 2.5 MG/3 ML INH INHALATION ×5 (00:34→19:56)
[2022-08-11 05:59] LABS: Hematocrit 38.6 % (37.0-47.0); Hemoglobin 11.9 g/dL (12.0-15.0); Mean Corpuscular HGB Conc 30.8 g/dl (32-36); Mean Corpuscular Hemoglobin 30.5 pg (26-34); Mean Platelet Volume 9.1 fl (7.4-10.4); Platelet Count Result 259 k/mm3 (150-375); Red Cell Distribution Width 13.2 % (11.5-14.5); White Blood Count 13.3 K/mm3 (4.5-10.0)
[2022-08-11] MEDS: methylPREDNISolone SOD SUCC 40 MG VIAL 20 MG IV PUSH (06:14)
[2022-08-11 06:15] LABS: Anion Gap 3 mmol/L (8-16); Blood Urea Nitrogen 21 mg/dL (7-17); Calcium 8.8 mg/dL (8.4-10.2); Carbon Dioxide 36 mmol/L (22-30); Chloride 99 mmol/L (98-107); Estimated CRCL calculation 89 ml/min; Estimated Glomerular Filt Rate > 60; Glucose 153 mg/dL (65-110); Magnesium 2.3 mg/dL (1.6-2.3); Potassium 4.7 mmol/L (3.4-5.0); Sodium 138 mmol/L (137-145)
--- NOTE | 2022-08-11 08:02 | PM.PNPUL ---
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 Patient is followed in the pulmonary clinic and was last seen on 03/17/2022. PFTs 2017 with at FEV1 of 0.51 L, 20% predicted. DLCO 57% predicted. She is maintained on Brovana neb BID; ipratropium neb q 6h PRN (she uses about 3x per day), and Daliresp 500mcg daily, hypoxemic respiratory failure on 3L at rest, 4L exertion, 3L sleep bleed into her Trilogy (DME is [facility]). She has 72 PY tobacco use quit 2021. CAT score 23/40. she was to continue Brovana, ipratropium nebs, trilogy at night, low-dose CT scan in August 2022 and smoking cessation counseling was provided. Currently the patient has a COPD exacerbation. her chest x-ray is negative and her COVID in influenza swabs are negative. I will change her Solu-Medrol to 40 Q 6, continue albuterol 2.5 mg nebulized Q 4 hours and ipratropium 0.5 mg nebulized q.6 hours. I will continue Daliresp 500 mg q.day. Patient has acute change in her phlegm from clear to green and yellow with a negative chest x-ray and I will treat her with Levaquin 750 mg IV q.day. 08/10 Today she tells me she has 50% back to her baseline. Her sputum is now yellow. She has expiratory wheezes on exam. Her white blood cell count is 14.1, creatinine is 0.5. She is feeling better and I will decrease her Solu-Medrol to 20 mg IV q.6. I will continue albuterol and ipratropium nebulizers q.4 hours and continue levofloxacin, day 2, and continue Daliresp. 08/11 Patient continues to improve. She tells me is she is 65% back to normal. She is walking in her room and that is improved. She were home noninvasive ventilator with 3 L bleed in last night and did well. White blood cell count is 13.3, creatinine 0.6. No wheezes on normal respiration and wheezes with forced expiration. I will change to 40 mg p.o. prednisone. I will continue albuterol and ipratropium nebulizers q.4 hours. Continue Levaquin, day 3 today. with patient continues to improve we will consider discharge home on 08/12/2022. Will follow with you. (2) Chronic respiratory failure with hypoxia and hypercapnia: Code(s): J96.11 - Chronic respiratory failure with hypoxia; J96.12 - Chronic respiratory failure with hypercapnia Status: Acute Assessment and Plan: Patient has been on home trilogy machine through [facility] with 3 L bleed in. The patient tells me she will have her family members bring in this machine and she can wear this machine with 3 L bleed in tonight. We will obtain a recent download from [facility]. If the patient cannot bring in her home machine we will mimic her settings from her download with a hospital AVAPS mode tonight. 08/10 Patient slept with her home trilogy machine with 3 L bleed in and said she did well. I obtained a download from her [employer] and this demonstrates excellent compliance, adequate pressures and mild leak. I obtained a download from [facility] from 07/09/2022 through 08/07/2022. Patient is on a trilogy with a VATS 80 mode, respiratory rate set at auto, tidal volume 450, EPAP minimum 6, EPAP maximum 10, inspiratory pressure minimum 6, inspiratory pressure max 24 rise of 3. Usage at greater than or equal to 4 hours was 100%. Average usage on days used is 10.3 hours, tidal volume average is 476, average EPAP 7.1. Average IPAP 16.3, average respiratory rate 17, average minute ventilation 8.2, average leak is 39. I interpret this download as excellent compliance, adequate pressures and mild leak. Once the patient is closer to her baseline will perform overnight oximetry on her home machine with the settings +3 L bleed in and an
[2022-08-11] MEDS: ASPIRIN 81 MG ENTERIC TABLET PO (09:26)
[2022-08-11] MEDS: predniSONE 20 MG TABLET 40 MG PO (09:26)
[2022-08-11] MEDS: ATORVASTATIN 10 MG TABLET PO (09:26)
[2022-08-11] MEDS: ENOXAPARIN 40 MG/0.4 ML SYRINGE SUB-Q (09:26)
[2022-08-11] MEDS: ROFLUMILAST 500 MCG TABLET PO (09:26)
--- NOTE | 2022-08-11 13:20 | PM.IMPN ---
Progress Note: A&P Assessment and Plan (1) COPD exacerbation: Code(s): J44.1 - Chronic obstructive pulmonary disease with (acute) exacerbation Status: Acute Assessment and Plan: Continue antibiotics and prednisone. Feeling a little bit better. (2) Anxiety: Code(s): F41.9 - Anxiety disorder, unspecified Status: Chronic Assessment and Plan: Monitor (3) JAYLA on CPAP: Code(s): G47.33 - Obstructive sleep apnea (adult) (pediatric); Z99.89 - Dependence on other enabling machines and devices Status: Acute (4) Hyperlipidemia type II: Code(s): E78.01 - Familial hypercholesterolemia Status: Acute (5) Acute and chronic respiratory failure with hypoxia: Code(s): J96.21 - Acute and chronic respiratory failure with hypoxia Status: Acute Subjective Date/time seen: 08/11/22 13:20 No new complaints, breathing is a little bit better. Exam Const: General: cooperative, healthy appearing, comfortable, no acute distress, well developed, alert, awake, Physically active, ill appearing, average body habitus and well nourished Nutritional Appearance: average body habitus and well nourished Orientation/consciousness: oriented to person, oriented to place, oriented to time and patient oriented x3 Limitations: no limitations HENMT: Head: normal to inspection, No palpable skull fracture present, normocephalic and atraumatic Ears: hearing grossly normal bilaterally and external ears normal Face/Nose/Sinus: Normal external nose present and Normal nares present Eyes: General: appearance normal, both eyes and all related structures Alignment and Position: alignment normal Periorbital: periorbital findings normal Eyelids: eyelids normal Sclera: sclerae normal Pupils: Equal, round and reactive pupils present EOM: EOMs intact bilaterally Neck: Neck: normal visual inspection, full ROM, no lymphadenopathy, trachea midline and supple Chest: Chest palpation & inspection: normal inspection of the chest Resp: Effort & Inspection: normal respiratory effort and able to speak in complete sentences Auscultation: no crackles, no rales, no rhonchi, wheezes scattered wheezes and lung sounds not diminished Cardio: Jugular venous distension: no JVD Palpation: normal PMI Rate: regular rate Rhythm: regular rhythm Heart sounds: S1 normal heart sound present and S2 normal heart sound present Peripheral pulses: Peripheral pulses 2+ throughout GI: Inspection: normal to inspection Auscultation: normal bowel sounds Rectal Exam: deferred Back/Spine/Pelvis: Cervical Spine: cervical ROM normal Skin: General skin exam: normal color Lesions: no lesions Rashes: no rashes Trauma: no lacerations or abrasions Wounds: no wounds Hair: normal Nails: normal Neuro: General: oriented to person, oriented to place, oriented to time and patient oriented x3 Cranial nerves: Yes Equal, round and reactive pupils present and Yes Normal hearing present Cognition (Neuro): normal cognition Speech: normal speech Gait exam (Neuro): Normal gait present Motor exam (neuro): 5/5 motor strength present throughout Sensory Exam: normal sensation Extrem: General: normal to inspection Right upper extremity: normal to inspection and shoulder/upper arm Left upper extremity: normal to inspection and shoulder/upper arm Right lower extremity: normal to inspection Left lower extremity: normal to inspection Psych: Appearance: grossly normal Mental Status: mental status grossly normal Speech and movement: Normal speech and movement present Affect: normal affect Attitude: cooperative Thought process: Normal thought process present Insight: Good insight present (Psych) Judgement: Good judgement present (Psych) Objective Data Vital Signs Vital Signs: Vital Signs - 24 hr 08/10/22 13:21 08/10/22 14:40 08/10/22 16:55 Temperature 96.9 F L Pulse Rate 99 92 Respiratory Rate 17 20 Blood Pressure 121/71 Pulse Oxim
[2022-08-11] MEDS: AMITRIPTYLINE HCL 25 MG TABLET PO (20:34)
[2022-08-11] MEDS: MELOXICAM 7.5 MG TABLET 15 MG PO (20:34)
[2022-08-12] VITALS (16 sets, daily range): BP systolic 129–130; BP diastolic 53–61; PULSE 88–136; RESP 16–23; TEMP 36.4–36.6; O2SAT 87–96
[2022-08-12] MEDS: ACETAMINOPHEN 325 MG TABLET 650 MG PO ×3 (04:35→20:34)
[2022-08-12 05:02] LABS: Base Excess ABG 10.8 mEq/l (+/-2.0); Fractional Inspired Oxygen 32 %; HCO3 ABG 37.6 mEq/l (22.0-26.0); Oxygen Content ABG 18.3 %vol (16.0-22.0); Oxygen Saturation ABG 95.1 % (95.0-100.0); Oxyhemoglobin 94.3 % THb (90.0-100.0); PCO2 ABG 59.2 mmHg (35.0-45.0); PO2 ABG 75.9 mmHg (80.0-100.0); PO2 FiO2 Ratio Arterial Blood 2.37 %; Total Hemoglobin 13.8 g/dL (12.0-18.0); pH ABG 7.421 (7.350-7.450)
[2022-08-12 05:06] LABS: Device OTHER DEVICE; Modified Allen's Test Pass; Site Drawn LEFT RADIAL
[2022-08-12 05:23] LABS: Hematocrit 47.9 % (37.0-47.0); Hemoglobin 13.5 g/dL (12.0-15.0); Mean Corpuscular HGB Conc 28.2 g/dl (32-36); Mean Corpuscular Volume 106.4 fl (80-100); Mean Platelet Volume 8.9 fl (7.4-10.4); Platelet Count Result 237 k/mm3 (150-375); Red Cell Distribution Width 13.2 % (11.5-14.5); White Blood Count 16.5 K/mm3 (4.5-10.0)
[2022-08-12] MEDS: ALBUTEROL SULFATE NEB 2.5 MG/3 ML INH INHALATION ×4 (05:29→19:58)
[2022-08-12] MEDS: IPRATROPIUM BR 0.02% INH SOLN 0.5 MG/2.5 ML VIAL INHALATION ×4 (05:29→19:58)
[2022-08-12 05:34] LABS: Anion Gap 6 mmol/L (8-16); Blood Urea Nitrogen 19 mg/dL (7-17); Calcium 8.8 mg/dL (8.4-10.2); Carbon Dioxide 33 mmol/L (22-30); Chloride 99 mmol/L (98-107); Estimated CRCL calculation 89 ml/min; Estimated Glomerular Filt Rate > 60; Glucose 120 mg/dL (65-110); Magnesium 2.2 mg/dL (1.6-2.3); Sodium 138 mmol/L (137-145)
[2022-08-12] MEDS: ROFLUMILAST 500 MCG TABLET PO (08:37)
[2022-08-12] MEDS: ATORVASTATIN 10 MG TABLET PO (08:37)
[2022-08-12] MEDS: predniSONE 20 MG TABLET 40 MG PO (08:37)
[2022-08-12] MEDS: ASPIRIN 81 MG ENTERIC TABLET PO (08:37)
[2022-08-12] MEDS: ENOXAPARIN 40 MG/0.4 ML SYRINGE SUB-Q (08:38)
--- NOTE | 2022-08-12 10:27 | PM.PNPUL ---
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 Patient is followed in the pulmonary clinic and was last seen on 03/17/2022. PFTs 2017 with at FEV1 of 0.51 L, 20% predicted. DLCO 57% predicted. She is maintained on Brovana neb BID; ipratropium neb q 6h PRN (she uses about 3x per day), and Daliresp 500mcg daily, hypoxemic respiratory failure on 3L at rest, 4L exertion, 3L sleep bleed into her Trilogy (DME is [facility]). She has 72 PY tobacco use quit 2021. CAT score 23/40. she was to continue Brovana, ipratropium nebs, trilogy at night, low-dose CT scan in August 2022 and smoking cessation counseling was provided. Currently the patient has a COPD exacerbation. her chest x-ray is negative and her COVID in influenza swabs are negative. I will change her Solu-Medrol to 40 Q 6, continue albuterol 2.5 mg nebulized Q 4 hours and ipratropium 0.5 mg nebulized q.6 hours. I will continue Daliresp 500 mg q.day. Patient has acute change in her phlegm from clear to green and yellow with a negative chest x-ray and I will treat her with Levaquin 750 mg IV q.day. 08/10 Today she tells me she has 50% back to her baseline. Her sputum is now yellow. She has expiratory wheezes on exam. Her white blood cell count is 14.1, creatinine is 0.5. She is feeling better and I will decrease her Solu-Medrol to 20 mg IV q.6. I will continue albuterol and ipratropium nebulizers q.4 hours and continue levofloxacin, day 2, and continue Daliresp. 08/11 Patient continues to improve. She tells me is she is 65% back to normal. She is walking in her room and that is improved. She were home noninvasive ventilator with 3 L bleed in last night and did well. White blood cell count is 13.3, creatinine 0.6. No wheezes on normal respiration and wheezes with forced expiration. I will change to 40 mg p.o. prednisone. I will continue albuterol and ipratropium nebulizers q.4 hours. Continue Levaquin, day 3 today. 08/12 patient is breathing for back to 75% of her normal. She has been ambulating in the room. She has wheezes on forced expiration. She complains of a sore throat and left neck tenderness to palpation. Her white blood cell count is 16.5, creatinine is 0.6. Will decrease to prednisone 20 mg p.o. on 08/13. continue albuterol and ipratropium nebulizers q.4 hours. I will repeat influenza, RSV and COVID RT PCR study. I will send a rapid strep throat swab, I will send a nasal swab for an extended respiratory pathogen panel. Will change the patient to Augmentin for better coverage for pharyngitis. Discussed with Dr. Almaraz, Will follow with you. (2) Chronic respiratory failure with hypoxia and hypercapnia: Code(s): J96.11 - Chronic respiratory failure with hypoxia; J96.12 - Chronic respiratory failure with hypercapnia Status: Acute Assessment and Plan: Patient has been on home trilogy machine through [facility] with 3 L bleed in. The patient tells me she will have her family members bring in this machine and she can wear this machine with 3 L bleed in tonight. We will obtain a recent download from [facility]. If the patient cannot bring in her home machine we will mimic her settings from her download with a hospital AVAPS mode tonight. 08/10 Patient slept with her home trilogy machine with 3 L bleed in and said she did well. I obtained a download from her [employer] and this demonstrates excellent compliance, adequate pressures and mild leak. I obtained a download from [facility] from 07/09/2022 through 08/07/2022. Patient is on a trilogy with a VATS 80 mode, respiratory rate set at auto, tidal volume 450, EPAP minimum 6, EPAP
--- NOTE | 2022-08-12 11:38 | HOMEO2EVAL ---
Evaluation was performed at [facility] Home Oxygen Evaluation RC: Home Oxygen (O2) Evaluation Start: 08/12/22 08:23 Freq: ONCE Status: Active Protocol: RPE Activity Type Activity Date Activity User E-sign Co-sign Detail Recorded Client Recorded Date Recorded By Document 08/12/22 11:00 KATE [email or web address] 08/12/22 11:32 KATE Document 08/12/22 11:02 KATE [email or web address] 08/12/22 11:38 KATE Document 08/12/22 11:03 KATE [email or web address] 08/12/22 11:38 KATE Document 08/12/22 11:05 KATE [email or web address] 08/12/22 11:38 KATE Document 08/12/22 11:09 KATE [email or web address] 08/12/22 11:38 KATE Document 08/12/22 11:15 KATE [email or web address] 08/12/22 11:38 KATE 08/12/22 08/12/22 08/12/22 11:00 11:02 11:03 Home O2 Evaluation [Oxygen] -Test Phase Resting Resting Resting -Oxygen Delivery Room Air Nasal Cannula Nasal Cannula -Oxygen Flow Rate (L/min) 2 3 [Pulse Oximetry] -Pulse Oximetry (90-100 %) 87 L 88 L 92 [Pulse Rate] -Pulse Rate (60-100 beats/min) 99 [Comments] -Home Oxygen Evaluation Comments 08/12/22 08/12/22 08/12/22 11:05 11:09 11:15 Home O2 Evaluation [Oxygen] -Test Phase Exercise Exercise Resting -Oxygen Delivery Nasal Cannula Nasal Cannula Nasal Cannula -Oxygen Flow Rate (L/min) 3 4 3 [Pulse Oximetry] -Pulse Oximetry (90-100 %) 88 L 89 L 93 [Pulse Rate] -Pulse Rate (60-100 beats/min) 136 H 93 [Comments] -Home Oxygen Evaluation Comments UP TO BATHROOM PT NEEDS 3 L AND BACK TO BED REST AND 4 L . ACTIVITY. NO CHANGES
--- NOTE | 2022-08-12 11:38 | PCRCNOTE ---
HOME O2 EVAL DONE. 3 L REST, 4L ACTIVITY, 3L BLEED IN WITH TRILOGY UNIT. PT HAS [facility]. NO CHANGES TO CURRENT HOME SETTINGS.
[2022-08-12 12:14] LABS: Influenza A QL RT-PCR Negative (Negative); Influenza B QL RT-PCR Negative (Negative); RSV RNA, RT-PCR Negative (Negative); SARS-CoV-2 RNA PCR Negative
[2022-08-12 12:21] LABS: Strep Group A RT-PCR NOT DETECTED (Negative)
--- NOTE | 2022-08-12 12:33 | PM.IMPN ---
Progress Note: A&P Assessment and Plan (1) COPD exacerbation: Code(s): J44.1 - Chronic obstructive pulmonary disease with (acute) exacerbation Status: Acute Assessment and Plan: Continue antibiotics and prednisone. Feeling a little bit better. (2) Anxiety: Code(s): F41.9 - Anxiety disorder, unspecified Status: Chronic Assessment and Plan: Monitor (3) JAYLA on CPAP: Code(s): G47.33 - Obstructive sleep apnea (adult) (pediatric); Z99.89 - Dependence on other enabling machines and devices Status: Acute (4) Hyperlipidemia type II: Code(s): E78.01 - Familial hypercholesterolemia Status: Acute (5) Acute and chronic respiratory failure with hypoxia: Code(s): J96.21 - Acute and chronic respiratory failure with hypoxia Status: Acute Subjective Date/time seen: 08/12/22 12:33 No new complaints today except for sore throat. Exam Const: General: cooperative, healthy appearing, comfortable, no acute distress, well developed, alert, awake, Physically active, ill appearing, average body habitus and well nourished Nutritional Appearance: average body habitus and well nourished Orientation/consciousness: oriented to person, oriented to place, oriented to time and patient oriented x3 Limitations: no limitations HENMT: Head: normal to inspection, No palpable skull fracture present, normocephalic and atraumatic Ears: hearing grossly normal bilaterally and external ears normal Face/Nose/Sinus: Normal external nose present and Normal nares present Eyes: General: appearance normal, both eyes and all related structures Alignment and Position: alignment normal Periorbital: periorbital findings normal Eyelids: eyelids normal Sclera: sclerae normal Pupils: Equal, round and reactive pupils present EOM: EOMs intact bilaterally Neck: Neck: normal visual inspection, full ROM, no lymphadenopathy, trachea midline and supple Chest: Chest palpation & inspection: normal inspection of the chest Resp: Effort & Inspection: normal respiratory effort and able to speak in complete sentences Auscultation: no crackles, no rales, no rhonchi, wheezes scattered wheezes and lung sounds not diminished Cardio: Jugular venous distension: no JVD Palpation: normal PMI Rate: regular rate Rhythm: regular rhythm Heart sounds: S1 normal heart sound present and S2 normal heart sound present Peripheral pulses: Peripheral pulses 2+ throughout GI: Inspection: normal to inspection Auscultation: normal bowel sounds Rectal Exam: deferred Back/Spine/Pelvis: Cervical Spine: cervical ROM normal Skin: General skin exam: normal color Lesions: no lesions Rashes: no rashes Trauma: no lacerations or abrasions Wounds: no wounds Hair: normal Nails: normal Neuro: General: oriented to person, oriented to place, oriented to time and patient oriented x3 Cranial nerves: Yes Equal, round and reactive pupils present and Yes Normal hearing present Cognition (Neuro): normal cognition Speech: normal speech Gait exam (Neuro): Normal gait present Motor exam (neuro): 5/5 motor strength present throughout Sensory Exam: normal sensation Extrem: General: normal to inspection Right upper extremity: normal to inspection and shoulder/upper arm Left upper extremity: normal to inspection and shoulder/upper arm Right lower extremity: normal to inspection Left lower extremity: normal to inspection Psych: Appearance: grossly normal Mental Status: mental status grossly normal Speech and movement: Normal speech and movement present Affect: normal affect Attitude: cooperative Thought process: Normal thought process present Insight: Good insight present (Psych) Judgement: Good judgement present (Psych) Objective Data Vital Signs Vital Signs: Vital Signs - 24 hr 08/11/22 14:00 08/11/22 14:50 08/11/22 15:05 Temperature 97.6 F Pulse Rate 96 81 82 Respiratory Rate 16 20 20 Blood Pressure 127/65 Pulse Oximetr
[2022-08-12] MEDS: AMOXICILLIN/CLAVULANATE K 875-125 MG TAB 1 TABLET PO ×2 (15:36→20:33)
[2022-08-12] MEDS: MELOXICAM 7.5 MG TABLET 15 MG PO (20:33)
[2022-08-12] MEDS: AMITRIPTYLINE HCL 25 MG TABLET PO (20:33)
[2022-08-13] VITALS (22 sets, daily range): BP systolic 116–136; BP diastolic 54–58; PULSE 74–98; RESP 18–24; TEMP 36.4–37; O2SAT 90–97
[2022-08-13] MEDS: ALBUTEROL SULFATE NEB 2.5 MG/3 ML INH INHALATION ×7 (00:46→23:00)
[2022-08-13] MEDS: IPRATROPIUM BR 0.02% INH SOLN 0.5 MG/2.5 ML VIAL INHALATION ×7 (00:46→23:00)
[2022-08-13 05:50] LABS: Hemoglobin 12.9 g/dL (12.0-15.0); Mean Corpuscular HGB Conc 30.7 g/dl (32-36); Mean Corpuscular Volume 97.7 fl (80-100); Mean Platelet Volume 8.6 fl (7.4-10.4); Platelet Count Result 254 k/mm3 (150-375); Red Cell Distribution Width 13.3 % (11.5-14.5); White Blood Count 16.2 K/mm3 (4.5-10.0)
[2022-08-13 06:03] LABS: Anion Gap 0 mmol/L (8-16); Blood Urea Nitrogen 14 mg/dL (7-17); Calcium 8.1 mg/dL (8.4-10.2); Carbon Dioxide 39 mmol/L (22-30); Chloride 98 mmol/L (98-107); Estimated CRCL calculation 105 ml/min; Estimated Glomerular Filt Rate > 60; Glucose 91 mg/dL (65-110); Magnesium 2.2 mg/dL (1.6-2.3); Potassium 3.8 mmol/L (3.4-5.0); Sodium 137 mmol/L (137-145)
[2022-08-13] MEDS: ATORVASTATIN 10 MG TABLET PO (07:59)
[2022-08-13] MEDS: ASPIRIN 81 MG ENTERIC TABLET PO (07:59)
[2022-08-13] MEDS: AMOXICILLIN/CLAVULANATE K 875-125 MG TAB 1 TABLET PO ×2 (07:59→20:40)
[2022-08-13] MEDS: ROFLUMILAST 500 MCG TABLET PO (07:59)
[2022-08-13] MEDS: predniSONE 20 MG TABLET PO (07:59)
[2022-08-13] MEDS: ENOXAPARIN 40 MG/0.4 ML SYRINGE SUB-Q (07:59)
[2022-08-13] MEDS: ACETAMINOPHEN 325 MG TABLET 650 MG PO ×2 (08:02→20:40)
--- NOTE | 2022-08-13 11:38 | PM.PNPUL ---
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 Patient is followed in the pulmonary clinic and was last seen on 03/17/2022. PFTs 2017 with at FEV1 of 0.51 L, 20% predicted. DLCO 57% predicted. She is maintained on Brovana neb BID; ipratropium neb q 6h PRN (she uses about 3x per day), and Daliresp 500mcg daily, hypoxemic respiratory failure on 3L at rest, 4L exertion, 3L sleep bleed into her Trilogy (DME is [facility]). She has 72 PY tobacco use quit 2021. CAT score 23/40. she was to continue Brovana, ipratropium nebs, trilogy at night, low-dose CT scan in August 2022 and smoking cessation counseling was provided. Currently the patient has a COPD exacerbation. her chest x-ray is negative and her COVID in influenza swabs are negative. I will change her Solu-Medrol to 40 Q 6, continue albuterol 2.5 mg nebulized Q 4 hours and ipratropium 0.5 mg nebulized q.6 hours. I will continue Daliresp 500 mg q.day. Patient has acute change in her phlegm from clear to green and yellow with a negative chest x-ray and I will treat her with Levaquin 750 mg IV q.day. 08/10 Today she tells me she has 50% back to her baseline. Her sputum is now yellow. She has expiratory wheezes on exam. Her white blood cell count is 14.1, creatinine is 0.5. She is feeling better and I will decrease her Solu-Medrol to 20 mg IV q.6. I will continue albuterol and ipratropium nebulizers q.4 hours and continue levofloxacin, day 2, and continue Daliresp. 08/11 Patient continues to improve. She tells me is she is 65% back to normal. She is walking in her room and that is improved. She were home noninvasive ventilator with 3 L bleed in last night and did well. White blood cell count is 13.3, creatinine 0.6. No wheezes on normal respiration and wheezes with forced expiration. I will change to 40 mg p.o. prednisone. I will continue albuterol and ipratropium nebulizers q.4 hours. Continue Levaquin, day 3 today. 08/12 patient is breathing for back to 75% of her normal. She has been ambulating in the room. She has wheezes on forced expiration. She complains of a sore throat and left neck tenderness to palpation. Her white blood cell count is 16.5, creatinine is 0.6. Will decrease to prednisone 20 mg p.o. on 08/13. continue albuterol and ipratropium nebulizers q.4 hours. I will repeat influenza, RSV and COVID RT PCR study. I will send a rapid strep throat swab, I will send a nasal swab for an extended respiratory pathogen panel. Will change the patient to Augmentin for better coverage for pharyngitis. 08/13 Patient says she slept well with her home machine on 3 L bleed in. Currently she is on 3 L at rest and her saturations are 96%. Patient states she is 80% back to her normal. She still has a sore throat and states that is about the same or mildly improved. White blood cell count is 16.2. She was started on Augmentin yesterday, Strep swab, COVID, influenza and RSV were negative. Continue prednisone 20 today, albuterol and ipratropium nebulizers q.4 hours. Patient is status post Levaquin from 08/09 through 08/11/2022 and is now on Augmentin since 08/12. Possible discharge on 08/14/2022. Discussed with Dr. Almaraz, Will follow with you. (2) Chronic respiratory failure with hypoxia and hypercapnia: Code(s): J96.11 - Chronic respiratory failure with hypoxia; J96.12 - Chronic respiratory failure with hypercapnia Status: Acute Assessment and Plan: Patient has been on home trilogy machine through [facility] with 3 L bleed in. The patient tells me she will have her family members bring in this machine and she can wear this machine with 3 L bleed in
--- NOTE | 2022-08-13 14:25 | PM.IMPN ---
Progress Note: A&P Assessment and Plan (1) COPD exacerbation: Code(s): J44.1 - Chronic obstructive pulmonary disease with (acute) exacerbation Status: Acute Assessment and Plan: Continue antibiotics and prednisone. Feeling a little bit better. (2) Anxiety: Code(s): F41.9 - Anxiety disorder, unspecified Status: Chronic Assessment and Plan: Monitor (3) JAYLA on CPAP: Code(s): G47.33 - Obstructive sleep apnea (adult) (pediatric); Z99.89 - Dependence on other enabling machines and devices Status: Acute (4) Hyperlipidemia type II: Code(s): E78.01 - Familial hypercholesterolemia Status: Acute (5) Acute and chronic respiratory failure with hypoxia: Code(s): J96.21 - Acute and chronic respiratory failure with hypoxia Status: Acute Subjective Date/time seen: 08/13/22 14:25 No new complaints Exam Const: General: cooperative, healthy appearing, comfortable, no acute distress, well developed, alert, awake, Physically active, ill appearing, average body habitus and well nourished Nutritional Appearance: average body habitus and well nourished Orientation/consciousness: oriented to person, oriented to place, oriented to time and patient oriented x3 Limitations: no limitations HENMT: Head: normal to inspection, No palpable skull fracture present, normocephalic and atraumatic Ears: hearing grossly normal bilaterally and external ears normal Face/Nose/Sinus: Normal external nose present and Normal nares present Eyes: General: appearance normal, both eyes and all related structures Alignment and Position: alignment normal Periorbital: periorbital findings normal Eyelids: eyelids normal Sclera: sclerae normal Pupils: Equal, round and reactive pupils present EOM: EOMs intact bilaterally Neck: Neck: normal visual inspection, full ROM, no lymphadenopathy, trachea midline and supple Chest: Chest palpation & inspection: normal inspection of the chest Resp: Effort & Inspection: normal respiratory effort and able to speak in complete sentences Auscultation: no crackles, no rales, no rhonchi, wheezes scattered wheezes and lung sounds not diminished Cardio: Jugular venous distension: no JVD Palpation: normal PMI Rate: regular rate Rhythm: regular rhythm Heart sounds: S1 normal heart sound present and S2 normal heart sound present Peripheral pulses: Peripheral pulses 2+ throughout GI: Inspection: normal to inspection Auscultation: normal bowel sounds Rectal Exam: deferred Back/Spine/Pelvis: Cervical Spine: cervical ROM normal Skin: General skin exam: normal color Lesions: no lesions Rashes: no rashes Trauma: no lacerations or abrasions Wounds: no wounds Hair: normal Nails: normal Neuro: General: oriented to person, oriented to place, oriented to time and patient oriented x3 Cranial nerves: Yes Equal, round and reactive pupils present and Yes Normal hearing present Cognition (Neuro): normal cognition Speech: normal speech Gait exam (Neuro): Normal gait present Motor exam (neuro): 5/5 motor strength present throughout Sensory Exam: normal sensation Extrem: General: normal to inspection Right upper extremity: normal to inspection and shoulder/upper arm Left upper extremity: normal to inspection and shoulder/upper arm Right lower extremity: normal to inspection Left lower extremity: normal to inspection Psych: Appearance: grossly normal Mental Status: mental status grossly normal Speech and movement: Normal speech and movement present Affect: normal affect Attitude: cooperative Thought process: Normal thought process present Insight: Good insight present (Psych) Judgement: Good judgement present (Psych) Objective Data Vital Signs Vital Signs: Vital Signs - 24 hr 08/12/22 19:59 08/12/22 19:59 08/12/22 20:11 Temperature Pulse Rate 90 122 H Respiratory Rate 20 20 Blood Pressure Pulse Oximetry 90 Oxygen Delivery Nasal Cannula Ox
[2022-08-13] MEDS: AMITRIPTYLINE HCL 25 MG TABLET PO (20:39)
[2022-08-13] MEDS: MELOXICAM 7.5 MG TABLET 15 MG PO (20:40)
[2022-08-14] VITALS (7 sets, daily range): BP systolic 112; BP diastolic 48; PULSE 74–92; RESP 18–20; TEMP 36.6; O2SAT 96–97
[2022-08-14] MEDS: ALBUTEROL SULFATE NEB 2.5 MG/3 ML INH INHALATION ×3 (04:03→12:05)
[2022-08-14] MEDS: IPRATROPIUM BR 0.02% INH SOLN 0.5 MG/2.5 ML VIAL INHALATION ×3 (04:03→12:05)
[2022-08-14 05:56] LABS: Hematocrit 38.9 % (37.0-47.0); Hemoglobin 11.7 g/dL (12.0-15.0); Mean Corpuscular HGB Conc 30.1 g/dl (32-36); Mean Corpuscular Hemoglobin 29.9 pg (26-34); Mean Corpuscular Volume 99.5 fl (80-100); Mean Platelet Volume 8.6 fl (7.4-10.4); Platelet Count Result 248 k/mm3 (150-375); Red Blood Count 3.91 M/mm3 (4.2-5.4); Red Cell Distribution Width 13.3 % (11.5-14.5); White Blood Count 15.9 K/mm3 (4.5-10.0)
[2022-08-14 06:05] LABS: Anion Gap 1 mmol/L (8-16); Blood Urea Nitrogen 13 mg/dL (7-17); Calcium 8.1 mg/dL (8.4-10.2); Carbon Dioxide 37 mmol/L (22-30); Chloride 99 mmol/L (98-107); Estimated CRCL calculation 105 ml/min; Estimated Glomerular Filt Rate > 60; Glucose 100 mg/dL (65-110); Magnesium 2.3 mg/dL (1.6-2.3); Sodium 137 mmol/L (137-145)
[2022-08-14] MEDS: ENOXAPARIN 40 MG/0.4 ML SYRINGE SUB-Q (08:24)
[2022-08-14] MEDS: AMOXICILLIN/CLAVULANATE K 875-125 MG TAB 1 TABLET PO (08:25)
[2022-08-14] MEDS: predniSONE 20 MG TABLET PO (08:25)
[2022-08-14] MEDS: ASPIRIN 81 MG ENTERIC TABLET PO (08:25)
[2022-08-14] MEDS: ATORVASTATIN 10 MG TABLET PO (08:25)
[2022-08-14] MEDS: ROFLUMILAST 500 MCG TABLET PO (08:25)
--- NOTE | 2022-08-14 10:04 | PM.PNPUL ---
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 Patient is followed in the pulmonary clinic and was last seen on 03/17/2022. PFTs 2017 with at FEV1 of 0.51 L, 20% predicted. DLCO 57% predicted. She is maintained on Brovana neb BID; ipratropium neb q 6h PRN (she uses about 3x per day), and Daliresp 500mcg daily, hypoxemic respiratory failure on 3L at rest, 4L exertion, 3L sleep bleed into her Trilogy (DME is [facility] respiratory [facility]). She has 72 PY tobacco use quit 2021. CAT score 23/40. she was to continue Brovana, ipratropium nebs, trilogy at night, low-dose CT scan in August 2022 and smoking cessation counseling was provided. Currently the patient has a COPD exacerbation. her chest x-ray is negative and her COVID in influenza swabs are negative. I will change her Solu-Medrol to 40 Q 6, continue albuterol 2.5 mg nebulized Q 4 hours and ipratropium 0.5 mg nebulized q.6 hours. I will continue Daliresp 500 mg q.day. Patient has acute change in her phlegm from clear to green and yellow with a negative chest x-ray and I will treat her with Levaquin 750 mg IV q.day. 08/10 Today she tells me she has 50% back to her baseline. Her sputum is now yellow. She has expiratory wheezes on exam. Her white blood cell count is 14.1, creatinine is 0.5. She is feeling better and I will decrease her Solu-Medrol to 20 mg IV q.6. I will continue albuterol and ipratropium nebulizers q.4 hours and continue levofloxacin, day 2, and continue Daliresp. 08/11 Patient continues to improve. She tells me is she is 65% back to normal. She is walking in her room and that is improved. She were home noninvasive ventilator with 3 L bleed in last night and did well. White blood cell count is 13.3, creatinine 0.6. No wheezes on normal respiration and wheezes with forced expiration. I will change to 40 mg p.o. prednisone. I will continue albuterol and ipratropium nebulizers q.4 hours. Continue Levaquin, day 3 today. 08/12 patient is breathing for back to 75% of her normal. She has been ambulating in the room. She has wheezes on forced expiration. She complains of a sore throat and left neck tenderness to palpation. Her white blood cell count is 16.5, creatinine is 0.6. Will decrease to prednisone 20 mg p.o. on 08/13. continue albuterol and ipratropium nebulizers q.4 hours. I will repeat influenza, RSV and COVID RT PCR study. I will send a rapid strep throat swab, I will send a nasal swab for an extended respiratory pathogen panel. Will change the patient to Augmentin for better coverage for pharyngitis. 08/13 Patient says she slept well with her home machine on 3 L bleed in. Currently she is on 3 L at rest and her saturations are 96%. Patient states she is 80% back to her normal. She still has a sore throat and states that is about the same or mildly improved. White blood cell count is 16.2. She was started on Augmentin yesterday, Strep swab, COVID, influenza and RSV were negative. Continue prednisone 20 today, albuterol and ipratropium nebulizers q.4 hours. Patient is status post Levaquin from 08/09 through 08/11/2022 and is now on Augmentin since 08/12. Possible discharge on 08/14/2022. 08/14 Patient states she continues to improve peer early she is doing well with her home machine and 3 L bleed in at night. She is getting stronger and walking in the room. Saturations on 3 L nasal cannula 96%. White blood cell count 15.9, creatinine 0.5. Her sore throat continues her left anterior submandibular area is less tender today. From a pulmonary perspective patient is ready to be discharged on these Pulmonary medications: Augmentin 875-125 at 1 pill b.i.d. for 7 days
--- NOTE | 2022-08-14 14:14 | PM.DS ---
DS: Admitting Diagnosis Discharge Date August 14, 2022 Admitting Diagnosis COPD exacerbation and pneumonia DS: Discharge Diagnosis Discharge Diagnosis (1) COPD exacerbation: Code(s): J44.1 - Chronic obstructive pulmonary disease with (acute) exacerbation Status: Acute Assessment and Plan: Continue antibiotics and prednisone. Feeling a little bit better. (2) Anxiety: Code(s): F41.9 - Anxiety disorder, unspecified Status: Chronic Assessment and Plan: Monitor (3) JAYLA on CPAP: Code(s): G47.33 - Obstructive sleep apnea (adult) (pediatric); Z99.89 - Dependence on other enabling machines and devices Status: Acute (4) Hyperlipidemia type II: Code(s): E78.01 - Familial hypercholesterolemia Status: Acute (5) Acute and chronic respiratory failure with hypoxia: Code(s): J96.21 - Acute and chronic respiratory failure with hypoxia Status: Acute DS: Summary Hospital Course Hospital Course: Patient is a 67-year-old female past history of smoking comes in with shortness of breath found to have pneumonia and COPD exacerbation. She also developed some sore throat and was treated for pharyngitis as well. Respiratory titers and COVID and RSV were all negative. She will be sent home on antibiotics and prednisone. Follow up pulmonology Time Spent with Patient Time attestation: Total time spent providing and/or coordinating discharge services: Exam Const: General: cooperative, healthy appearing, comfortable, no acute distress, well developed, alert, awake, Physically active, ill appearing, average body habitus and well nourished Nutritional Appearance: average body habitus and well nourished Orientation/consciousness: oriented to person, oriented to place, oriented to time and patient oriented x3 Limitations: no limitations HENMT: Head: normal to inspection, No palpable skull fracture present, normocephalic and atraumatic Ears: hearing grossly normal bilaterally and external ears normal Face/Nose/Sinus: Normal external nose present and Normal nares present Eyes: General: appearance normal, both eyes and all related structures Alignment and Position: alignment normal Periorbital: periorbital findings normal Eyelids: eyelids normal Sclera: sclerae normal Pupils: Equal, round and reactive pupils present EOM: EOMs intact bilaterally Neck: Neck: normal visual inspection, full ROM, no lymphadenopathy, trachea midline and supple Chest: Chest palpation & inspection: normal inspection of the chest Resp: Effort & Inspection: normal respiratory effort and able to speak in complete sentences Auscultation: no crackles, no rales, no rhonchi, wheezes scattered wheezes and lung sounds not diminished Cardio: Jugular venous distension: no JVD Palpation: normal PMI Rate: regular rate Rhythm: regular rhythm Heart sounds: S1 normal heart sound present and S2 normal heart sound present Peripheral pulses: Peripheral pulses 2+ throughout GI: Inspection: normal to inspection Auscultation: normal bowel sounds Rectal Exam: deferred Back/Spine/Pelvis: Cervical Spine: cervical ROM normal Skin: General skin exam: normal color Lesions: no lesions Rashes: no rashes Trauma: no lacerations or abrasions Wounds: no wounds Hair: normal Nails: normal Neuro: General: oriented to person, oriented to place, oriented to time and patient oriented x3 Cranial nerves: Yes Equal, round and reactive pupils present and Yes Normal hearing present Cognition (Neuro): normal cognition Speech: normal speech Gait exam (Neuro): Normal gait present Motor exam (neuro): 5/5 motor strength present throughout Sensory Exam: normal sensation Extrem: General: normal to inspection Right upper extremity: normal to inspection and shoulder/upper arm Left upper extremity: normal to inspection and shoulder/upper arm Right lower extremity: normal to inspection Left lower extremity: normal to inspection Psych
== END 2022-08-14 14:25 | disposition home or self-care (01) | DRG 190 ==
LOC: ANHED 13:05 → ANH3MEDSUR 15:26 → ANH3MED 17:15
PROVIDERS: Internal Medicine Pulmonary Disease; Physician Assistant; Admitting Provider Family Medicine; Emergency Provider Emergency Medicine; Visit Provider Chiropractor
DX: J44.1 Chronic obstructive pulmonary disease with (acute) exacerbation (principal); J18.9 Pneumonia, unspecified organism; J96.21 Acute and chronic respiratory failure with hypoxia; J96.22 Acute and chronic respiratory failure with hypercapnia; J44.0 Chronic obstructive pulmonary disease with (acute) lower respiratory infection; J02.9 Acute pharyngitis, unspecified; Z20.822 Contact with and (suspected) exposure to COVID-19; F41.9 Anxiety disorder, unspecified; M19.90 Unspecified osteoarthritis, unspecified site; E78.5 Hyperlipidemia, unspecified; G47.33 Obstructive sleep apnea (adult) (pediatric); Z99.81 Dependence on supplemental oxygen; Z86.73 Personal history of transient ischemic attack (TIA), and cerebral infarction without residual deficits; Z90.710 Acquired absence of both cervix and uterus; Z87.891 Personal history of nicotine dependence
CPT/HCPCS: 36415; 36600; 71045; 80048; 80053; 82805; 83735; 84484; 85025; 85027; 85610; 85730; 87486; 87581; 87633; 87636; 87637; 87651; 93005; 94640; 94762; 96365; 96372; 96374; 96375; 96376; 99291; A9270; G0378; J1650; J1956; J2920; J2930; J7512; U0003

== ENCOUNTER 2022-09-16 09:09 | Outpatient (CLI) | payer MEDICARE, MEDICAID, SELFPAY ==
--- NOTE | ~2022-09-16 | CT_ITS ---
EXAMINATION: CT lung screening DATE: 09/16/2022 09:43 INDICATION: Personal history nicotine dependence, current smoker with 30 pack year history TECHNIQUE: Computed tomography (CT) of the chest was performed without intravenous contrast. The dose -length product (DLP) was 101.24 mGy-cm. Automated exposure control and iterative reconstruction tech [employer] were employed. COMPARISON: 09/15/2021 FINDINGS: There is moderate emphysema. There is mild bronchiectasis of the lower lobes. Again noted a re widespread centrilobular and groundglass nodules with a lower lung zone predominance. No pleural e ffusion or pneumothorax. No pathologically enlarged thoracic lymph nodes are identified. The heart si ze is normal. Calcified coronary artery atherosclerosis is noted. There is mild thoracic spondylosis. IMPRESSION: 1. Lung-RADS category 2: Benign appearance or behavior. Continue annual screening with noncontrast lo w-dose chest CT in 12 months. Reviewed, dictated and finalized at location B. RNAL REVIEW AND AUDIT COMPLIANCE IMPRESSION: 1. Lung-RADS category 2: Benign appearance or behavior. Continue annual screeni ng with noncontrast low-dose chest CT in 12 months.
== END 2022-09-16 09:10 | disposition home or self-care (01) ==
PROVIDERS: Visit Provider Physician Assistant
DX: Z12.2 Encounter for screening for malignant neoplasm of respiratory organs (principal); F17.210 Nicotine dependence, cigarettes, uncomplicated
CPT/HCPCS: 71271

== ENCOUNTER 2023-10-20 16:02 | Outpatient (CLI) | payer MEDICARE, MEDICAID, SELFPAY ==
--- NOTE | ~2023-10-20 | CT_ITS ---
EXAMINATION: CT lung screening DATE: 10/20/2023 16:35 INDICATION: Personal history of nicotine dependence TECHNIQUE: Computed tomography (CT) of the chest was performed without intravenous contrast. The dose -length product was 127.74 mGy-cm. Automated exposure control and iterative reconstruction technique were employed. COMPARISON: CT dated 09/16/2022 FINDINGS: No thoracic lymphadenopathy. There is atherosclerosis. Heart size normal. No significant pl eural or pericardial effusion.0 the upper abdomen is unremarkable. No significant soft tissue abnorma lity. Mild thoracic spondylosis with accentuated kyphosis. Severe emphysema. There are areas of centr ilobular nodularity and groundglass opacification which have progressed to since prior examination. F or example nodules in the right midlung have increased in size compared with prior study, image 59. T hese nodules are subsolid, largest measuring approximately 6 mm. There is an irregular stellate shape d nodule in the right apex measuring 10 x 5 mm without significant change from prior study allowing f or differences of technique. There is bronchiectasis. No endobronchial lesions. There is apical pleur al thickening/scarring. IMPRESSION: 1. Lung-RADS category 3: Probably benign. Further evaluation is recommended with noncontrast low-dose chest CT in 6 months. Reviewed, dictated and finalized at location A. IMPRESSION: 1. Lung-RADS category 3: Probably benign. Further evaluation is recommended wit h noncontrast low-dose chest CT in 6 months.
== END 2023-10-20 16:03 | disposition home or self-care (01) ==
LOC: ANHIMG 16:07
PROVIDERS: Visit Provider Nurse Practitioner Family
DX: Z12.2 Encounter for screening for malignant neoplasm of respiratory organs (principal); Z87.891 Personal history of nicotine dependence
CPT/HCPCS: 71271

== ENCOUNTER 2024-03-28 10:48 | Emergency (ER) | payer MEDICARE, MEDICAID, SELFPAY ==
[2024-03-28] VITALS (7 sets, daily range): BP systolic 94–110; BP diastolic 41–68; PULSE 70–99; RESP 18–24; TEMP 36.7–37.3; O2SAT 94–100
--- NOTE | ~2024-03-28 | XR_ITS ---
XR chest 1V portable 03/28/2024 13:09 Indication: Shortness of breath with exertion Procedure: AP portable chest Comparison: 08/08/2022 Findings: Mild interstitial edema. Cardiomegaly. No pleural effusion or pneumothorax. Chronic right a pical pleural thickening/scarring. No acute osseous abnormality. Impression: 1: Mild interstitial edema. Reviewed, dictated and finalized at location B. Impression: 1: Mild interstitial edema.
--- NOTE | 2024-03-28 11:11 | ECG_ITS ---
Test Date: 2024-03-28 11:45:19 Measurements Intervals [place] Rate: 72 P: 66 CA: 156 QRS: -17 QRSD: 101 T: 66 QT: 373 QTc: 409 Interpretive Statements SINUS RHYTHM LEFTWARD AXIS SEPTAL MYOCARDIAL INFARCTION , OF INDETERMINATE AGE [40+ ms Q WAVE IN V1/V2] ABNORMAL ECG No previous ECG available for comparison Electronically Signed On 03-28-2024 13:28:23 CDT by Ruslan Villegas M.D.
[2024-03-28 11:47] LABS: Alanine Aminotransferase 16 U/L (6-35); Albumin Level 4.4 g/dL (3.5-5.1); Alkaline Phosphatase 72 U/L (38-126); Anion Gap 8 mmol/L (4-12); Aspartate Amino Transferase 32 U/L (14-36); Bilirubin,Total 0.5 mg/dL (0.2-1.3); Blood Urea Nitrogen 12 mg/dL (7-17); Calcium 8.9 mg/dL (8.4-10.2); Carbon Dioxide 33 mmol/L (22-30); Chloride 97 mmol/L (98-107); Estimated CRCL calculation 89 ml/min; Estimated Glomerular Filt Rate > 60; Glucose 89 mg/dL (65-110); Potassium 4.1 mmol/L (3.4-5.0); Sodium 138 mmol/L (137-145)
[2024-03-28 12:01] LABS: NT Pro B Type Natriuretic Pept 47 pg/mL (19.9-100)
[2024-03-28] MEDS: ALBUTEROL SULFATE NEB 2.5 MG/3 ML INH INHALATION (12:05)
--- NOTE | 2024-03-28 12:17 | ED.GENADULT ---
HPI - General Adult General Chief complaint: Shortness of Breath/Dyspnea Stated complaint: I need to see a doctor because im sick Time Seen by Provider: 03/28/24 11:11 History of Present Illness HPI narrative: 68-year-old female history of COPD on 3 L of oxygen by nasal cannula presents to the emergency department for evaluation of worsening cough and shortness of breath over the last few days. patient denies any chest pain does report worsening shortness of breath. Related Data Home Medications Medication Instructions Recorded Confirmed albuterol sulfate 90 mcg/actuation 1 puff inhalation Q4H PRN 08/29/19 10/25/23 aerosol inhaler (Ventolin HFA) Shortness Of Breath aspirin 81 mg tablet,delayed 81 mg PO DAILY 09/02/19 10/25/23 release (Adult Aspirin Regimen) atorvastatin 10 mg tablet 10 mg PO DAILY 07/18/20 10/25/23 Allergies Allergy/AdvReac Type Severity Reaction Status Date / Time No Known Allergies Allergy Verified 03/28/24 10:49 Review of Systems Review of Systems: All systems reviewed & are unremarkable except as noted in HPI and below PMFSH Past Medical History Medical History Anxiety Chronic obstructive pulmonary disease Chronic respiratory failure with hypoxia and hypercapnia Degenerative disc disease Hyperlipidemia type II On home oxygen therapy JAYLA on CPAP Osteoarthritis Stroke Surgical History Surgical History History of bilateral tubal ligation History of section (1984) History of hysterectomy (1988) Family History Family History Mother Diabetes mellitus Hypertension Sibling Hypertension Asthma Diabetes mellitus Son Drug overdose Father Alcoholism Motor vehicle accident Ran over and then Social History Social History Social History: The patient lives with her ex- and they maintain a friendly relationship. They had 3 sons together, 1 who unfortunately from a drug overdose. She smoked about a pack of cigarettes a day for at least 30 years before quitting. She denies alcohol and illicit substance abuse. She designates her son Alex Barrett as her surrogate decision maker.gas statio accenda full code. Smoking packs per day: 1 Smoking cigarettes per day: 20.0 Smoking status: Current every day smoker Tobacco type: cigarettes Additional smoking assessment comments: Now smoking 3 cigs/day. Alcohol intake: never Substance use: never Substance use type: does not use Lack of Transportation: No Lack of Food: Never True Current Housing: I Have Housing Concerned About Future Housing: No Difficulty Paying Gas/Electric Bills: No Difficulty Paying for Meds: No Currently Unemployed: No Education: Grade School Difficulty w/ Childcare or Family Care: No Living arrangements: alone Spiritual care concerns: No Agree to blood products: Yes Exam Narrative: APPEARANCE: Uncomfortable appearing on presentation HEAD: normocephalic, atraumatic. EYES: PERRLA/EOMI, conjunctivae clear. NOSE: Normal no drainage EARS:TMS clear with good light reflex. THROAT: Pharynx clear, no exudate. NECK: Supple. No adenopathy, no masses. RESPIRATORY: wheeze with decreased breath sounds bilaterally CARDIOVASCULAR: Regular rate and rhythm without murmurs rubs or gallops. ABDOMINAL: Soft, nontender, nondistended, normal bowel sounds MUSCULOSKELETAL: Moves all extremities. Strength/ROM intact, No edema, No calf tenderness. NEURO: Alert. Cranial nerves II through XII intact. Good gait. Good coordination SKIN: Warm, dry. Normal Color Course Course Emergency Course: patient did test positive for COVID but patient declined admission and preferred to be discharged home. Vital Signs Vital signs:
[2024-03-28 12:31] LABS: Basophils Percent Auto 0.4 % (0.2-1.2); Hematocrit 40.3 % (37.0-47.0); Hemoglobin 12.4 g/dL (12.0-15.0); Immature Granulocyte Absolute 0.01 K/mm3 (0.00-0.031); Immature Granulocyte Percent A 0.2 % (0-0.5); Immature Platelet Fraction Pct 2.6 % (0.9-11.2); Lymphocytes Absolute Auto 1.38 K/mm3 (0.9-3.2); Lymphocytes Percent Auto 25.1 % (18.3-44.2); Mean Corpuscular HGB Conc 30.8 g/dl (32-36); Mean Corpuscular Volume 100.8 fl (80-100); Mean Platelet Volume 9.4 fl (7.4-10.4); Monocytes Absolute Auto 0.4 K/mm3 (0.1-0.6); Monocytes Percent Auto 7.6 % (2.6-8.5); Neutrophils Absolute Auto 3.7 K/mm3 (1.3-6.7); Neutrophils Percent Auto 66.7 % (45.5-73.1); Platelet Count Result 146 k/mm3 (150-375); White Blood Count 5.5 K/mm3 (4.5-10.0)
[2024-03-28 12:35] LABS: Influenza A QL RT-PCR Negative (Negative); Influenza B QL RT-PCR Negative (Negative); RSV RNA, RT-PCR Negative (Negative); SARS-CoV-2 RNA PCR Positive (Negative)
[2024-03-28] MEDS: ALBUTEROL SULFATE NEB 2.5 MG/3 ML INH 10 MG INHALATION (12:35)
[2024-03-28] MEDS: IPRATROPIUM BR 0.02% INH SOLN 0.5 MG/2.5 ML VIAL 1 MG INHALATION (12:36)
== END 2024-03-28 14:32 | disposition home or self-care (01) ==
PROVIDERS: Emergency Provider Emergency Medicine
DX: U07.1 COVID-19 (principal); J44.9 Chronic obstructive pulmonary disease, unspecified; J96.12 Chronic respiratory failure with hypercapnia; J96.11 Chronic respiratory failure with hypoxia; Z99.81 Dependence on supplemental oxygen; E78.49 Other hyperlipidemia; G47.33 Obstructive sleep apnea (adult) (pediatric); M19.90 Unspecified osteoarthritis, unspecified site; F17.210 Nicotine dependence, cigarettes, uncomplicated; Z86.73 Personal history of transient ischemic attack (TIA), and cerebral infarction without residual deficits; Z90.710 Acquired absence of both cervix and uterus
CPT/HCPCS: 36415; 71045; 80053; 83880; 85025; 85055; 87637; 93005; 94640; 99284

== ENCOUNTER 2024-04-19 12:34 | Outpatient (CLI) | payer MEDICARE, MEDICAID, SELFPAY ==
--- NOTE | ~2024-04-19 | CT_ITS ---
EXAMINATION:CT diagnostic chest wo con DATE: 04/19/2024 13:14 INDICATION: Other nonspecific abnormal finding of lung field. TECHNIQUE: Computed tomography (CT) of the chest was performed without intravenous contrast. Automate d exposure control and iterative reconstruction technique were employed. The dose-length product (DLP ) was 81.44 mGy-cm. COMPARISON: Chest CT 10/20/2023, 09/16/2022 FINDINGS: There is moderate emphysema. There is bronchiectasis in all lobes. There are scattered cent rilobular nodules and tree-in-bud opacities in all lobes. There is scarring at the lung apices. There are new airspace opacities in the basilar right lower lobe. No pleural effusion. The heart size is n ormal. No pericardial effusion. There is a 3 mm stone in left kidney. There is osteonecrosis in right humeral head. There is mild thoracic spondylosis. IMPRESSION: 1. Lung-RADS category 2S: Benign appearance or behavior. Continue annual screening with noncontrast l ow-dose chest CT in 12 months. 2. Chronic pneumonia in all lobes, worsened in right lower lobe. Reviewed, dictated and finalized at location A. IMPRESSION: 1. Lung-RADS category 2S: Benign appearance or behavior. Continue annual screen ing with noncontrast low-dose chest CT in 12 months. 2. Chronic pneumonia in all lobes, worsened in right lower lobe.
== END 2024-04-19 12:35 | disposition home or self-care (01) ==
PROVIDERS: Visit Provider Nurse Practitioner Family
DX: R91.8 Other nonspecific abnormal finding of lung field (principal); J18.9 Pneumonia, unspecified organism
CPT/HCPCS: 71250

== ENCOUNTER 2024-04-27 11:05 | Outpatient (CLI) | payer MEDICARE, MEDICAID, SELFPAY | END 2024-04-27 11:06 | disposition home or self-care (01) | LOC: ANHLAB 11:08 | PROVIDERS: Visit Provider Nurse Practitioner Family | DX: J47.9 Bronchiectasis, uncomplicated (principal) | CPT/HCPCS: 87015; 87070; 87102; 87116; 87205; 87206 ==

== ENCOUNTER 2024-06-19 10:53 | Outpatient (CLI) | payer MEDICARE, MEDICAID, SELFPAY ==
[2024-06-19 11:38] LABS: Basophils Percent Auto 0.5 % (0.2-1.2); Eosinophils Percent Auto 0.6 % (0-4.4); Hematocrit 43.2 % (37.0-47.0); Hemoglobin 13.5 g/dL (12.0-15.0); Immature Granulocyte Absolute 0.01 K/mm3 (0.00-0.031); Immature Granulocyte Percent A 0.2 % (0-0.5); Lymphocytes Absolute Auto 1.79 K/mm3 (0.9-3.2); Lymphocytes Percent Auto 27.5 % (18.3-44.2); Mean Corpuscular HGB Conc 31.3 g/dl (32-36); Mean Corpuscular Volume 99.3 fl (80-100); Mean Platelet Volume 9.3 fl (7.4-10.4); Monocytes Absolute Auto 0.4 K/mm3 (0.1-0.6); Monocytes Percent Auto 5.8 % (2.6-8.5); Neutrophils Absolute Auto 4.3 K/mm3 (1.3-6.7); Neutrophils Percent Auto 65.4 % (45.5-73.1); Platelet Count Result 192 k/mm3 (150-375); Red Blood Count 4.35 M/mm3 (4.2-5.4); Red Cell Distribution Width 12.7 % (11.5-14.5); White Blood Count 6.5 K/mm3 (4.5-10.0)
[2024-06-19 11:50] LABS: Alanine Aminotransferase 15 U/L (6-35); Albumin Level 4.5 g/dL (3.5-5.1); Alkaline Phosphatase 82 U/L (38-126); Anion Gap 3 mmol/L (4-12); Aspartate Amino Transferase 27 U/L (14-36); Bilirubin,Total 0.5 mg/dL (0.2-1.3); Blood Urea Nitrogen 17 mg/dL (7-17); Calcium 9.8 mg/dL (8.4-10.2); Carbon Dioxide 36 mmol/L (22-30); Chloride 98 mmol/L (98-107); Estimated Glomerular Filt Rate > 60; Glucose 86 mg/dL (65-110); Potassium 4.9 mmol/L (3.4-5.0); Sodium 137 mmol/L (137-145)
[2024-06-19 12:52] LABS: Thyroid Stimulating Hormone Reflex 0.984 uIU/mL (0.465-4.68)
[2024-06-21 14:33] LABS: H pylori, Urea Breath DETECTED (NOT DETECTED)
== END 2024-06-19 10:54 | disposition home or self-care (01) ==
DX: R10.9 Unspecified abdominal pain (principal); R63.4 Abnormal weight loss
CPT/HCPCS: 36415; 80053; 83013; 84443; 85025

== ENCOUNTER 2024-07-15 09:53 | Outpatient (CLI) | payer MEDICARE, MEDICAID, SELFPAY ==
--- NOTE | ~2024-07-15 | CT_ITS ---
CT Scan of the Chest without Contrast: Clinical Indication: Bronchiectasis Technique: Contiguous sections were acquired throughout the chest without intravenous contrast. Dose reduction technique was used on this scan by utilizing automated exposure control and iterative recon struction technique. The dose-length product (DLP) was 156.99 mGy-cm. COMPARISON: 04/19/2024 Findings: There is no evidence of any significant mediastinal, hilar or axillary lymphadenopathy. Atherosclerot ic calcifications of the coronary arteries and aorta are present. There is no evidence of pleural or pericardial effusion. Stable emphysema with biapical scarring and right apical nodularity. Chronic atelectasis at the right lung apex/upper lobe is similar to prior exam. Scattered peripheral irregular right upper lobe nodul ar opacities are stable from prior exam, measuring less than 1 cm. Scattered additional irregular sub centimeter opacities and tree-in-bud nodules are also similar to prior exam. Bibasilar bronchiolectas is, especially right lower lobe, stable from prior exam. Images through the upper abdomen reveal no abnormalities. Impression: Stable emphysema and biapical scarring. Numerous scattered irregular pulmonary opacities and nodules are similar to prior exam. Bronchiolectasis, worst at the right lower lobe, stable from prior exam. Reviewed, dictated and finalized at [facility]. [employer] Impression: Stable emphysema and biapical scarring. Numerous scattered irregular pulmonary opacities and nodules are similar to demi or exam. Bronchiolectasis, worst at the right lower lobe, stable from prior exam.
== END 2024-07-15 09:54 | disposition home or self-care (01) ==
PROVIDERS: Visit Provider Nurse Practitioner Family
DX: J43.9 Emphysema, unspecified (principal); J98.4 Other disorders of lung; J47.9 Bronchiectasis, uncomplicated
CPT/HCPCS: 71250

== ENCOUNTER 2024-07-17 07:37 | Outpatient (CLI) | payer MEDICARE, MEDICAID, SELFPAY ==
--- NOTE | ~2024-07-17 | CT_ITS ---
CT of the Abdomen and Pelvis: Indication: Abdominal pain, weight loss Technique: 2.5 mm axial scans were obtained through the abdomen and pelvis following intravenous adm inistration of 100 cc of Omnipaque 350. Dose reduction technique was used on this scan by utilizing a utomated exposure control and iterative reconstruction technique. The dose-length product (DLP) was 4 38.35 mGy-cm. Findings: Scans through the lung bases demonstrate right lower lobe bronchiectatic change and minima l tree-in-bud opacities.. The liver, spleen, pancreas, gallbladder, adrenals and left kidney are within normal limits. Malrotat ion the right kidney noted. There are atherosclerotic calcifications of the aorta. No lymphadenopath y. No bowel obstruction or bowel wall thickening. Extensive stool suggests constipation. Images through the pelvis were performed. Urinary bladder unremarkable. No pelvic mass seen. Status p ost hysterectomy. No ascites. Impression: Constipation. Right lower lobe bronchiectatic change and minimal tree-in-bud opacities. Findings could reflect acut e on chronic small airways infection. Reviewed, dictated and finalized at location . [employer] Impression: Constipation. Right lower lobe bronchiectatic change and minimal tree-in-bud opacities. Findi ngs could reflect acute on chronic small airways infection.
== END 2024-07-17 07:38 | disposition home or self-care (01) ==
PROVIDERS: Visit Provider Nurse Practitioner
DX: J47.9 Bronchiectasis, uncomplicated (principal); R10.9 Unspecified abdominal pain; R63.4 Abnormal weight loss; K59.00 Constipation, unspecified
CPT/HCPCS: 74177; Q9967

== ENCOUNTER 2025-01-14 09:37 | Outpatient (CLI) | payer MEDICARE, MEDICAID, SELFPAY ==
--- NOTE | ~2025-01-14 | CT_ITS ---
CT Scan of the Chest without Contrast: Clinical Indication: Pulmonary nodule Technique: Contiguous sections were acquired throughout the chest without intravenous contrast. Dose reduction technique was used on this scan by utilizing automated exposure control and iterative recon struction technique. The dose-length product (DLP) was 75.16 mGy-cm. COMPARISON: 07/15/2024 Findings: There is no evidence of any significant mediastinal, hilar or axillary lymphadenopathy. There are ath erosclerotic calcifications of the aorta and coronary arteries. There is no evidence of pleural or pericardial effusion. There is extensive right apical scarring and more mild left apical scarring. Moderate emphysema in th e upper lobes again present. There are scattered areas of tree-in-bud opacity and areas of bronchiect atic change, right lung worse than left. Findings overall are similar to prior exam. Images through the upper abdomen reveal no abnormalities. Impression: Scattered tree-in-bud opacities and groundglass opacity with additional scattered bronchiectatic gaviria ges, right lung worse than left. Findings overall are similar to prior exam, most compatible with acu te on chronic small airways infection. Underlying moderate emphysema. Reviewed, dictated and finalized at location . Impression: Scattered tree-in-bud opacities and groundglass opacity with additional scatter ed bronchiectatic changes, right lung worse than left. Findings overall are sim ilar to prior exam, most compatible with acute on chronic small airways infecti on. Underlying moderate emphysema.
== END 2025-01-14 09:38 | disposition home or self-care (01) ==
PROVIDERS: Visit Provider Nurse Practitioner Family
DX: R91.8 Other nonspecific abnormal finding of lung field (principal); R91.1 Solitary pulmonary nodule
CPT/HCPCS: 71250

== ENCOUNTER 2025-02-21 00:09 | Day surgery (SDC) | payer MEDICARE, MEDICAID, SELFPAY ==
[2025-01-24 11:12] VITALS: BMI 23.5
--- NOTE | 2025-02-12 09:39 | PC.NURSE ---
James called this morning stating after finishing her bowel prep she was still having solid bowel movements. She will plan to reschedule at a later date with a two day prep.
--- NOTE | 2025-02-12 14:38 | PC.NURSE ---
James called and updated with new date/time of colonoscopy with a 2 day prep. Updated with new instructions.
--- NOTE | 2025-02-13 12:16 | PC.NURSE ---
2 DAY MIRALAX PREP EMAILED TO PATIENT, CALLED PT AND REVIEWED PREP WITH HER AND ANSWERED ALL QUESTIONS.
[2025-02-21 11:36] VITALS: BP 122/63; PULSE 89; RESP 22; TEMP 36.5; O2SAT 92
[2025-02-21] MEDS: LACTATED RINGERS 1,000 ML 150 ML IV CONT (11:46)
--- NOTE | 2025-02-21 12:04 | P.PNAN_ITS ---
Anes - Initial Pre Proc Eval Procedure: Operation Date: 02/21/25 12:30 Proposed Procedures p Screening Colonoscopy - Davian Hoffman MD Date/Time: 02/21/25 12:04 Surgeon: Davian Hoffman MD Pre Op Diagnosis: neoplasm screening Patient Data Age: 69 Gender: F Height: 1.7 m Weight: 66.4 kg Last Vital Signs Temp 36.5 C 02/21/25 11:36 Pulse 89 02/21/25 11:36 Resp 22 H 02/21/25 11:36 BP 122/63 02/21/25 11:36 Pulse Ox 92 02/21/25 11:36 O2 Del Method Nasal Cannula 02/21/25 11:36 O2 Flow Rate 6 02/21/25 11:36 Allergies Allergy/AdvReac Type Severity Reaction Status Date / Time No Known Allergies Allergy Verified 02/21/25 11:33 Home Medications ?Medication ?Instructions ?Recorded ?Confirmed ?Type albuterol sulfate 90 mcg/actuation 1 puff inhalation Q4H PRN 08/29/19 01/24/25 History aerosol inhaler (Ventolin HFA) Shortness Of Breath aspirin 81 mg tablet,delayed 81 mg PO DAILY 09/02/19 02/21/25 History release (Adult Aspirin Regimen) amitriptyline 25 mg tablet 25 mg PO HS #30 tabs 05/08/20 02/21/25 Rx atorvastatin 10 mg tablet 10 mg PO DAILY 07/18/20 02/21/25 History ensifentrine 3 mg/2.5 mL See Rx Instructions .Route 07/03/24 02/21/25 Rx suspension for nebulization .COMPLEX #180 mL (Ohtuvayre) lactulose 20 gram/30 mL oral 20 g (30 mL) PO BID #1,500 mL 07/17/24 01/24/25 Rx solution arformoterol 15 mcg/2 mL solution See Rx Instructions .Route 08/08/24 02/21/25 Rx for nebulization .COMPLEX #60 ea ipratropium bromide 0.02 % See Rx Instructions .Route 08/08/24 01/24/25 Rx solution for inhalation .COMPLEX #120 ea benzonatate 200 mg capsule 200 mg PO TID PRN cough #90 caps 10/04/24 01/24/25 Rx Patient hx anesthesia problems: none Family hx anesthesia problems: none Results Review: All pre-operative results and documents have been reviewed as part of the pre- operative evaluation. [facility] Past Medical History Medical History JAYLA on CPAP Hyperlipidemia type II Stroke On home oxygen therapy Chronic respiratory failure with hypoxia and hypercapnia Degenerative disc disease Osteoarthritis Chronic obstructive pulmonary disease Anxiety Surgical History Surgical History History of bilateral tubal ligation History of hysterectomy (1988) History of section (1984) Family History Family History Mother Diabetes mellitus Hypertension Sibling Hypertension Asthma Diabetes mellitus Son Drug overdose Father Alcoholism Motor vehicle accident Ran over and then Social History Social History Social History: The patient lives with her ex- and they maintain a friendly relationship. They had 3 sons together, 1 who unfortunately from a drug overdose. She smoked about a pack of cigarettes a day for at least 30 years before quitting. She denies alcohol and illicit substance abuse. She designates her son Alex Barrett as her surrogate decision maker.gas statio accenda full code. Smoking packs per day: 1 Smoking cigarettes per day: 20.0 Smoking status: Current every day smoker Tobacco type: cigarettes Additional smoking assessment comments: Now smoking 3 cigs/day. Alcohol intake: never Substance use: never Substance use type: does not use Lack of Transportation: No Lack of Food: Never True Current Housing: I Have Housing Concerned About Future Housing: No Difficulty Paying Gas/Electric Bills: No Difficulty Paying for Meds: No Currently Unemployed: No Education: Grade School Difficulty w/ Childcare or Family Care: No Living arrangements: alone Spiritual care concerns: No Agree to blood products: Yes Anes - Eval Final PreProcedure Day of Procedure 02/21/25 12:04 Patient weight: normal Heart: regular rate and rhythm Lungs: decreased breath sounds Airway: Mallampati scale class II Neurological: alert and oriented Last oral intake: >/= 8 hours ASA classification: IV Emergent: no Anesthetic plan: proceed Anesthesia type and monitoring: general GIVS and standard monitoring Results Review: All pre-operative results and documents have been reviewed as part of the pre- operative evaluation. Informed Consent: The patient's anesthetic plan and its attendant risks and benefits were discussed with the patient/family/POA. Questions were solicited and answers provided to the satisfaction of the patient/family/POA.
--- NOTE | 2025-02-21 12:26 | PM.IMHP ---
H&P: [facility] History of Present Illness Date/Time: 02/21/25 12:26 Chief Complaint: Weight loss -constipation Narrative: for the past 2 months, the patient experiencing a change in her bowel habits, now being constipated. In addition she has lost more than 25 lb 2. She had multiple adenomas and sessile serrated polyps 3 years ago. She is referred for colonoscopy. Review of Systems Review of Systems: All systems reviewed & are unremarkable except as noted in HPI and below PMFSH Past Medical History Medical History JAYLA on CPAP Hyperlipidemia type II Stroke On home oxygen therapy Chronic respiratory failure with hypoxia and hypercapnia Degenerative disc disease Osteoarthritis Chronic obstructive pulmonary disease Anxiety Surgical History Surgical History History of bilateral tubal ligation History of hysterectomy (1988) History of section (1984) Family History Family History Mother Diabetes mellitus Hypertension Sibling Hypertension Asthma Diabetes mellitus Son Drug overdose Father Alcoholism Motor vehicle accident Ran over and then Social History Social History Social History: The patient lives with her ex- and they maintain a friendly relationship. They had 3 sons together, 1 who unfortunately from a drug overdose. She smoked about a pack of cigarettes a day for at least 30 years before quitting. She denies alcohol and illicit substance abuse. She designates her son Alex Barrett as her surrogate decision maker.gas statio accenda full code. Smoking packs per day: 1 Smoking cigarettes per day: 20.0 Smoking status: Current every day smoker Tobacco type: cigarettes Additional smoking assessment comments: Now smoking 3 cigs/day. Alcohol intake: never Substance use: never Substance use type: does not use Lack of Transportation: No Lack of Food: Never True Current Housing: I Have Housing Concerned About Future Housing: No Difficulty Paying Gas/Electric Bills: No Difficulty Paying for Meds: No Currently Unemployed: No Education: Grade School Difficulty w/ Childcare or Family Care: No Living arrangements: alone Spiritual care concerns: No Agree to blood products: Yes Meds Home Medications and Allergies Home Medications ?Medication ?Instructions ?Recorded ?Confirmed ?Type albuterol sulfate 90 mcg/actuation 1 puff inhalation Q4H PRN 08/29/19 01/24/25 History aerosol inhaler (Ventolin HFA) Shortness Of Breath aspirin 81 mg tablet,delayed 81 mg PO DAILY 09/02/19 02/21/25 History release (Adult Aspirin Regimen) amitriptyline 25 mg tablet 25 mg PO HS #30 tabs 05/08/20 02/21/25 Rx atorvastatin 10 mg tablet 10 mg PO DAILY 07/18/20 02/21/25 History ensifentrine 3 mg/2.5 mL See Rx Instructions .Route 07/03/24 02/21/25 Rx suspension for nebulization .COMPLEX #180 mL (Ohtuvayre) lactulose 20 gram/30 mL oral 20 g (30 mL) PO BID #1,500 mL 07/17/24 01/24/25 Rx solution arformoterol 15 mcg/2 mL solution See Rx Instructions .Route 08/08/24 02/21/25 Rx for nebulization .COMPLEX #60 ea ipratropium bromide 0.02 % See Rx Instructions .Route 08/08/24 01/24/25 Rx solution for inhalation .COMPLEX #120 ea benzonatate 200 mg capsule 200 mg PO TID PRN cough #90 caps 10/04/24 01/24/25 Rx Allergies Allergy/AdvReac Type Severity Reaction Status Date / Time No Known Allergies Allergy Verified 02/21/25 11:33 Vital Signs Vital Signs - 24 hr 02/21/25 11:36 Temperature 97.7 F Pulse Rate 89 Respiratory Rate 22 H Blood Pressure 122/63 Pulse Oximetry 92 Oxygen Delivery Nasal Cannula Oxygen Flow Rate 6 Exam Const: General: cooperative and healthy appearing Resp: Effort & Inspection: normal respiratory effort and able to speak in complete sentences Auscultation: clear to auscultation bilaterally Cardio: Rate: regular rate Rhythm: regular rhythm GI: Inspection: normal to inspection GI Palp: No No hepatosplenomegaly present Auscultation: normal bowel sounds Rectal Exam: deferred Skin: General skin exam: normal color Psych: Appearance: grossly normal Mental Status: mental status grossly normal Assessment and Plan Assessment and plan (1) Change in bowel habit: Code(s): R19.4 - Change in bowel habit Status: Acute Assessment and Plan: The patient is deemed a good candidate for the procedure. Consent signed. Will proceed.
--- NOTE | 2025-02-21 12:50 | S_PTH ---
PATIENT: James Barrett LOC: [facility]#:[id number] AGE/SX: 69/F ROOM: RE02/21/[address]: Davian Hoffman MD : [id number] BED: DIS: 02/21/2025 SPEC #: [id number] RECD: 02/21/25 13:29 STATUS: CONNIE REAngelica #: [id number] EVER: 02/21/25 12:[address]: Davian Hoffman DEPT: [facility] Surgical RECD BY: Lo Coughlin MLT, ([facility]) Tissues: A - Colon Polypectomy Procedures: Hematoxylin and Eosin Stain Gross and Microscopic Level 4
[2025-02-21 12:52] VITALS: BP 122/63; PULSE 78; RESP 20; O2SAT 96
[2025-02-21 13:02] VITALS: BP 124/60; PULSE 89; RESP 20; O2SAT 94
[2025-02-21 13:12] VITALS: PULSE 80; RESP 24; O2SAT 96
== END 2025-02-21 13:27 | disposition home or self-care (01) ==
PROVIDERS: Referring Provider Internal Medicine Gastroenterology; Visit Provider Internal Medicine Gastroenterology
PROC: 0DJD8ZZ Inspection of Lower Intestinal Tract, Via Natural or Artificial Opening Endoscopic (ICD-10-PCS; CPT 45378; principal; 2025-02-21 12:30)
DX: R63.4 Abnormal weight loss (principal); K63.5 Polyp of colon; K57.30 Diverticulosis of large intestine without perforation or abscess without bleeding; K64.8 Other hemorrhoids; J96.12 Chronic respiratory failure with hypercapnia; J96.11 Chronic respiratory failure with hypoxia; J44.9 Chronic obstructive pulmonary disease, unspecified; F17.210 Nicotine dependence, cigarettes, uncomplicated; Z68.22 Body mass index [BMI] 22.0-22.9, adult
CPT/HCPCS: 45385; 88305; J2003; J2704; J7120